=== PATIENT | male | born 1955 | race Caucasian/White ===

== ENCOUNTER 2018-03-26 19:47 | Emergency (ER) | payer MEDICAID, SELFPAY ==
[2018-03-26 19:48] VITALS: BP 173/92; PULSE 113; RESP 15; TEMP 37.9; O2SAT 96; BMI 25.9
--- NOTE | 2018-03-26 20:40 | RAD_ITS ---
STUDY: X-RAY CHEST REASON FOR EXAM: Male, 62 years old. Cough with fever. TECHNIQUE: Frontal and lateral views of the chest. COMPARISON: February 05, 2015 FINDINGS: The lungs are hyperexpanded and there is scarring at both bases. There is no demonstrated pleural abnormality. There is cardiomegaly with sternotomy wires unchanged. Normal mediastinum and sara. Normal visualized pulmonary arteries. Normal visualized aortic arch and descending thoracic aorta. Normal visualized thoracic spine. Normal visualized ribs, clavicles, and shoulders. There is no demonstrated abnormality of the visualized soft tissue structures of the upper abdomen. RAD/Chest PA and Lateral IMPRESSION: Stable cardiomegaly with hyperexpansion. No significant new or acute pathology. Electronically Signed: Viet Ricks MD at 21:06 EDT , Service support ,
[2018-03-26 20:58] VITALS: PULSE 107; RESP 23; TEMP 38.4; O2SAT 95
[2018-03-26 21:08] LABS: Absolute Lymphocyte Count 0.79 X10^3/ul (0.83-4.51); Absolute Neutrophil Count 16.1 X10^3/uL (2.0-7.7); Basophil# 0.01 X10^3/uL; Basophil% 0.1 % (0-1); Eosinophil# 0.11 X10^3/uL; Eosinophils% 0.6 % (0-5); Hematocrit 35.4 % (40-54); Hemoglobin 10.8 g/dl (13.0-16.5); Lymphocyte # 0.79 X10^3/ul (4.0); Lymphocyte % 4.4 % (19-41); Mean Corp Hgb Conc 30.5 g/gl (32-36); Mean Corpuscular Hgb 27.8 pg (27.0-32.0); Mean Corpuscular Volume 91.2 fL (80-94); Mean Platelet Vol. 8.9 fl (6.2-12.0); Monocyte# 0.91 X10^3/uL; Monocyte% 5.1 % (0-10); Neutrophil # 16.13 X10^3/uL (2.7-7.7); Neutrophil % 89.7 % (47-70); Platelet Count 298 K/mm3 (150-450); RBC Distribution Width CV 17.1 % (11.6-14.6); RBC Distribution Width SD 56.8 fl (35.1-43.9); Red Blood Count 3.88 M/mm3 (4.6-6.2)
[2018-03-26 21:09] LABS: POSITIVE COUNT NO; POSITIVE DIFFERENTIAL NO; POSITIVE MORPHOLOGY NO
[2018-03-26] MEDS: Acetaminophen 325 MG Tablet 650 MG PO (21:10)
[2018-03-26 21:19] LABS: Anion Gap 10 (5-15); BUN 20 mg/dL (7-18); BUN/Creat Ratio 23.8 RATIO (10-20); Calcium,Total 9.1 mg/dL (8.5-10.1); Chloride 106 mmol/L (98-107); Creatinine, Serum 0.84 mg/dL (0.70-1.30); EST Glomerular Filtration Rate 97 mL/min (>60); Est Glom Filt Rate - Afr Amer 118 mL/min (>60); Estimated Creatinine Clearance 91.73 ml/min; Glucose 105 mg/dL (74-106); Potassium 3.9 mmol/L (3.5-5.1); Sodium Level 138 mmol/L (136-145)
[2018-03-26 21:37] LABS: Lactic Acid 0.8 mmol/L (0.4-2.0)
[2018-03-26 22:07] VITALS: PULSE 98; RESP 26; O2SAT 94
--- NOTE | 2018-03-26 22:26 | ED.DCSUM_ITS ---
- ER Visit Summary Date of Service: 03/26/18 Chief Complaint: Fever, chills right-sided jaw pain History of Present Illness: The patient is a 62 M who presents with right-sided jaw and teeth pain for the past 2-3 days. He reports fever and chills today. He has had temperature documented to 101 degrees at home. He denies headache. He denies any visual, ocular auditory symptoms. He denies photophobia or stiffness of his neck or neck pain. He denies trouble with speech or swallowing. He has not noted change in voice. He denies any cardiac symptoms. He is status post bypass surgery January of this year and this was complicated by pericardial effusion requiring additional surgery. He does have a cough which is nonproductive. He is a former smoker. He denies nausea, vomiting or diarrhea. He denies dysuria, frequency, urgency or hematuria. He denies any skin lesions or rash over incision site. Past medical history coronary disease, hypertension, hypercholesteremia, CML and peripheral arterial disease. Most recent white count was 6.9 approximately 14 months ago. Physical Examination: Vital signs noted and blood pressure is 172/92, temperature 101.1, heart rate 107 and respiratory 27. Pulse ox 95% on room air. HEENT is remarkable poor dentition right lower molars and bicuspids. There is pain to palpation of the mandible. There are shotty submandibular nodes noted. Trachea is midline. There is no stridor with auscultation. There is no trismus. There is no evidence of Rodney's angina. Heart is rapid and regular without murmur, gallop or rub. Lungs reveal end inspiratory rales most likely secondary to COPD. Abdomen soft nontender. There is no asymmetry, swelling, discoloration, leg vein distention, palpable cords or tenderness along the distribution of the deep venous system. Neuro exam is nonfocal. Test Results: EKG reveals a sinus rhythm rate of 105 with left axis. [place] interval, QRS duration and QT interval are normal. White count is 18,000 with 89 segs no bands. Lactate is normal. Two-view chest x-ray interpreted by me as chronic changes with hyperaeration and no evidence of infiltrate, effusion or pneumothorax. Emergency Department Course and Treatment: Blood cultures were obtained and workup for sepsis was undertaken. Because he has a cough and rales were noted on auscultation chest x-ray was obtained. Treatment Plan: 900 mg of clindamycin IV piggyback and prescription for clindamycin 300 mg 4 times daily. Patient states his pharmacy does not open until Wednesday therefore a 24-hour supply of clindamycin was dispensed. Disposition: Discharge to home with outpatient dental follow-up Impression: 1. Dental pain secondary to apical abscess 2. Sepsis 3. Anemia nonspecified 4. History coronary disease 5. History of hypertension 6. History of hyperlipidemia 7. History of CML This note was generated with [employer] dictation software. It may contain incorrect words, spelling, and punctuation that were not noted in review of the chart prior to signing ED Disposition - Plan for ED Patient: Disposition: Home or Assisted Living Chief Complaint: Fever Instructions: ED Abscess Dental Prescriptions: Oxycodone HCl/Acetaminophen [Percocet 5/325] 1 tablet PO Q6H PRN PRN 3 Days #12 tablet PRN Reason: Pain Clindamycin HCl [Cleocin] 300 mg PO Q6H #28 capsule Referrals: Tripp Russell MD [Primary Care Provider] - Additional Instructions: Take medication as prescribed. Your prescriptions were electronically transmitted to [facility] located in [facility]. Return if you have facial swelling, change in voice, difficulty swallowing or any concerns. You need to follow-up with a dentist this coming week.
[2018-03-26] MEDS: oxyCODONE 5 MG Tablet PO (23:22)
[2018-03-26] MEDS: Clindamycin HCl 150 MG Capsule 1200 MG PO (23:23)
[2018-03-26 23:27] VITALS: BP 145/77; PULSE 92; RESP 19; O2SAT 95
--- NOTE | 2018-03-26 23:28 | ED.RN ---
pt given written and verbal discharge instructions and home going prescriptions. pt educated on home packs and electronic prescriptions. educated not to drive when taking oxyir. pt verbalizes understanding. iv d/c and covered with 4x4 gauze dressing and paper tape. pt dresses self and ambulates out of dept with family member.
== END 2018-03-26 23:33 | disposition home or self-care (01) ==
PROVIDERS: Emergency Provider Emergency Medicine; Family Provider Family Medicine; PCP Family Medicine
DX: A41.9 Sepsis, unspecified organism (principal); K04.7 Periapical abscess without sinus; I25.10 Atherosclerotic heart disease of native coronary artery without angina pectoris; I10 Essential (primary) hypertension; E78.00 Pure hypercholesterolemia, unspecified; D64.9 Anemia, unspecified; I73.9 Peripheral vascular disease, unspecified; Z79.82 Long term (current) use of aspirin; Z79.899 Other long term (current) drug therapy; Z85.6 Personal history of leukemia; Z95.1 Presence of aortocoronary bypass graft
CPT/HCPCS: 36415; 71046; 80048; 83605; 85025; 87040; 96365; 96366; 99285; J7040

== ENCOUNTER 2018-09-13 15:55 | Emergency (ER) | payer MEDICAID, SELFPAY ==
[2018-09-13 15:56] VITALS: BP 173/91; PULSE 87; RESP 12; TEMP 36.4; O2SAT 95; BMI 28.3
[2018-09-13 16:04] VITALS: BP 175/95; PULSE 87; RESP 15; O2SAT 98
--- NOTE | 2018-09-13 16:09 | EKG12_ITS ---
Test Reason : CP Blood Pressure : / mmHG Vent. Rate : 083 BPM Atrial Rate : 083 BPM P-R Int : 186 ms QRS Dur : 086 ms QT Int : 380 ms P-R-T Axes : 048 014 050 degrees QTc Int : 446 ms Normal sinus rhythm Normal ECG Confirmed by ADIN BARBOUR, DAVID ([id number]), publications editor JENNIFER BENJMAIN ([id number]) on 09/15/2018 1:05:09 PM Referred By: ROSEMARY Confirmed By:DAVID OAKLEY MD
--- NOTE | 2018-09-13 16:13 | RAD_ITS ---
STUDY: X-RAY CHEST REASON FOR EXAM: Male, 62 years old. Chest and left arm pain TECHNIQUE: Single AP portable view of the chest. COMPARISON: Prior study of 03/26/2018 FINDINGS: school lunch monitor leads are seen. The lungs are clear and expanded. There is no demonstrated pleural abnormality. The heart size is within normal limits. Status post sternotomy changes are present. Normal mediastinum and sara. Normal visualized pulmonary arteries. There are calcified plaques of the aortic arch. There are diffuse degenerative changes of the visualized thoracic spine. Normal visualized ribs, clavicles, and shoulders. There is no demonstrated abnormality of the visualized soft tissue structures of the upper abdomen. RAD/Chest 1 View (Portable) IMPRESSION: Status post sternotomy. Calcified plaques of the aortic arch. Degenerative changes of the thoracic spine. No acute cardiopulmonary disease process is seen. Electronically Signed: Danilo Bains MD at 17:00 EDT , Service support ,
[2018-09-13 16:16] VITALS: O2SAT 96
[2018-09-13 16:19] LABS: Absolute Lymphocyte Count 1.73 X10^3/ul (0.83-4.51); Absolute Neutrophil Count 5.7 X10^3/uL (2.0-7.7); Basophil# 0.02 X10^3/uL; Basophil% 0.2 % (0-1); Eosinophil# 0.22 X10^3/uL; Eosinophils% 2.6 % (0-5); Hematocrit 43.1 % (40-54); Hemoglobin 14.7 g/dl (13.0-16.5); Lymphocyte # 1.73 X10^3/ul (4.0); Lymphocyte % 20.5 % (19-41); Mean Corp Hgb Conc 34.1 g/gl (32-36); Mean Corpuscular Hgb 29.2 pg (27.0-32.0); Mean Corpuscular Volume 85.7 fL (80-94); Mean Platelet Vol. 9.6 fl (6.2-12.0); Monocyte# 0.73 X10^3/uL; Monocyte% 8.6 % (0-10); Neutrophil # 5.73 X10^3/uL (2.7-7.7); Neutrophil % 67.9 % (47-70); Platelet Count 217 K/mm3 (150-450); RBC Distribution Width CV 14.5 % (11.6-14.6); RBC Distribution Width SD 45.2 fl (35.1-43.9); Red Blood Count 5.03 M/mm3 (4.6-6.2); White Blood Count 8.5 K/mm3 (4.4-11.0)
[2018-09-13 16:21] LABS: POSITIVE COUNT NO; POSITIVE DIFFERENTIAL NO; POSITIVE MORPHOLOGY NO
[2018-09-13] MEDS: Aspirin 81 MG TAB.CHEW 324 MG PO (16:23)
[2018-09-13 17:15] LABS: Anion Gap 6 (5-15); BUN 14 mg/dL (7-18); BUN/Creat Ratio 12.8 RATIO (10-20); Calcium,Total 8.7 mg/dL (8.5-10.1); Chloride 105 mmol/L (98-107); Creatinine, Serum 1.09 mg/dL (0.70-1.30); EST Glomerular Filtration Rate 72 mL/min (>60); Est Glom Filt Rate - Afr Amer 87 mL/min (>60); Estimated Creatinine Clearance 70.69 ml/min; Glucose 139 mg/dL (74-106); Potassium 3.7 mmol/L (3.5-5.1); Sodium Level 135 mmol/L (136-145)
--- NOTE | 2018-09-13 17:59 | CASEMGMT ---
RN CM Assessment Introduced role of RN CM to patient.? Patient is alert, oriented and able?to participate in RN CM Assessment. ?Care providers, pharmacy, and demographics verified. Presentation: CP Re-Admit: No Barriers/Issues: None PCP: Tripp Russell Specialists: Onc- Evelyn Martin, Cardio- Dr Mckeon in [place]. States will switch to Dr Aguiar next week as insurance is changing. Preferred Pharmacy: [facility] Insurance: [employer] Benefit: Yes? ?LNOK: Girlfriend Kimberly Bribusalex LW/HPOA: Yes, HPOA- Girlfriend Kimberly [place] Living Arrangements:? Lives with girlfriend in a Home, 1 step to enter. ADL?s: Independent with ambulation and ADL's Transportation: Patient drives, drove to hospital and plans to drive on [place] DME: None HHC: None SNF: None Goal: Home DC PLAN: Home with no anticipated needs identified at this time. Solange Balderas RNCM
[2018-09-13 18:41] VITALS: BP 159/86; PULSE 77; RESP 18; O2SAT 96
[2018-09-13 19:00] VITALS: BP 150/77; PULSE 71; RESP 16; O2SAT 98
--- NOTE | 2018-09-13 19:03 | ED.VISSUMM ---
- ER Visit Summary Date of Service: 09/13/18 Chief Complaint: Chest pain History of Present Illness: The patient is a 62 M history of CAD with prior WI hypertension high cholesterol. Also intermittent A. fib. History of cardiac stents and prior quadruple bypass done at [facility] in January 2018. Patient states he gets intermittent sharp midsternal chest pain primarily with movement. Not associated with exertion nor any exertional shortness of breath. No history of DVT or PE. Today he had several episodes of sharp stabbing pain not associated with exertion and he thought he should get that evaluated. He does state that he has anxiety. He is currently on both Plavix and aspirin. He denies any nausea, diaphoresis or dyspnea associated with this sharp pain. Currently he is pain-free. Patient states he walks quite a bit and has had no recent exertional chest pain or dyspnea with walking. Physical Examination: Vital signs are stable. Blood pressure 175/95. Pulse ox 96% on room air no signs of hypoxia. HEENT exam unremarkable. Neck nontender no lymphadenopathy. Lungs clearbilaterally. Heart regular rate and rhythm no murmur. Rate about 80. Abdomen soft nontender normal bowel sounds no peritoneal signs. Chest wall nontender, no reproducible chest wall pain. No ecchymosis or bruising. Well-healed sternotomy incision. Extremities moves all 4. Calves nontender. Equal symmetrical radial pulses. 5 out of 5 music typographer strength. Dorsi plantar flexion intact. Neurologically is awake alert with no focal motor deficits. Test Results: CBC normal. Hemoglobin 14. Chemistries unremarkable. Troponin normal. EKG sinus rhythm rate of 83 with no acute signs of WI or ischemia. Portable chest x-ray shows well-healed sternotomy. Chronic changes no acute process. Emergency Department Course and Treatment: Repeat exam patient is doing well at 1902. He is symptom-free. He and I discussed all his test results. He wants to be discharged home. He will follow-up with his air traffic control manager from [place]. He knows to return if feeling worse. Treatment Plan: Continue his current medications. Follow-up with his air traffic control manager. Disposition: Discharge Impression: Chest pain uncertain etiology felt to be noncardiac History of CAD, cardiac stents and prior CABG. This note was generated with [employer] dictation software. It may contain incorrect words, spelling, and punctuation that were not noted in review of the chart prior to signing ED Disposition - Plan for ED Patient: Referrals: Tripp Russell MD [Primary Care Provider] -
--- NOTE | 2018-09-13 19:08 | ED.DCSUM_ITS ---
- ER Visit Summary Date of Service: 09/13/18 Chief Complaint: Chest pain History of Present Illness: The patient is a 62 M history of CAD with prior [place] hypertension high cholesterol. Also intermittent A. fib. History of cardiac stents and prior quadruple bypass done at [facility] in January 2018. Ruby treviño states he gets intermittent sharp midsternal chest pain primarily with movement. Not associated with exertion nor any exertional shortness of breath. No history of DVT or PE. Today he had several episodes of sharp stabbing pain not associated with exertion and he thought he should get that evaluated. He does state that he has anxiety. He is currently on both Plavix and aspirin. He denies any nausea, diaphoresis or dyspnea associated with this sharp pain. Currently he is pain-free. Patient states he walks quite a bit and has had no recent exertional chest pain or dyspnea with walking. Physical Examination: Vital signs are stable. Blood pressure 175/95. Pulse ox 96% on room air no signs of hypoxia. HEENT exam unremarkable. Neck nontender no lymphadenopathy. Lungs clearbilaterally. Heart regular rate and rhythm no murmur. Rate about 80. Abdomen soft nontender normal bowel sounds no peritoneal signs. Chest wall nontender, no reproducible chest wall pain. No ecchymosis or bruising. Well-healed sternotomy incision. Extremities moves all 4. Calves nontender. Equal symmetrical radial pulses. 5 out of 5 spa concierge strength. Dorsi plantar flexion intact. Neurologically is awake alert with no focal motor deficits. Test Results: CBC normal. Hemoglobin 14. Chemistries unremarkable. Troponin normal. EKG sinus rhythm rate of 83 with no acute signs of NH or ischemia. Portable chest x-ray shows well-healed sternotomy. Chronic changes no acute process. Emergency Department Course and Treatment: Repeat exam patient is doing well at 1902. He is symptom-free. He and I discussed all his test results. He wants to be discharged home. He will follow-up with his electric stove installer from [place]. He knows to return if feeling worse. Treatment Plan: Continue his current medications. Follow-up with his electric stove installer. Disposition: Discharge Impression: Chest pain uncertain etiology felt to be noncardiac History of CAD, cardiac stents and prior CABG. This note was generated with [employer] dictation software. It may contain incorrect words, spelling, and punctuation that were not noted in review of the chart prior to signing ED Disposition - Plan for ED Patient: Referrals: Tripp Russell MD [Primary Care Provider] -
--- NOTE | 2018-09-13 19:09 | DCINST.ED_ITS ---
ED Disposition - Plan for ED Patient: Disposition: Home or Assisted Living Instructions: ED Chest Pain Atypical Unkn Cause Additional Instructions: Continue your current medications. Call follow-up with your public aid eligibility assistant. Return if you are feeling worse such as chest heaviness or exertional chest pain or exertional shortness of breath. I do not feel that your chest pain today was cardiac in etiology.
[2018-09-13 19:16] VITALS: BP 150/77; PULSE 71; RESP 16; O2SAT 98
== END 2018-09-13 19:16 | disposition home or self-care (01) ==
PROVIDERS: Emergency Provider Emergency Medicine; Family Provider Family Medicine; PCP Family Medicine
DX: R07.9 Chest pain, unspecified (principal); I25.10 Atherosclerotic heart disease of native coronary artery without angina pectoris; I48.91 Unspecified atrial fibrillation; I10 Essential (primary) hypertension; E78.00 Pure hypercholesterolemia, unspecified; I73.9 Peripheral vascular disease, unspecified; Z79.02 Long term (current) use of antithrombotics/antiplatelets; Z79.82 Long term (current) use of aspirin; Z79.899 Other long term (current) drug therapy; I25.2 Old myocardial infarction; Z87.891 Personal history of nicotine dependence; Z95.5 Presence of coronary angioplasty implant and graft; Z95.1 Presence of aortocoronary bypass graft
CPT/HCPCS: 71045; 80048; 84484; 85025; 93005; 99284; A4216

== ENCOUNTER → 2018-10-03 07:08 | Outpatient (CLI) | payer MEDICARE, OTHER, SELFPAY ==
[2018-09-28 12:47] VITALS: BMI 28.1
[2018-10-03 07:50] LABS: Cholesterol 151 mg/dL (200); High Density Lipoprotein 30 mg/dL; Triglycerides 145 mg/dL; Very Low Density Lipoprotein 29 mg/dL (5-40)
[2018-10-04 16:07] LABS: Alkaline Phosphatase, Serum 158 IU/L (39-117); Bone Fraction 16 % (12-68); Liver Fraction 82 % (13-88)
[2018-10-05 11:48] LABS: Intestinal Fraction 2 % (0-18)
== END ==
PROVIDERS: Family Provider Family Medicine; PCP Family Medicine; Referring Provider Family Medicine; Visit Provider Family Medicine
DX: E78.00 Pure hypercholesterolemia, unspecified (principal); R89.9 Unspecified abnormal finding in specimens from other organs, systems and tissues; Z53.20 Procedure and treatment not carried out because of patient's decision for unspecified reasons
CPT/HCPCS: 36415; 80061; 84075; 84080

== ENCOUNTER → 2018-10-27 07:50 | Outpatient (CLI) | payer MEDICARE, OTHER, SELFPAY ==
[2018-09-28 12:47] VITALS: BMI 28.1
--- NOTE | 2018-10-27 07:52 | ECHOD_ITS ---
Reason For Study: S/P CABG Procedure This was a 2D Doppler, Color Flow transthoracic echocardiogram. Myocardial strain analysis was performed in this exam to aid in the assessment of cardiac function. Exam performed in department. Left Ventricle Normal LV size. Left ventricular systolic function is normal. The estimated ejection fraction is 65 %. Stage 1 diastolic dysfunction. No regional wall motion abnormalities noted. Right Ventricle Normal RV size. Normal systolic function. Atria Normal left atrium. Normal right atrium. Mitral Valve There is moderate mitral annular calcification. Mild (1+) eccentric mitral valve insufficiency. Tricuspid Valve Normal tricuspid valve. Mild tricuspid valve insufficiency. Pulmonary artery systolic pressure is 28 mmHg. Aortic Valve Trisinus/trileaflet aortic valve. Pulmonic Valve Normal pulmonic valve. Great Vessels Normal aortic root. The pulmonary artery is normal size. Normal inferior vena cava. Pericardium/Pleural No pericardial effusion. MMode/2D Measurements & Calculations LVIDd: 4.8 cm IVSd: 0.90 cm Ao root diam: 3.5 cm LVIDs: 3.3 cm LVPWd: 0.93 cm RVDd: 3.5 cm FS: 30.7 % LAV(MOD-bp): 48.4 ml LVAd ap4: 29.3 cm2 SV(MOD-sp4): 49.8 ml LAV(MOD-bp) Indexed: 23.3 ml/m2 EDV(MOD-sp4): 82.0 ml LAV(MOD-sp2): 52.2 ml EDV(sp4-el): 85.4 ml LAV(MOD-sp4): 44.6 ml LVAs ap4: 16.0 cm2 ESV(MOD-sp4): 32.2 ml ESV(sp4-el): 31.8 ml EF(MOD-sp4): 60.7 % EF(sp4-el): 62.8 % SV(sp4-el): 53.7 ml LA A4 area: 18.0 cm2 LA dimension(2D): 3.7 cm RA A4 area: 14.3 cm2 Time Measurements MV dec time: 0.25 sec Doppler Measurements & Calculations MV E max chinedu: 131.7 cm/sec Lat Peak E' Chinedu: 8.9 cm/sec Med Peak E' Chinedu: 7.7 cm/sec MV A max chinedu: 169.3 cm/sec E/E' lat: 14.7 E/E' med: 17.2 MV E/A: 0.78 MV V2 max: 184.3 cm/sec MV P1/2t max chinedu: 119.0 cm/sec Ao V2 max: 122.7 cm/sec MV max P.6 mmHg MV P1/2t: 89.4 msec Ao max P.0 mmHg MV V2 mean: 117.7 cm/sec MV mean P.1 mmHg MV dec slope: 389.7 cm/sec2 MV V2 VTI: 42.6 cm MVA(P1/2t): 2.5 cm2 LV V1 max: 99.7 cm/sec PA V2 max: 103.8 cm/sec TR max chinedu: 247.9 cm/sec LV V1 max P.0 mmHg TR max P.6 mmHg MV P1/2t-pr_phl: 88.9 msec Interpretation Summary Normal LV size. Left ventricular systolic function is normal. The estimated ejection fraction is 65 %. Stage 1 diastolic dysfunction. Mild tricuspid valve insufficiency. The global longitudinal strain is normal. The global longitudinal strain = -24.4 % (normal). Ordering Physician: David Aguiar Referring Physician: CLAUDIA BELL Performed By: Radha Barry RDCS
== END ==
PROVIDERS: Family Provider Family Medicine; PCP Family Medicine; Referring Provider Internal Medicine Cardiovascular Disease; Visit Provider Internal Medicine Cardiovascular Disease
DX: I31.4 Cardiac tamponade (principal); I31.3 Pericardial effusion (noninflammatory); Z95.1 Presence of aortocoronary bypass graft
CPT/HCPCS: 93306

== ENCOUNTER 2018-12-16 08:38 | Emergency (ER) | payer MEDICARE, OTHER, SELFPAY ==
[2018-09-28 12:47] VITALS: BMI 28.1
[2018-12-16 08:39] VITALS: BP 162/92; PULSE 77; RESP 18; TEMP 36.6; O2SAT 98; BMI 28.1
[2018-12-16 08:46] VITALS: PULSE 76; RESP 15; O2SAT 98
--- NOTE | 2018-12-16 08:47 | EKG12_ITS ---
Test Reason : DIZZINESS Blood Pressure : / mmHG Vent. Rate : 075 BPM Atrial Rate : 075 BPM P-R Int : 206 ms QRS Dur : 088 ms QT Int : 380 ms P-R-T Axes : 059 -03 022 degrees QTc Int : 424 ms Normal sinus rhythm Low voltage QRS (limb leads) Borderline ECG Confirmed by DARIAN BARBOUR, LIZ ([id number]), communications editor BOBBY BEY ([id number]) on 12/19/2018 1:43:23 PM Referred By: RANDY Confirmed By:LIZ FARMER MD
--- NOTE | 2018-12-16 08:47 | CT_ITS ---
STUDY: CT BRAIN WITHOUT CONTRAST REASON FOR EXAM: Male, 63 years old. vertigo RADIATION DOSAGE (If Supplied By Facility): CTDIvol = ( 60.81 ) mGy, DLP = ( 1089.89 ) mGycm TECHNIQUE: Transaxial CT imaging of the brain was performed without administration of intravenous contrast material. Individualized dose optimization techniques were used for this CT. COMPARISON: No relevant priors. FINDINGS: Normal soft tissue structures. Normal calvarium. Normal size ventricles and extra-axial spaces for the patient's age. Normal white matter tracts of the cerebral hemispheres. Normal basal ganglia and thalami. Normal brainstem. Normal cerebellum. There is no intracranial hemorrhage. There are no findings of an acute ischemic infarction. Normal visualized paranasal sinuses. CT/Brain/Head without Contrast IMPRESSION: Normal unenhanced CT scan of the brain. Electronically Signed: Michelle Wasserman MD at 9:58 EDT Tel , Service support ,
--- NOTE | 2018-12-16 08:51 | ED.DCSUM_ITS ---
- ER Visit Summary Date of Service: 12/16/18 Chief Complaint: Dizziness History of Present Illness: The patient is a 63 M presents to the emergency department with dizziness that he describes as a sensation of motion. He states he has been having it intermittently for the past 2 weeks. He states today was much worse. He states when he got out of bed and leaned over, he got the acute onset of spinning sensation. He states he has had some sinus problems lately. He denies any change in speech. He denies any change in vision. He denies any trouble with gait. The patient does have a history of paroxysmal atrial fibrillation. He also has a history of leukemia and prior CABG. He denies any fevers or chills. He denies any headache. He has not found anything that improve the symptoms. Physical Examination: Vital signs reviewed General: Well-nourished, well-developed Head: Normocephalic, atraumatic Eyes: Pupils equal and reactive, extraocular muscles intact Neck, supple, no lymphadenopathy Heart: Regular rate and rhythm Respiratory: No distress, clear bilaterally Abdomen: Soft, nontender, nondistended, no peritoneal signs Back: Nontender Extremities: Nontender, no edema, no cords Skin: Normal color no rash Neuro: Alert and oriented, no focal or lateralizing deficits Test Results: [] Emergency Department Course and Treatment: The patient symptoms do seem most consistent with peripheral vertigo. He has a positive rapid impulse test. He has no ataxia. He has no difficulty for abnormal filling movements. He only has a symptoms with change in position. I did obtain a head CT which was unrema rkable. Patient was given fluids and meclizine. He had improvement of his symptoms. He has a normal steady gait. At this point, I do feel it is safe for outpatient therapy. Will be prescribed a short burst of prednisone and meclizine. He was counseled on concerning symptoms and reasons to return. He will be discharged home. Treatment Plan: [] Disposition: Discharge Impression: 1. Vertigo This note was generated with [employer] software. It may contain incorrect words, spelling, and punctuation that were not noted in review of the chart prior to signing ED Disposition - Plan for ED Patient: Instructions: VERTIGO, Unspecified Prescriptions: Prednisone [Deltasone] 40 mg PO DAILY #10 tab Prescription Printed Meclizine HCl 25 mg PO TID PRN PRN #20 tab PRN Reason: Dizziness Prescription Printed Referrals: Ramon Song DO [Primary Care Provider] -
[2018-12-16] MEDS: Meclizine HCl 25 MG Tablet PO (08:53)
[2018-12-16] MEDS: 0.9% Normal Saline 1,000 ML 1000 ML IV (08:58)
[2018-12-16 09:07] LABS: Absolute Lymphocyte Count 1.12 X10^3/ul (0.83-4.51); Absolute Neutrophil Count 4.9 X10^3/uL (2.0-7.7); Basophil# 0.02 X10^3/uL; Basophil% 0.3 % (0-1); Eosinophil# 0.26 X10^3/uL; Eosinophils% 3.9 % (0-5); Hematocrit 42.6 % (40-54); Hemoglobin 14.3 g/dl (13.0-16.5); Lymphocyte # 1.12 X10^3/ul (4.0); Lymphocyte % 16.7 % (19-41); Mean Corp Hgb Conc 33.6 g/gl (32-36); Mean Corpuscular Hgb 29.1 pg (27.0-32.0); Mean Corpuscular Volume 86.8 fL (80-94); Mean Platelet Vol. 9.1 fl (6.2-12.0); Monocyte# 0.44 X10^3/uL; Monocyte% 6.6 % (0-10); Neutrophil # 4.85 X10^3/uL (2.7-7.7); Neutrophil % 72.4 % (47-70); Platelet Count 146 K/mm3 (150-450); RBC Distribution Width CV 14.3 % (11.6-14.6); RBC Distribution Width SD 44.9 fl (35.1-43.9); Red Blood Count 4.91 M/mm3 (4.6-6.2); White Blood Count 6.7 K/mm3 (4.4-11.0)
[2018-12-16 09:09] LABS: POSITIVE COUNT NO; POSITIVE DIFFERENTIAL NO; POSITIVE MORPHOLOGY NO
[2018-12-16 09:21] LABS: ALB/GLOB Ratio 1.2 RATIO (0.9-2.4); AST(SGOT) 17 U/L (15-37); Alanine Aminotransfer ALT/SGPT 21 U/L (16-61); Albumin, Serum 4.3 g/dL (3.2-5.0); Alkaline Phosphatase 187 U/L (45-117); Anion Gap 8 (5-15); BUN 17 mg/dL (7-18); BUN/Creat Ratio 15.9 RATIO (10-20); Calcium,Total 9.7 mg/dL (8.5-10.1); Chloride 104 mmol/L (98-107); Creatinine, Serum 1.07 mg/dL (0.70-1.30); EST Glomerular Filtration Rate 74 mL/min (>60); Est Glom Filt Rate - Afr Amer 89 mL/min (>60); Estimated Creatinine Clearance 71.07 ml/min; Globulin 3.6 g/dL (2.2-4.2); Glucose 112 mg/dL (74-106); Protein, Total 7.9 g/dL (6.4-8.2); Sodium Level 138 mmol/L (136-145)
[2018-12-16 10:07] VITALS: BP 143/83; PULSE 70
--- NOTE | 2018-12-16 10:09 | ED.RN ---
IV DC'ED, CATHETER INTACT, SMALL GAUZE DRESSING PLACED. DISCHARGE INSTRUCTIONS GIVEN TO AND REVIEWED WITH PATIENT, PATIENT DENIES QUESTIONS OR CONCERNS AND VOICES UNDERSTANDING OF DISCHARGE INSTRUCTIONS. PT AMBULATES OUT OF ROOM WITHOUT DIFFICULTY.
== END 2018-12-16 10:09 | disposition home or self-care (01) ==
LOC: ED 09:01
PROVIDERS: Emergency Provider Emergency Medicine; Family Provider Family Medicine; PCP Family Medicine
DX: R42 Dizziness and giddiness (principal); I10 Essential (primary) hypertension; I48.0 Paroxysmal atrial fibrillation; Z79.02 Long term (current) use of antithrombotics/antiplatelets; Z79.82 Long term (current) use of aspirin; Z79.52 Long term (current) use of systemic steroids; Z79.899 Other long term (current) drug therapy; Z85.6 Personal history of leukemia; Z87.891 Personal history of nicotine dependence; Z95.1 Presence of aortocoronary bypass graft
CPT/HCPCS: 70450; 80053; 85025; 93005; 96360; 99285; J7030; A4216

== ENCOUNTER → 2019-01-26 12:09 | Outpatient (CLI) | payer MEDICARE, OTHER, SELFPAY ==
[2019-01-05 08:35] VITALS: BMI 29.2
[2019-01-26 13:17] LABS: Anion Gap 8 (5-15); BUN 21 mg/dL (7-18); BUN/Creat Ratio 14.4 RATIO (10-20); Calcium,Total 9.5 mg/dL (8.5-10.1); Chloride 101 mmol/L (98-107); Creatinine, Serum 1.46 mg/dL (0.70-1.30); EST Glomerular Filtration Rate 51 mL/min (>60); Est Glom Filt Rate - Afr Amer 62 mL/min (>60); Glucose 145 mg/dL (74-106); Potassium 3.5 mmol/L (3.5-5.1); Sodium Level 136 mmol/L (136-145)
== END ==
PROVIDERS: Family Provider Family Medicine; PCP Family Medicine; Referring Provider Physician Assistant Medical; Visit Provider Physician Assistant Medical
DX: I10 Essential (primary) hypertension (principal)
CPT/HCPCS: 36415; 80048

== ENCOUNTER → 2019-01-31 10:56 | Outpatient (CLI) | payer MEDICARE, OTHER, SELFPAY ==
[2019-01-05 08:35] VITALS: BMI 29.2
--- NOTE | 2019-01-31 10:58 | ART_ITS ---
Reason For Study: PAOD Procedure A bilateral lower extremity continuous wave Doppler with analog waveform analysis,segmental pressures,and ankle brachial indexes with exercise. Left Segmental Pressures Left brachial= 157mmHg. Left thigh = 163mmHg. Left calf = 114mmHg. Left posterior tibial artery = 105mmHg. Left dorsalis pedis artery = 95mmHg. The left dorsalis pedis waveforms are biphasic. The left posterior tibial artery waveforms are biphasic. Right Segmental Pressures Right brachial= 157mmHg. Right thigh = 175mmHg. Right calf = 111mmHg. Right posterior tibial artery = 93mmHg. Right dorsalis pedis artery = 116mmHg. The right dorsalis pedis waveforms are monophasic. The right posterior tibial artery waveforms are monophasic. Indices The right ankle brachial index by the dorsalis pedis is 0.74. The right ankle brachial index by the posterior tibial artery is 0.59. The right post exercise ankle brachial index is 0.30. The left ankle brachial index by the dorsalis pedis is 0.61. The left ankle brachial index by the posterior tibial artery is 0.67. The left post exercise ankle brachial index is 0.26. Interpretation Summary Moderately severe arterial occlusive disease bilateral lower extremities Findings suggested to be more noted on the right than the left. Significantly abnormal exercise response bilaterally with indices that drop into the severe range bilaterally. Ordering Physician: Thomas Islas Referring Physician: Ramon Song M.D. Performed By: Destiny Quintana RVT
== END ==
PROVIDERS: Family Provider Family Medicine; PCP Family Medicine; Referring Provider Surgery; Visit Provider Surgery
DX: I73.9 Peripheral vascular disease, unspecified (principal); I77.9 Disorder of arteries and arterioles, unspecified
CPT/HCPCS: 93924

== ENCOUNTER → 2019-02-09 08:56 | Outpatient (CLI) | payer MEDICARE, OTHER, SELFPAY ==
[2019-02-02 07:57] VITALS: BMI 29.2
--- NOTE | 2019-02-09 08:58 | CDU_ITS ---
Reason For Study: carotid bruit Rt. Velocities/BP Lt. Velocities/BP Prox CCA 66.9/17.3 cm/sec. Prox CCA 91.7/21.3 cm/sec. Mid CCA 68.2/18.6 cm/sec. Mid CCA 95.6/25.2 cm/sec. Dist CCA 69.5/14.7 cm/sec. Dist CCA 89.0/23.9 cm/sec. Prox ICA 76.0/20.0 cm/sec. Prox ICA 77.3/18.6 cm/sec. Mid ICA 76.0/29.1 cm/sec. Mid ICA 65.6/19.9 cm/sec. Dist ICA 85.6/28.8 cm/sec. Dist ICA 68.2/23.9 cm/sec. Rt. ICA/CCA = 1.3. Lt. ICA/CCA = .8. Prox ECA 69.5/13.4 cm/sec. Prox ECA 86.4/10.8 cm/sec. Rt. Vert. 40.4/13.3 cm/sec. Lt. Vert. 34.3/9.5 cm/sec. Right Extracranial There is heterogeneous, smooth atherosclerotic plaque noted in the right common carotid artery. There is heterogeneous, irregular atherosclerotic plaque noted in the right internal carotid artery. There is intimal thickening but no significant atherosclerotic plaque noted in the right external carotid artery. Antegrade flow is noted in the right vertebral artery. There is heterogeneous, irregular atherosclerotic plaque noted in the right bulb. Left Extracranial There is heterogeneous, irregular atherosclerotic plaque noted in the left common carotid artery. There is heterogeneous, irregular atherosclerotic plaque noted in the left internal carotid artery. There is intimal thickening but no significant atherosclerotic plaque noted in the left external carotid artery. Antegrade flow is noted in the left vertebral artery. Procedure Carotid Duplex [id number]. The exam was diagnostic. Exam performed in department. Interpretation Summary Mild calcific plague right proximal internal carotid with <50% stenosis. <50% stenosis right external carotid Mild calcific plague at the proximal left internal carotid with <50% stenosis. <50% stenosis left external carotid Patent and antegrade vertebrals bilaterally Ordering Physician: Thomas sIlas Performed By: Isiah Sharpe RVT
--- NOTE | 2019-02-09 08:58 | US_ITS ---
STUDY: ABDOMINAL ULTRASOUND - RIGHT UPPER QUADRANT REASON FOR VISIT: Male, 63 years old. Abdominal pain TECHNIQUE: Ultrasound evaluation of the right upper quadrant was performed with real-time and static thomas-scale imaging. TECHNICAL QUALITY: Adequate. COMPARISON: None. FINDINGS: Liver: The liver measures 15.9 cm. There is normal echogenicity of the liver. The bile ducts are within normal limits. There is hepatic color flow. The direction of portal flow is hepatopetal. Echogenic focus right liver measuring 21 x 26 x 14 mm, sharply circumscribed margins, possible hemangioma, incompletely characterized on ultrasound. Gallbladder: Normal distended gallbladder. The gallbladder wall measures 3.3 mm. There is a negative sonographic Cruz's sign. There is no pericholecystic fluid. There are no gallstones. Common Bile Duct (C.B.D.): The common bile duct measures 5.3 mm. Pancreas: Obscured. Right Kidney: Normal size of the right kidney. The right kidney measures 12.2 cm. Normal renal cortex. The right cortex measures 1.7 cm. There is no demonstrated renal mass or cyst. There is no right hydronephrosis. US/Gallbladder IMPRESSION: Mild gallbladder wall thickening without any other secondary sonographic features of cholecystitis. No cholelithiasis. Nondilated biliary tree. 21 x 26 x 14 mm echogenic focus within the right liver, favoring hemangioma, incompletely characterized on ultrasound. Follow-up complete characterization with multiphase contrast-enhanced MRI or CT of the liver, hemangioma/mass protocol. Electronically Signed: Saad Bullard MD at 12:15 EDT Tel , Service support ,
== END ==
PROVIDERS: Family Provider Family Medicine; PCP Family Medicine; Referring Provider Surgery; Visit Provider Surgery
DX: I77.9 Disorder of arteries and arterioles, unspecified (principal); R09.89 Other specified symptoms and signs involving the circulatory and respiratory systems; R10.13 Epigastric pain
CPT/HCPCS: 76705; 93880

== ENCOUNTER → 2019-02-22 08:33 | Outpatient (CLI) | payer MEDICARE, OTHER, SELFPAY ==
[2019-02-02 07:57] VITALS: BMI 29.2
--- NOTE | 2019-02-22 08:36 | MRI_ITS ---
STUDY: MRI ABDOMEN WITH AND WITHOUT CONTRAST REASON FOR EXAM: Male, 63 years old. Abnormal ultrasound TECHNIQUE: Standardized fat and water weighted pulse sequences were obtained in all 3 orthogonal planes post contrast administration. 19 IV Dotarem was administered for the contrast portion of the examination. COMPARISON: Ultrasound dated February 09, 2019 FINDINGS: The visualized lung bases are unremarkable. The visualized portions of the heart are within normal limits. Liver is unremarkable. The previously noted lesion on ultrasound is not clearly identified on this study. No discrete hepatic lesion is noted. Normal gallbladder and extrahepatic biliary system. Normal spleen. Normal pancreas. Normal bilateral adrenal glands. Normal right kidney. Normal left kidney. Normal visualized stomach. Normal small intestine. Normal colon. The appendix is visualized and appears normal. There is diffuse atherosclerosis of the abdominal aorta, without a demonstrated aneurysm. Normal inferior vena cava. Normal retroperitoneum. Normal abdominal wall. There are diffuse degenerative changes of the visualized lumbar spine. MRI/MRI Abd WITH and W/O Contrast IMPRESSION: No discrete liver lesion identified; the findings on ultrasound may have been artifactual. Electronically Signed: Massiel Grossman MD at 19:48 EDT Tel , Service support ,
[2019-02-22] MEDS: 0.9% Normal Saline 1,000 ML 999 ML IV (08:54)
[2019-02-22 08:57] VITALS: BP 141/85; PULSE 65; RESP 16; O2SAT 98; BMI 29.4
== END ==
PROVIDERS: Family Provider Family Medicine; PCP Family Medicine; Referring Provider Surgery; Visit Provider Surgery
DX: R93.89 Abnormal findings on diagnostic imaging of other specified body structures (principal); R79.89 Other specified abnormal findings of blood chemistry
CPT/HCPCS: 96360; 74183; A9575; J7030; A4216

== ENCOUNTER → 2019-03-03 10:24 | Outpatient (CLI) | payer MEDICARE, OTHER, SELFPAY ==
[2019-02-22 08:57] VITALS: BMI 29.4
[2019-03-03 11:19] LABS: Anion Gap 6 (5-15); BUN 17 mg/dL (7-18); BUN/Creat Ratio 14.7 RATIO (10-20); Calcium,Total 9.5 mg/dL (8.5-10.1); Chloride 102 mmol/L (98-107); Creatinine, Serum 1.16 mg/dL (0.70-1.30); EST Glomerular Filtration Rate 67 mL/min (>60); Est Glom Filt Rate - Afr Amer 81 mL/min (>60); Glucose 103 mg/dL (74-106); Potassium 3.5 mmol/L (3.5-5.1); Sodium Level 135 mmol/L (136-145)
== END ==
PROVIDERS: Family Provider Family Medicine; PCP Family Medicine; Referring Provider Physician Assistant Medical; Visit Provider Physician Assistant Medical
DX: I10 Essential (primary) hypertension (principal)
CPT/HCPCS: 36415; 80048

== ENCOUNTER → 2019-04-13 08:01 | Outpatient (CLI) | payer MEDICARE, OTHER, SELFPAY ==
[2019-04-12 08:37] VITALS: BMI 29.4
[2019-04-13 09:57] LABS: AST(SGOT) 18 U/L (15-37); Alanine Aminotransfer ALT/SGPT 23 U/L (16-61); Albumin, Serum 4.2 g/dL (3.2-5.0); Alkaline Phosphatase 169 U/L (45-117); Bilirubin, Direct 0.16 mg/dL (0.00-0.30); Cholesterol 143 mg/dL (200); Globulin 3.4 g/dL (2.2-4.2); High Density Lipoprotein 31 mg/dL; Protein, Total 7.6 g/dL (6.4-8.2); Triglycerides 133 mg/dL; Very Low Density Lipoprotein 27 mg/dL (5-40)
== END ==
PROVIDERS: Family Provider Family Medicine; PCP Family Medicine; Referring Provider Physician Assistant Medical; Visit Provider Physician Assistant Medical
DX: E78.00 Pure hypercholesterolemia, unspecified (principal)
CPT/HCPCS: 36415; 80061; 80076

== ENCOUNTER 2019-06-02 17:14 | Emergency (ER) | payer MEDICARE, OTHER, SELFPAY ==
[2019-04-12 08:37] VITALS: BMI 29.4
[2019-06-02 17:15] VITALS: BP 167/83; PULSE 92; RESP 16; TEMP 37.1; O2SAT 97; BMI 29.2
--- NOTE | 2019-06-02 17:24 | ED.DCSUM_ITS ---
History of Present Illness Chief Complaint: Abscess Informant: Patient Onset: Days Context: Sudden Onset - Suddenly got worse after patient attempted to drain the abscess on his own Timing: Continuous Quality: Abscess left postauricular area Location: Left postauricular area Current Severity: Moderate Maximum Severity: Moderate Worsened by: Increased pain if patient lies on his left side Relieved by: Nothing Associated Symptoms: None Narrative: Patient is a 63-year-old male history of paroxysmal atrial fibrillation on Plavix not anticoagulant. He has not taken his dose of Plavix today because he is out of Plavix. He does have history hypertension. There is no history of diabetes. He denies fever, chills night sweats. He denies drainage from the ear or decreased hearing. He has no other HEENT complaints. Denies chest rheumatic fever, heart murmur or being immune suppressed. Prior similar symptoms: Yes Recent Illness/Hospitalization: No - Past Medical History (1) Claudication Status: Acute (2) Dyspnea on exertion Status: Acute (3) Atherosclerotic heart disease of [place] coronary artery without angina pectoris Status: Chronic Comment: CABG x 4 TALAVERA-LAD, SVG-D1, SVG-RPDA, SVG-RPLB 02/11/2018 (4) CML (chronic myelocytic leukemia) Status: Chronic (5) Essential (primary) hypertension Status: Chronic (6) Frequent unifocal premature ventricular contractions Status: Chronic (7) H/O coronary artery bypass surgery Status: Chronic Comment: CABG x 4 TALAVERA-LAD, SVG-D1, SVG-RPDA, SVG-RPLB 02/11/2018 (8) Hyperlipemia Status: Chronic (9) Paroxysmal atrial fibrillation Status: Chronic (10) Pericardial effusion with cardiac tamponade Status: Resolved Past Medical History - Allergies and Home Meds Allergies/Adverse Reactions: Allergies lisinopril Allergy (Severe, Verified 06/02/19 17:19) Swelling ANGIOEDEMA pseudoephedrine [From Sudafed] Allergy (Verified 06/02/19 17:19) Unknown Primary Care Physician: Ramon Song DO [Primary Care Provider] - Prior records reviewed: Yes Surgical History: appendectomy, - - Coronary stent placement ?2 Lives: Alone Smoking Status: Former smoker Alcohol: None Drugs: None - Family History Maternal Family History: Family History (Last Updated 02/02/19 @ 07:57 by Nora Vasquez) Mother Hypertension Father Hypertension Family History: Reports: Dementia Paternal Family History: Family History (Last Updated 02/02/19 @ 07:57 by Nora Vasquez) Mother Hypertension Father Hypertension Family History: Reports: Pulmonary Disease Review of Systems General: Denies: Chills, Fever, Malaise, Subjective, Sweats Eyes: Denies: Visual changes - bilaterally, Blurred Vision - bilaterally ENT: Reports: Left ear pain. Denies: Right ear pain, Rhinorrhea, Sore throat Cardiovascular: Denies: Chest pain, Palpitations Respiratory: Denies: Dyspnea, Cough, Dyspnea on exertion Gastrointestinal: Denies: Nausea, Vomiting Musculoskeletal: Denies: Neck pain Skin: Reports: Abscess. Denies: Abrasions, Wounds Hematologic: Denies: Easy bruising, Easy bleeding Allergy: Denies: Uticaria, Swelling of the mouth Physical Exam Vital Signs/Narrative: Vital Signs Temp Pulse Resp BP Pulse Ox 06/02/19 17:15 98.8 F 92 16 167/83 H 97 Inital Vital Signs reviewed: Yes General: Well nourished, Well developed, No Acute Distress Head: Normocephalic, Atraumatic Eyes: Perrl, EOMI. Negative for: Pale conjunctiva, Scleral icterus ENT: Moist mucous membranes, No rhinorrhea, TM's clear, - - There is an abscess noted posterior to the left ear. There is no cellulitis. Neck: Supple, Nontender Cardiovascular: Regular rate, Regular rhythm, No murmurs Respiratory: No distress, CTA bilaterally, Chest nontender Back: Normal Inspection Extremities: Nontender, No edema Skin: Normal color, No rash, No Trauma. Negative for: Cyanosis, Diaphoresis, Ja undice Neurological: Alert, Oriented x3, Cranial nerves II-XII grossly intact, Normal Strength, Normal Sensation Psychological: Normal affect, Normal Mood Diagnostic/Tx/Re-eval - Medical Decision Making Subcutaneous abscess versus infected sebaceous cyst. Patient was informed that he needs an incision and drainage. He was informed of risk benefits. Plan is I&D of abscess. Procedures Procedure(s): Patient was consented for incision and drainage of infected sebaceous cyst versus abscess. He was informed of risk benefits. He did sign consent. Patient was prepped draped sterile manner. The areas anesthetized by local patrician a field block. Using a 15 blade incision was made with significant bloody purulent thick drainage noted. The cavity was irrigated. There is noted to be a capsule. This would represent infectious sebaceous cyst. The capsule was removed. Since there is no evidence of cellulitis there is no indication for antibiotics. ED Disposition - Plan for ED Patient: Disposition: Home or Assisted Living Diagnosis: Infected sebaceous cyst Instructions: SEBACEOUS CYST, Infected (I and D) Referrals: Ramon Song DO [Primary Care Provider] - 3-5 Days if not improving
[2019-06-02 18:13] VITALS: RESP 18
== END 2019-06-02 18:13 | disposition home or self-care (01) ==
PROVIDERS: Emergency Provider Emergency Medicine; Family Provider Family Medicine; PCP Family Medicine
DX: L72.3 Sebaceous cyst (principal); I48.0 Paroxysmal atrial fibrillation; I25.10 Atherosclerotic heart disease of native coronary artery without angina pectoris; I10 Essential (primary) hypertension; E78.5 Hyperlipidemia, unspecified; Z95.1 Presence of aortocoronary bypass graft; Z95.5 Presence of coronary angioplasty implant and graft; Z79.02 Long term (current) use of antithrombotics/antiplatelets; Z79.82 Long term (current) use of aspirin; Z79.899 Other long term (current) drug therapy; Z87.891 Personal history of nicotine dependence
CPT/HCPCS: 69000; 99282

== ENCOUNTER → 2019-11-03 07:35 | Outpatient (CLI) | payer MEDICARE, OTHER, SELFPAY ==
[2019-10-31 15:24] VITALS: BMI 28.7
[2019-11-03 08:50] LABS: Hematocrit 42.7 % (40-54); Hemoglobin 14.4 g/dL (13.0-16.5); Mean Corp Hgb Conc 33.7 g/dL (32-36); Mean Corpuscular Hgb 28.9 pg (27.0-32.0); Mean Corpuscular Volume 85.6 fL (80-94); Mean Platelet Vol. 9.8 fl (6.2-12.0); Platelet Count 190 K/mm3 (150-450); RBC Distribution Width CV 14.2 % (11.6-14.6); RBC Distribution Width SD 43.4 fl (35.1-43.9); Red Blood Count 4.99 M/mm3 (4.6-6.2); White Blood Count 7.7 K/mm3 (4.4-11.0)
[2019-11-03 09:26] LABS: AST(SGOT) 15 U/L (15-37); Alanine Aminotransfer ALT/SGPT 12 U/L (16-61); Albumin, Serum 4.1 g/dL (3.2-5.0); Alkaline Phosphatase 163 U/L (45-117); Cholesterol 150 mg/dL (200); Globulin 3.3 g/dL (2.2-4.2); High Density Lipoprotein 37 mg/dL; Protein, Total 7.4 g/dL (6.4-8.2); Triglycerides 139 mg/dL; Very Low Density Lipoprotein 28 mg/dL (5-40)
[2019-11-03 09:39] LABS: ALB/GLOB Ratio 1.1 RATIO (0.9-2.4); AST(SGOT) 16 U/L (15-37); Alanine Aminotransfer ALT/SGPT 12 U/L (16-61); Alkaline Phosphatase 149 U/L (45-117); Anion Gap 6 (5-15); BUN 14 mg/dL (7-18); BUN/Creat Ratio 14.9 RATIO (10-20); Calcium,Total 9.5 mg/dL (8.5-10.1); Chloride 104 mmol/L (98-107); Creatinine, Serum 0.94 mg/dL (0.70-1.30); EST Glomerular Filtration Rate 85 mL/min (>60); Est Glom Filt Rate - Afr Amer 103 mL/min (>60); Globulin 3.5 g/dL (2.2-4.2); Glucose 102 mg/dL (74-106); PSA,Total - Annual Screen 0.57 ng/mL (0.00-4.00); Potassium 3.4 mmol/L (3.5-5.1); Protein, Total 7.5 g/dL (6.4-8.2); Sodium Level 137 mmol/L (136-145)
== END ==
PROVIDERS: Internal Medicine Cardiovascular Disease; PCP Student in an Organized Health Care Education/Training Program; Referring Provider Student in an Organized Health Care Education/Training Program; Visit Provider Student in an Organized Health Care Education/Training Program
DX: E78.00 Pure hypercholesterolemia, unspecified (principal); I10 Essential (primary) hypertension; N40.1 Benign prostatic hyperplasia with lower urinary tract symptoms; C92.10 Chronic myeloid leukemia, BCR/ABL-positive, not having achieved remission; I25.10 Atherosclerotic heart disease of native coronary artery without angina pectoris; I97.89 Other postprocedural complications and disorders of the circulatory system, not elsewhere classified; I48.91 Unspecified atrial fibrillation; I77.9 Disorder of arteries and arterioles, unspecified; I73.9 Peripheral vascular disease, unspecified; E78.5 Hyperlipidemia, unspecified; R06.09 Other forms of dyspnea; R42 Dizziness and giddiness; Z12.5 Encounter for screening for malignant neoplasm of prostate
CPT/HCPCS: 36415; 80053; 80061; 80076; 84153; 85027; G0103

== ENCOUNTER 2020-01-08 12:38 | Emergency (ER) | payer MEDICARE, OTHER, SELFPAY ==
[2019-11-09 06:58] VITALS: BMI 28.7
[2020-01-08 12:40] VITALS: BP 163/85; PULSE 78; RESP 18; TEMP 36.3; O2SAT 99; BMI 28.5
--- NOTE | 2020-01-08 12:51 | ED.VIS.GEN ---
History of Present Illness Chief Complaint: Lower Extremity Injury Informant: Patient Onset: Days Context: Gradual Onset Timing: Intermittent Current Severity: Moderate Maximum Severity: Moderate Narrative: The patient is a 64-year-old male with medical history significant for coronary vascular disease and peripheral vascular disease that presents to the emergency department with left lower extremity injury. The patient states about 8 to 10 days ago, he stepped on a cinder block. He states that it twisted and struck him on the anterior pineda. He did suffer an abrasion. He states from time to time, when he walks, he will get pain in the anterior pineda. He noticed that the edges were a little more red over the past 2 days. He denies any fevers or chills. He states he is otherwise been in his normal state of health. He has had revascularization of his lower extremities and currently denies any claudication symptoms. Prior similar symptoms: No Recent Illness/Hospitalization: No Past Medical History - Allergies and Home Meds Allergies/Adverse Reactions: Allergies lisinopril Allergy (Severe, Verified 01/08/20 12:42) Swelling ANGIOEDEMA pseudoephedrine [From Sudafed] Allergy (Verified 01/08/20 12:42) Unknown Primary Care Physician: Indio Kruger DO [Primary Care Provider] - Prior records reviewed: Yes Past Medical History: - - Coronary vascular disease, peripheral vascular disease, hypertension, hyperlipidemia Surgical History: appendectomy, - - Coronary stent placement ?2 Smoking Status: Former smoker - Family History Maternal Family History: Family History (Last Reviewed 11/09/19 @ 09:06 by Ewelina Ordonez) Mother Hypertension Father Hypertension Family History: Reports: Dementia Paternal Family History: Family History (Last Reviewed 11/09/19 @ 09:06 by Ewelina Ordonez) Mother Hypertension Father Hypertension Family History: Reports: Pulmonary Disease Review of Systems General: Denies: Chills, Fever, Sweats Eyes: Denies: Visual changes - bilaterally, Diplopia ENT: Denies: Rhinorrhea, Sore throat Cardiovascular: Denies: Chest pain, Palpitations Respiratory: Denies: Dyspnea, Cough, Dyspnea on exertion Gastrointestinal: Denies: Abdominal pain, Nausea, Vomiting, Diarrhea, Melena, Hematochezia Genitourinary: Denies: Dysuria, Hematuria, Frequency Musculoskeletal: Denies: Back pain, Extremity Pain Skin: Denies: Rash, Wounds Neurological: Denies: Headache, Weakness, Numbness Physical Exam Vital Signs/Narrative: Vital Signs Temp Pulse Resp BP Pulse Ox 01/08/20 12:40 97.3 F L 78 18 163/85 H 99 Inital Vital Signs reviewed: Yes General: Well nourished, Well developed, No Acute Distress Head: Normocephalic, Atraumatic Eyes: Perrl, EOMI ENT: Moist mucous membranes, No rhinorrhea Neck: Supple, Nontender Cardiovascular: Regular rate, Regular rhythm, No murmurs Respiratory: No distress, CTA bilaterally, Chest nontender Abdomen: Soft, Nontender, Nondistended, Normal bowel sounds Back: Nontender, Normal Inspection Extremities: No edema, Tenderness - Anterior abrasion of the left pineda with mild erythema of the wound edges. Normal pulses in the lower extremities. No tenderness in the calf. Skin: Normal color, No rash Neurological: Alert, Oriented x3, Cranial nerves II-XII grossly intact, Normal Strength, Normal Sensation Psychological: Normal affect, Normal Mood Diagnostic/Tx/Re-eval - Medical Decision Making Patient presents with abrasion with some mild cellulitis of the wound edge. His compartments are soft. Plain films were obtained. There is no evidence of acute fracture. With the patient's history of underlying vascular disease, I am going to cover him with antibiotics. Bacitracin dressing was applied. There is no streaking or lymphangitis. This is all localized to the wound. I do feel that he is safe for outpatient therapy. He is comfortable with this plan of care. Impression 1. Left anterior tibial abrasion with cellulitis ED Disposition - Plan for ED Patient: Instructions: ED Cellulitis Prescriptions: Cephalexin [Keflex] 500 mg PO Q6 #40 cap Prescription Printed Referrals: Indio Kruger DO [Primary Care Provider] -
--- NOTE | 2020-01-08 13:10 | RAD_ITS ---
STUDY: X-RAY - LEFT TIBIA AND FIBULA REASON FOR EXAM: Male, 64 years old. LACERATION TO ANTERIOR LEG FROM CEMENT BLOCK 10 DAY AGO, STILL HAVING PAIN TECHNIQUE: 3 view(s) of the tibia and fibula were obtained. COMPARISON: None. FINDINGS: Normal visualized tibia. Normal visualized fibula. The soft tissue structures are unremarkable. RAD/Tibia & Fibula 2 Views IMPRESSION: Normal x-ray examination of the tibia and fibula. Electronically Signed: Ld Nicholson MD at 13:47 EDT , Service support ,
== END 2020-01-08 13:40 | disposition home or self-care (01) ==
LOC: ED 13:37
PROVIDERS: Emergency Provider Emergency Medicine; PCP Student in an Organized Health Care Education/Training Program
DX: S80.812A Abrasion, left lower leg, initial encounter (principal); L03.116 Cellulitis of left lower limb; W22.09XA Striking against other stationary object, initial encounter; Y93.9 Activity, unspecified; Y92.9 Unspecified place or not applicable; I73.9 Peripheral vascular disease, unspecified; I10 Essential (primary) hypertension; E78.5 Hyperlipidemia, unspecified; Z95.5 Presence of coronary angioplasty implant and graft; Z87.891 Personal history of nicotine dependence
CPT/HCPCS: 73590; 99282

== ENCOUNTER 2020-03-25 13:51 | Emergency (ER) | payer MEDICARE, OTHER, SELFPAY ==
[2020-03-25 13:52] VITALS: BP 140/92; PULSE 85; RESP 18; TEMP 36.3; O2SAT 97; BMI 29.4
--- NOTE | 2020-03-25 14:43 | EKG12_ITS ---
Test Reason : Blood Pressure : / mmHG Vent. Rate : 076 BPM Atrial Rate : 076 BPM P-R Int : 196 ms QRS Dur : 090 ms QT Int : 428 ms P-R-T Axes : 055 003 022 degrees QTc Int : 481 ms Sinus rhythm with frequent Premature ventricular complexes Low voltage QRS Prolonged QT Abnormal ECG Confirmed by ADIN BARBOUR, DAVID ([id number]), greeting card editor JENNIFER BENJAMIN ([id number]) on 03/27/2020 9:35:45 AM Referred By: JUSTUS Confirmed By:DAVID OAKLEY MD
--- NOTE | 2020-03-25 14:43 | CT_ITS ---
STUDY: CT BRAIN WITHOUT CONTRAST REASON FOR EXAM: Male, 64 years old. DIZZINESS X 2-3 HRS, HTN, HX CLL-CHEMO RADIATION DOSAGE (If Supplied By Facility): CTDIvol = ( 60.81 ) mGy, DLP = ( 1181.11 ) mGycm TECHNIQUE: Transaxial CT imaging of the brain was performed without administration of intravenous contrast material. Individualized dose optimization techniques were used for this CT. COMPARISON: 12/16/2018 FINDINGS: Normal soft tissue structures. Normal calvarium. Normal size ventricles and extra-axial spaces for the patient''s age. Normal white matter tracts of the cerebral hemispheres. Normal basal ganglia and thalami. Normal brainstem. Normal cerebellum. There is no intracranial hemorrhage. There are no findings of an acute ischemic infarction. Normal visualized paranasal sinuses. CT/Brain/Head without Contrast IMPRESSION: Normal unenhanced CT scan of the brain. Electronically Signed: Gennaro Carranza DO at 15:30 EDT Tel [phone], Service support ,
[2020-03-25 14:55] VITALS: BP 139/76; BP 140/82; BP 150/75; PULSE 74; PULSE 83; PULSE 89
[2020-03-25 15:05] LABS: Absolute Lymphocyte Count 1.14 X10^3/uL (0.83-4.51); Absolute Neutrophil Count 5.7 X10^3/uL (2.0-7.7); Basophil# 0.03 X10^3/uL; Basophil% 0.4 % (0-1); Eosinophils% 1.3 % (0-5); Hematocrit 45.3 % (40-54); Hemoglobin 14.9 g/dL (13.0-16.5); Lymphocyte # 1.14 X10^3/ul (4.0); Lymphocyte % 15.1 % (19-41); Mean Corp Hgb Conc 32.9 g/dL (32-36); Mean Corpuscular Hgb 27.6 pg (27.0-32.0); Mean Corpuscular Volume 83.9 fL (80-94); Mean Platelet Vol. 9.5 fl (6.2-12.0); Monocyte# 0.59 X10^3/uL; Monocyte% 7.8 % (0-10); NRBC Flagged by Analyzer 0 % (0-5); Neutrophil # 5.66 X10^3/uL (2.7-7.7); Neutrophil % 74.7 % (47-70); Platelet Count 206 K/mm3 (150-450); RBC Distribution Width CV 14.3 % (11.6-14.6); RBC Distribution Width SD 43.7 fl (35.1-43.9); White Blood Count 7.6 K/mm3 (4.4-11.0)
[2020-03-25] MEDS: Meclizine HCl 25 MG Tablet PO (15:12)
[2020-03-25] MEDS: Ondansetron 4 MG/2 ML Vial IV (15:12)
[2020-03-25 15:19] LABS: ALB/GLOB Ratio 1.2 RATIO (0.9-2.4); AST(SGOT) 18 U/L (15-37); Alanine Aminotransfer ALT/SGPT 19 U/L (16-61); Albumin, Serum 4.3 g/dL (3.2-5.0); Alkaline Phosphatase 166 U/L (45-117); Anion Gap 6 (5-15); BUN 22 mg/dL (7-18); BUN/Creat Ratio 20.2 RATIO (10-20); Calcium,Total 9.4 mg/dL (8.5-10.1); Chloride 102 mmol/L (98-107); Creatinine, Serum 1.09 mg/dL (0.70-1.30); EST Glomerular Filtration Rate 72 mL/min (>60); Est Glom Filt Rate - Afr Amer 87 mL/min (>60); Estimated Creatinine Clearance 68.83 ml/min; Globulin 3.7 g/dL (2.2-4.2); Glucose 99 mg/dL (74-106); Potassium 3.3 mmol/L (3.5-5.1); Sodium Level 135 mmol/L (136-145)
--- NOTE | 2020-03-25 15:42 | ED.DCSUM_ITS ---
- ER Visit Summary Date of Service: 03/25/20 Chief Complaint: Lightheaded History of Present Illness: The patient is a [address] Martin for CML. He is concerned because he has a rash from head to toe that started 2 days ago. He talked with at his oncologist and was prescribed a Medrol Dosepak. He is concerned this will interfere with his other medications. He has not started this yet. He denies any itching. Patient reports that approximately 3 hours ago he became lightheaded. He gets worse when he stands. He is not passed out. He denies any chest pain or difficulty breathing. No fever or chills. He reports that he did have a vague sense of movement while driving on the way here. He denies any slurred speech. No change in his vision. No numbness or weakness. No ringing or roaring in his ears. No change in his hearing. No ear pain. Physical Examination: Vitals: Stable. Afebrile. General: Well-nourished and well-developed. Head: Normocephalic atraumatic. HEENT: TMs are within normal limits bilaterally. Neck: Supple, no lymphadenopathy. No JVD. Nontender. Cardiovascular: Regular rate and rhythm. No murmurs. Respiratory: No respiratory distress. Clear to auscultation bilaterally. Abdominal: Soft, nontender, nondistended, normal bowel sounds. No guarding, rebound, or peritoneal signs. Back: Nontender. Extremities: Nontender, no edema. Skin: Normal color, no rash. Neurologic: Alert and oriented ?3. Cranial nerves II through XII are intact. Normal strength and sensation. Horizontal nystagmus with gaze to the right only. Psych: Normal affect. Test Results: EKG is sinus at 76 with PVCs and a QTC of 481. This is the only change from prior. CBC shows segmented neutrophils of 75 lymphocytes 15. Chem- 7 shows a sodium 135, potassium 3.3, BUN 22, BUN/creatinine ratio of 20.2. LFTs show total bili of 1.9. This was 1.5 in October. Alk phos is 166. This is ranged from 149?169 since March 2019. Clinical Impression(s) from Imaging Studies Brain CT 03/25/20 14:43 IMPRESSION: Normal unenhanced CT scan of the brain. Electronically Signed: Gennaro Carranza DO at 15:30 EDT Tel [phone], Service support , Emergency Department Course and Treatment: Patient had negative orthostatic vital signs. He was given a dose of Zofran IV. He was given Antivert p.o. and K-Dur p.o. He is resting comfortably. Treatment Plan: Patient feels much improved following the Antivert. He will be discharged with instructions to push fluids. He will be placed on K-Dur and Antivert at home. I discussed with him that I think that there are no contraindications to the Medrol Dosepak. Follow-up with his primary care physician in 1 to 2 days if not improving. Return to the emergency department for any worsening symptoms. Disposition: To home in improved and stable condition. Impression: 1 1. Vertigo. 2. Hypokalemia on hydrochlorothiazide. 3. PVCs. 4. QTC of 481. This note was generated with [employer]ation software. It may contain incorrect words, spelling, and punctuation that were not noted in review of the chart prior to signing ED Disposition - Plan for ED Patient: Disposition: Home or Assisted Living Instructions: ED Potassium Deficiency, ED Vertigo Unspecified Prescriptions: Meclizine HCl [Antivert] 25 mg PO 4X/DAY PRN PRN #20 tab PRN Reason: Dizziness Prescription Printed Potassium Chloride [K-Dur] 40 meq PO DAILY #10 tab Prescription Printed Referrals: Indio Kruger DO [Primary Care Provider] - 1-2 Days if not improving
[2020-03-25 16:06] VITALS: BP 124/71; PULSE 67; RESP 12; O2SAT 98
== END 2020-03-25 16:15 | disposition home or self-care (01) ==
LOC: ED 15:31
PROVIDERS: Emergency Provider Emergency Medicine; PCP Student in an Organized Health Care Education/Training Program
DX: R42 Dizziness and giddiness (principal); E87.6 Hypokalemia; I49.3 Ventricular premature depolarization; Z79.82 Long term (current) use of aspirin
CPT/HCPCS: 70450; 80053; 85025; 93005; 96361; 96374; 99284; A4216; J2405

== ENCOUNTER → 2020-11-07 07:18 | Outpatient (CLI) | payer MEDICARE, OTHER, SELFPAY ==
[2020-10-31 09:21] VITALS: BMI 29.7
[2020-11-07 08:00] LABS: AST(SGOT) 21 U/L (15-37); Alanine Aminotransfer ALT/SGPT 20 U/L (16-61); Albumin, Serum 4.1 g/dL (3.2-5.0); Alkaline Phosphatase 155 U/L (45-117); Bilirubin, Direct 0.19 mg/dL (0.00-0.30); Cholesterol 149 mg/dL (200); Globulin 3.3 g/dL (2.2-4.2); High Density Lipoprotein 35 mg/dL; Protein, Total 7.4 g/dL (6.4-8.2); Triglycerides 155 mg/dL; Very Low Density Lipoprotein 31 mg/dL (5-40)
== END ==
PROVIDERS: PCP Student in an Organized Health Care Education/Training Program; Referring Provider Internal Medicine Cardiovascular Disease; Visit Provider Internal Medicine Cardiovascular Disease
DX: E78.00 Pure hypercholesterolemia, unspecified (principal)
CPT/HCPCS: 36415; 80061; 80076

== ENCOUNTER 2020-12-13 13:56 | Emergency (ER) | payer MEDICARE, OTHER, SELFPAY ==
[2020-10-31 09:21] VITALS: BMI 29.7
[2020-12-13 13:57] VITALS: BP 157/89; PULSE 72; RESP 15; TEMP 36.2; O2SAT 98; BMI 28.7
--- NOTE | 2020-12-13 14:15 | RAD_ITS ---
STUDY: X-RAY CHEST REASON FOR EXAM: Male, 65 years old. chest pain TECHNIQUE: 1 view COMPARISON: 09/13/2018 FINDINGS: The lungs are clear and expanded. There is no demonstrated pleural abnormality. Normal size heart. Normal mediastinum and sara. Normal visualized pulmonary arteries. Normal visualized aortic arch and descending thoracic aorta. Normal visualized thoracic spine. Normal visualized ribs, clavicles, and shoulders. There is no demonstrated abnormality of the visualized soft tissue structures of the upper abdomen. RAD/Chest 1 View (Portable) IMPRESSION: Normal x-ray examination of the chest unchanged since 09/13/2018. Electronically Signed: Parvez Feng, at 14:37 EDT Tel , Service support ,
--- NOTE | 2020-12-13 14:15 | EKG12_ITS ---
Test Reason : CP Blood Pressure : / mmHG Vent. Rate : 071 BPM Atrial Rate : 071 BPM P-R Int : 210 ms QRS Dur : 094 ms QT Int : 410 ms P-R-T Axes : 059 011 054 degrees QTc Int : 445 ms Sinus rhythm with 1st degree A-V block Low voltage QRS Poor R wave progression Borderline ECG Confirmed by DARIAN BARBOUR, LIZ ([id number]), school photograph editor JENNIFER BENJAMIN ([id number]) on 12/17/2020 7:01:13 AM Referred By: Confirmed By:LIZ FARMER MD
--- NOTE | 2020-12-13 14:16 | EDS_ITS ---
HPI History of Present Illness Chief Complaint: Chest Pain Detail of Chief Complaint: Patient presents with chest discomfort that started 10 AM yesterday morning Informant: patient Narrative Narrative: Patient presents with chest discomfort that started yesterday morning around 10 AM. Initially the pain was sharp and stabbing and retrosternal. Patient broke out into a cold sweat. Pain lasted about a half an hour then resolved. Has had intermittent chest tightness or discomfort since that time. Currently rates his pain a 1 or 2 out of 10. Today noticed some discomfort in his left forearm and wrist and became concerned. He does have history of [place] about 8 years ago and he had four-vessel CABG 3 years ago. Patient also has 2 cardiac stents. He denies recent travel or surgery. He denies recent illness. He has been immunized against COVID-19. Prior Similar Symptoms: No CVD Risk Factors: Positive for Hypertension and Hypercholesterolemia PE Risk Factors: Negative for Recent Travel/Surgery, Recent Immobilization, Prior DVT or PE and Cancer TAD Risk Factors: Positive for Hypertension; Negative for Marfan's Syndrome and Family History PFSH [facility] Medical History Atherosclerotic heart disease of [place] coronary artery without angina pectoris Claudication Claudication CML (chronic myelocytic leukemia) Essential (primary) hypertension Fever and chills Frequent unifocal premature ventricular contractions Hyperlipemia Nonproductive cough Pericardial effusion with cardiac tamponade (02/2018) Peripheral arterial occlusive disease Peripheral vascular occlusive disease Postoperative atrial fibrillation (01/2018) Sweating Home Medications aspirin 81 mg PO DAILY@0800 03/26/18 [History Last Taken 03/25/20] tamsulosin 0.4 mg capsule 0.4 mg PO DAILY cap 10/31/19 [History Last Taken 03/25/20] amlodipine 10 mg tablet 10 mg PO DAILY #90 tab 12/27/19 [Rx Last Taken 03/25/20] meclizine 25 mg PO 4X/DAY PRN PRN #20 tab 03/25/20 [Rx Last Taken Unknown] atorvastatin 20 mg tablet 20 mg PO QHS #90 tab 04/19/20 [Rx Last Taken Unknown] hydrochlorothiazide 25 mg tablet 25 mg PO DAILY #90 tab 10/28/20 [Rx Last Taken Unknown] finasteride 5 mg tablet 5 mg PO DAILY tab 10/31/20 [History Last Taken Unknown] carvedilol [Coreg] 25 mg PO BID 12/13/20 [History Last Taken Unknown] clopidogrel [Plavix] 75 mg PO DAILY 12/13/20 [History Last Taken Unknown] Allergy/AdvReac Type Severity Reaction Status Date / Time lisinopril Allergy Severe Swelling Verified 10/31/20 09:22 pseudoephedrine Allergy Unknown Verified 10/31/20 09:22 [From [facility]] Family History Mother Hypertension Father Hypertension Surgical History H/O coronary artery bypass surgery (02/11/18) History of angioplasty of peripheral vessel (11/30/16) History of appendectomy History of coronary artery stent placement (11/2013) Social History Smoking Status: Former smoker alcohol intake: never substance use type: does not use ROS ROS ED Review of Systems ROS Unobtainable: other Constitutional Constitutional ED: Reports lethargy; Denies chills, fever(s), sweats or weight loss Eyes Eyes: Denies blurry vision, change in vision or diplopia ENT ENT ED: Denies rhinorrhea or sore throat Cardiovascular Cardiovascular: Reports chest pain; Denies orthopnea, palpitations or racing heartbeat Respiratory/Chest Respiratory/Chest: Reports dyspnea and dyspnea on exertion; Denies cough, orthopnea or sputum Gastrointestinal Gastrointestinal: Denies abdominal pain, diarrhea, nausea or vomiting Genitourinary Genitourinary ED: Denies dysuria, hematuria or urinary frequency Musculoskeletal Musculoskeletal: Denies arthralgias, back pain, myalgias or neck pain Integumentary Denies abscess, Abrasions or rash Neurologic Neurologic: Denies headache(s) or weakness Psychiatric Psychiatric: Denies anxiety, depression or suicidal thoughts Endocrine Endocrinology: Denies polydipsia, polyphagia or polyuria Hematologic/Lymphatic Hematologic/Lymphatic: Denies easy bleeding, easy bruising or lymphadenopathy Allergic/Immunologic Allergic/Immunologic ED: Denies mouth swelling, tongue swelling or urticaria EXAM Physical Exam Const Vital Signs: 12/13/20 13:57 12/13/20 14:09 12/13/20 14:17 Temperature 97.1 F L Temperature Source Temporal Pulse Rate 72 Respiratory Rate 15 Respiratory Effort Normal Non-Labored Blood Pressure 157/89 H Blood Pressure Mean 111 Pulse Ox 98 97 Oxygen Delivery Method Room Air Room Air 12/13/20 14:57 12/13/20 15:00 Temperature Temperature Source Pulse Rate 70 Respiratory Rate 16 16 Respiratory Effort Blood Pressure 159/87 H Blood Pressure Mean 111 Pulse Ox 98 Oxygen Delivery Method Room Air Positive well nourished and well developed General Appearance ED: well developed and NAD HEENT Reports TM's clear and moist mucous membranes normocephalic and atraumatic; Negative for trauma or tenderness Tympanic Membrane ED: Yes TM's clear Eyes PERRL and EOMs intact bilaterally General Eye ED: Negative for pale conjunctiva or scleral icterus Neck no lymphadenopathy, supple and no JVD General: Negative for tenderness Chest Wall inspection of chest normal and palpation of chest normal Chest: Negative for tenderness Resp normal respiratory effort and clear to auscultation bilaterally Effort and Inspection: Negative for respiratory distress or pain with movement Auscultation: Negative for rhonchi, wheezes or diminished lung sounds Cardio regular rate, regular rhythm, S1 normal heart sound, S2 normal heart sound and no murmurs Peripheral Pulses: pulses 2+ throughout GI normal to inspection, nondistended, normoactive bowel sounds, soft to palpation, non-tender, non-distended and no masses Back/Spine no CVA tenderness and no thoracic nor lumbar tenderness Extremity normal to inspection General Extremety ED: Negative for edema General Extremity: Negative for edema Neuro oriented x3, CN's II-XII intact bilaterally, no sensory deficits noted and gait normal Sensorium / Orientation: awake, alert, oriented to person, oriented to place and oriented to time Motor Exam: strength 5/5 throughout and strength abnormal Psych mental status grossly normal Skin no rashes or lesions noted and no wounds Heart Score History: Moderately Suspicious ECG: Normal Age: >/= 65 years Risk Factors: >/= 3 Risk Factors or History of CAD Troponin: </= Normal Limit Score: 5 MDM MDM MDM Narrative Medical decision making narrative: Results discussed with patient and patient's detention deputy to Dr. David Aguiar. It was recommended that we discharge patient to home as his high-sensitivity troponin is normal. Patient also states that this pain is different than what he had when he had a heart attack. Lab Data Labs: Laboratory Results - last 24 hr 12/13/20 12/13/20 12/13/20 14:19 14:19 14:28 WBC 6.8 RBC 4.91 Hgb 14.3 Hct 43.0 MCV 87.6 MCH 29.1 MCHC 33.3 RDW Std Deviation 43.6 RDW Coeff of Fredy 13.7 Plt Count 162 MPV 9.8 Immature Gran % (Auto) 0.300 Neut % (Auto) 71.5 H Lymph % (Auto) 19.7 [place] % (Auto) 7.2 Eos % (Auto) 1.0 Baso % (Auto) 0.3 Absolute Neuts (auto) 4.9 Absolute Lymphs (auto) 1.34 Nucleated RBC % 0 D-Dimer Quant (PE/DVT) 0.42 Sodium 137 Potassium 3.6 Chloride 102 Carbon Dioxide 28.0 Anion Gap 7 BUN 21 H Creatinine 1.02 Estim Creat Clear Calc 72.56 Est GFR (MDRD) Af Amer 94 Est GFR (MDRD) Non-Af 77 BUN/Creatinine Ratio 20.6 H Glucose 124 H Calcium 9.3 Troponin I High Sens 4.1 Radiography Chest X-Ray - ED: 1 View Diagnostic Testing: Radiology Impression Chest X-Ray 12/13/20 14:15 IMPRESSION: Normal x-ray examination of the chest unchanged since 09/13/2018. Electronically Signed: Parvez Ping, at 14:37 EDT Tel , Service support , 1 view chest x-ray obtained interpreted by myself as no acute disease process. Radiology in agreement. EKG Initial EKG: Attestation: I personally reviewed and interpreted this EKG as follows: Comments: Sinus rhythm with a ventricular rate of 71 bpm with a first- degree AV block. Discharge Plan Triage Chief Complaint: Chest Pain ED Provider: Dorota Pettit Dx/Rx/DC Orders Clinical Impression: Chest pain Instructions: ED Chest Pain, Uncertain Cause Prescriptions: No Action tamsulosin 0.4 mg capsule 0.4 mg PO DAILY RF: 0 finasteride 5 mg tablet 5 mg PO DAILY RF: 0 aspirin 81 MG tablet,chewable 81 mg PO DAILY@0800 RF: 0 meclizine 25 MG tablet 25 mg PO 4X/DAY PRN PRN (Reason: Dizziness) Qty: 20 RF: 0 carvedilol [Coreg] 25 mg tablet 25 mg PO BID RF: 0 clopidogrel [Plavix] 75 mg tablet 75 mg PO DAILY RF: 0 amlodipine 10 mg tablet 10 mg PO DAILY Qty: 90 RF: 4 atorvastatin 20 mg tablet 20 mg PO QHS Qty: 90 RF: 3 hydrochlorothiazide 25 mg tablet 25 mg PO DAILY Qty: 90 RF: 3 Primary Care Provider: [place]io Kruger Referrals: David Aguiar MD [STAFF PHYSICIAN] - 3-5 Days [place] Kruger DO [Primary Care Provider] - Disposition Disposition: Home, Self Care
[2020-12-13 14:17] VITALS: O2SAT 97
[2020-12-13 14:26] LABS: Absolute Lymphocyte Count 1.34 X10^3/uL (0.83-4.51); Absolute Neutrophil Count 4.9 X10^3/uL (2.0-7.7); Basophil# 0.02 X10^3/uL; Basophil% 0.3 % (0-1); Eosinophil# 0.07 X10^3/uL; Hemoglobin 14.3 g/dL (13.0-16.5); Lymphocyte # 1.34 X10^3/ul (0.83-4.51); Lymphocyte % 19.7 % (19-41); Mean Corp Hgb Conc 33.3 g/dL (32-36); Mean Corpuscular Hgb 29.1 pg (27.0-32.0); Mean Corpuscular Volume 87.6 fL (80-94); Mean Platelet Vol. 9.8 fl (6.2-12.0); Monocyte# 0.49 X10^3/uL; Monocyte% 7.2 % (0-10); NRBC Flagged by Analyzer 0 % (0-5); Neutrophil # 4.86 X10^3/uL (2.7-7.7); Neutrophil % 71.5 % (47-70); Platelet Count 162 K/mm3 (150-450); RBC Distribution Width CV 13.7 % (11.6-14.6); RBC Distribution Width SD 43.6 fl (35.1-43.9); Red Blood Count 4.91 M/mm3 (4.6-6.2); White Blood Count 6.8 K/mm3 (4.4-11.0)
[2020-12-13] MEDS: Aspirin 81 MG TAB.CHEW 324 MG PO (14:29)
[2020-12-13] MEDS: 0.9% Normal Saline 1,000 ML 150 ML IV (14:29)
[2020-12-13 14:46] LABS: Anion Gap 7 (5-15); BUN 21 mg/dL (7-18); BUN/Creat Ratio 20.6 RATIO (10-20); Calcium,Total 9.3 mg/dL (8.5-10.1); Chloride 102 mmol/L (98-107); Creatinine, Serum 1.02 mg/dL (0.70-1.30); EST Glomerular Filtration Rate 77 mL/min (>60); Est Glom Filt Rate - Afr Amer 94 mL/min (>60); Estimated Creatinine Clearance 72.56 ml/min; Glucose 124 mg/dL (74-106); Potassium 3.6 mmol/L (3.5-5.1); Sodium Level 137 mmol/L (136-145); Troponin-I HS 4.1 pg/mL (3.0-78.5)
[2020-12-13 14:47] LABS: D-Dimer Quantitative (DVT/PE) 0.42 FEU/ug/m (0.27-0.49)
[2020-12-13 14:57] VITALS: BP 159/87; PULSE 70; RESP 16; O2SAT 98
[2020-12-13 15:00] VITALS: RESP 16
[2020-12-13 16:13] VITALS: BP 141/75; PULSE 71; RESP 16; O2SAT 98
== END 2020-12-13 16:16 | disposition home or self-care (01) ==
PROVIDERS: Emergency Provider Emergency Medicine; PCP Student in an Organized Health Care Education/Training Program
DX: R07.9 Chest pain, unspecified (principal); I25.10 Atherosclerotic heart disease of native coronary artery without angina pectoris; I25.2 Old myocardial infarction; I48.91 Unspecified atrial fibrillation; I10 Essential (primary) hypertension; E78.5 Hyperlipidemia, unspecified; E78.00 Pure hypercholesterolemia, unspecified; Z79.82 Long term (current) use of aspirin; Z79.899 Other long term (current) drug therapy; Z87.891 Personal history of nicotine dependence; Z95.1 Presence of aortocoronary bypass graft; Z95.5 Presence of coronary angioplasty implant and graft
CPT/HCPCS: 71045; 80048; 84484; 85025; 85379; 93005; 96360; 96361; 99283; J7030; A4216

== ENCOUNTER 2021-03-09 07:33 | Emergency (ER) | payer MEDICARE, OTHER, SELFPAY ==
[2021-03-09 07:33] VITALS: BP 170/84; PULSE 73; RESP 16; TEMP 36.2; BMI 28.7
--- NOTE | 2021-03-09 07:45 | ED.VIS.DENTA ---
HPI History of Present Illness Chief Complaint: Dental Informant: patient Onset/Context/Timing Onset: Days Context: Gradual Onset Current Severity: Moderate Maximum Severity: Moderate Narrative Narrative: Patient presents secondary to dental pain and swelling. Patient had a root canal performed on . He states the dentist was able to get 2 out of 3 roots from his tooth but unable to complete the procedure. The following day started developing pain and this morning woke up with some mild swelling. He taking Tylenol and ibuprofen without improvement. PFSH [facility] Medical History Atherosclerotic heart disease of [place] coronary artery without angina pectoris Claudication CML (chronic myelocytic leukemia) Essential (primary) hypertension Frequent unifocal premature ventricular contractions Hyperlipemia Pericardial effusion with cardiac tamponade (02/2018) Peripheral arterial occlusive disease Peripheral vascular occlusive disease Postoperative atrial fibrillation (01/2018) Home Medications aspirin 81 mg PO DAILY@0800 03/26/18 [History Last Taken 03/25/20] tamsulosin 0.4 mg capsule 0.4 mg PO DAILY cap 10/31/19 [History Last Taken 03/25/20] amlodipine 10 mg tablet 10 mg PO DAILY #90 tab 12/27/19 [Rx Last Taken 03/25/20] meclizine 25 mg PO 4X/DAY PRN PRN #20 tab 03/25/20 [Rx Last Taken Unknown] atorvastatin 20 mg tablet 20 mg PO QHS #90 tab 04/19/20 [Rx Last Taken Unknown] hydrochlorothiazide 25 mg tablet 25 mg PO DAILY #90 tab 10/28/20 [Rx Last Taken Unknown] finasteride 5 mg tablet 5 mg PO DAILY tab 10/31/20 [History Last Taken Unknown] carvedilol [Coreg] 25 mg PO BID 12/13/20 [History Last Taken Unknown] clopidogrel [Plavix] 75 mg PO DAILY 12/13/20 [History Last Taken Unknown] clindamycin HCl 300 mg PO 4X/DAY #80 cap 03/09/21 [Rx Last Taken Unknown] hydrocodone-acetaminophen 1 tab PO Q6H PRN 3 Days #10 tab 03/09/21 [Rx Last Taken Unknown] Allergy/AdvReac Type Severity Reaction Status Date / Time lisinopril Allergy Severe Swelling Verified 03/09/21 07:35 pseudoephedrine Allergy Unknown Verified 03/09/21 07:35 [facility] Family History Mother Hypertension Father Hypertension Surgical History H/O coronary artery bypass surgery (02/11/18) History of angioplasty of peripheral vessel (11/30/16) History of appendectomy History of coronary artery stent placement (11/2013) Social History Smoking Status: Former smoker alcohol intake: never substance use type: does not use ROS ROS ED Constitutional Constitutional ED: Denies chills or fever(s) Eyes Eyes: Denies change in vision ENT ENT ED: Reports other Details: Left lower dental pain ; Denies sore throat Cardiovascular Cardiovascular: Denies chest pain Respiratory/Chest Respiratory/Chest: Denies cough or dyspnea Gastrointestinal Gastrointestinal: Denies abdominal pain, diarrhea, nausea or vomiting Genitourinary Genitourinary ED: Denies dysuria Musculoskeletal Musculoskeletal: Denies back pain Integumentary Denies rash Neurologic Neurologic: Denies headache(s) or weakness Allergic/Immunologic Allergic/Immunologic ED: Denies urticaria EXAM Physical Exam Const Vital Signs: 03/09/21 07:33 Temperature 97.2 F L Temperature Source Temporal Pulse Rate 73 Respiratory Rate 16 Blood Pressure 170/84 H Blood Pressure Mean 112 Positive well nourished and well developed General Appearance ED: well developed HEENT Reports normocephalic and head/scalp atraumatic HEENT Narrative: Left TM clear. Intraoral examination reveals mild gum edema to the left mandibular surface. Second molar has what appears to be temporary filling in place. No evidence of Clemente's angina. Patient speaking with strong voice and tolerating secretions well. Eyes PERRL and EOMs intact bilaterally Neck supple Chest Wall inspection of chest normal and palpation of chest normal Resp normal respiratory effort and clear to auscultation bilaterally Cardio regular rate and regular rhythm GI normal to inspection, nondistended, normoactive bowel sounds Palpation: soft Extremity normal to inspection Neuro oriented x3 and no sensory deficits noted Sensorium / Orientation: alert Motor Exam: strength 5/5 throughout Psych mental status grossly normal Skin no rashes or lesions noted MDM MDM MDM Narrative Medical decision making narrative: Patient be treated with a course of clindamycin and given [place] for breakthrough pain. He is to call his dentist Wednesday morning for follow-up. Discharge Plan Triage Chief Complaint: Dental ED Provider: Maty Castillo Dx/Rx/DC Orders Clinical Impression: Odontalgia Instructions: ED Dental Pain Prescriptions: New clindamycin HCl 150 MG capsule 300 mg PO 4X/DAY Qty: 80 RF: 0 hydrocodone-acetaminophen 5-325 mg tablet 1 tab PO Q6H PRN (Reason: pain) 3 Days Qty: 10 RF: 0 No Action tamsulosin 0.4 mg capsule 0.4 mg PO DAILY RF: 0 finasteride 5 mg tablet 5 mg PO DAILY RF: 0 aspirin 81 MG tablet,chewable 81 mg PO DAILY@0800 RF: 0 meclizine 25 MG tablet 25 mg PO 4X/DAY PRN PRN (Reason: Dizziness) Qty: 20 RF: 0 carvedilol [Coreg] 25 mg tablet 25 mg PO BID RF: 0 clopidogrel [Plavix] 75 mg tablet 75 mg PO DAILY RF: 0 amlodipine 10 mg tablet 10 mg PO DAILY Qty: 90 RF: 4 atorvastatin 20 mg tablet 20 mg PO QHS Qty: 90 RF: 3 hydrochlorothiazide 25 mg tablet 25 mg PO DAILY Qty: 90 RF: 3 Primary Care Provider: [place] Kruger Referrals: [place] Kruger DO [Primary Care Provider] - Activity Restrictions/Additional Instructions: Follow-up with your dentist tomorrow as discussed. Disposition Disposition: Home, Self Care
[2021-03-09] MEDS: Clindamycin HCl 150 MG Capsule 300 MG PO (08:15)
[2021-03-09 08:17] VITALS: RESP 18
== END 2021-03-09 08:18 | disposition home or self-care (01) ==
LOC: ED 08:08
PROVIDERS: Emergency Provider Emergency Medicine; PCP Student in an Organized Health Care Education/Training Program
DX: K08.89 Other specified disorders of teeth and supporting structures (principal); I25.10 Atherosclerotic heart disease of native coronary artery without angina pectoris; I10 Essential (primary) hypertension; I48.91 Unspecified atrial fibrillation; E78.5 Hyperlipidemia, unspecified; Z79.02 Long term (current) use of antithrombotics/antiplatelets; Z79.82 Long term (current) use of aspirin; Z79.899 Other long term (current) drug therapy; Z87.891 Personal history of nicotine dependence
CPT/HCPCS: 99283

== ENCOUNTER → 2021-04-29 07:50 | Outpatient (CLI) | payer MEDICARE, OTHER, SELFPAY ==
[2021-04-29 08:23] LABS: Hematocrit 44.6 % (40-54); Hemoglobin 15.1 g/dL (13.0-16.5); Mean Corp Hgb Conc 33.9 g/dL (32-36); Mean Corpuscular Hgb 29.3 pg (27.0-32.0); Mean Corpuscular Volume 86.4 fL (80-94); Platelet Count 187 K/mm3 (150-450); RBC Distribution Width CV 13.4 % (11.6-14.6); RBC Distribution Width SD 42.5 fl (35.1-43.9); Red Blood Count 5.16 M/mm3 (4.6-6.2); White Blood Count 7.7 K/mm3 (4.4-11.0)
[2021-04-29 09:00] LABS: ALB/GLOB Ratio 1.1 RATIO (0.9-2.4); AST(SGOT) 18 U/L (15-37); Alanine Aminotransfer ALT/SGPT 22 U/L (16-61); Alkaline Phosphatase 146 U/L (45-117); Anion Gap 5 (5-15); BUN 19 mg/dL (7-18); Calcium,Total 9.3 mg/dL (8.5-10.1); Chloride 105 mmol/L (98-107); Cholesterol 163 mg/dL (200); EST Glomerular Filtration Rate 79 mL/min (>60); Est Glom Filt Rate - Afr Amer 96 mL/min (>60); Globulin 3.5 g/dL (2.2-4.2); Glucose 98 mg/dL (74-106); High Density Lipoprotein 34 mg/dL; PSA,Total - Annual Screen 0.98 ng/mL (0.00-4.00); Potassium 3.2 mmol/L (3.5-5.1); Protein, Total 7.5 g/dL (6.4-8.2); Sodium Level 138 mmol/L (136-145); Triglycerides 145 mg/dL; Very Low Density Lipoprotein 29 mg/dL (5-40)
[2021-04-29 09:31] LABS: Hepatitis C Antibody Non-Reactive (Nonreactive)
== END ==
PROVIDERS: PCP Student in an Organized Health Care Education/Training Program; Referring Provider Student in an Organized Health Care Education/Training Program; Visit Provider Student in an Organized Health Care Education/Training Program
DX: Z11.59 Encounter for screening for other viral diseases (principal); Z12.5 Encounter for screening for malignant neoplasm of prostate; I10 Essential (primary) hypertension
CPT/HCPCS: 36415; 80053; 80061; 84153; 85027; 86803; G0103

== ENCOUNTER → 2022-03-28 | Outpatient (CLI) | payer MEDICARE, OTHER, SELFPAY ==
[2022-03-28 09:38] LABS: Hematocrit 42.8 % (40-54); Hemoglobin 14.9 g/dL (13.0-16.5); Mean Corp Hgb Conc 34.8 g/dL (32-36); Mean Corpuscular Hgb 30.3 pg (27.0-32.0); Mean Corpuscular Volume 87.2 fL (80-94); Mean Platelet Vol. 9.7 fl (6.2-12.0); Platelet Count 161 K/mm3 (150-450); RBC Distribution Width CV 13.7 % (11.6-14.6); RBC Distribution Width SD 44.2 fl (35.1-43.9); Red Blood Count 4.91 M/mm3 (4.6-6.2); White Blood Count 6.1 K/mm3 (4.4-11.0)
[2022-03-28 10:08] LABS: Hemoglobin A1c 5.4 % (3.8-5.6)
[2022-03-28 10:12] LABS: ALB/GLOB Ratio 1.1 RATIO (0.9-2.4); AST(SGOT) 15 U/L (15-37); Alanine Aminotransfer ALT/SGPT 18 U/L (16-61); Albumin, Serum 3.9 g/dL (3.2-5.0); Alkaline Phosphatase 132 U/L (45-117); Anion Gap 6 (5-15); BUN 19 mg/dL (7-18); Calcium,Total 9.2 mg/dL (8.5-10.1); Chloride 106 mmol/L (98-107); Cholesterol 123 mg/dL (200); Creatinine, Serum 0.95 mg/dL (0.70-1.30); EST Glomerular Filtration Rate 84 mL/min (>60); Est Glom Filt Rate - Afr Amer 101 mL/min (>60); Globulin 3.4 g/dL (2.2-4.2); Glucose 99 mg/dL (74-106); High Density Lipoprotein 32 mg/dL; PSA,Total - Annual Screen 0.39 ng/mL (0.00-4.00); Potassium 3.4 mmol/L (3.5-5.1); Protein, Total 7.3 g/dL (6.4-8.2); Sodium Level 140 mmol/L (136-145); Triglycerides 112 mg/dL; Very Low Density Lipoprotein 22 mg/dL (5-40)
[2022-03-28 10:19] LABS: Microalbumin,Random Urine 11.9 mg/L (NO RANGE EST.)
== END | disposition home or self-care (01) ==
LOC: LAB 08:52
PROVIDERS: PCP Student in an Organized Health Care Education/Training Program; Referring Provider Student in an Organized Health Care Education/Training Program; Visit Provider Student in an Organized Health Care Education/Training Program
DX: Z12.5 Encounter for screening for malignant neoplasm of prostate (principal); I10 Essential (primary) hypertension; R73.01 Impaired fasting glucose
CPT/HCPCS: 36415; 80053; 80061; 82043; 83036; 84153; 85027; G0103

== ENCOUNTER 2022-04-06 08:46 | Emergency (ER) | payer MEDICARE, OTHER, SELFPAY ==
[2022-04-06 08:46] VITALS: BP 170/86; PULSE 66; RESP 16; TEMP 36.3; O2SAT 99; BMI 29.4
--- NOTE | 2022-04-06 08:55 | EDS_ITS ---
HPI History of Present Illness Chief Complaint: Ear Problem Informant: patient Onset/Context/Timing Onset: Today Current Severity: Mild Maximum Severity: Mild Narrative Narrative: Patient presents with clogged sensation in his right ear. He states he woke overnight with clogged right ear. He used a Dung pin this morning to try to clean out some wax. He then took a shower letting the warm water try to irrigate his ear. Use a cotton swab to clean the water out of his ear and when he did this he noted blood. He is on Plavix secondary to his heart problems. He has had some mild sinus symptoms that he states is normal for this time of year. No fever or chills. [facility] Medical History Atherosclerotic heart disease of [place] coronary artery without angina pectoris Claudication CML (chronic myelocytic leukemia) Essential (primary) hypertension Frequent unifocal premature ventricular contractions Hyperlipemia Pericardial effusion with cardiac tamponade (02/2018) Peripheral arterial occlusive disease Peripheral vascular occlusive disease Postoperative atrial fibrillation (01/2018) Home Medications aspirin 81 mg chewable tablet 81 mg PO DAILY@0800 03/26/18 [History Last Taken 03/25/20] tamsulosin 0.4 mg capsule 0.4 mg PO DAILY 10/31/19 [History Last Taken 03/25/20] meclizine 25 mg tablet 25 mg PO 4X/DAY PRN PRN Dizziness #20 tabs 03/25/20 [Rx Last Taken Unknown] atorvastatin 20 mg tablet 20 mg PO QHS #90 tabs 04/19/20 [Rx Last Taken Unknown] finasteride 5 mg tablet 5 mg PO DAILY 10/31/20 [History Last Taken Unknown] carvedilol 25 mg tablet (Coreg) 25 mg PO BID #180 tabs 07/30/21 [Rx Last Taken Unknown] clopidogrel 75 mg tablet (Plavix) 75 mg PO DAILY #90 tabs 07/30/21 [Rx Last Taken Unknown] hydrochlorothiazide 25 mg tablet 25 mg PO DAILY #90 tabs 11/03/21 [Rx Last Taken Unknown] amlodipine 10 mg tablet 10 mg PO DAILY #90 tabs 02/03/22 [Rx Last Taken Unknown] Allergy/AdvReac Type Severity Reaction Status Date / Time lisinopril Allergy Severe Swelling Verified 04/06/22 08:48 pseudoephedrine Allergy Unknown Verified 04/06/22 08:48 [From [facility]] Family History Mother Hypertension Father Hypertension Surgical History H/O coronary artery bypass surgery (02/11/18) History of angioplasty of peripheral vessel (11/30/16) History of appendectomy History of coronary artery stent placement (11/2013) Social History Smoking Status: Former smoker how long ago did patient quit smokin + years ago alcohol intake: never substance use type: does not use caffeine: Yes Type: coffee Number of servings: 1 ROS ROS ED Constitutional Constitutional ED: Denies chills or fever(s) Eyes Eyes: Denies change in vision or discharge from eye(s) ENT ENT ED: Reports other Details: Clogged sensation right ear ; Denies discharge from eye(s), rhinorrhea or sore throat Cardiovascular Cardiovascular: Denies chest pain or palpitations Respiratory/Chest Respiratory/Chest: Denies cough or dyspnea Gastrointestinal Gastrointestinal: Denies abdominal pain, nausea or vomiting Genitourinary Genitourinary ED: Denies difficulty urinating or dysuria Musculoskeletal Musculoskeletal: Denies back pain or extremity pain Integumentary Denies Abrasions or rash Neurologic Neurologic: Denies headache(s) Allergic/Immunologic Allergic/Immunologic ED: Denies lip swelling or urticaria EXAM Physical Exam Const Vital Signs: 04/06/22 08:46 Temperature 97.4 F L Temperature Source Temporal Pulse Rate 66 Respiratory Rate 16 Blood Pressure 170/86 H Blood Pressure Mean 114 Pulse Ox 99 Oxygen Delivery Method Room Air Positive well nourished and well developed General Appearance ED: well developed HEENT Reports normocephalic and head/scalp atraumatic HEENT Narrative: Dense cerumen deep in the right ear canal next to the tympanic membrane. Blood noted on the ear canal. Left TM is clear. Eyes PERRL and EOMs intact bilaterally Neck supple Chest Wall inspection of chest normal and palpation of chest normal Resp normal respiratory effort and clear to auscultation bilaterally Cardio regular rate and regular rhythm GI Palpation: soft Extremity normal to inspection Neuro oriented x3 and no sensory deficits noted Sensorium / Orientation: alert Motor Exam: strength 5/5 throughout Psych mental status grossly normal Skin no rashes or lesions noted MDM MDM MDM Narrative Medical decision making narrative: Debrox drops applied to the right ear and ear was irrigated. On repeat evaluation there is some remaining wax but it is much improved. He does have at least 2 different sites of skin injury along the ear canal. He will be sent home with Debrox drops to use before his showers. He was encouraged to use Neosporin ointment or triple antibiotic ointment on a Q-tip to line his ear canal to help prevent any infection. He is referred to ENT if not improving. Discharge Plan Triage Chief Complaint: Ear Problem ED Provider: Maty Castillo Dx/Rx/DC Orders Clinical Impression: Cerumen impaction Instructions: ED Cerumen Impaction Treated Prescriptions: No Action tamsulosin 0.4 mg capsule 0.4 mg PO DAILY finasteride 5 mg tablet 5 mg PO DAILY Label Comments: TAKE 1 TABLET BY MOUTH EVERY DAY aspirin 81 MG tablet,chewable 81 mg PO DAILY@0800 meclizine 25 MG tablet 25 mg PO 4X/DAY PRN PRN (Reason: Dizziness) Qty: 20 0RF atorvastatin 20 mg tablet 20 mg PO QHS Qty: 90 3RF clopidogrel [Plavix] 75 mg tablet 75 mg PO DAILY Qty: 90 3RF Rx Instructions: TAKE 1 TABLET BY MOUTH EVERY DAY FOR BLOOD THINNER carvedilol [Coreg] 25 mg tablet 25 mg PO BID Qty: 180 3RF Rx Instructions: TAKE 1 TABLET BY MOUTH TWICE A DAY FOR HEART hydrochlorothiazide 25 mg tablet 25 mg PO DAILY Qty: 90 3RF amlodipine 10 mg tablet 10 mg PO DAILY Qty: 90 3RF Primary Care Provider: [place] Kruger Referrals: Mane Soto MD [Med Staff - Active Staff] - As Needed [place] Kruger DO [Primary Care Provider] - Disposition Disposition: Home, Self Care
[2022-04-06] MEDS: Carbamide Peroxide 15 ML Bottle 5 DRP OTIC (09:02)
== END 2022-04-06 10:24 | disposition home or self-care (01) ==
PROVIDERS: Emergency Provider Emergency Medicine; PCP Student in an Organized Health Care Education/Training Program; Visit Provider Emergency Medicine
DX: H61.21 Impacted cerumen, right ear (principal); I25.10 Atherosclerotic heart disease of native coronary artery without angina pectoris; Z87.891 Personal history of nicotine dependence; Z95.5 Presence of coronary angioplasty implant and graft; Z95.1 Presence of aortocoronary bypass graft
CPT/HCPCS: 99283

== ENCOUNTER → 2022-04-21 | Outpatient (CLI) | payer MEDICARE, OTHER, SELFPAY ==
--- NOTE | 2022-04-21 08:00 | ART_ITS ---
Reason For Study: Claudication Procedure A bilateral lower extremity continuous wave Doppler with analog waveform analysis,segmental pressures,and ankle brachial indexes with exercise. Left Segmental Pressures Left brachial= 140mmHg. Left thigh = 140mmHg. Left calf = 114mmHg. Left posterior tibial artery = 89mmHg. Left dorsalis pedis artery = 85mmHg. Left digit = 72 mmHg. The left posterior tibial artery waveforms are monophasic. The left dorsalis pedis waveforms are monophasic. Right Segmental Pressures Right brachial= 140mmHg. Right thigh = 182mmHg. Right calf = 148mmHg. Right posterior tibial artery = 105mmHg. Right dorsalis pedis artery = 113mmHg. Right digit = 89 mmHg. The right posterior tibial artery waveforms are monophasic. The right dorsalis pedis waveforms are monophasic. Indices The right ankle brachial index by the posterior tibial artery is 0.75. The right ankle brachial index by the dorsalis pedis is 0.81. The right digital-brachial index is 0.64. The right ankle brachial index by the dorsalis pedis post exercise is 0.41. The left ankle brachial index by the posterior tibial artery is 0.64. The left ankle brachial index by the dorsalis pedis is 0.61. The left digital-brachial index is 0.51. The left posterior tibial artery index post exercise is 0.38. VL/Lower Ext Art Exam w/ Exercise Interpretation Summary Abnormal right lower extremity PT and DP ankle-brachial indices at rest at 0.75 and 0.81 respectively with monophasic Doppler waveforms. There is a drop from resting at 0.812 immediately after exercise at 0.41 with failure of Complete recovery by 9 minutes. This is consistent with clinically significant vascular occlusive disease. Suggest possible popliteal o r infrageniculate disease within the range of vascular claudication. The left lower extremity demonstrates abnormal PT and DP ankle-brachial indices at rest at 0.64 and 0.61 with monophasic Doppler waveforms.With exercise the left CARLOS goes from a r esting 0.64 to media after exercise at 0.38 and there is recovery by 7 minutes. Findings suggest cli nically significant femoral popliteal infrageniculate disease well within the range of vascular cla udication. Ordering Physician: Thomas Islas Referring Physician: FARTUN SAEZ DO Performed By: Nixon Cross RVT
== END | disposition home or self-care (01) ==
LOC: CVS 07:59
PROVIDERS: PCP Student in an Organized Health Care Education/Training Program; Visit Provider Surgery
DX: I73.9 Peripheral vascular disease, unspecified (principal)
CPT/HCPCS: 93924

== ENCOUNTER → 2022-08-31 | Outpatient (CLI) | payer MEDICARE, OTHER, SELFPAY ==
--- NOTE | 2022-08-31 06:10 | ECHOD_ITS ---
Reason For Study: ASHD Procedure This was a 2D Doppler, Color Flow transthoracic echocardiogram. Exam performed in department. Left Ventricle Normal LV size. Left ventricular systolic function is normal. The estimated ejection fraction is 55 %. Stage 1 diastolic dysfunction. No regional wall motion abnormalities noted. Right Ventricle Normal RV size. Normal systolic function. Atria The left atrium is mildly enlarged. Normal right atrium. Mitral Valve There is mild to moderate mitral annular calcification. Tricuspid Valve Normal tricuspid valve. Aortic Valve Trisinus/trileaflet aortic valve. Pulmonic Valve Normal pulmonic valve. Great Vessels Normal aortic root. The pulmonary artery is normal size. Normal inferior vena cava. Pericardium/Pleural No pericardial effusion. MMode/2D Measurements & Calculations LVIDd: 5.1 cm IVSd: 1.1 cm LAV(MOD-bp): 78.9 ml LVIDs: 3.6 cm LVPWd: 1.1 cm LAV(MOD-bp) Indexed: 37.2 ml/m2 FS: 27.9 % LAV(MOD-sp2): 80.3 ml LAV(MOD-sp4): 71.3 ml LA A4 area: 23.3 cm2 Time Measurements MV dec time: 0.22 sec Doppler Measurements & Calculations MV E max chinedu: 98.9 cm/sec Lat Peak E' Chinedu: 7.2 cm/sec Med Peak E' Chinedu: 7.4 cm/sec MV A max chinedu: 161.9 cm/sec E/E' lat: 13.7 E/E' med: 13.3 MV E/A: 0.61 Ao V2 max: 95.2 cm/sec LV V1 max: 80.8 cm/sec Ao max P.6 mmHg LV V1 max P.6 mmHg Ao V2 mean: 68.6 cm/sec LV V1 mean P.5 mmHg Ao mean P.1 mmHg LV V1 mean: 55.7 cm/sec Ao V2 VTI: 20.7 cm LV V1 VTI: 19.2 cm AV (velocity ratio): 0.93 ECHO/Echo Complete Interpretation Summary Normal LV size. Left ventricular systolic function is normal. The estimated ejection fraction is 55 %. Stage 1 diastolic dysfunction. The global longitudinal strain is normal. The global longitudinal strain = -19. 1 % (normal). Ordering Physician: David Aguiar Referring Physician: Indio Kruger Performed By: Kimberly Lester, RDCS, RVT
--- NOTE | 2022-08-31 10:17 | STRESSREP ---
Stress Test Report Exercise myocardial perfusion stress test. 66-year-old man with a history of coronary artery disease Stress protocol: Resting EKG demonstrates normal sinus rhythm with a rate of 68 bpm and frequent premature ventricular complexes, resting blood pressure is 144/78 mmHg. The patient exercised according to the regular Rustam protocol for a total duration of 4 minutes attaining a maximum heart rate of 139 bpm which was 91% of maximum predicted heart rate; the maximum workload was 7 metabolic equivalents. At rest there were no ST or T wave changes noted to suggest ischemia and at peak exercise upsloping ST changes only were noted which did not meet the criteria for ischemia. No clinical angina was noted the test was terminated due to the target heart rate being achieved/fatigue. The peak blood pressure was 172/92 mmHg. Rate-pressure product was 19,900. Myocardial perfusion protocol. 14.7 mCi of technetium 99m sestamibi was injected at rest. The patient exercised according to regular Rustam protocol for total duration of 4 minutes and at peak exercise 44.8 mCi of technetium 99m sestamibi was injected stress images were obtained stress and rest images were reconstructed in comparing the short axis vertical long and horizontal long axis. Gated images were also obtained. Perfusion SPECT analysis: Review of the stress images demonstrate normal uptake of tracer noted in all areas of the myocardium. The resting images similarly demonstrate normal uptake of tracer noted in all areas of the myocardium. No areas of reversibility are noted to suggest ischemia no previous infarct was noted. Gated SPECT analysis: The gated ejection fraction is 56%. Conclusion: Normal exercise myocardial perfusion stress test at a moderate workload Preserved ejection fraction.
== END | disposition home or self-care (01) ==
LOC: CVS 06:04
PROVIDERS: PCP Student in an Organized Health Care Education/Training Program; Referring Provider Internal Medicine Cardiovascular Disease; Visit Provider Internal Medicine Cardiovascular Disease
DX: I25.10 Atherosclerotic heart disease of native coronary artery without angina pectoris (principal); Z95.1 Presence of aortocoronary bypass graft
CPT/HCPCS: 78452; 93017; 93306; A9500; A4216

== ENCOUNTER 2022-12-09 08:51 | Day surgery (SDC) | payer MEDICARE, OTHER, SELFPAY ==
[2022-12-09] VITALS (7 sets, daily range): BP systolic 117–129; BP diastolic 62–81; PULSE 60–70; RESP 16–17; TEMP 36.2–36.6; O2SAT 95–96; BMI 28.8
[2022-12-09] MEDS: Lactated Ringers 1,000 ML 15 ML IV (09:23)
--- NOTE | 2022-12-09 10:14 | PCM.HP.STD ---
HPI - General General Date of Admission: 12/09/22 Date of Service: 12/09/22 Chief Complaint: Screening colonoscopy HPI Narrative FATUMA SIGALA, is a 67 M who presents today for screening: He. He has not had a colonoscopy in the past. He has a past medical history of CML in remission, CAD status post CABG, hypertension and hyperlipidemia. He does not have any problems with his bowels. He does not have any chest pain or shortness of breath. He is not having any weakness. Overall he feels very well. [facility] Medical History Atherosclerotic heart disease of [place] coronary artery without angina pectoris Cancer Cardiology follow-up encounter Chest pain Claudication CML (chronic myelocytic leukemia) Essential (primary) hypertension Excessive bleeding Former smoker Frequent unifocal premature ventricular contractions H/O Legionnaire's disease High cholesterol History of echocardiogram History of heart attack History of Holter monitoring History of leukemia History of stress test Hyperlipemia Pericardial effusion with cardiac tamponade (02/2018) Peripheral arterial occlusive disease Peripheral vascular occlusive disease Postoperative atrial fibrillation (01/2018) Home Medications aspirin 81 mg chewable tablet 81 mg PO DAILY@0800 03/26/18 [History Last Taken 12/05/22] meclizine 25 mg tablet 25 mg PO 4X/DAY PRN PRN Dizziness #20 tabs 03/25/20 [Rx Last Taken Unknown] atorvastatin 20 mg tablet 20 mg PO QHS #90 tabs 04/19/20 [Rx Last Taken Unknown] amlodipine 10 mg tablet 10 mg PO DAILY #90 tabs 02/03/22 [Rx Last Taken 12/09/22] carvedilol 25 mg tablet (Coreg) 25 mg PO BID #180 tabs 07/27/22 [Rx Last Taken 12/09/22] clopidogrel 75 mg tablet (Plavix) 75 mg PO DAILY #90 tabs 07/27/22 [Rx Last Taken 12/05/22] hydrochlorothiazide 25 mg tablet 25 mg PO DAILY #90 tabs 10/30/22 [Rx Last Taken Unknown] Allergy/AdvReac Type Severity Reaction Status Date / Time lisinopril Allergy Severe Swelling Verified 12/09/22 09:23 nilotinib [From [facility]] Allergy Rash Verified 12/09/22 09:23 pseudoephedrine Allergy IRREGULAR Verified 12/09/22 09:23 [From [facility]] HEARTBEAT Family History Mother Hypertension Father Hypertension Surgical History H/O coronary artery bypass surgery (02/11/18) History of angioplasty of peripheral vessel (11/30/16) History of appendectomy History of cardiac catheterization History of coronary artery stent placement (11/2013) Social History Smoking Status: Former smoker how long ago did patient quit smokin 1/2 years ago alcohol intake: never substance use type: does not use caffeine: Yes Type: coffee Number of servings: 1 ROS Review of Systems ROS Unobtainable: other Constitutional Constitutional: Denies fatigue, fever(s), poor appetite, weight gain or weight loss ENT HEENT: Denies mouth lesions Cardiovascular Cardiovascular: Denies abdominal bloating, abdominal edema or abdominal pain Respiratory/Chest Respiratory/Chest: Denies change in mental status, change in phlegm color, chest congestion or chest tightness Gastrointestinal Gastrointestinal: Denies belching, bloating, change in bowel habits, change in stool character, chewing difficulty, coffee ground emesis, constipation, cramping, diarrhea, dyspepsia, dysphagia, early satiety, excessive flatus, fecal incontinence, heartburn, hematemesis, hematochezia, hemorrhoids, loose stools, melena, nausea, odynophagia, rectal bleeding, tenesmus, vomiting or weight changes Genitourinary Genitourinary: Denies abdominal discomfort, burning urination or itching Musculoskeletal Musculoskeletal: Reports as per HPI; Denies muscle weakness or myalgias Integumentary Integumentary: Denies jaundice Neurologic Neurologic: Denies lack of coordination or weakness Psychiatric Psychiatric: Denies confusion, depression, memory loss, mood swings, paranoia or suicidal ideation Endocrine Endocrinology: Denies systems reviewed and no addt'l complaints, except as documented Hematologic/Lymphatic Hematologic/Lymphatic: Denies anemia, easy bleeding, easy bruising or lymphadenopathy Allergic/Immunologic Allergic/Immunologic: Denies systems reviewed and no addt'l complaints, except as documented Vital Signs Vital Signs Vital Signs: 12/09/22 09:24 12/09/22 09:24 Temperature 97.8 F Temperature Source Temporal Pulse Rate 66 Respiratory Rate 17 Respiratory Pattern Normal Blood Pressure 129/81 H Blood Pressure Mean 97 Blood Pressure Source Monitor Blood Pressure Position Semi-Fowlers Blood Pressure Location Right Arm Pulse Ox 96 Oxygen Delivery Method Room Air Weight Weight: 200 lb 9.93 oz Body Mass Index (BMI) 28.8 Physical Exam Const alert General Appearance: cooperative Orientation / Consciousness: oriented to person HEENT hearing grossly normal bilaterally Head and Scalp: normal to inspection Face and Sinus: face symmetric Nose: external nose normal Mouth: oral and palatal mucosa normal Eyes conjunctivae normal General Eye: normal appearance of both eyes Neck full ROM General: normal visual inspection Lymph Lymphatic: no lymphadenopathy noted Chest inspection of chest normal and palpation of chest normal Chest: symmetrical chest wall rise Resp normal respiratory effort Effort and Inspection: able to speak in complete sentences Cardio regular rate GI non-distended Percussion: normal to percussion Rectal Exam: deferred Neuro Speech: speech normal Gait (Neuro): normal gait Assessment & Plan Assessment/Plan (1) Encounter for screening for malignant neoplasm of colon: PLAN: He will undergo screening colonoscopy. He was explained alternatives, risk, benefits including not withstanding bleeding, infection, sepsis, perforation, need for emergent surgery . He will have an ASA of 3.
--- NOTE | 2022-12-09 10:47 | OP.COLON_ITS ---
Patient Name: Kevin Rae Procedure Date: 12/09/2022 10:19 AM Date of : 1955 Age: 67 Procedure: Colonoscopy Indications: Screening for colorectal malignant neoplasm Providers: Devin Gonzalez DO Medicines: Monitored Anesthesia Care Patient Profile: This is a 67 year old male. Refer to note in patient chart for documentation of history and physical. Last Colonoscopy: none. The patient's first colonoscopy is today. Complications: No immediate complications. Procedure: Pre-Anesthesia Assessment: - Prior to the procedure, a History and Physical was performed, and patient medications and allergies were reviewed. The patient is competent. The risks and benefits of the procedure and the sedation options and risks were discussed with the patient. All questions were answered and informed consent was obtained. Patient identification and proposed procedure were verified by the physician in the pre-procedure area. Mental Status Examination: alert and oriented. Prophylactic Antibiotics: The patient does not require prophylactic antibiotics. Prior Anticoagulants: The patient has taken no previous anticoagulant or antiplatelet agents. After reviewing the risks and benefits, the patient was deemed in satisfactory condition to undergo the procedure. The anesthesia plan was to use monitored anesthesia care (MAC). Immediately prior to administration of medications, the patient was re-assessed for adequacy to receive sedatives. The heart rate, respiratory rate, oxygen saturations, blood pressure, adequacy of pulmonary ventilation, and response to care were monitored throughout the procedure. The physical status of the patient was re-assessed after the procedure. After I obtained informed consent, the scope was passed under direct vision. Throughout the procedure, the patient's blood pressure, pulse, and oxygen saturations were monitored continuously. The colonoscope was introduced through the anus and advanced to the cecum, identified by appendiceal orifice and ileocecal valve. The colonoscopy was performed without difficulty. The patient tolerated the procedure well. The quality of the bowel preparation was adequate. Scope In: 10:28:47 AM Scope Withdrawal Time 0 hours 7 minutes 52 seconds Scope Out: 10:41:40 AM Total Procedure Duration Time 0 hours 12 minutes 53 seconds Findings: The perianal and digital rectal examinations were normal. A few small and large-mouthed diverticula were found in the recto-sigmoid colon, sigmoid colon and descending colon. The entire examined colon appeared normal on direct and retroflexion views. Non-bleeding internal hemorrhoids were found during retroflexion. The hemorrhoids were Grade III (internal hemorrhoids that prolapse but require manual reduction). Impression: - Diverticulosis in the recto-sigmoid colon, in the sigmoid colon and in the descending colon. - The entire examined colon is normal on direct and retroflexion views. - Non-bleeding internal hemorrhoids. - No specimens collected. Recommendation: - Repeat colonoscopy in 10 years for surveillance. - Continue present medications. Procedure Code(s): --- Professional --- G0121, Colorectal cancer screening; colonoscopy on individual not meeting criteria for high risk CPT copyright 2017 [employer]. All rights reserved. The codes documented in this report are preliminary and upon ships equipment engineer review may be revised to meet current compliance requirements. Devin Gonzalez DO 12/09/2022 10:47:30 AM This report has been signed electronically. Number of Addenda: 0 Note Initiated On: 12/09/2022 10:19 AM
--- NOTE | 2022-12-09 10:48 | OP.CCLET_ITS ---
12/09/2022 Indio Kruger Do Re : Colonoscopy procedure for Kevin Rae Dear Saskia This procedure was performed on Friday, December 09, 2022. My impressions and recommendations are as follows: Impressions : - Diverticulosis in the recto-sigmoid colon, in the sigmoid colon and in the descending colon. - The entire examined colon is normal on direct and retroflexion views. - Non-bleeding internal hemorrhoids. - No specimens collected. Recommendations : - Repeat colonoscopy in 10 years for surveillance. - Continue present medications. My findings are described in the full procedure note, which is enclosed. If I can be of further assistance, please feel free to contact me at . Sincerely, Devin Gonzalez DO 12/09/2022 10:47:30 AM This report has been signed electronically.
== END 2022-12-09 11:38 | disposition home or self-care (01) ==
LOC: EN 08:53 → AC 08:58
PROVIDERS: PCP Student in an Organized Health Care Education/Training Program; Referring Provider Student in an Organized Health Care Education/Training Program; Visit Provider Internal Medicine Gastroenterology
PROC: 0DJD8ZZ Inspection of Lower Intestinal Tract, Via Natural or Artificial Opening Endoscopic (ICD-10-PCS; CPT 45378; principal; 2022-12-09 09:55)
DX: Z12.11 Encounter for screening for malignant neoplasm of colon (principal); C92.11 Chronic myeloid leukemia, BCR/ABL-positive, in remission; K57.30 Diverticulosis of large intestine without perforation or abscess without bleeding; K64.2 Third degree hemorrhoids; E78.00 Pure hypercholesterolemia, unspecified; I25.10 Atherosclerotic heart disease of native coronary artery without angina pectoris; I10 Essential (primary) hypertension; Z95.1 Presence of aortocoronary bypass graft; Z95.5 Presence of coronary angioplasty implant and graft; Z79.02 Long term (current) use of antithrombotics/antiplatelets; Z79.82 Long term (current) use of aspirin; Z79.899 Other long term (current) drug therapy; Z87.891 Personal history of nicotine dependence; I25.2 Old myocardial infarction
CPT/HCPCS: G0121; J7120; J2405

== ENCOUNTER → 2022-12-16 | Outpatient (CLI) | payer MEDICARE, OTHER, SELFPAY ==
--- NOTE | 2022-12-16 07:37 | CT_ITS ---
STUDY: LOW DOSE CT LUNG CANCER SCREENING REASON FOR EXAM: Male, 67 years old. Personal history of nicotine dependence. Patient smoked 1 pack per day for 30 years. RADIATION DOSAGE (If Supplied By Facility): CTDIvol = ( 4.02 ) mGy, DLP = ( 132.90 ) mGycm TECHNIQUE: No contrast was administered. Low dose technique was utilized (average mAS-38 and kVp 120). 1.25 mm axial source images with a slice interval of 1.25-mm were reconstructed in lung windows. 2.5 mm axial source images with a slice interval of 2.5-mm were reconstructed in lung windows. 5.0 mm axial source images with a slice interval of 5.0-mm were reconstructed in soft tissue windows. COMPARISON: Comparison is made with prior study dated December 13, 2020. NODULES: No suspicious nodules are seen. Calcified granuloma in the right upper lobe as seen on axial image #94. Emphysema: Minimal increased markings in the anterior aspect of the lingular segment of the left upper lobe suggestive of scarring. Endobronchial lesion: Unremarkable Aorta: Atherosclerotic plaque formation CORONARY ARTERIES: Coronary artery calcification is seen. Prior CABG. Heart: Unremarkable. Pulmonary artery: Unremarkable. Mediastinal nodes: Small benign appearing mediastinal lymph nodes. Other chest and abdominal findings: CT/Low Dose CT Lung Screening IMPRESSION: Lung-RADS category 2 - Continue annual screening with LDCT in 12 months. IMPORTANT NOTES FOR USE: ACR Lung-RADS Version 1.1 Assessment Categories Release Date: 2018 Category: Coded 0-4 bases on nodule(s) with highest degree of suspicion. Negative screen is defined as categories 1 and 2; a positive screen is defined as categories 3 and 4. Category 3 and 4A nodules that are unchanged on interval CT should be coded as category 2, and individuals returned to screening in 12 months. Category 4X: Category 3 or 4 nodules with additional imaging findings that increase the suspicion of lung cancer, such as spiculation, GGN that doubles in size in 1 year, enlarged lymph notes, etc. Category Modifiers: S (significant finding unrelated to lung cancer) Electronically Signed: Leonardo Guevara MD at 11:04 EDT ,
== END | disposition home or self-care (01) ==
LOC: CT 07:36
PROVIDERS: PCP Student in an Organized Health Care Education/Training Program; Referring Provider Student in an Organized Health Care Education/Training Program; Visit Provider Student in an Organized Health Care Education/Training Program
DX: Z12.2 Encounter for screening for malignant neoplasm of respiratory organs (principal); Z87.891 Personal history of nicotine dependence
CPT/HCPCS: 71271

== ENCOUNTER → 2023-01-07 | Outpatient (CLI) | payer MEDICARE, SELFPAY ==
--- NOTE | 2023-01-07 07:52 | RAD_ITS ---
INDICATION: NECK PAIN EXAMINATION/TECHNIQUE: X-RAY - XR Spine Cervical 2 or 3 Views COMPARISON: Prior studies dated: MRI dated April 15, 2015 FINDINGS: VERTEBRAE: Preserved vertebral body height. No fracture. There is mild multilevel endplate spondylosis. There is a grade 1 anterior spondylolisthesis of C5 on C6 of 2.4 mm. Preservation of the normal cervical lordosis. No significant facet arthropathy. DISCS: There is multilevel degenerative disc disease. NECK SOFT TISSUES: No prevertebral soft tissue widening. There are vascular calcifications. LUNG APICES: There are sternotomy wires in place. RAD/Cerv Spine 2 or 3 Views IMPRESSION: Multilevel degenerative disc disease. Grade 1 anterior spondylolisthesis of C5 on C6. Atherosclerosis. Electronically Signed: Massiel Grossman MD at 8:14 EDT ,
== END | disposition home or self-care (01) ==
LOC: RAD 07:38
PROVIDERS: PCP Student in an Organized Health Care Education/Training Program; Referring Provider Student in an Organized Health Care Education/Training Program; Visit Provider Student in an Organized Health Care Education/Training Program
DX: M54.2 Cervicalgia (principal)
CPT/HCPCS: 72040

== ENCOUNTER → 2023-04-23 | Outpatient (CLI) | payer MEDICARE, SELFPAY ==
--- NOTE | 2023-04-23 07:55 | ART_ITS ---
Reason For Study: Claudication Procedure A bilateral lower extremity continuous wave Doppler with analog waveform analysis,segmental pressures,and ankle brachial indexes without exercise. Left Segmental Pressures Left brachial= 141mmHg. Left thigh = 125mmHg. Left calf = 96mmHg. Left posterior tibial artery = 86mmHg. Left dorsalis pedis artery = 75mmHg. Left digit = 60 mmHg. The left posterior tibial artery waveforms are monophasic. The left dorsalis pedis waveforms are biphasic. Right Segmental Pressures Right brachial= 138mmHg. Right thigh = 196mmHg. Right calf = 119mmHg. Right posterior tibial artery = 80mmHg. Right dorsalis pedis artery = 92mmHg. Right digit = 79 mmHg. The right posterior tibial artery waveforms are monophasic. The right dorsalis pedis waveforms are monophasic. Indices The right ankle brachial index by the posterior tibial artery is 0.57. The right ankle brachial index by the dorsalis pedis is 0.65. The right digital-brachial index is 0.56. The right post exercise ankle brachial index is 0.25. The left ankle brachial index by the posterior tibial artery is 0.61. The left ankle brachial index by the dorsalis pedis is 0.53. The left digital-brachial index is 0.43. The left post exercise ankle brachial index is 0.19. VL/Lower Ext Art Exam w/ Exercise Interpretation Summary Abnormal right lower extremity noninvasive exam with moderately severe occlusiv e disease and a resting right posterior tibialis and dorsalis pedis ankle-brachial index at 0.5 7 and 0.65 respectively. The Doppler waveforms of the posterior tibialis are monophasic co nsistent with severe disease while the dorsalis pedis is biphasic consistent with more moderate dise ase. The right digital brachial index is abnormal at 0.56 Abnormal left lower extremity posterior tibialis and dorsalis pedis ankle-brach ial indices at rest at 0.61 and 0.53 respectively consistent with moderately severe occlusive disea se. The Doppler waveforms are monophasic at both sites consistent with more severe level diseas e. The left digital brachial index is abnormal at 0.43 Bilateral exercise indices are dramatically abnormal with failure to recover by 9 minutes. Ordering Physician: Johanny Hurst Referring Physician: [place] Kruger Performed By: Nixon Cross RVT
== END | disposition home or self-care (01) ==
LOC: CVS 07:46
PROVIDERS: PCP Student in an Organized Health Care Education/Training Program; Referring Provider Physician Assistant; Visit Provider Physician Assistant
DX: I73.9 Peripheral vascular disease, unspecified (principal)
CPT/HCPCS: 93924

== ENCOUNTER → 2023-05-21 | Outpatient (CLI) | payer MEDICARE, SELFPAY ==
--- NOTE | 2023-05-21 07:41 | CDU_ITS ---
Reason For Study: Carotid Stenosis Rt. Velocities/BP Lt. Velocities/BP Prox CCA 81.7/14.6 cm/sec. Prox CCA 101.0/24.3 cm/sec. Mid CCA 82.8/16.8 cm/sec. Mid CCA 113.8/24.3 cm/sec. Dist CCA 69.6/14.6 cm/sec. Dist CCA 90.6/21.2 cm/sec. Prox ICA 74.0/19.0 cm/sec. Prox ICA 105.2/26.7 cm/sec. Mid ICA 78.4/27.8 cm/sec. Mid ICA 103.4/26.7 cm/sec. Dist ICA 62.4/22.3 cm/sec. Dist ICA 86.9/30.3 cm/sec. Rt. ICA/CCA = 1.0. Lt. ICA/CCA = 0.9. Prox ECA 79.6/12.6 cm/sec. Prox ECA 80.9/9.7 cm/sec. Rt. Vert. 31.9/8.2 cm/sec. Lt. Vert. 61.3/19.4 cm/sec. Right Extracranial There is heterogeneous, smooth atherosclerotic plaque noted in the right common carotid artery. There is heterogeneous, irregular atherosclerotic plaque noted in the right internal carotid artery. The atherosclerotic plaque causes acoustic shadowing. There is heterogeneous, irregular atherosclerotic plaque noted in the right external carotid artery. Antegrade flow is noted in the right vertebral artery. Left Extracranial There is heterogeneous, irregular atherosclerotic plaque noted in the left common carotid artery. There is heterogeneous, irregular atherosclerotic plaque noted in the left internal carotid artery. The atherosclerotic plaque causes acoustic shadowing. There is heterogeneous, irregular atherosclerotic plaque noted in the left external carotid artery. Antegrade flow is noted in the left vertebral artery. Procedure Carotid Duplex 20628. This is a Carotid Duplex examination using B-mode, color flow and specral Doppler. The exam was diagnostic. Exam performed in department. VL/Carotid Duplex Ultrasound Interpretation Summary Irregular plaque at the proximal right internal carotid artery with less than 5 0% stenosis Less than 50% stenosis right external carotid artery Irregular plaque at the proximal left internal carotid artery with less than 50 % stenosis Less than 50% stenosis left external carotid artery Patent antegrade vertebrals bilaterally No change from the previous examination of February 09, 2019 Ordering Physician: Thomas Islas Referring Physician: Indio Lino Performed By: Nixon Cross RVT
== END | disposition home or self-care (01) ==
LOC: CVS 07:41
PROVIDERS: PCP Student in an Organized Health Care Education/Training Program; Referring Provider Surgery; Visit Provider Surgery
DX: I65.23 Occlusion and stenosis of bilateral carotid arteries (principal)
CPT/HCPCS: 93880

== ENCOUNTER → 2023-08-12 | Outpatient (CLI) | payer MEDICARE, SELFPAY ==
[2023-08-12 08:48] LABS: AST(SGOT) 21 U/L (15-37); Alanine Aminotransfer ALT/SGPT 24 U/L (16-61); Albumin, Serum 4.2 g/dL (3.2-5.0); Alkaline Phosphatase 139 U/L (45-117); Cholesterol 142 mg/dL (200); Globulin 3.3 g/dL (2.2-4.2); High Density Lipoprotein 31 mg/dL; Protein, Total 7.5 g/dL (6.4-8.2); Triglycerides 124 mg/dL; Very Low Density Lipoprotein 25 mg/dL (5-40)
== END | disposition home or self-care (01) ==
LOC: LAB 07:20
PROVIDERS: PCP Student in an Organized Health Care Education/Training Program; Referring Provider Nurse Practitioner Family; Visit Provider Nurse Practitioner Family
DX: E78.00 Pure hypercholesterolemia, unspecified (principal); Z95.1 Presence of aortocoronary bypass graft
CPT/HCPCS: 36415; 80061; 80076

== ENCOUNTER → 2024-06-06 | Outpatient (CLI) | payer MEDICARE, SELFPAY ==
[2024-06-06 16:51] LABS: Absolute Lymphocyte Count 1.24 X10^3/uL (0.83-4.51); Absolute Neutrophil Count 4.8 X10^3/uL (2.0-7.7); Basophil# 0.02 X10^3/uL; Basophil% 0.3 % (0-1); Eosinophil# 0.09 X10^3/uL; Eosinophils% 1.4 % (0-5); Hematocrit 42.9 % (40-54); Hemoglobin 14.6 g/dL (13.0-16.5); Lymphocyte # 1.24 X10^3/ul (0.83-4.51); Lymphocyte % 18.8 % (19-41); Mean Corpuscular Hgb 28.7 pg (27.0-32.0); Mean Corpuscular Volume 84.3 fL (80-94); Mean Platelet Vol. 10.2 fl (6.2-12.0); Monocyte# 0.47 X10^3/uL; Monocyte% 7.1 % (0-10); NRBC Flagged by Analyzer 0 % (0-5); Neutrophil # 4.76 X10^3/uL (2.7-7.7); Neutrophil % 71.9 % (47-70); Platelet Count 173 K/mm3 (150-450); RBC Distribution Width CV 13.9 % (11.6-14.6); RBC Distribution Width SD 42.6 fl (35.1-43.9); Red Blood Count 5.09 M/mm3 (4.6-6.2); White Blood Count 6.6 K/mm3 (4.4-11.0)
[2024-06-06 17:33] LABS: ALB/GLOB Ratio 1.2 RATIO (0.9-2.4); AST(SGOT) 23 U/L (15-37); Alanine Aminotransfer ALT/SGPT 20 U/L (16-61); Alkaline Phosphatase 163 U/L (45-117); Anion Gap 5 (5-15); BUN 19 mg/dL (7-18); BUN/Creat Ratio 17.4 RATIO (10-20); Calcium,Total 9.6 mg/dL (8.5-10.1); Chloride 104 mmol/L (98-107); Creatinine, Serum 1.09 mg/dL (0.70-1.30); EST Glomerular Filtration Rate 71 mL/min (>60); Est Glom Filt Rate - Afr Amer 86 mL/min (>60); Globulin 3.4 g/dL (2.2-4.2); Glucose 96 mg/dL (74-106); PSA,Total - Annual Screen 0.53 ng/mL (0.00-4.00); Potassium 3.5 mmol/L (3.5-5.1); Protein, Total 7.4 g/dL (6.4-8.2); Sodium Level 137 mmol/L (136-145)
[2024-06-08 09:36] LABS: Hepatitis C Antibody Non-Reactive (Nonreactive)
== END | disposition home or self-care (01) ==
LOC: LAB 16:20
PROVIDERS: PCP Family Medicine Geriatric Medicine; Visit Provider Family Medicine Geriatric Medicine
DX: I10 Essential (primary) hypertension (principal); E78.5 Hyperlipidemia, unspecified; Z13.89 Encounter for screening for other disorder; Z12.5 Encounter for screening for malignant neoplasm of prostate
CPT/HCPCS: 36415; 80053; 84153; 84443; 85025; 86803; G0103

== ENCOUNTER → 2024-06-30 | Outpatient (CLI) | payer MEDICARE, SELFPAY ==
--- NOTE | 2024-06-30 06:45 | CT_ITS ---
STUDY: LOW DOSE CT LUNG CANCER SCREENING REASON FOR EXAM: Male, 68 years old. NICOTINE DEPENDENCE. quit smoking 7 years ago. smoked 1ppd x 29 years RADIATION DOSAGE (If Supplied By Facility): CTDIvol = ( 3.02 ) mGy, DLP = ( 116.26 ) mGycm TECHNIQUE: No contrast was administered. Low dose technique was utilized (average mAS-38 and kVp 120). 1.25 mm axial source images with a slice interval of 1.25-mm were reconstructed in lung windows. 2.5 mm axial source images with a slice interval of 2.5-mm were reconstructed in lung windows. 5.0 mm axial source images with a slice interval of 5.0-mm were reconstructed in soft tissue windows. COMPARISON: 12/16/2022 FINDINGS: Lung windows show the lungs to be normally expanded. No organized infiltrate effusion or suspicious noncalcified mass or nodule. Overall no interval change since the previous study. There is been a remote CABG. No suspicious adenopathy. Degenerative bony changes are noted. Peripheral calcifications noted in the thoracic aorta without aneurysm. Limited cuts of the upper abdomen do not show a suspicious abnormality. CT/Low Dose CT Lung Screening IMPRESSION: Lung-RADS category 1 - Continue annual screening with LDCT in 12 months. IMPORTANT NOTES FOR USE: ACR Lung-RADS Version 1.1 Assessment Categories Release Date: 2018 Category: Coded 0-4 bases on nodule(s) with highest degree of suspicion. Negative screen is defined as categories 1 and 2; a positive screen is defined as categories 3 and 4. Category 3 and 4A nodules that are unchanged on interval CT should be coded as category 2, and individuals returned to screening in 12 months. Category 4X: Category 3 or 4 nodules with additional imaging findings that increase the suspicion of lung cancer, such as spiculation, GGN that doubles in size in 1 year, enlarged lymph notes, etc. Category Modifiers: S (significant finding unrelated to lung cancer) Electronically Signed: Ld Nicholson MD at 14:01 EST ,
== END | disposition home or self-care (01) ==
LOC: CT 06:39
PROVIDERS: PCP Family Medicine Geriatric Medicine; Referring Provider Family Medicine Geriatric Medicine; Visit Provider Family Medicine Geriatric Medicine
DX: Z12.2 Encounter for screening for malignant neoplasm of respiratory organs (principal); Z87.891 Personal history of nicotine dependence
CPT/HCPCS: 71271

== ENCOUNTER → 2024-08-03 | Outpatient (CLI) | payer MEDICARE, SELFPAY ==
--- NOTE | 2024-08-03 09:54 | ART_ITS ---
Reason For Study Reason For Study: PVD Procedure A bilateral lower extremity continuous wave Doppler with analog waveform analysis,segmental pressures,and ankle brachial indexes with exercise. Left Segmental Pressures Left brachial= 148mmHg. Left low thigh = 170mmHg. Left calf = 74mmHg. Left posterior tibial artery = 64mmHg. Left dorsalis pedis artery = 78mmHg. Left digit = 61 mmHg. The left dorsalis pedis waveforms are monophasic. The left posterior tibial artery waveforms are monophasic. Right Segmental Pressures Right brachial= 134mmHg. Right low thigh = 194mmHg. Right calf = 141mmHg. Right posterior tibial artery = 105mmHg. Right dorsalis pedis artery = 117mmHg. Right digit = 82 mmHg. The right dorsalis pedis waveforms are monophasic. The right posterior tibial artery waveforms are biphasic. Indices The right ankle brachial index by the dorsalis pedis is 0.79. The right ankle brachial index by the posterior tibial artery is 0.71. The right ankle brachial index by the dorsalis pedis post exercise is 0.28. The right digital-brachial index is 0.55. The left ankle brachial index by the dorsalis pedis is 0.53. The left ankle brachial index by the posterior tibial artery is 0.43. The left dorsalis pedis index post exercise is 0.18. The left digital-brachial index is 0.41. VL/Lower Ext Art Exam w/ Exercise Interpretation Summary Right CARLOS 0.79, moderate arterial insufficiency. Doppler/PVR waveforms and segm ental pressures reveal distal SFA/popliteal, infrapopliteal disease. Right lower extremity with abnormal response to exercise and post exercise CARLOS in the severe category. Left CARLOS 0.53, moderate arterial insufficiency. Doppler/PVR waveforms and segme ntal pressures reveal distal SFA/popliteal disease. Left lower extremity with abnormal response to exercise and post exercise CARLOS i n the critical category. Ordering Physician: Isabell Adler Referring Physician: Venkata, Bryan Chi Performed By: Nixon Cross RVT and Student
== END | disposition home or self-care (01) ==
PROVIDERS: PCP Family Medicine Geriatric Medicine; Referring Provider Physician Assistant; Visit Provider Physician Assistant
DX: I73.9 Peripheral vascular disease, unspecified (principal)
CPT/HCPCS: 93924

== ENCOUNTER → 2024-12-06 | Outpatient (CLI) | payer MEDICARE, SELFPAY ==
[2024-12-06 10:26] LABS: Absolute Lymphocyte Count 1.37 X10^3/uL (0.83-4.51); Absolute Neutrophil Count 4.2 X10^3/uL (2.0-7.7); Basophil# 0.03 X10^3/uL; Basophil% 0.5 % (0-1); Eosinophil# 0.18 X10^3/uL; Eosinophils% 2.8 % (0-5); Hematocrit 42.4 % (40-54); Hemoglobin 14.5 g/dL (13.0-16.5); Lymphocyte # 1.37 X10^3/ul (0.83-4.51); Lymphocyte % 21.5 % (19-41); Mean Corp Hgb Conc 34.2 g/dL (32-36); Mean Corpuscular Hgb 28.8 pg (27.0-32.0); Mean Corpuscular Volume 84.1 fL (80-94); Mean Platelet Vol. 9.7 fl (6.2-12.0); Monocyte# 0.56 X10^3/uL; Monocyte% 8.8 % (0-10); NRBC Flagged by Analyzer 0 % (0-5); Neutrophil # 4.21 X10^3/uL (2.7-7.7); Neutrophil % 66.1 % (47-70); Platelet Count 169 K/mm3 (150-450); RBC Distribution Width CV 13.6 % (11.6-14.6); RBC Distribution Width SD 41.6 fl (35.1-43.9); Red Blood Count 5.04 M/mm3 (4.6-6.2); White Blood Count 6.4 K/mm3 (4.4-11.0)
[2024-12-06 11:15] LABS: ALB/GLOB Ratio 1.7 RATIO (0.9-2.4); AST(SGOT) 27 U/L (<=37); Alanine Aminotransfer ALT/SGPT 18 U/L (<=46); Albumin, Serum 4.6 g/dL (3.4-4.8); Alkaline Phosphatase 136 U/L (40-129); Anion Gap 11 (5-15); BUN 18 mg/dL (4-19); Calcium,Total 10.3 mg/dL (7.6-11.0); Carbon Dioxide 26.9 mmol/L (21.0-32.0); Chloride 100 mmol/L (98-108); Cholesterol 109 mg/dL (<=200); Creatinine, Serum 1.05 mg/dL (0.70-1.20); EST Glomerular Filtration Rate 76 (>60); Globulin 2.7 g/dL (2.2-4.2); Glucose 108 mg/dL (70-99); High Density Lipoprotein 32 mg/dL; Low Density Lipoprotein Calc. 53 mg/dL; Potassium 3.4 mmol/L (3.3-5.1); Protein, Total 7.3 g/dL (5.9-8.4); Sodium Level 138 mmol/L (133-145); Total Bilirubin 0.71 mg/dL (0.00-1.30); Triglycerides 116 mg/dL; Very Low Density Lipoprotein 23 mg/dL (5-40); Vitamin D,25 Hydroxy 20.6 ng/mL (30-100); cholesterol:hdl ratio screen 3.36
[2024-12-09 17:07] LABS: Lyme IgG P18 Ab Absent (.); Lyme IgG P23 Ab Absent (.); Lyme IgG P28 Ab Absent (.); Lyme IgG P30 Ab Absent (.); Lyme IgG P39 Ab Absent (.); Lyme IgG P41 Ab Absent (.); Lyme IgG P45 Ab Absent (.); Lyme IgG P58 Ab Absent (.); Lyme IgG P66 Ab Absent (.); Lyme IgG P93 Ab Absent (.); Lyme IgG WB Interpretation Negative (Negative); Lyme IgM P23 Ab Absent (.); Lyme IgM P39 Ab Absent (.); Lyme IgM P41 Ab Absent (.); Lyme IgM WB Interpretation Negative (Negative)
== END | disposition home or self-care (01) ==
PROVIDERS: PCP Family Medicine Geriatric Medicine; Referring Provider Family Medicine Geriatric Medicine; Visit Provider Family Medicine Geriatric Medicine
DX: I10 Essential (primary) hypertension (principal); E55.9 Vitamin D deficiency, unspecified; E78.5 Hyperlipidemia, unspecified; W57.XXXA Bitten or stung by nonvenomous insect and other nonvenomous arthropods, initial encounter
CPT/HCPCS: 36415; 80053; 80061; 82306; 84443; 85025; 86617

== ENCOUNTER 2025-03-07 13:14 | Emergency (ER) | payer MEDICARE, SELFPAY ==
[2025-03-07 13:15] VITALS: BP 170/79; PULSE 64; RESP 15; TEMP 36.5; O2SAT 98; BMI 29.2
--- NOTE | 2025-03-07 13:33 | RAD_ITS ---
PROCEDURE: CHEST 1 VIEW (PORTABLE) 03/07/2025 REASON FOR EXAM: CHEST PAIN TECHNIQUE: Frontal view of the chest. COMPARISON: Chest x-ray 12/13/2020. FINDINGS: Hardware: Sternotomy wires are present. Heart: Cardiac and mediastinal contours are stable. Lungs: Mild bilateral pulmonary vascular congestion. Bones: Degenerative changes are identified within the thoracic spine. Other: RAD/Chest 1 View (Portable) IMPRESSION: Mild bilateral pulmonary vascular congestion. No other acute cardiopulmonary a bnormality. Reading Location: [id number]
--- NOTE | 2025-03-07 13:33 | EKG12_ITS ---
Test Reason : CP Blood Pressure : */* mmHG Vent. Rate : 52 BPM Atrial Rate : 52 BPM P-R Int : 220 ms QRS Dur : 126 ms QT Int : 468 ms P-R-T Axes : 47 -23 18 degrees QTcB Int : 435 ms Sinus bradycardia with 1st degree A-V block Right bundle branch block Inferior infarct , age undetermined Abnormal ECG Confirmed by ADIN BARBOUR, DAVID ([id number]), material expeditor KENNETH MICHAELS ([id number]) on 03/09/2025 10:34:42 AM Referred By: TB Confirmed By: DAVID OAKLEY MD
[2025-03-07 13:47] LABS: Hematocrit 41.2 % (40-54); Hemoglobin 14.0 g/dL (13.0-16.5); Immature Granulocytes Count 0.010 X10^3/uL (0.0-0.0); Mean Corp Hgb Conc 34.0 g/dL (32-36); Mean Corpuscular Volume 86.0 fL (80-94); Mean Platelet Vol. 9.7 fl (6.2-12.0); NRBC Flagged by Analyzer 0 % (0-5); Platelet Count 144 K/mm3 (150-450); RBC Distribution Width CV 13.8 % (11.6-14.6); RBC Distribution Width SD 44.2 fl (35.1-43.9); Red Blood Count 4.79 M/mm3 (4.6-6.2); White Blood Count 5.5 K/mm3 (4.4-11.0)
[2025-03-07 14:29] LABS: Anion Gap 12 (5-15); BUN 16 mg/dL (4-19); BUN/Creat Ratio 17.7 RATIO (10-20); Calcium,Total 9.5 mg/dL (7.6-11.0); Carbon Dioxide 22.7 mmol/L (21.0-32.0); Chloride 106 mmol/L (98-108); Estimated Creatinine Clearance 86.05 ml/min (50-250); Glucose 103 mg/dL (70-99); Potassium 3.8 mmol/L (3.3-5.1)
--- NOTE | 2025-03-07 14:34 | EX.ED.DYSGE1 ---
HPI History of Present Illness Chief Complaint: Chest Pain Narrative Narrative: Patient is a 69-year-old male with past medical history of CAD with stents, hypertension, peripheral vascular disease, hypercholesteremia, hyperlipidemia, CML who presents to the emergency department the chief complaint of left chest pain. He states that this has been off and on for the last 3 days nothing makes this better or worse. He denies any recent travel history denies any history of blood clots. Patient states that he has coronary disease and was concerned that this could be his heart therefore he came here to be further evaluated. [facility] Medical History Cancer High cholesterol Excessive bleeding History of leukemia Former smoker H/O Legionnaire's disease History of Holter monitoring History of echocardiogram History of stress test Cardiology follow-up encounter History of heart attack Chest pain Postoperative atrial fibrillation (01/2018) Claudication Pericardial effusion with cardiac tamponade (02/2018) Peripheral vascular occlusive disease Essential (primary) hypertension Atherosclerotic heart disease of [place] coronary artery without angina pectoris Frequent unifocal premature ventricular contractions Peripheral arterial occlusive disease Hyperlipemia CML (chronic myelocytic leukemia) Home Medications ?Medication ?Instructions ?Recorded ?Last Taken ?Type aspirin 81 mg chewable tablet 81 mg PO DAILY@0800 03/26/18 12/05/22 History rosuvastatin 40 mg tablet 40 mg PO QHS 07/13/24 Unknown History carvedilol 25 mg tablet See Rx Instructions .Route 09/12/24 Unknown Rx .COMPLEX #180 tabs hydrochlorothiazide 25 mg tablet 25 mg PO DAILY #90 TABLETS 10/20/24 Unknown Rx amlodipine 10 mg tablet 10 mg PO DAILY #90 TABLETS 01/19/25 Unknown Rx lidocaine 5 % topical patch 1 patch topical DAILY #15 ea 03/07/25 Unknown Rx (DermacinRx Lidocan) Allergy/AdvReac Type Severity Reaction Status Date / Time lisinopril Allergy Severe Swelling Verified 03/07/25 13:17 nilotinib (From Tasigna) Allergy Rash Verified 03/07/25 13:17 pseudoephedrine (From Allergy IRREGULAR Verified 03/07/25 13:17 Sudafed) HEARTBEAT Family History Mother Hypertension Father Hypertension Surgical History History of cardiac catheterization History of appendectomy H/O coronary artery bypass surgery (02/11/18) History of angioplasty of peripheral vessel (11/30/16) History of coronary artery stent placement (11/2013) Social History Smoking Status: Former smoker how long ago did patient quit smokin 1/2 years ago alcohol intake: never substance use type: does not use caffeine: Yes Type: coffee Number of servings: 1 ROS ROS ED ROS Narrative Constitutional: Denies any fevers or chills Eyes: Denies double vision Cardiovascular: Complains of left-sided chest discomfort as noted above denies palpitations Respiratory: Denies coughing wheezing shortness of breath Abdomen: Denies abdominal pain nausea vomit diarrhea : Denies any urinary symptoms Neurological: Denies any numbness, weakness, tingling Musculoskeletal: Denies back pain Skin: Denies any rashes or lesions EXAM Physical Exam Narrative Exam Narrative: General: Patient was lying in bed resting comfortably did not appear to be in acute distress Head: Atraumatic, normocephalic Eyes: PERRL bilateral, EOMI bilaterally, no conjunctival injection noted Neck: Soft, supple, trachea midline Cardiovascular: Regular rate and rhythm no murmurs gallops rubs noted Respiratory: Clear to auscultation bilaterally no rales rhonchi or wheeze noted Abdomen: Soft, nondistended, no tenderness palpation Extremities: +5/5 strength noted in the bilateral lower extremities, radial pulses +2/4 in the bilateral extremities, no pedal edema on exam Neurological: Patient follow commands knew that he was at [facility] the year is 2024 Skin: Warm, dry, intact no rashes or lesions noted Const Vital Signs: 03/07/25 13:15 03/07/25 13:38 03/07/25 14:44 Temperature 97.7 F L Temperature Source Oral Pulse Rate 64 51 L Respiratory Rate 15 14 Blood Pressure 170/79 H 140/74 H Blood Pressure Mean 109 96 Pulse Ox 98 97 Oxygen Delivery Method Room Air Room Air 03/07/25 15:00 03/07/25 16:00 Temperature Temperature Source Pulse Rate 53 L 50 L Respiratory Rate 16 Blood Pressure 139/72 H 147/54 H Blood Pressure Mean 94 85 Pulse Ox 100 Oxygen Delivery Method MDM MDM MDM Narrative Medical decision making narrative: Patient is a 69-year-old male who presents to the emergency department the chief complaint of left-sided chest pain. On the differential diagnose includes but not limited to ACS, musculoskeletal strain, pneumothorax, pneumonia. Once workup is obtained reviewed he will be reevaluated. The patient did note that he has been helping his neighbor get his apartment together and states he could have strained the muscle however given his history of heart disease he wanted to be sure that this was not his heart. Aiken Score (Revised) for Pulmonary Embolism from [facility] on 03/07/2025 All calculations should be rechecked by clinician prior to use RESULT SUMMARY: 1 points Low risk group: 7-9% incidence of PE from several studies. INPUTS: Age >65 ?> 1 = Yes Previous DVT or PE ?> 0 = No Surgery (under general anesthesia) or lower limb fracture in past month ?> 0 = No Active malignant condition ?> 0 = No Unilateral lower limb pain ?> 0 = No Hemoptysis ?> 0 = No Heart rate ?> 0 = < 75 Pain on lower limb palpation and unilateral edema ?> 0 = No Patient CBC reviewed which showed no evidence leukocytosis white blood count was 5.5, he was 14, platelet count of 144. Patient sodium normal 140, potassium normal 3.8, creatinine normal at 0.90. Patient troponin normal at 9, delta troponin 9, proBNP normal at 97, EKG showed sinus bradycardia with a first-degree AV block with a rate of 52 with a MA interval at 220. Patient's previous EKG from December 13, 2020 was reviewed which also at that time showed sinus rhythm with first-degree AV block with a MA interval of 210. Patient's chest x-ray was reviewed by myself and by radiology which showed mild pulmonary vascular congestion no other acute cardiopulmonary abnormalities identified. Patient ambulated well here in the emergency department no hypoxia no tachycardia. He feels well and would like to go home at this point in time. At this point time I do have low suspicion for cardiac etiology given that his symptoms been going on for 3 days nothing makes this better or worse. Do have suspicion that he does have a musculoskeletal strain which she was thinking as well he was advised to rotate Tylenol and ibuprofen [id number] as well as Lidoderm patch as prescribed. He is encouraged to return with worsening symptoms or any concerns as well as follow-up with his doctors in the outpatient setting. All question concerns answered he is discharged home in stable condition Lab Data Labs: Laboratory Results - last 24 hr 03/07/25 03/07/25 13:36 15:30 WBC 5.5 RBC 4.79 Hgb 14.0 Hct 41.2 MCV 86.0 MCH 29.2 MCHC 34.0 RDW Std Deviation 44.2 H RDW Coeff of Fredy 13.8 Plt Count 144 L MPV 9.7 Immature Gran % (Auto) 0.200 Neut % (Auto) 66.6 Lymph % (Auto) 21.9 [place] % (Auto) 8.2 Eos % (Auto) 2.9 Baso % (Auto) 0.2 Absolute Neuts (auto) 3.6 Absolute Lymphs (auto) 1.20 Nucleated RBC % 0 Sodium 140 Potassium 3.8 Chloride 106 Carbon Dioxide 22.7 Anion Gap 12 BUN 16 Creatinine 0.90 Estim Creat Clear Calc 86.05 Est GFR (MDRD) Non-Af 91 BUN/Creatinine Ratio 17.7 Glucose 103 H Calcium 9.5 Troponin T High Sens 9 Troponin T Hi Sens 2 Hr 9 NT pro BNP II 97 Radiography Diagnostic Testing: Clinical Impression(s) from Imaging Studies Chest X-Ray 03/07/25 13:33 IMPRESSION: Mild bilateral pulmonary vascular congestion. No other acute cardiopulmonary abnormality. Reading Location: [facility] Discharge Plan Triage Chief Complaint: Chest Pain ED Provider: Saul Jaimes Dx/Rx/DC Orders Clinical Impression: Chest pain, CML (chronic myelocytic leukemia), Essential (primary) hypertension Prescriptions: New lidocaine [DermacinRx Lidocan] 5 % adhesive patch,medicated 1 patch topical DAILY Qty: 15 0RF Rx Instructions: leave on most painful area for up to 12 hrs No Action rosuvastatin 40 mg tablet 40 mg PO QHS aspirin 81 MG tablet,chewable 81 mg PO DAILY@0800 carvedilol 25 mg tablet See Rx Instructions .ROUTE .COMPLEX Qty: 180 3RF Dose Instruction: TAKE ONE TABLET BY MOUTH TWICE DAILY FOR HEART Rx Instructions: TAKE ONE TABLET BY MOUTH TWICE DAILY FOR HEART hydrochlorothiazide 25 mg tablet 25 mg PO DAILY Qty: 90 3RF amlodipine 10 mg tablet 10 mg PO DAILY Qty: 90 3RF Primary Care Provider: Bryan Hastings Chi Referrals: Bryan Hastings Chi, MD [Primary Care Provider, Geriatrics] Activity Restrictions/Additional Instructions: Follow-up with your doctor in outpatient setting. Your chest x-ray, blood work and your heart enzymes did not show any acute findings here today. Return with worsening symptoms or other concerns. Rotate Tylenol and ibuprofen [id number] when you do this you can take something every 3 hours for pain max dose of Tylenol in 24 hours 4000 mg max dose of ibuprofen in 24 hours 3200 mg. Use Lidoderm patches sent to your pharmacy as prescribed as well. Print Language: [place]ian Disposition Disposition: Home, Self Care
[2025-03-07 14:44] VITALS: BP 140/74; PULSE 51; RESP 14; O2SAT 97
[2025-03-07 14:45] LABS: Troponin T High Sensitivity 9 ng/L (<=22)
[2025-03-07 15:00] VITALS: BP 139/72; PULSE 53; RESP 16; O2SAT 100
[2025-03-07 15:07] LABS: Pro- Brain NATRIURETIC PEPTIDE 97 pg/mL (<=900)
[2025-03-07 16:00] VITALS: BP 147/54; PULSE 50
[2025-03-07 16:10] LABS: Troponin T High Sens 2 HR 9 ng/L (<=22)
[2025-03-07 16:25] VITALS: O2SAT 97
[2025-03-07 16:33] VITALS: BP 143/65; PULSE 60; RESP 14; TEMP 36.6; O2SAT 97
--- OUTSIDE RECORDS SUMMARY | 2025-03-07 21:00 | XMS RPT_ITS | CCD ---
Author Organization [facility] Care Team Providers Care Object Oriented Developer Name Role Phone Neymra Nance Unavailable Neymar Nance Unavailable Jenni Lakhani RN Unavailable Unavailable Mindy Hinton Attending Unavailable Tripp Russell Primary Care Unavailable Jeremías Black Attending Unavailable Ketty, Jaswinder Gibbons Attending Unavailable DrewTripp tapia Primary Care Unavailable KettyJaswinder royal Attending Unavailable No Family Physician given Primary Care Unavayanna Hdez, Jaswinder Gibbons Admitting Unavailable Ketty, Jaswinder Gibbons Admitting Unavailable DrewTripp tapia A Primary Care Unavailable Serge Graham Attending Unavailable Jennifer Che Attending Unavailable Micaela Jean Attending Unavailable Drew, Tripp Higgins Primary Care Unavailable Drew, Tripp A Primary Care Unavailable Ketty, Jaswinder Gibbons Admitting Unavailable Ketty, Jaswinder Gibbons Attending Unavailable KettyJaswinder royal Attending Unavailable Pipjuhi S Vance Attending Unavailable Tripp Russell Primary Care Unavailable Saskia DALE MD, Michael Primary Care Provider [phone] Saskia DALE MD, Michael Primary Care Provider [phone] Dr. Fartun Saez Primary Care Provider [phone] Dr. Aiden Islas Attending Provider Dr. Fartun Saez Primary Care Provider [phone] Dr. Fartun Saez Referring Provider [phone] Dr. David Aguiar Attending Provider [phone] Dr. David Aguiar Referring Provider [phone] Dr. David Aguiar Other Provider Marlee Holt Attending Provider Unavailable Saskia DALE DO, Michael Primary Care Provider [phone] Gloria Woodard Attending Provider Unavailable Dr. Devin Gonzalez Attending Provider [phone] Dr. Devin Gonzalez Other Provider [phone] Fartun Saez Primary Care Provider [phone] Dr. David Aguiar Attending Provider Dr. Fartun Saez Referring Provider [phone] FARTUN SAEZ DO Primary Care Physician [phone] Dr. Fartun Saez Primary Care Provider [phone] Dr. Aiden Islas Attending Provider Aris SUTTON, PABurakC Johanny Referring Provider Dr. Fartun Saez Referring Provider [phone] Saskia DALE DO, Michael A Primary Care Provider Daiana BARBOUR, Earl Unavailable Dr. Fartun Saez Primary Care Provider Dr. Fartun Saez Referring Provider [phone] Aiden Islas Referring Provider [phone] Paulette PREVOCATIONAL/REHABILITATION COUNSELOR, PREVOCATIONAL/REHABILITATION COUNSELOR-Hayes Castaneda Attending Provider [phone] Saskia DALE DO, Michael A Primary Care Provider Venkata, Bryan Chi Primary Care Provider [phone] Dr. Fartun aSez DO Referring Provider Dr. David Aguiar MD Attending Provider [phone] Bryan Hastings MD, Chi Primary Care Provider Dr. Bryan Hastings MD, Chi Attending Provider Dr. Bryan Hastings MD, Chi Referring Provider David Aguiar Attending Unavailable Fartun Saez Referring Unavailable Venkata, Bryan Chi Primary Care Unavailable Venkata, Bryan Chi Primary Care Unavailable Adler, Isabell Referring Unavailable Adrian Coleman Attending Unavailable Venkata, Bryan Chi Primary Care Unavailable AdlerJordanIsabell Attending Unavailable Venkata, Bryan Chi Referring Unavailable Venkata, Bryan Chi Primary Care Unavailable Venkata, Bryan Chi Attending Unavailable Venkata, Bryan Chi Primary Care Unavailable Adler, Isabell Attending Unavailable Adler, Isabell Referring Unavailable Venkata, Bryan Chi Attending Unavailable Venkata, Bryan Chi Referring Unavailable Venkata, Bryan Chi Primary Care Unavailable Venkata, Bryan Chi Primary Care Unavailable Venkata, Bryan Chi Attending Unavailable Venkata, Bryan Chi Referring Unavailable EARL SEPULVEDA Referring Unavailable VENKATA, BRYAN CHI Primary Care Unavailable HALKO IV, SAFIA Primary Care Unavailable HALKO IV, SAFIA Primary Care Unavailable EARL SEPULVEDA Attending Unavailable HALKO IV, SAFIA Primary Care Unavailable SELF Referring Unavailable Venkata BARBOUR, Dr. Bryan Helm Primary Care Physician Dr. Bryan Hastings MD, Chi Attending Physician Dr. Saul Jaimes DO Emergency Department Physic germán Allergies Allergy Classification Reported Allergen(s) Allergy Type Date of Onset Reaction(s) Facility (20 sources) lisinopril; Translations: [lisinopril] drug allergy 2 Swelling, Angioedema (disorder) [facility] Work Phone: Comment on above: ANGIOEDEMA (6 sources) nilotinib drug allergy 2 Severe rash [facility] Work Phone: (4 sources) pseudoephedrine; Translations: [Pseudoephedrine] drug allergy 7 unknown, Irregular heart beat [facility] Work Phone: (20 sources) Pseudoephedrine; Translations: [PSEUDOEPHEDRINE] Drug Allergy 7 Other: See Comments [facility] (7 sources) nilotinib Drug Allergy 3 Rash [facility] (1 source) nilotinib Drug Allergy 5 [facility] (1 source) Pseudoephedrine Drug Allergy 5 [facility] Medications Current Medications Medication Drug Class(es) Dates Sig (Normalized) Sig (Original) amLODIPine 10 mg oral tablet (20 sources) Dihydropyridine Calcium Channel Will Start: 09-13-2018 End: 09-28-2018 take 1 tablet by mouth once daily Amlodipine 5 MG tablet Discontinued 5 mg PO DAILY September 13, 2018 12:00am September 28, 2018 3:08pm BP Start: 01-22-2015 End: 01-19-2025 take 1 tablet by mouth once daily Start: 01-22-2015 take 1 tablet by terry th once daily AMLODIPINE BESYLATE 5 MG TABS One tablet by mouth daily AMLODIPINE BESYLATE [id number] David Aguiar MD Comment on above: Take 10 mg by mouth once daily. aspirin 81 mg delayed release oral tablet (20 sources) Nonsteroidal Anti-inflammatory Drug Start: 10-30-2019 Aspir-Low 81 mg oral delayed release tablet Dose : 81 mg = 1 tab(s), Oral, qDay, # 30 tab(s), 0 Refill(s) Start Date: 10/30/19 Status: Ordered Start: 03-26-2018 take 1 tablet by terry th once daily Start: 06-10-2012 take 1 tablet by terry th once daily ECOTRIN LOW STRENGTH 81 MG TBEC One tablet by mouth daily ASPIRIN [id number] David Aguiar MD Start: 06-10-2012 take 1 tablet by terry th once daily ASPIRIN EC 81 MG TBEC One tablet by mouth daily ASPIRIN [id number] Jenni Lakhani RN take 1 tablet by terry th once daily Aspirin 81 mg Tab Take 81 mg by mouth once daily. Active Comment on above: Take 81 mg by mouth once daily. lidocaine 0.05 mg/mg medicated patch (1 source) Antiarrhythmic, Amide Local Anesthetic Start: 5 meclizine hydrochloride 25 mg oral tablet (19 sources) Antiemetic Start: 1 take 1 tablet by mouth three times daily meclizine 25 mg oral tablet See Instructions, tab(s) mg Oral TID, 0 Refill(s) Start Date: 04/14/21 Status: Ordered Start: 03-25-2020 End: 07-13-2024 take 1 tablet by mouth four times daily as needed for dizziness Meclizine 25 MG tablet Discontinued 25 mg PO 4 TIMES DAILY NEEDED as needed for Dizziness March 25, 2020 12:00am July 13, 2024 9:33am Start: 12-16-2018 End: 04-12-2019 take 1 tablet by mouth three times daily as needed for dizziness Meclizine 25 MG tablet Discontinued 25 mg PO 3 TIMES DAILY NEEDED as needed for Dizziness 20 0 December 16, 2018 10:00am April 12, 2019 8:52am rosuvastatin calcium 40 mg oral tablet (4 sources) HMG-CoA Reductase Inhibitor Start: 06-06-2024 take 1 tablet by mouth at bedtime Completed/Discontinued Medications Medication Drug Class(es) Dates Sig (Normalized) Sig (Original) acetaminophen 500 mg oral tablet (13 sources) Start: 01-22-2015 TYLENOL EXTRA STRENGTH 500 MG TABS takes no more than 2 per day for pinched nerve in back ACETAMINOPHEN [id number] David Aguiar MD acetaminophen (T YLENOL) 500 mg tablet Take 1,000 mg by mouth as needed. Active Comment on above: Take 1,000 mg by terry th as needed. acetaminophen 325 mg / HYDROcodone bitartrate 5 mg oral tablet (9 sources) Opioid Agonist Start: 03-09-2021 End: 05-29-2021 Hydrocodone-Acetaminophe n 5-325 mg tablet Discontinued 1 {tbl} PO EVERY 6 HOURS as needed for pain 10 3 0 March 09, 2021 May 29, 2021 11:03am Toothache Other specified disorders of teeth and supporting structures Start: 03-09-2021 End: 05-29-2021 take 1 tablet by mouth every six hours Hydrocodone-Acetaminophen Discontinued 1 TABLET PO EVERY 6 HOURS 10 3 March 09, 2021 May 29, 2021 10:03am acetaminophen 325 mg / oxyCODONE hydrochloride 5 mg oral tablet (9 sources) Opioid Agonist Start: 03-26-2018 End: 03-29-2018 Oxycodone-Acetaminophen 1 TABLET tablet Discontinued 1 {tbl} PO EVERY 6 HOURS NEEDED as needed for Pain 12 3 0 March 26, 2018 12:00am March 28, 2018 12:00am March 29, 2018 12:10am Dental abscess Periapical abscess without sinus Start: 03-26-2018 End: 03-29-2018 take 1 tablet by mouth every six hours as needed Oxycodone-Acetaminophen Discontinued 1 TABLET PO EVERY 6 HOURS NEEDED 12 3 March 25, 2018 11:00pm March 28, 2018 11:10pm [id number] actuat albuterol 0.09 mg/actuat metered dose inhaler (9 sources) beta2-Adrenergic Agonist Start: 12-13-2014 End: 02-05-2015 Albuterol Sulfate (Ventolin Hfa (Sp)) 1 INHALER inhaler Discontinued 2 NMA INHALATION 4 TIMES DAILY 1 0 December 13, 2014 12:00am February 05, 2015 10:28am use for one week, then use 4 times a day if needed for shortness of breath or wheezing Start: 12-13-2014 End: 02-05-2015 Albuterol Sulfate (Ventolin Hfa (Sp)) 1 INHALER inhaler Discontinued 2 PUFF INHALATION 4 TIMES DAILY 1 December 12, 2014 11:00pm February 05, 2015 9:28am use for one week, then use 4 times a day if needed for shortness of breath or wheezing atorvastatin 20 mg oral tablet (20 sources) HMG-CoA Reductase Inhibitor Start: 09-27-2017 End: 07-13-2024 take 1 tablet by mouth at bedtime Atorvastatin 20 mg tablet Discontinued 20 mg PO AT BEDTIME 90 3 March 15, 2024 8:04am July 13, 2024 9:33am Start: 08-04-2012 take 1 tablet by terry th once daily LIPITOR 10 MG TABS One tablet by mouth daily ATORVASTATIN CALCIUM [id number] David Aguiar MD Comment on above: Take 20 mg by mouth once daily. carvedilol 25 mg oral tablet (20 sources) alpha-Adrenergic Will, beta-Adrenergic Will Start: 05-28-20 End: 09-13-19 take 1 tablet by mouth twice daily Carvedilol 25 mg tablet Discontinued 0 .ROUTE .COMPLEX 180 3 August 02, 2023 9:10am September 12, 2024 3:25pm TAKE ONE TABLET BY MOUTH TWICE DAILY FOR HEART Comment on above: Take 25 mg by mouth twice daily. cilostazol 100 mg oral tablet (8 sources) Phosphodiesterase 3 Inhibitor Start: 08-26-19 take 1 tablet by mouth every twenty-four hours PLETAL 100 MG TABS One tablet by mouth daily CILOSTAZOL Staci Orr PA-C Start: 08-25-2016 End: 02-25-2017 take 1 tablet by mouth twice daily CILOSTAZOL 100 MG TABS One tablet by mouth twice daily CILOSTAZOL [id number] Jenni Lakhani RN clindamycin 150 mg oral capsule (9 sources) Lincosamide Antibacterial Start: 03-09-2021 End: 05-29-2021 take 2 capsules by mouth four times daily Clindamycin Hcl 150 MG capsule Discontinued 300 mg PO 4 TIMES DAILY 80 0 March 09, 2021 12:00am May 29, 2021 11:03am Start: 03-09-2021 End: 05-29-2021 take 300 mg by mouth four times daily Clindamycin Hcl Discontinued 300 MG PO 4 TIMES DAILY 80 March 08, 2021 11:00pm May 29, 2021 10:03am clopidogrel 75 mg oral tablet (20 sources) [id number] Platelet Inhibitor Start: 07-04-2012 End: 07-13-2024 take 1 tablet by mouth once daily Clopidogrel (Plavix) 75 mg tablet Discontinued 75 mg PO DAILY 90 3 August 02, 2023 9:36am July 13, 2024 9:33am TAKE 1 TABLET BY MOUTH EVERY DAY FOR BLOOD THINNER Comment on above: Take 1 tablet by terry th once daily. finasteride 5 mg oral tablet (9 sources) 5-alpha Reductase Inhibitor Start: 10-31-2020 End: 08-11-2022 take 1 tablet by mouth once daily Finasteride 5 mg tablet Discontinued 5 mg PO DAILY October 31, 2020 12:00am August 11, 2022 11:06am hydroCHLOROthiazide 25 mg oral tablet (20 sources) Thiazide Diuretic Start: 01-10-2019 End: 10-20-2024 take 1 tablet by mouth once daily Hydrochlorothiazide 25 mg tablet Discontinued 25 mg PO DAILY 90 3 October 28, 2023 7:56am October 20, 2024 7:55am Start: 05-26-2016 take 1 tablet by terry th once daily HYDROCHLOROTHIAZIDE 25 MG TABS One tablet by mouth daily HYDROCHLOROTHIAZIDE [id number] David Aguiar MD Comment on above: Take 25 mg by mouth once daily. isosorbide (6 sources) Start: 06-10-2012 take 1 tablet by mouth once daily IMDUR 30 MG [id number] One tablet by mouth daily ISOSORBIDE MONONITRATE [id number] David Aguiar MD Start: 06-10-2012 End: 08-04-2012 take 1 tablet by mouth once daily IMDUR 30 MG [id number] One tablet by mouth daily ISOSORBIDE MONONITRATE [id number] Doc Barajas MD nebivolol 20 mg oral tablet (3 sources) Start: 06-03-2012 take 1 tablet by mouth once daily BYSTOLIC 20 MG TABS One tablet by mouth daily NEBIVOLOL HCL [id number] Jenni Lakhani RN NICOTINE (6 sources) Cholinergic Nicotinic Agonist Start: 01-21-2015 End: 07-26-2015 NICODERM CQ 21 MG/24HR PT24 Apply once a day for a week NICOTINE [id number] Staci Orr PA-C Start: 01-21-2015 NICODERM CQ 21 MG/24HR PT24 Apply once a day for a week NICOTINE [id number] Marcelina Hi RN nilotinib 200 mg oral capsule (6 sources) Kinase Inhibitor Start: 06-07-2012 TASIGNA 200 M G CAPS 1 and 1/2 tablets by mouth twice daily NILOTINIB [id number] Ruthie Cat RN Start: 06-07-2012 take 2 tablets by mo [facility] twice daily TASIGNA 150 MG CAPS Two tablets by mouth twice daily for CML NILOTINIB HCL [id number] David Aguiar MD microencapsulated potassium chloride 20 meq extended release oral tablet (9 sources) Start: 03-25-2020 End: 10-31-2020 take 2 tablets by mouth once daily Potassium Chloride 20 MEQ tablet Discontinued 40 meq PO DAILY March 25, 2020 12:00am October 31, 2020 2:57pm Start: 03-25-2020 End: 10-31-2020 take 40 mEq by mouth once daily Potassium Chloride Discontinued 40 MEQ PO DAILY March 24, 2020 11:00pm October 31, 2020 1:57pm predniSONE 20 mg oral tablet (20 sources) Start: 12-16-2018 End: 01-10-2019 take 2 tablets by mouth once daily at mealtime Prednisone 20 MG tablet Discontinued 40 mg PO DAILY December 16, 2018 12:00am January 10, 2019 11:15am With food Start: 12-16-2018 End: 01-10-2019 take 40 mg by mouth once daily at mealtime Prednisone Discontinued 40 MG PO DAILY December 15, 2018 11:00pm January 10, 2019 10:15am With food Start: 12-11-2014 End: 12-13-2014 take 2 tablets by mouth once daily Prednisone 10 MG tablet Discontinued 20 mg PO DAILY December 11, 2014 6:56pm December 13, 2014 8:52am Start: 12-11-2014 End: 12-13-2014 take 20 mg by mouth once daily Prednisone Discontinued 20 MG PO DAILY December 11, 2014 5:56pm December 13, 2014 7:52am Start: 11-01-2014 End: 12-11-2014 take 6 tablets by mouth once daily, then take 4 tablets by mouth once daily, then take 2 tablets by mouth once daily, then take 1 tablet by mouth once daily Prednisone 10 MG tablet Discontinued 10 mg PO DAILY 48 0 November 01, 2014 12:00am December 11, 2014 6:56pm 6 po qd x 3 days, 4 po qd x 3 days, 2 po qd x 3 days, 1 po qd x 3 days simvastatin 40 mg oral tablet (6 sources) HMG-CoA Reductase Inhibitor Start: 08-04-2012 ZOCOR 40 MG TABS one tablet by mouth at bed time SIMVASTATIN [id number] Doc Barajas MD Start: 08-04-2012 take 1 tablet by terry th once daily ZOCOR 20 MG TABS One tablet by mouth daily SIMVASTATIN [id number] Doc Barajas MD tamsulosin hydrochloride 0.4 mg oral capsule (11 sources) alpha-Adrenergic Will Start: 10-30-2019 End: 08-11-2022 take 1 capsule by mouth once daily Tamsulosin 0.4 mg capsule Discontinued 0.4 mg PO DAILY October 31, 2019 12:00am August 11, 2022 11:06am Comment on above: Take 0.4 mg by mouth once daily. TRIAMCINOLONE ACETONIDE (3 sources) Corticosteroid Start: 08-27-2016 NASACORT ALLERGY 24HR 55 MCG/ACT AERO as directed TRIAMCINOLONE ACETONIDE [id number] Marcelina Hi RN Problems Active Problems Problem Classification Problem Date Documented Date Episodic/Chronic Abdominal pain (9 sources) Epigastric pain; Translations: [Epigastric pain] 10-30-2019 Episodic Cardiac dysrhythmias (13 sources) Ventricular premature beats; Translations: [Unifocal PVCs] Onset: 03-18-2016 03-18-2016 Chronic Comment on above: no recurrence, negat tony 30 day monitor Conditions associated with dizziness or vertigo (9 sources) Dizziness; Translations: [Dizziness and giddiness] 10-18-2020 Episodic Congestive heart failure; nonhypertensive (1 source) Diastolic heart failure 12-02-2022 Chronic Coronary atherosclerosis and other heart disease (16 sources) Coronary arteriosclerosis; Translations: [Atherosclerotic heart disease of [place] coronary artery without angina pectoris] Onset: 08-04-2012 08-04-2012 Chronic Diabetes mellitus without complication (1 source) Hyperglycemia 11-04-2019 Episodic Disorders of lipid metabolism (17 sources) Hyperlipidemia; Translations: [Hyperlipidemia, unspecified] Onset: 01-17-2015 01-17-2015 Chronic Disorders of teeth and jaw (9 sources) Toothache; Translations: [Other specified disorders of teeth and supporting structures] 03-17-2021 Episodic Essential hypertension (17 sources) Hypertensive disorder; Translations: [Essential hypertension] Onset: 06-07-2012 06-07-2012 Chronic Fever of unknown origin (9 sources) Fever with chills; Translations: [Fever, unspecified] 03-09-2021 Episodic Hyperplasia of prostate (1 source) Benign prostatic hypertrophy with outflow obstruction 10-30-2019 Chronic Hypertension with complications and secondary hypertension (1 source) Hypertensive heart disease with congestive heart failure 12-02-2022 Chronic Leukemias (20 sources) Chronic myeloid leukemia; Translations: [Chronic myeloid leukemia, BCR/ABL-positive, not having achieved remission] Onset: 09-14-2011 06-03-2012 Chronic Leukemias (1 source) History of myeloid leukemia 12-02-2022 Episodic Nonspecific chest pain (13 sources) Chest discomfort; Translations: [Chest pain] Onset: 06-10-2012 06-10-2012 Episodic Occlusion or stenosis of precerebral arteries (7 sources) Carotid artery stenosis; Translations: [Occlusion and stenosis of unspecified carotid artery] 10-30-2019 Chronic Other aftercare (1 source) Surgical follow-up 07-08-2020 Episodic Other and ill-defined heart disease (1 source) Left atrial enlargement 12-02-2022 Chronic Other and unspecified benign neoplasm (1 source) Lipoma (clinical) 06-03-2020 Episodic Other bone disease and musculoskeletal deformities (1 source) Cervical somatic dysfunction 02-18-2022 Episodic Other circulatory disease (2 sources) Disorder of arteries and arterioles, unspecified; Translations: [Arterial embolism and thrombosis of lower extremity] 05-17-2023 Chronic Other ear and sense organ disorders (9 sources) Impacted cerumen; Translations: [Impacted cerumen, unspecified ear] 04-14-2022 Episodic Other liver diseases (1 source) Alkaline phosphatase raised 11-04-2019 Episodic Other lower respiratory disease (9 sources) Dyspnea on exertion; Translations: [Other forms of dyspnea] 10-18-2020 Episodic Other lower respiratory disease (9 sources) Dry cough; Translations: [Non-productive cough] 03-09-2021 Episodic Other nervous system disorders (1 source) Paresthesia of upper limb 06-03-2020 Episodic Other non-traumatic joint disorders (2 sources) Knee pain; Translations: [Pain of knee region] 07-01-2020 Episodic Other nutritional; endocrine; and metabolic disorders (1 source) Overweight 12-02-2022 Episodic Other nutritional; endocrine; and metabolic disorders (1 source) Overweight in adulthood with body mass index of 25 or more but less than 30 12-02-2022 Episodic Other screening for suspected conditions (not mental disorders or infectious disease) (14 sources) Patient encounter status; Translations: [Encounter for screening for malignant neoplasm of colon] Onset: 10-01-2011 Resolved: 09-04-2013 09-28-2022 Episodic Other skin disorders (9 sources) Hyperhidrosis; Translations: [Generalized hyperhidrosis] 03-09-2021 Episodic Other skin disorders (9 sources) Infection of sebaceous cyst; Translations: [Sebaceous cyst] 06-03-2019 Episodic Other skin disorders (1 source) Epidermoid cyst of skin of face 06-03-2020 Episodic Peripheral and visceral atherosclerosis (20 sources) Peripheral arterial occlusive disease; Translations: [Intermittent claudication] Onset: 02-20-2017 02-20-2017 Chronic Comment on above: s/p bilateral poplit eal angioplasty and R profundofemoral angioplasty 2016 Poisoning by nonmedicinal substances (1 source) Tick bite 06-03-2020 Episodic Residual codes; unclassified (1 source) Immunization due 12-02-2022 Episodic Residual codes; unclassified (1 source) Screening due 12-02-2022 Episodic Screening and history of mental health and substance abuse codes (1 source) Ex-smoker 12-02-2022 Episodic Comment on above: 1 ppd for 30 years, quit 2017 Spondylosis; intervertebral disc disorders; other back problems (1 source) Degeneration of cervical intervertebral disc 01-07-2023 Chronic Spondylosis; intervertebral disc disorders; other back problems (2 sources) Neck pain; Translations: [Cervicalgia] Episodic Unclassified (3 sources) Placement of stent in coronary artery ; Translations: [Presence of coronary angioplasty implant and graft] Onset: 08-04-2012 02-27-2016 Unclassified (2 sources) CAD Onset: 12-30-2017 Unclassified (6 sources) Patient encounter status 06-03-2020 Past or Other Problems Problem Classification Problem Date Documented Da te Episodic/Chronic Cardiac dysrhythmias (3 sources) Palpitations; Translations: [Palpitations] Onset: 03-18-2016 03-18-2016 Episodic Complications of surgical procedures or medical care (9 sources) Atrial fibrillation; Translations: [Other postprocedural complications and disorders of the circulatory system, not elsewhere classified] Onset: 01-19-2018 10-18-2020 Episodic Coronary atherosclerosis and other heart disease (7 sources) Coronary angioplasty status; Translations: [Presence of aortocoronary bypass graft] Onset: 08-04-2012 08-04-2012 Episodic Other aftercare (3 sources) Other [facility] (current) drug therapy; Translations: [Other [employer] (current) drug therapy] Onset: 01-17-2015 01-17-2015 Episodic Other nervous system disorders (3 sources) Disturbance of skin sensation; Translations: [Disturbance of skin sensation] Onset: 06-03-2012 06-03-2012 Episodic Other nutritional; endocrine; and metabolic disorders (6 sources) Body mass index (BMI) 27.0-27.9, adult; Translations: [Body mass index (BMI) 27.0-27.9, adult] Onset: 07-26-2015 07-26-2015 Episodic Other skin disorders (4 sources) Acneiform eruption; Translations: [Other acne] Onset: 01-25-2012 Resolved: 10-03-2012 10-03-2012 Episodic Syncope (3 sources) Syncope and collapse; Translations: [Syncope and collapse] Onset: 06-07-2012 06-07-2012 Episodic Results Test Name Value Interpretation Reference Range Facility Absolute lymphocyte countOrd ered By: ED PROVIDER on 03-07-2025 Lymphocytes Auto (Unsp spec) [#/Vol] 1.20 10*3/uL 0.83-4.51 [facility] Absolute neutrophil countOrd ered By: ED PROVIDER on 03-07-2025 Neutrophils (Bld) [#/Vol] 3.6 10*3/uL 2.0-7.7 [facility] Anion gap in Serum or Plasma Ordered By: Saul Jaimes on 03-07-2025 Anion gap [Moles/Vol] 12 mmol/L 5-15 [facility] Automated lymphocyte count a s percentage of total leukocytesOrdered By: ED PROVIDER on 03-07-2025 Lymphocytes/100 WBC Auto (Unsp spec) 21.9 % 19-41 [facility] BUN/creatinine ratioOrdered By: Saul Jaimes on 03-07-2025 Urea nitrogen/Creatinine [Mass ratio] 17.7 mg/mg 10-20 [facility] Basophil percentageOrdered B y: ED PROVIDER on 03-07-2025 Basophils/100 WBC (Bld) 0.2 % 0-1 [facility] Carbon dioxide, total [Moles /volume] in Central venous bloodOrdered By: Saul Jaimes on 03-07-2025 CO2 [Moles/Vol] 22.7 mmol/L 21.0-32.0 [facility] Chloride assayOrdered By: Tuan Jaimes on 03-07-2025 Chloride [Moles/Vol] 106 mmol/L 98-108 [facility] Eosinophil percentageOrdered By: ED PROVIDER on 03-07-2025 Eosinophils/100 WBC (Bld) 2.9 % 0-5 [facility] Erythrocyte distribution wid th ratioOrdered By: ED PROVIDER on 03-07-2025 Erythrocyte distribution width (RBC) [Ratio] 13.8 % 11.6-14.6 [facility] Erythrocyte distribution wid th standard deviationOrdered By: ED PROVIDER on 03-07-2025 Erythrocyte distribution width (RBC) [Ratio] 44.2 fl High 35.1-43.9 [facility] Glomerular filtration rate ( GFR) estimation/1.73 sq m using serum, plasma, or whole bOrdered By: Saul Jaimes on 03-07-2025 GFR/1.73 sq M.predicted among non-blacks MDRD (S/P/Bld) [Vol rate/Area] 91 mL/min/{1.73_m2} >60 [facility] Comment on above: mL/min/1.73m2 CKD-EP I Creatinine Equation (2020) Hematocrit Auto (Bld) [Volum e fraction]Ordered By: ED PROVIDER on 03-07-2025 Hematocrit (Bld) [Volume fraction] 41.2 % 40-54 [facility] Hemoglobin measurementOrdere d By: ED PROVIDER on 03-07-2025 Hemoglobin (Bld) [Mass/Vol] 14.0 g/dL 13.0-16.5 [facility] Immature granulocytes/100 WB C Auto (Bld)Ordered By: ED PROVIDER on 03-07-2025 Immature granulocytes/100 WBC (Bld) 0.200 % 0.0-0.9 [facility] Comment on above: IG% - Immature Granu locytes (promyelocytes, myelocytes and metamyelocytes) > 1% indicates that a LEFT SHIFT is Present. MCV (mean corpuscular volume ) determinationOrdered By: ED PROVIDER on 03-07-2025 MCV (RBC) [Entitic vol] 86.0 fL 80-94 [facility] Mean corpuscular hemoglobin (MCH) determinationOrdered By: ED PROVIDER on 03-07-2025 MCH (RBC) [Entitic mass] 29.2 pg 27.0-32.0 [facility] Mean corpuscular hemoglobin concentration (MCHC) determinationOrdered By: ED PROVIDER on 03-07-2025 MCHC (RBC) [Mass/Vol] 34.0 g/dL 32-36 [facility] Mean platelet volume determi nationOrdered By: ED PROVIDER on 03-07-2025 Platelet mean volume (Bld) [Entitic vol] 9.7 fL 6.2-12.0 [facility] Monocyte percentageOrdered B y: ED PROVIDER on 03-07-2025 Monocytes/100 WBC (Bld) 8.2 % 0-10 [facility] Natriuretic peptide.B prohor clark N-Terminal [Mass/volume] in Serum or PlasmaOrdered By: Saul Jaimes on 03-07-2025 Natriuretic peptide.B prohormone N-Terminal [Mass/Vol] 97 pg/mL <900 [facility] Comment on above: Heart Failure Unlike ly: < 300 pg/mLHeart Failure Likely< 50 Years: > 450 pg/mL50-75 Years: > 900 pg/mL>75 Years: > 1800 pg/mL Neutrophil percentageOrdered By: ED PROVIDER on 03-07-2025 Neutrophils/100 WBC (Bld) 66.6 % 47-70 [facility] Nucleated red blood cell per centageOrdered By: ED PROVIDER on 03-07-2025 Nucleated RBC/100 WBC (Bld) [Ratio] 0 % 0-5 [facility] Platelet countOrdered By: ED PROVIDER on 03-07-2025 Platelets (Bld) [#/Vol] 144 10*3/uL Low 150-450 [facility] Potassium measurement (mass/ volume)Ordered By: Saul Jaimes on 03-07-2025 Potassium (Unsp spec) [Mass/Vol] 3.8 mmol/L 3.3-5.1 [facility] RBC Auto (Bld) [#/Vol]Ordere d By: ED PROVIDER on 03-07-2025 RBC (Bld) [#/Vol] 4.79 10*6/uL 4.6-6.2 [facility] Serum creatinine measurement (mass/volume)Ordered By: Saul Jaimes on 03-07-2025 Creatinine [Mass/Vol] 0.90 mg/dL 0.70-1.20 [facility] Serum glucose measurement (m ass/volume)Ordered By: Saul Jaimes on 03-07-2025 Glucose [Mass/Vol] 103 mg/dL High 70-99 [facility] Serum or plasma calcium june urement (mass/volume)Ordered By: Saul Jaimes on 03-07-2025 Calcium [Mass/Vol] 9.5 mg/dL 7.6-11.0 [facility] Serum or plasma urea nitroge n measurement (mass/volume)Ordered By: Saul Jaimes on 03-07-2025 Urea nitrogen [Mass/Vol] 16 mg/dL 4-19 [facility] Sodium levelOrdered By: Tammie Jaimes on 03-07-2025 Sodium [Moles/Vol] 140 mmol/L 133-145 [facility] Troponin T.cardiac [Mass/vol ume] in Serum or Plasma by High sensitivity methodOrdered By: Saul Jaimes on 03-07-2025 Troponin T.cardiac High sensitivity method [Mass/Vol] 9 ng/L <22 [facility] Troponin T.cardiac High sensitivity method [Mass/Vol] 9 ng/L <22 [facility] White blood cell (WBC) count Ordered By: ED PROVIDER on 03-07-2025 WBC (Bld) [#/Vol] 5.5 10*3/uL 4.4-11.0 [facility] CNPNon 12-27-2024 CNPN Telephone (JACK) -- OVER,FATUMA Churchill ([id number]) 1955 M Date Time Provider Department 12/27/24 EARL SEPULVEDA During your visit today, we recorded the following information about you: Earl Sepulveda MD 12/27/2024 10:43 AM Signed Please call patient, let him know CML labs are good, he remains in molecular remission, plan recheck in 6 months. Earl Sepulveda MD December 27, 2024 Apryl Curry LPN 12/27/2024 10:51 AM Signed Patient is aware of lab results. PSS- please schedule patient for a lab appointment on 06/22/2025 @ 8:00 for a CBC/BCR ABL1 P210. Patient is aware of appointment date and time. Please cancel today's phone visit. KELLEN Frederick Brandy 12/27/2024 11:12 AM Signed Patient has been scheduled as requested below. Lizzette Gunderson Pss Allergies As of Date: 12/27/2024 Noted Allergy Reaction LISINOPRIL 07/11/2012 7 - Swelling SUDAFED (PSEUDOEPHEDRINE) 07/22/2016 14 - Other: See Comments Comments: Irregular heartbeat Date Reviewed: 06/22/2024 Reviewed by: Kristi Frazier MA - Fully Assessed Reason for Visit: Results [95] Prescriptions as of 12/27/2024 - rosuvastatin (CRESTOR) 40 mg tablet Take 40 mg by mouth once daily. - hydroCHLOROthiazide (HYDRODIURIL, ESIDRIX) 25 mg tablet Take 25 mg by mouth once daily. - amLODIPine (NORVASC) 10 mg tablet Take 10 mg by mouth once daily. - atorvastatin (LIPITOR) 20 mg tablet Take 20 mg by mouth once daily. - acetaminophen (TYLENOL) 500 mg tablet Take 1,000 mg by mouth as needed. - CARVEDILOL 25 mg tablet Take 25 mg by mouth twice daily. - Aspirin 81 mg Tab Take 81 mg by mouth once daily. - clopidogrel (PLAVIX) 75 mg tablet Take 1 tablet by mouth once daily. 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] 09/14/2011 Encounter for long-term (current) use of other *10/01/2011 09/04/2013 Acneiform rash [L70.8] 01/25/2012 10/03/2012 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) [C92.11] 01/20/2016 Encounter Status:Closed by LIZZETTE ROY on 12/27/24 Normal [facility] BCR/ABL1 P210 %IS PANELon BCR/ABL1 P210 %IS Less than 0.002 Normal [facility] Comment on above: Order Comment: Speci men Type: BLOOD SPECIMEN Ordering Facility: [facility] Address: [address] [place] [address] Performed By: #### 2 10ISBP #### [facility] CLIA [id number] [address] [place], [place] [address] [place] [address] [place] #### P210P #### [facility] CLIA [id number] [place] [facility] BCR/ABL1 P210 MR Greater than 4.7 Normal [facility] Comment on above: Order Comment: Speci men Type: BLOOD SPECIMEN Ordering Facility: [facility] Address: [address] [place] [address] Performed By: #### 2 10ISBP #### [facility] CLIA [id number] [address] [place] [address] [place] #### P210P #### [facility] CLIA [id number] [address] [place] [address] [place] BCR/ABL1 P210 QUANTITATIVE P CR BLOODon 12-20-2024 BCR/ABL1 P210 INTERPRETATION Normal [facility] Comment on above: Order Comment: Kaleighi sarah Type: BLOOD SPECIMEN Ordering Facility: [facility] Address: [address] [place] [address] Result Comment: BCR/ ABL1 p210 Quantitative PCR Laboratory Accession Number: [id number] Result: DETECTED MR: Greater than 4.7 %IS: Less than 0.002 Interpretation: p210 BCR/ABL1 transcripts were detected below the limits of quantification of this assay. Quantitative results are expressed on the International Scale (IS) and a log molecular response (MR) is calculated. On this scale, a value of less than or equal to 0.1% corresponds to a major molecular response (MMR or MR3.0). Methodology: The [employer] QuantideX BCR/ABL IS assay is an FDA-cleared in vitro diagnostic test for the quantitation of BCR/ABL1 and ABL1 transcripts in total RNA from whole blood of diagnosed t(9;22) positive chronic myeloid leukemia patients expressing e13a2 and/or e14a2 fusion transcripts. This test does not detect p190 (e1a2) or other rare BCR/ABL1 transcripts. This assay has a limit of quantification and limit of detection of 0.002% IS or MR4.7. References: 1) Brittany et al, Blood 2006;108:28-37; Kiel et al, Leukemia 2015;29:999-1003 Interpretation performed at remote location ([facility]) by Conchita Lamb MD, PhD Performed By: #### 2 10ISBP #### [facility] CLIA [id number] [address] [place], [place] [address] [place] [address] [place] #### P210P #### [facility] CLIA [id number] [address] [place] [address] [place] CBC W Auto Differential pane l (Bld)on 12-20-2024 Basophils (Bld) [#/Vol] 0.04 10*3/uL Normal <0.11 [facility] Comment on above: Order Comment: Speci men Type: BLOOD SPECIMEN Ordering Facility: [facility] Address: [address] [place] [address] Performed By: #### 5 7021-8 #### [facility] [id number] [address] [place] [address] [place] Basophils/100 WBC (Bld) 0.5 % Normal [facility] Comment on above: Order Comment: Speci men Type: BLOOD SPECIMEN Ordering Facility: [facility] Address: [address] [place] [address] Performed By: #### 5 7021-8 #### [facility] [id number] [address] [place] [address] [place] Differential cell count method Nom (Bld) Auto Normal [facility] Comment on above: Order Comment: Speci men Type: BLOOD SPECIMEN Ordering Facility: [facility] Address: [address] [place] [address] Performed By: #### 5 7021-8 #### [facility] [id number] [address] [place] [address] [place] Eosinophils (Bld) [#/Vol] 0.16 10*3/uL Normal <0.46 [facility] Comment on above: Order Comment: Speci men Type: BLOOD SPECIMEN Ordering Facility: [facility] Address: [address] [place] [address] Performed By: #### 5 7021-8 #### [facility] CLIA [id number] [address] [place] [address] [place] Eosinophils/100 WBC (Bld) 2.1 % Normal [facility] Comment on above: Order Comment: Speci men Type: BLOOD SPECIMEN Ordering Facility: [facility] Address: [address] [place] [address] Performed By: #### 5 7021-8 #### [facility] CLIA [id number] [address] [place] [address] [place] Erythrocyte distribution width (RBC) [Ratio] 13.6 % Normal 11.5-15.0 [facility] Comment on above: Order Comment: Speci men Type: BLOOD SPECIMEN Ordering Facility: [facility] Address: [address] [place] [address] Performed By: #### 5 7021-8 #### [facility] CLIA [id number] [address] [place] [address] [place] Hematocrit (Bld) [Volume fraction] 41.0 % Normal 39.0-51.0 [facility] Comment on above: Order Comment: Speci men Type: BLOOD SPECIMEN Ordering Facility: [facility] Address: [address] [place] [address] Performed By: #### 5 7021-8 #### [facility] CLIA [id number] [address] [place] [address] [place] Hemoglobin (Bld) [Mass/Vol] 14.1 g/dL Normal 13.0-17.0 [facility] Comment on above: Order Comment: Speci men Type: BLOOD SPECIMEN Ordering Facility: [facility] Address: [address] [place] [address] Performed By: #### 5 7021-8 #### [facility] CLIA [id number] [address] [place] [address] [place] Immature granulocytes (Bld) [#/Vol] 10*3/uL Normal <0.10 [facility] Comment on above: Order Comment: Speci men Type: BLOOD SPECIMEN Ordering Facility: [facility] Address: [address] [place] [address] Performed By: #### 5 7021-8 #### [facility] CLIA [id number] [address] [place] [address] [place] Immature granulocytes/100 WBC (Bld) 0.3 % Normal [facility] Comment on above: Order Comment: Speci men Type: BLOOD SPECIMEN Ordering Facility: [facility] Address: [address] [place] [address] Performed By: #### 5 7021-8 #### [facility] CLIA [id number] [address] [place] [address] [place] Lymphocytes (Bld) [#/Vol] 1.59 10*3/uL Normal 1.00-4.00 [facility] Comment on above: Order Comment: Speci men Type: BLOOD SPECIMEN Ordering Facility: [facility] Address: [address] [place] [address] Performed By: #### 5 7021-8 #### [facility] CLIA [id number] [address] [place] [address] [place] Lymphocytes/100 WBC (Bld) 20.4 % Normal [facility] Comment on above: Order Comment: Speci men Type: BLOOD SPECIMEN Ordering Facility: [facility] Address: [address] [place] [address] Performed By: #### 5 7021-8 #### [facility] CLIA [id number] [address] [place] [address] [place] MCH (RBC) [Entitic mass] 29.0 pg Normal 26.0-34.0 [facility] Comment on above: Order Comment: Speci men Type: BLOOD SPECIMEN Ordering Facility: [facility] Address: [address] [place] [address] Performed By: #### 5 7021-8 #### [facility] CLIA [id number] [address] [place] [address] [place] MCHC (RBC) [Mass/Vol] 34.4 g/dL Normal 30.5-36.0 [facility] Comment on above: Order Comment: Speci men Type: BLOOD SPECIMEN Ordering Facility: [facility] Address: [address] [place] [address] Performed By: #### 5 7021-8 #### [facility] CLIA [id number] [address] [place] [address] [place] MCV (RBC) [Entitic vol] 84.4 fL Normal 80.0-100.0 [facility] Comment on above: Order Comment: Speci men Type: BLOOD SPECIMEN Ordering Facility: [facility] Address: [address] [place] [address] Performed By: #### 5 7021-8 #### [facility] CLIA [id number] [address] [place] [address] [place] Monocytes (Bld) [#/Vol] 0.56 10*3/uL Normal <0.87 [facility] Comment on above: Order Comment: Speci men Type: BLOOD SPECIMEN Ordering Facility: [facility] Address: [address] [place] [address] Performed By: #### 5 7021-8 #### [facility] CLIA [id number] [address] [place] [address] [place] Monocytes/100 WBC (Bld) 7.2 % Normal [facility] Comment on above: Order Comment: Speci men Type: BLOOD SPECIMEN Ordering Facility: [facility] Address: [address] [place], [place] [address] Performed By: #### 5 7021-8 #### [facility] CLIA [id number] [address] [place] [address] [place] Neutrophils (Bld) [#/Vol] 5.41 10*3/uL Normal 1.45-7.50 [facility] Comment on above: Order Comment: Speci men Type: BLOOD SPECIMEN Ordering Facility: [facility] Address: [address] [place] [address] Performed By: #### 5 7021-8 #### [facility] CLIA [id number] [address] [place] [address] [place] Neutrophils/100 WBC (Bld) 69.5 % Normal [facility] Comment on above: Order Comment: Speci men Type: BLOOD SPECIMEN Ordering Facility: [facility] Address: [address] [place] [address] Performed By: #### 5 7021-8 #### [facility] CLIA [id number] [address] [place] [address] [place] Nucleated RBC (Bld) [#/Vol] 10*3/uL Normal <0.01 [facility] Comment on above: Order Comment: Speci men Type: BLOOD SPECIMEN Ordering Facility: [facility] Address: [address] [place] [address] Performed By: #### 5 7021-8 #### [facility] CLIA [id number] [address] [place] [address] [place] Nucleated RBC/100 WBC (Bld) [Ratio] 0.0 /100 WBC Normal [facility] Comment on above: Order Comment: Speci men Type: BLOOD SPECIMEN Ordering Facility: [facility] Address: [address] [place] [address] Performed By: #### 5 7021-8 #### [facility] CLIA [id number] [address] [place] [address] [place] Platelet mean volume (Bld) [Entitic vol] 9.9 fL Normal 9.0-12.7 [facility] Comment on above: Order Comment: Speci men Type: BLOOD SPECIMEN Ordering Facility: [facility] Address: [address] [place] [address] Performed By: #### 5 7021-8 #### [facility] CLIA [id number] [address] [place] [address] [place] Platelets (Bld) [#/Vol] 166 10*3/uL Normal 150-400 [facility] Comment on above: Order Comment: Speci men Type: BLOOD SPECIMEN Ordering Facility: [facility] Address: [address] [place] [address] Performed By: #### 5 7021-8 #### [facility] CLIA [id number] [address] [place] [address] [place] RBC (Bld) [#/Vol] 4.86 10*6/uL Normal 4.20-6.00 [facility] Comment on above: Order Comment: Speci men Type: BLOOD SPECIMEN Ordering Facility: [facility] Address: [address] [place] [address] Performed By: #### 5 7021-8 #### [facility] CLIA [id number] [address] [place] [address] [place] WBC (Bld) [#/Vol] 7.78 10*3/uL Normal 3.70-11.00 [facility] Comment on above: Order Comment: Speci men Type: BLOOD SPECIMEN Ordering Facility: [facility] Address: [address] [place] [address] Performed By: #### 5 7021-8 #### [facility] CLIA [id number] [address] [place] [address] [place] Lyme Antibodies,W Bloton Lyme Additional Comment Normal . [facility] Comment on above: Result Comment: Per CDC criteria, the Lyme IgG Immunoblot is interpreted as positive if IgG-class antibodies are detected to 5 or more B. burgdorferi proteins, and the Lyme IgM Immunoblot is interpreted as positive if IgM-class antibodies are detected to 2 or more B. burgdorferi proteins. Immunoblot patterns not meeting these criteria should not be interpreted as positive. Epitopes from certain B. burgdorferi proteins (e.g., p41) are conserved across other bacteria, which may lead to the detection of IgM-and/or IgG class antibodies on the Lyme disease immunoblots in patients without Lyme disease. Immunoblot should only be ordered on specimens that are positive or equivocal by an FDA-licensed Lyme disease antibody screening test (e.g., EIA). Results of the Lyme IgM immunoblot should not be considered in patients with 30 or more days of symptoms. Performed at: [address] [id number] Needle Grinder: Marcelo Azevedo MD, Phone: [phone] Performed By: #### L 7000.5800, L506.1001, L501.9520, L500.4050, L100.0100, L500.4100 #### [facility] [address] [place], [address] LYME IgG INTERP Negative Normal Negative [facility] Comment on above: Performed By: #### L 7000.5800, L506.1001, L501.9520, L500.4050, L100.0100, L500.4100 #### [facility] [address] [place], [place], [address] LYME IgM INTERP Negative Normal Negative [facility] Comment on above: Result Comment: Plea se Note: Lyme immunoblot alone is not recommended for the diagnosis of Lyme disease. Current guidelines recommend the use of a two-tiered approach to Lyme serology testing to improve the sensitivity and specificity of testing. [facility] offers test code 742096 Lyme Disease Serology with Reflex to aid in the diagnosis of Lyme Disease. Performed By: #### L 7000.5800, L506.1001, L501.9520, L500.4050, L100.0100, L500.4100 #### [facility] [address] [place], [place], [id number] P18 Ab Absent Normal . [facility] Comment on above: Performed By: #### L 7000.5800, L506.1001, L501.9520, L500.4050, L100.0100, L500.4100 #### [facility] [address] [place], [address] P23 Ab Absent Normal . [facility] Comment on above: Performed By: #### L 7000.5800, L506.1001, L501.9520, L500.4050, L100.0100, L500.4100 #### [facility] [address] [place], [address] P28 Ab Absent Normal . [facility] Comment on above: Performed By: #### L 7000.5800, L506.1001, L501.9520, L500.4050, L100.0100, L500.4100 #### [facility] [address] [place], [address] P30 Ab Absent Normal . [facility] Comment on above: Performed By: #### L 7000.5800, L506.1001, L501.9520, L500.4050, L100.0100, L500.4100 #### [facility] [address] [place], [address] P39 Ab Absent Normal . [facility] Comment on above: Performed By: #### L 7000.5800, L506.1001, L501.9520, L500.4050, L100.0100, L500.4100 #### [facility] [address] [place], [address] P41 Ab Absent Normal . [facility] Comment on above: Performed By: #### L 7000.5800, L506.1001, L501.9520, L500.4050, L100.0100, L500.4100 #### [facility] [address] [place], [address] P45 Ab Absent Normal . [facility] Comment on above: Performed By: #### L 7000.5800, L506.1001, L501.9520, L500.4050, L100.0100, L500.4100 #### [facility] [address] [place], [address] P58 Ab Absent Normal . [facility] Comment on above: Performed By: #### L 7000.5800, L506.1001, L501.9520, L500.4050, L100.0100, L500.4100 #### [facility] [address] [place], [address] P66 Ab Absent Normal . [facility] Comment on above: Performed By: #### L 7000.5800, L506.1001, L501.9520, L500.4050, L100.0100, L500.4100 #### [facility] [address] [place], [address] P93 Ab Absent Normal . [facility] Comment on above: Performed By: #### L 7000.5800, L506.1001, L501.9520, L500.4050, L100.0100, L500.4100 #### [facility] [address] [place], [address] Absolute lymphocyte countOrd ered By: Bryan Hastings on 12-06-2024 Lymphocytes Auto (Unsp spec) [#/Vol] 1.37 10*3/uL 0.83-4.51 [facility] Absolute neutrophil countOrd ered By: Bryan Hastings on 12-06-2024 Neutrophils (Bld) [#/Vol] 4.2 10*3/uL 2.0-7.7 [facility] Anion gap in Serum or Plasma Ordered By: Bryan Hastings on 12-06-2024 Anion gap [Moles/Vol] 11 mmol/L 5-15 [facility] [facility] Automated lymphocyte count a s percentage of total leukocytesOrdered By: Bryan Hastings on 12-06-2024 Lymphocytes/100 WBC Auto (Unsp spec) 21.5 % - [facility] BUN/creatinine ratioOrdered By: Bryan Hastings on 12-06-2024 Urea nitrogen/Creatinine [Mass ratio] 17.0 mg/mg 10-20 [facility] Basophil percentageOrdered B y: Bryan Hastings on 12-06-2024 Basophils/100 WBC (Bld) 0.5 % 0-1 [facility] Bilirubin, totalOrdered By: Bryan Hastings on 12-06-2024 Bilirubin [Mass/Vol] 0.71 mg/dL 0.00-1.30 [facility] CBC W/Diff, Automatedon 11-19 Absolute Lymph 1.37 X10 3/uL Normal 0.83-4.51 [facility] Comment on above: Performed By: #### L 7000.5800, L506.1001, L501.9520, L500.4050, L100.0100, L500.4100 #### [facility] [address] [place], [address] Absolute Neut 4.2 X10 3/uL Normal 2.0-7.7 [facility] Comment on above: Performed By: #### L 7000.5800, L506.1001, L501.9520, L500.4050, L100.0100, L500.4100 #### [facility] [address] [place], [address] Basophils/100 WBC (Bld) 0.5 % Normal 0-1 [facility] Comment on above: Performed By: #### L 7000.5800, L506.1001, L501.9520, L500.4050, L100.0100, L500.4100 #### [facility] [address] [place], [address] Eosinophils/100 WBC (Bld) 2.8 % Normal 0-5 [facility] Comment on above: Performed By: #### L 7000.5800, L506.1001, L501.9520, L500.4050, L100.0100, L500.4100 #### [facility] [address] [place], [address] Erythrocyte distribution width (RBC) [Ratio] 13.6 % Normal 11.6-14.6 [facility] Comment on above: Performed By: #### L 7000.5800, L506.1001, L501.9520, L500.4050, L100.0100, L500.4100 #### [facility] [address] [place], [address] Hematocrit (Bld) [Volume fraction] 42.4 % Normal 40-54 [facility] Comment on above: Performed By: #### L 7000.5800, L506.1001, L501.9520, L500.4050, L100.0100, L500.4100 #### [facility] [address] [place], [address] Hemoglobin (Bld) [Mass/Vol] 14.5 g/dL Normal 13.0-16.5 [facility] Comment on above: Performed By: #### L 7000.5800, L506.1001, L501.9520, L500.4050, L100.0100, L500.4100 #### [facility] [address] [place], [address] IG% 0.300 Normal 0.0-0.9 [facility] Comment on above: Result Comment: IG% - Immature Granulocytes (promyelocytes, myelocytes and metamyelocytes) > 1% indicates that a LEFT SHIFT is Present. Performed By: #### L 7000.5800, L506.1001, L501.9520, L500.4050, L100.0100, L500.4100 #### [facility] [address] [place], [address] Lymphocytes/100 WBC (Bld) 21.5 % Normal 19-41 [facility] Comment on above: Performed By: #### L 7000.5800, L506.1001, L501.9520, L500.4050, L100.0100, L500.4100 #### [facility] [address] [place], [address] MCH (RBC) [Entitic mass] 28.8 pg Normal 27.0-32.0 [facility] Comment on above: Performed By: #### L 7000.5800, L506.1001, L501.9520, L500.4050, L100.0100, L500.4100 #### [facility] [address] [place], [address] MCHC (RBC) [Mass/Vol] 34.2 g/dL Normal 32-36 [facility] Comment on above: Performed By: #### L 7000.5800, L506.1001, L501.9520, L500.4050, L100.0100, L500.4100 #### [facility] [address] [place], [address] MCV (RBC) [Entitic vol] 84.1 fL Normal 80-94 [facility] Comment on above: Performed By: #### L 7000.5800, L506.1001, L501.9520, L500.4050, L100.0100, L500.4100 #### [facility] [address] [place], [address] Monocytes/100 WBC (Bld) 8.8 % Normal 0-10 [facility] Comment on above: Performed By: #### L 7000.5800, L506.1001, L501.9520, L500.4050, L100.0100, L500.4100 #### [facility] [address] [place], [address] Neutrophils/100 WBC (Bld) 66.1 % Normal 47-70 [facility] Comment on above: Performed By: #### L 7000.5800, L506.1001, L501.9520, L500.4050, L100.0100, L500.4100 #### [facility] [address] [place], [address] Nucleated RBC (Bld) [#/Vol] 0 10*3/uL Normal 0-5 [facility] Comment on above: Performed By: #### L 7000.5800, L506.1001, L501.9520, L500.4050, L100.0100, L500.4100 #### [facility] [address] [place], [address] Platelet mean volume (Bld) [Entitic vol] 9.7 fL Normal 6.2-12.0 [facility] Comment on above: Performed By: #### L 7000.5800, L506.1001, L501.9520, L500.4050, L100.0100, L500.4100 #### [facility] [address] [place], [address] Platelets (Bld) [#/Vol] 169 10*3/uL Normal 150-450 [facility] Comment on above: Performed By: #### L 7000.5800, L506.1001, L501.9520, L500.4050, L100.0100, L500.4100 #### [facility] [address] [place], [address] RBC (Bld) [#/Vol] 5.04 10*6/uL Normal 4.6-6.2 [facility] Comment on above: Performed By: #### L 7000.5800, L506.1001, L501.9520, L500.4050, L100.0100, L500.4100 #### [facility] [address] [place], [address] RDW SD 41.6 fl Normal 35.1-43.9 [facility] Comment on above: Performed By: #### L 7000.5800, L506.1001, L501.9520, L500.4050, L100.0100, L500.4100 #### [facility] [address] [place], [address] WBC (Bld) [#/Vol] 6.4 10*3/uL Normal 4.4-11.0 [facility] Comment on above: Performed By: #### L 7000.5800, L506.1001, L501.9520, L500.4050, L100.0100, L500.4100 #### [facility] [address] [place], [place], [address] Calculated very low density lipoprotein (VLDL) cholesterol measurementOrdered By: Bryan Hastings on 12-06-2024 Calculated very low density lipoprotein (VLDL) cholesterol measurement 23 mg/dL 5-40 [facility] Carbon dioxide, total [Moles /volume] in Central venous bloodOrdered By: Bryan Hastings on 12-06-2024 CO2 [Moles/Vol] 26.9 mmol/L 21.0-32.0 [facility] Chloride assayOrdered By: Clovis Hastings on 12-06-2024 Chloride [Moles/Vol] 100 mmol/L 98-108 [facility] Comprehensive Metabolic Prof ilon 12-06-2024 Albumin [Mass/Vol] 4.6 g/dL Normal 3.4-4.8 [facility] Comment on above: Performed By: #### L 7000.5800, L506.1001, L501.9520, L500.4050, L100.0100, L500.4100 #### [facility] [address] [place], [address] Albumin/Globulin [Mass ratio] 1.7 {ratio} Normal 0.9-2.4 [facility] Comment on above: Performed By: #### L 7000.5800, L506.1001, L501.9520, L500.4050, L100.0100, L500.4100 #### [facility] [address] [place], [address] ALK PHOS 136 U/L High 40-129 [facility] Comment on above: Performed By: #### L 7000.5800, L506.1001, L501.9520, L500.4050, L100.0100, L500.4100 #### [facility] [address] [place], [address] ALT [Catalytic activity/Vol] 18 U/L Normal <=46 [facility] Comment on above: Performed By: #### L 7000.5800, L506.1001, L501.9520, L500.4050, L100.0100, L500.4100 #### [facility] [address] [place], [address] AST [Catalytic activity/Vol] 27 U/L Normal <=37 [facility] Comment on above: Performed By: #### L 7000.5800, L506.1001, L501.9520, L500.4050, L100.0100, L500.4100 #### [facility] [address] [place], [address] Bilirubin [Mass/Vol] 0.71 mg/dL Normal 0.00-1.30 [facility] Comment on above: Performed By: #### L 7000.5800, L506.1001, L501.9520, L500.4050, L100.0100, L500.4100 #### [facility] [address] [place], [address] BUN/CRE 17.0 RATIO Normal 10-20 [facility] Comment on above: Performed By: #### L 7000.5800, L506.1001, L501.9520, L500.4050, L100.0100, L500.4100 #### [facility] [address] [place], [address] Calcium [Mass/Vol] 10.3 mg/dL Normal 7.6-11.0 [facility] Comment on above: Performed By: #### L 7000.5800, L506.1001, L501.9520, L500.4050, L100.0100, L500.4100 #### [facility] [address] [place], [address] Chloride [Moles/Vol] 100 mmol/L Normal 98-108 [facility] Comment on above: Performed By: #### L 7000.5800, L506.1001, L501.9520, L500.4050, L100.0100, L500.4100 #### [facility] [address] [place], [address] CO2 [Moles/Vol] 26.9 mmol/L Normal 21.0-32.0 [facility] Comment on above: Performed By: #### L 7000.5800, L506.1001, L501.9520, L500.4050, L100.0100, L500.4100 #### [facility] [address] [place], [address] Creatinine [Mass/Vol] 1.05 mg/dL Normal 0.70-1.20 [facility] Comment on above: Performed By: #### L 7000.5800, L506.1001, L501.9520, L500.4050, L100.0100, L500.4100 #### [facility] [address] [place], [address] GAP 11 Normal 5-15 [facility] Comment on above: Performed By: #### L 7000.5800, L506.1001, L501.9520, L500.4050, L100.0100, L500.4100 #### [facility] [address] [place], [address] GFR/1.73 sq M.predicted among non-blacks MDRD (S/P/Bld) [Vol rate/Area] 76 mL/min/{1.73_m2} Normal >60 [facility] Comment on above: Result Comment: mL/m in/1.73m2 CKD-EPI Creatinine Equation (2020) Performed By: #### L 7000.5800, L506.1001, L501.9520, L500.4050, L100.0100, L500.4100 #### [facility] [address] [place], [address] Globulin (S) [Mass/Vol] 2.7 g/dL Normal 2.2-4.2 [facility] Comment on above: Performed By: #### L 7000.5800, L506.1001, L501.9520, L500.4050, L100.0100, L500.4100 #### [facility] [address] [place], [address] Glucose [Mass/Vol] 108 mg/dL High 70-99 [facility] Comment on above: Performed By: #### L 7000.5800, L506.1001, L501.9520, L500.4050, L100.0100, L500.4100 #### [facility] [address] [place], [address] Potassium [Moles/Vol] 3.4 mmol/L Normal 3.3-5.1 [facility] Comment on above: Performed By: #### L 7000.5800, L506.1001, L501.9520, L500.4050, L100.0100, L500.4100 #### [facility] [address] [place], [address] Sodium [Moles/Vol] 138 mmol/L Normal 133-145 [facility] Comment on above: Performed By: #### L 7000.5800, L506.1001, L501.9520, L500.4050, L100.0100, L500.4100 #### [facility] [address] [place], [place], [id number] T PROT 7.3 g/dL Normal 5.9-8.4 [facility] Comment on above: Performed By: #### L 7000.5800, L506.1001, L501.9520, L500.4050, L100.0100, L500.4100 #### [facility] [address] [place], [place], [address] Urea nitrogen [Mass/Vol] 18 mg/dL Normal 4-19 [facility] Comment on above: Performed By: #### L 7000.5800, L506.1001, L501.9520, L500.4050, L100.0100, L500.4100 #### [facility] [address] [place], [place], [address] Eosinophil percentageOrdered By: Bryan Hastings on 12-06-2024 Eosinophils/100 WBC (Bld) 2.8 % 0-5 [facility] Erythrocyte distribution wid th ratioOrdered By: Bryan Hastings on 12-06-2024 Erythrocyte distribution width (RBC) [Ratio] 13.6 % 11.6-14.6 [facility] Erythrocyte distribution wid th standard deviationOrdered By: Bryan Hastings on 12-06-2024 Erythrocyte distribution width (RBC) [Ratio] 41.6 fl 35.1-43.9 [facility] Glomerular filtration rate ( GFR) estimation/1.73 sq m using serum, plasma, or whole bOrdered By: Bryan Hastings on 12-06-2024 GFR/1.73 sq M.predicted among non-blacks MDRD (S/P/Bld) [Vol rate/Area] 76 mL/min/{1.73_m2} >60 [facility] Comment on above: mL/min/1.73m2 CKD-EP I Creatinine Equation (2020) Hematocrit Auto (Bld) [Volum e fraction]Ordered By: Bryan Hastings on 12-06-2024 Hematocrit (Bld) [Volume fraction] 42.4 % 40-54 [facility] Hemoglobin measurementOrdere d By: Bryan Hastings on 12-06-2024 Hemoglobin (Bld) [Mass/Vol] 14.5 g/dL 13.0-16.5 [facility] Immature granulocytes/100 WB C Auto (Bld)Ordered By: Bryan Hastings on 12-06-2024 Immature granulocytes/100 WBC (Bld) 0.300 % 0.0-0.9 [facility] Comment on above: IG% - Immature Granu locytes (promyelocytes, myelocytes and metamyelocytes) > 1% indicates that a LEFT SHIFT is Present. LDL calc ser/plasOrdered By: Bryan Hastings on 12-06-2024 Cholesterol in LDL [Mass/Vol] 53 mg/dL [facility] Comment on above: Eevkuiplff=052-148 m g/dL & Higher Ckbz=176 mg/dL or greater Laboratory - Chemistry and C hemistry - challengeOrdered By: Bryan Hastings on 12-06-2024 AST [Catalytic activity/Vol] 27 U/L <38 [facility] Lipid Profileon 12-06-2024 CHOL:HDL 3.36 Normal [facility] Comment on above: Performed By: #### L 7000.5800, L506.1001, L501.9520, L500.4050, L100.0100, L500.4100 #### [facility] [address] [place], [place], [id number] Cholesterol [Mass/Vol] 109 mg/dL Normal <=200 [facility] Comment on above: Result Comment: Chol esterol level, Desirable <200 mg/dL Borderline high cholesterol 200-239 mg/dL High cholesterol >=240 mg/dL Recommendations of the NCEP Adult Treatment Panel for the following risk-cutoff thresholds for the [place] population. Performed By: #### L 7000.5800, L506.1001, L501.9520, L500.4050, L100.0100, L500.4100 #### [facility] [address] [place], [address] Cholesterol in HDL [Mass/Vol] 32 mg/dL Low [facility] Comment on above: Result Comment: Leslie onal Cholesterol Education Program (NCEP) guidelines: <40 mg/dL: Low HDL-cholesterol (major risk factor for CHD) >= 60 mg/dL: High HDL-cholesterol (negative risk factor for CHD) HDL-cholesterol is affected by a number of factors, e.g. smoking, exercise, hormones, sex and age. Performed By: #### L 7000.5800, L506.1001, L501.9520, L500.4050, L100.0100, L500.4100 #### [facility] [address] [place], [address] Cholesterol in LDL [Mass/Vol] 53 mg/dL Normal [facility] Comment on above: Result Comment: Bord ddslvh=538-527 mg/dL Higher Dzmj=996 mg/dL or greater Performed By: #### L 7000.5800, L506.1001, L501.9520, L500.4050, L100.0100, L500.4100 #### [facility] [address] [place], [address] Cholesterol in VLDL [Mass/Vol] 23 mg/dL Normal 5-40 [facility] Comment on above: Performed By: #### L 7000.5800, L506.1001, L501.9520, L500.4050, L100.0100, L500.4100 #### [facility] [address] [place], [address] Triglyceride [Mass/Vol] 116 mg/dL Normal [facility] Comment on above: Result Comment: The drugs N-Acetylcysteine and Metamizole may falsely depress this assay. Normal range: <150 mg/dL Borderline High: 150-199 mg/dL High: 200-499 mg/dL Very High: >500 mg/dL Performed By: #### L 7000.5800, L506.1001, L501.9520, L500.4050, L100.0100, L500.4100 #### [facility] [place], [address] MCV (mean corpuscular volume ) determinationOrdered By: [employer] [facility] [employer] on 12-06-2024 MCV (RBC) [Entitic vol] 84.1 fL 80-94 [facility] Mean corpuscular hemoglobin (MCH) determinationOrdered By: [employer] on 12-06-2024 MCH (RBC) [Entitic mass] 28.8 pg 27.0-32.0 [facility] Mean corpuscular hemoglobin concentration (MCHC) determinationOrdered By: [employer] on 12-06-2024 MCHC (RBC) [Mass/Vol] 34.2 g/dL 32-36 [facility] Mean platelet volume determi nationOrdered By: [employer] on 12-06-2024 Platelet mean volume (Bld) [Entitic vol] 9.7 fL 6.2-12.0 [facility] Monocyte percentageOrdered B y: [employer] on 12-06-2024 Monocytes/100 WBC (Bld) 8.8 % 0-10 [facility] Neutrophil percentageOrdered By: [employer] on 12-06-2024 Neutrophils/100 WBC (Bld) 66.1 % 47-70 [facility] No Panel InformationOrdered By: [employer] on 12-06-2024 Lyme Disease IgG Ab 30 kDa Band Absent . [facility] Lyme Disease IgG Ab 93 kDa Band Absent . [facility] Lyme Disease IgG [place]ot Interp Negative Negative [facility] Lyme Disease IgM Ab (Western Blot) Negative Negative [facility] Comment on above: Please Note: Lyme im munoblot alone is not recommended forthe diagnosis of Lyme disease. Current guidelines recommendthe use of a two-tiered approach to Lyme serology testingto improve the sensitivity and specificity of testing.[employer] offers test code 404995 Lyme Disease Serology withReflex to aid in the diagnosis of Lyme Disease. Lyme Disease Western Blot Comments Comment . [facility] Comment on above: Per CDC criteria, th e Lyme IgG Immunoblot is interpreted aspositive if IgG-class antibodies are detected to 5 or moreB. burgdorferi proteins, and the Lyme IgM Immunoblot isinterpreted as positive if IgM-class antibodies aredetected to 2 or more B. burgdorferi proteins. Immunoblotpatterns not meeting these criteria should not beinterpreted as positive. Epitopes from certain B.burgdorferi proteins (e.g., p41) are conserved across otherbacteria, which may lead to the detection of IgM-and/or IgGclass antibodies on the Lyme disease immunoblots inpatients without Lyme disease. Immunoblot should only beordered on specimens that are positive or equivocal by anA-licensed Lyme disease antibody screening test (e.g.,EIA). Results of the Lyme IgM immunoblot should not beconsidered in patients with 30 or more days of symptoms.Performed at: [employer] [id number] Director: Marcelo Azevedo MD, Phone: [phone] Nucleated red blood cell per centageOrdered By: Bryan Hastings on 12-06-2024 Nucleated RBC/100 WBC (Bld) [Ratio] 0 % 0-5 [facility] Platelet countOrdered By: Clovis Hastings on 12-06-2024 Platelets (Bld) [#/Vol] 169 10*3/uL 150-450 [facility] Potassium measurement (mass/ volume)Ordered By: Bryan Hastings on 12-06-2024 Potassium (Unsp spec) [Mass/Vol] 3.4 mmol/L 3.3-5.1 [facility] RBC Auto (Bld) [#/Vol]Ordere d By: Bryan Hastings on 12-06-2024 RBC (Bld) [#/Vol] 5.04 10*6/uL 4.6-6.2 [facility] Screening total cholesterol/ high density lipoprotein (HDL) cholesterol ratioOrdered By: Bryan Hastings on 12-06-2024 Cholesterol.total/Cho lesterol in HDL [Mass ratio] 3.36 {ratio} [facility] Serum creatinine measurement (mass/volume)Ordered By: Bryan Hastings on 12-06-2024 Creatinine [Mass/Vol] 1.05 mg/dL 0.70-1.20 [facility] Serum globulin measurementOr dered By: Bryan Hastings 12-06-2024 Globulin (S) [Mass/Vol] 2.7 g/dL 2.2-4.2 [facility] Serum glucose measurement (m ass/volume)Ordered By: Bryan Hastings 12-06-2024 Glucose [Mass/Vol] 108 mg/dL High 70-99 [facility] Serum or plasma alanine early otransferase (ALT) measurementOrdered By: Bryan Hastings 12-06-2024 ALT [Catalytic activity/Vol] 18 U/L <47 [facility] Serum or plasma albumin june urement (mass/volume)Ordered By: Bryan Hastings 12-06-2024 Albumin [Mass/Vol] 4.6 g/dL 3.4-4.8 [facility] Serum or plasma albumin/glob ulin mass ratioOrdered By: Bryan Hastings 12-06-2024 Albumin/Globulin [Mass ratio] 1.7 {ratio} 0.9-2.4 [facility] Serum or plasma alkaline jarett sphatase measurementOrdered By: Bryan Hastings 12-06-2024 ALP [Catalytic activity/Vol] 136 U/L High 40-129 [facility] Serum or plasma calcium june urement (mass/volume)Ordered By: Bryan Hastings 12-06-2024 Calcium [Mass/Vol] 10.3 mg/dL 7.6-11.0 [facility] Serum or plasma cholesterol in HDL measurement (mass/volume)Ordered By: Bryan Hastings 12-06-2024 Cholesterol in HDL [Mass/Vol] 32 mg/dL Low >40 [facility] Comment on above: National Cholesterol Education Program (NCEP) guidelines:<40 mg/dL: Low HDL-cholesterol (major risk factor for CHD)>= 60 mg/dL: High HDL-cholesterol (negative risk factor for CHD)HDL-cholesterol is affected by a number of factors, e.g. smoking, exercise, hormones, sex and age. Serum or plasma cholesterol measurement (mass/volume)Ordered By: Bryan Hastings on 12-06-2024 Cholesterol [Mass/Vol] 109 mg/dL <201 [facility] Comment on above: Cholesterol level, D esirable <200 mg/dLBorderline high cholesterol 200-239 mg/dLHigh cholesterol >=240 mg/dLRecommendations of the NCEP Adult Treatment Panel for the following risk-cutoff thresholds for the [place] population. Serum or plasma urea nitroge n measurement (mass/volume)Ordered By: Bryan Hastings on 12-06-2024 Urea nitrogen [Mass/Vol] 18 mg/dL 4-19 [facility] Sodium levelOrdered By: Bryan Hastings on 12-06-2024 Sodium [Moles/Vol] 138 mmol/L 133-145 [facility] TSH DL <= 0.005 mIU/L QnOrde red By: Bryan Hastings on 12-06-2024 TSH Qn 1.490 uIU/mL 0.300-4.200 [facility] Thyroid Stim Hormone (TSH)on 12-06-2024 TSH 1.490 uIU/mL Normal 0.300-4.200 [facility] Comment on above: Performed By: #### L 7000.5800, L506.1001, L501.9520, L500.4050, L100.0100, L500.4100 #### [facility] [address] [place], [address] Total proteinOrdered By: Bryan Hastings on 12-06-2024 Protein [Mass/Vol] 7.3 g/dL 5.9-8.4 [facility] Triglycerides measurementOrd ered By: Bryan Hastings on 12-06-2024 Triglyceride [Mass/Vol] 116 mg/dL <199 [facility] Comment on above: The drugs N-Acetylcy steine and Metamizole may falsely depress this assay. Normal range: <150 mg/dLBorderline High: 150-199 mg/dLHigh: 200-499 mg/dLVery High: >500 mg/dL Vitamin D,25 Hydroxyon 12-06 Vitamin D 25-OH 20.6 ng/mL Low 30-100 [facility] Comment on above: Result Comment: Jennifer min D Status Deficiency: <20 ng/mL (50nmol/L) Insufficiency: 20-30 ng/mL (50-75 nmol/L) Sufficiency: 30-100 ng/mL (75-250 nmol/L) Toxicity: >100 ng/mL (>250 nmol/L) Performed By: #### L 7000.5800, L506.1001, L501.9520, L500.4050, L100.0100, L500.4100 #### [facility] [address] [place], [address] White blood cell (WBC) count Ordered By: Bryan Hastings on 12-06-2024 WBC (Bld) [#/Vol] 6.4 10*3/uL 4.4-11.0 [facility] Cardiology Visit Reporton Cardiology Visit Report [facility] [address] [place], [place] [address] OFFICE VISIT Date of Service: 09/28/24 MR#: [id number] Acct: [id number] Name: FATUMA SIGALA Rep #: [id number] : 1955 Provider: Dr. David Aguiar MD Age/Sex: 69/M Location: [facility] Status: Signed HPI HPI History of Present Illness Details: 69-year-old gentleman with a history of known coronary artery disease status post angioplasty and stenting of his left anterior descending artery as well as his right coronary artery in 2013.??? He also had peripheral vascular disease and was noted to have severe stenosis of his right SFA and right profunda.??? He had been following up in [place] since February 2017.??? He apparently had undergone a stress test which had led to a cardiac catheterization and in turn led to four-vessel coronary artery bypass surgery. He underwent a TALAVERA to the LAD saphenous vein graft to the first diagonal saphenous vein graft to posterior descending artery and saphenous vein graft to the posterolateral branch.??? He was also noted to have postoperative atrial fibrillation.??? He did develop a pericardial effusion for which he needed drainage of the above.??? He also has a history of chronic myeloid leukemia being followed up with the [facility].??? He tells me that he has not needed any more chemotherapy. He did have an echocardiogram in August 2022 demonstrating an ejection fraction of 55% with a global longitudinal strain of -19.1. He denies chest, arm, jaw, or neck discomfort. He denies symptoms of shortness of breath with exertion, shortness of breath at rest, orthopnea, PND, sudden weight gain, or bilateral lower extremity edema. He denies chronic cough. He denies palpitations, lightheadedness, dizziness, near syncope, or syncopal episodes. He denies claudication issues. He denies fever or chills. He denies blood in urine, blood in stool, or epistaxis. He denies myalgia. He denies unexplainable fatigue. His exercise tolerance is stable walking daily. 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 Accompanied by: Self Is patient in pain?: No Allergies lisinopril Allergy (Severe, Verified 09/28/24 09:22) Swelling nilotinib (From Tasigna) Allergy (Verified 09/28/24 09:22) Rash pseudoephedrine (From Sudafed) Allergy (Verified 09/28/24 09:22) IRREGULAR HEARTBEAT Medications ???Medication ???Instructions ???Recorded ???Confirmed ???Type aspirin 81 mg chewable tablet 81 mg PO DAILY@0800 03/26/1809/28 History hydrochlorothiazide 25 mg tablet 25 mg PO DAILY #90 tabs 10/28/23 0 09/28/24 Rx amlodipine 10 mg tablet 10 mg PO DAILY #90 TABLETS 4 09/28/24 Rx rosuvastatin 40 mg tablet 40 mg PO QHS 07/13/24 09/28/24 His tory carvedilol 25 mg tablet See Rx Instructions .Route 5 09/28/24 Rx .COMPLEX #180 tabs Have you fallen in the past year?: No PFSH Medical History Cancer High cholesterol Excessive bleeding History of leukemia Former smoker H/O Legionnaire's disease History of Holter monitoring History of echocardiogram History of stress test Cardiology follow-up encounter History of heart attack Chest pain Postoperative atrial fibrillation (01/2018) Claudication Pericardial effusion with cardiac tamponade (02/2018) Peripheral vascular occlusive disease Essential (primary) hypertension Atherosclerotic heart disease of [place] coronary artery without angina pectoris Frequent unifocal premature ventricular contractions Peripheral arterial occlusive disease Hyperlipemia CML (chronic myelocytic leukemia) Surgical History History of cardiac catheterization History of appendectomy H/O coronary artery bypass surgery (02/11/18) History of angioplasty of peripheral vessel (11/30/16) History of coronary artery stent placement (11/2013) Family History Mother Hypertension Father Hypertension Social History Smoking Status: Former smoker how long ago did patient quit smokin 1/2 years ago alcohol intake: never substance use type: does not use caffeine: Yes Type: coffee Number of servings: 1 ROS Const Const: Negative for fatigue, weakness, headache(s), daytime sleepiness or difficulty sleeping ENT ENT: Negative for headache(s), dizziness or Nosebleed/epistaxis Cardio Chest Pain: No Palpitations: No Edema: None Resp (more content not included)... Normal [facility] Lower Ext Art Exam w/ Exerci rachel 08-03-2024 Lower Ext Art Exam w/ Exercise [facility] [address] [place] [address] Lower Ext Art Exam w/ Exercise 08/03/24 0957 MR#: [id number] Acct: [id number] Name: FATUMA SIGALA Rep #: [id number] : 1955 68 From: Adrian Coleman MD Attending Dr: HERMAN Steele Status: REG CLI Ordering Dr: Isabell Adler Date: 08/03/24 Location: [facility] Sex: M C Admitted: Reason For Study Reason For Study: PVD Procedure A bilateral lower extremity continuous wave Doppler with analog waveform analysis,segmental pressures,and ankle brachial indexes with exercise. Left Segmental Pressures Left brachial= 148mmHg. Left low thigh = 170mmHg. Left calf = 74mmHg. Left posterior tibial artery = 64mmHg. Left dorsalis pedis artery = 78mmHg. Left digit = 61 mmHg. The left dorsalis pedis waveforms are monophasic. The left posterior tibial artery waveforms are monophasic. Right Segmental Pressures Right brachial= 134mmHg. Right low thigh = 194mmHg. Right calf = 141mmHg. Right posterior tibial artery = 105mmHg. Right dorsalis pedis artery = 117mmHg. Right digit = 82 mmHg. The right dorsalis pedis waveforms are monophasic. The right posterior tibial artery waveforms are biphasic. Indices The right ankle brachial index by the dorsalis pedis is 0.79. The right ankle brachial index by the posterior tibial artery is 0.71. The right ankle brachial index by the dorsalis pedis post exercise is 0.28. The right digital-brachial index is 0.55. The left ankle brachial index by the dorsalis pedis is 0.53. The left ankle brachial index by the posterior tibial artery is 0.43. The left dorsalis pedis index post exercise is 0.18. The left digital-brachial index is 0.41. VL/Lower Ext Art Exam w/ Exercise Interpretation Summary Right CARLOS 0.79, moderate arterial insufficiency. Doppler/PVR waveforms and segmental pressures reveal distal SFA/popliteal, infrapopliteal disease. Right lower extremity with abnormal response to exercise and post exercise CARLOS in the severe category. Left CARLOS 0.53, moderate arterial insufficiency. Doppler/PVR waveforms and segmental pressures reveal distal SFA/popliteal disease. Left lower extremity with abnormal response to exercise and post exercise CARLOS in the critical category. Ordering Physician: Isabell Adler Referring Physician: Bryan Hastings Chi Performed By: Nixon Cross RVT and Student 08/03/24 1505 Date Adrian Coleman MD CC: HERMAN Steele; Dr. Bryan Hastings MD Date Dictated: 08/03/24 0957 Date Transcribed: 08/03/24 1505 Ticket Scheduler: Signed Normal [facility] MR/BMS.Afshin 07-13-2024 MR/BMS.BVS [facility] Surgery [address] [place] [address] OFFICE VISIT Date of Service: 07/13/24 MR#: [id number] Acct: [id number] Name: FATUMA SIGALA Rep #: [id number] : 1955 Provider: HERMAN Steele Age/Sex: 68/M Location: [facility] Status: Signed Intake Vital Signs 08/10/23 08:52 07/13/24 08:43 Height 5 ft 10 in Weight: 202 lb BP 131/78 H Blood Pressure Location Lt radial Position Sitting Respiration 16 Pulse 66 Pulse Source Monitor Temp 97.7 F L Temp Source Temporal Pulse Oximetry (%) 96 Oxygen Delivery Method room air Intake Visit Reasons: PAOD Chief Complaint: establish care Is patient in pain?: No Allergies lisinopril Allergy (Severe, Verified 07/13/24 08:45) Swelling nilotinib (From Tasigna) Allergy (Verified 07/13/24 08:45) Rash pseudoephedrine (From Sudafed) Allergy (Verified 07/13/24 08:45) IRREGULAR HEARTBEAT Medications ???Medication ???Instructions ???Recorded ???Confirmed ???Type aspirin 81 mg chewable tablet 81 mg PO DAILY@0800 03/26/18 07/13/24 History carvedilol 25 mg tablet See Rx Instructions .Route 08/02/23 07/13/24 Rx .COMPLEX #180 tabs hydrochlorothiazide 25 mg tablet 25 mg PO DAILY #90 tabs 10/28/23 07/13/24 Rx amlodipine 10 mg tablet 10 mg PO DAILY #90 TABLETS 02/04/24 07/13/24 Rx rosuvastatin 40 mg tablet 40 mg PO QHS 07/13/24 07/13/24 History Have you fallen in the past year?: No [facility] Medical History Cancer High cholesterol Excessive bleeding History of leukemia Former smoker H/O Legionnaire's disease History of Holter monitoring History of echocardiogram History of stress test Cardiology follow-up encounter History of heart attack Chest pain Postoperative atrial fibrillation (01/2018) Claudication Pericardial effusion with cardiac tamponade (02/2018) Peripheral vascular occlusive disease Essential (primary) hypertension Atherosclerotic heart disease of [place] coronary artery without angina pectoris Frequent unifocal premature ventricular contractions Peripheral arterial occlusive disease Hyperlipemia CML (chronic myelocytic leukemia) Surgical History History of cardiac catheterization History of appendectomy H/O coronary artery bypass surgery (02/11/18) History of angioplasty of peripheral vessel (11/30/16) History of coronary artery stent placement (11/2013) Family History Mother Hypertension Father Hypertension Social History Smoking Status: Former smoker how long ago did patient quit smokin 1/2 years ago alcohol intake: never substance use type: does not use caffeine: Yes Type: coffee Number of servings: 1 HPI HPI HPI: FATUMA SIGALA, is a 68 M who presents to the office today to establish care for PAD and carotid artery disease. He has most recently been followed by Dr. Islas for this. He had prior R popliteal, R profundofemoral, and left popliteal balloon angioplasty by Dr. Hill in 2017. His most recent arterial study was 04/23/23 and showed R CARLOS 0.65 with monophasic PT and biphasic DP, L CARLOS 0.61 with monophasic waveforms and he had significant decrease with exercise bilaterally. At his last OV with Dr. Islas in 04/2023. Dr. Islas felt that patient likely had popliteal occlusions bilaterally and felt that bypass would likely be the only interventional option so recommended for ongoing conservative therapy. He reports that overall his claudication symptoms have been stable. He gets calf cramping and has to rest after about 1000 feet of walking; after resting a couple minutes he is able to get back to walking. He takes long walks most days and just rests as needed. His daily activities are not otherwise limited by his calf cramping. He does not have any rest/nocturnal pain or wounds. Something that is newer is some hip pain with activity. This is not occurring every time he walks or even daily and is not necessarily occurring at a predictable distance. He was recently switched from atorvastatin to rosuvastatin and feels that his claudication symptoms are a bit better since this change. He has a history of mild carotid disease identified after carotid bruit noted on exam. Last carotid ultrasound was 05/21/23 and showed <50% stenosis bilateral ICAs. No history of CVA/TIA. He denies any episodes of neurologic symptoms such as unilateral weakness or sensory deficits, monocular vision loss, facial drooping, or dysarthria. His history is otherwise significant for CAD s/p PCI and CABG (2018), CML (currently in remission, not on any active therapy), HTN. ROS General General: No weight change (more content not included)... Normal [facility] Low Dose CT Lung Screeningon 06-30-[address] Lung Screening [facility] Imaging Services [address] [place] [id number] Lung Screening MR#: [id number] Acct: [id number] Name: FATUMA SIGALA Rep #: [id number] : 1955 M 68 From: Sim Nicholson MD PCP: Dr. Bryan Hastings MD Status: [facility] Study: Low Dose CT Lung Screening Date of Exam: 06/30 Exam# [id number] Ordering Dr: Bryan Hastings MD [id number] STUDY: LOW DOSE CT LUNG CANCER SCREENING REASON FOR EXAM: Male, 68 years old. NICOTINE DEPENDENCE. quit smoking 7 years ago. smoked 1ppd x 29 years RADIATION DOSAGE (If Supplied By Facility): CTDIvol = ( 3.02 ) mGy, DLP = ( 116.26 ) mGycm TECHNIQUE: No contrast was administered. Low dose technique was utilized (average mAS-38 and kVp 120). 1.25 mm axial source images with a slice interval of 1.25-mm were reconstructed in lung windows. 2.5 mm axial source images with a slice interval of 2.5-mm were reconstructed in lung windows. 5.0 mm axial source images with a slice interval of 5.0-mm were reconstructed in soft tissue windows. COMPARISON: 12/16/2022 FINDINGS: Lung windows show the lungs to be normally expanded. No organized infiltrate effusion or suspicious noncalcified mass or nodule. Overall no interval change since the previous study. There is been a remote CABG. No suspicious adenopathy. Degenerative bony changes are noted. Peripheral calcifications noted in the thoracic aorta without aneurysm. Limited cuts of the upper abdomen do not show a suspicious abnormality. CT/Low Dose CT Lung Screening IMPRESSION: Lung-RADS category 1 - Continue annual screening with LDCT in 12 months. IMPORTANT NOTES FOR USE: ACR Lung-RADS Version 1.1 Assessment Categories Release Date: 2018 Category: Coded 0-4 bases on nodule(s) with highest degree of suspicion. Negative screen is defined as categories 1 and 2; a positive screen is defined as categories 3 and 4. Category 3 and 4A nodules that are unchanged on interval CT should be coded as category 2, and individuals returned to screening in 12 months. Category 4X: Category 3 or 4 nodules with additional imaging findings that increase the suspicion of lung cancer, such as spiculation, GGN that doubles in size in 1 year, enlarged lymph notes, etc. Category Modifiers: S (significant finding unrelated to lung cancer) Electronically Signed: Ld Nicholson MD at 14:01 EST , CC: Dr. Bryan Hastings MD Ticket Scheduler: Signed [facility] CNOVSPon 06-22-2024 CNOVSP Visit (SP) Office (H EMAWS) -- OVER,FATUMA Churchill ([id number]) 1955 M Date Time Provider Department 06/22/24 2:40 PM EARL SEPULVEDA During your visit today, we recorded the following information about you: Temperature Pulse Blood pressure Weight 97.1 degrees 62/minute 162/76 93.4 kg Earl Sepulveda MD 06/22/2024 3:58 PM Signed (Elements copied from my note dated December 09, 2023, have been reviewed and updated where appropriate, and all reflect current assessment and medical decision making from today's encounter, June 22, 2024) HISTORY OF PRESENT ILLNESS: Fatuma Sigala is a 68 year old male with a history of CML diagnosed in 2011. He started Tasigna and achieved a MMR within [address] Martin's note that he stopped Tasigna for 6 months in 2018, and the BCR/ABL1 transcrip increased. He resumed Tasigna 300 mg BID in March 2019. Again he achieved MMR. In March 2020, he had developed rash on his extremities, and vertigo. The Tasigna was stopped, and never resumed due to undetected BCR/ABL1 transcript. Clinically has been doing well without any new complaints. CLINICAL IMPRESSION: CML in molecular remission RECOMMENDATION/PLAN: 1. Recheck 6 months CBC and BCR Written and verbal health teaching given to patient, patient verbalizes understanding and agrees with treatment plan. PAST MEDICAL HISTORY Diagnosis Date Acute myocardial infarction of other specified sites, episode of care unspecified 11/2013 Myocardial Infarction with stent placement Fracture left clavecal Hypertension PAST SURGICAL HISTORY Procedure Laterality Date APPENDECTOMY HX in mid STENT PLACEMENT 06/29/2012 Heart Stent @ [facility] FAMILY HISTORY Problem Relation Age of Onset Alzheimer's Disease Mother other (chirossis [Other]) Father Social History Tobacco Use Smoking status: Former Current packs/day: 0.00 Average packs/day: 1.5 packs/day for 28.0 years (42.0 ttl pk-yrs) Types: Cigars, Cigarettes Start date: 02/15/1990 Quit date: 02/15/2018 Years since quittin.3 Smokeless tobacco: Never Vaping Use Vaping status: Never Used Substance Use Topics Alcohol use: Not Currently Alcohol/week: 16.0 standard drinks of alcohol Types: 16 Cans of beer per week Comment: no alcohol in 3 years Drug use: No ALLERGIES: ALLERGIES Allergen Reactions Lisinopril Swelling Sudafed [Pseudoephe* Other: See Comments Irregular heartbeat CURRENT OUTPATIENT MEDICATIONS: rosuvastatin (CRESTOR) 40 mg tablet Take 40 mg by mouth once daily. hydroCHLOROthiazide (HYDRODIURIL, ESIDRIX) 25 mg tablet Take 25 mg by mouth once daily. amLODIPine (NORVASC) 10 mg tablet Take 10 mg by mouth once daily. acetaminophen (TYLENOL) 500 mg tablet Take 1,000 mg by mouth as needed. CARVEDILOL 25 mg tablet Take 25 mg by mouth twice daily. Aspirin 81 mg Tab Take 81 mg by mouth once daily. atorvastatin (LIPITOR) 20 mg tablet Take 20 mg by mouth once daily. (Patient not taking: Reported on 06/22/2024) clopidogrel (PLAVIX) 75 mg tablet Take 1 tablet by mouth once daily. REVIEW OF SYSTEMS: GENERAL: No fever, night sweats, weight loss or malaise. All other reviewed and negative other than HPI. PHYSICAL EXAMINATION: VITAL SIGNS: BP 162/76 Pulse 62 Temp 97.1 Wt 206 lb (93.4kg) SpO2 97% GENERAL APPEARANCE: Well appearing, in no acute distress, alert and oriented x3, well-hydrated, well nourished. No splenomegaly I spent a total of 20 minutes on the date of the service which included preparing to see the patient, [id number] patient care, completing clinical documentation, obtaining and/or reviewing separately obtained history, performing a medically appropriate examination, counseling and educating the patient/family/caregiver, ordering medications, tests, or procedures, independently interpreting results (not separately reported), and communicating results to the patient/family/caregiver. Electronically Signed: Earl Sepulveda MD June 22, 2024 Referring Provider: SELF [200] Allergies As of Date: 06/22/2024 Noted Allergy Reaction LISINOPRIL 07/11/2012 7 - Swelling SUDAFED (PSEUDOEPHEDRINE) 07/22/2016 14 - Other: See Comments Comments: Irregular heartbeat Date Reviewed: 06/22/2024 Reviewed by: Kristi Frazier MA - Fully Assessed Reason for Visit: Established Patient [175] Primary Visit Diagnosis: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) [C92.11] Order(s):BCR/ABL1 P210 QUANTITATIVE PCR BLOOD [SWV299TM] Order #: [id number] STANDING Follow-up and Disposition History for Encounter Date Provider Department Center 06/22/2024 [id number] SEPULVEDA [facility] Prescriptions as of 06/22/2024 - rosuvastatin (CRESTOR) 40 mg tablet Take 40 mg by mouth once daily. - hydroCHLOROthiazide (HYDRODIURIL, ESIDRIX) 25 mg tablet Take 25 mg by mouth once daily. - amLODIPine (NORVASC) 10 mg tablet (more content not included)... Normal [facility] BCR/ABL1 P210 %IS PANELon BCR/ABL1 P210 %IS N/A Normal [facility] Comment on above: Order Comment: Speci men Type: BLOOD SPECIMEN Ordering Facility: [facility] Address: [address] [place] [address] Performed By: #### P 210P #### [facility] CLIA [id number] [address] [place] [address] [place] #### [id number] #### [facility] CLIA [id number] [address] [place] [address] [place] BCR/ABL1 P210 MR N/A Normal [facility] Comment on above: Order Comment: Speci men Type: BLOOD SPECIMEN Ordering Facility: [facility] Address: [address] [place] [address] Performed By: #### P 210P #### [facility] CLIA [id number] [address] [place] [address] [place] #### [id number] #### [facility] CLIA [id number] [address] [place] [address] [place] BCR/ABL1 P210 QUANTITATIVE P CR BLOODon 06-08-2024 BCR/ABL1 P210 INTERPRETATION Normal [facility] Comment on above: Order Comment: Speci men Type: BLOOD SPECIMEN Ordering Facility: [facility] Address: [address], [place] [address] Result Comment: BCR/ ABL1 p210 Quantitative PCR Laboratory Accession Number: [id number] Result: UNDETECTED MR: N/A %IS: N/A Interpretation: p210 BCR/ABL1 transcripts were not detected. This result does not exclude the possibility of very low level transcripts below the level of detection of this assay (>MR4.7), and a result of not detected does not exclude the possibility of other BCR/ABL1 transcripts not targeted by this assay. Methodology: The [employer] QuantideX BCR/ABL IS assay is an FDA-cleared in vitro diagnostic test for the quantitation of BCR/ABL1 and ABL1 transcripts in total RNA from whole blood of diagnosed t(9;22) positive chronic myeloid leukemia patients expressing e13a2 and/or e14a2 fusion transcripts. This test does not detect p190 (e1a2) or other rare BCR/ABL1 transcripts. This assay has a limit of quantification and limit of detection of 0.002% IS or MR4.7. References: 1) Soto et al, Blood 2006;108:28-37; Kiel et al, Leukemia 2015;29:999-1003 As reviewed by Mimi Epps, PhD, [facility] Performed By: #### P 210P #### [facility] CLIA [id number] [address] [place] [address] [place] #### [id number] #### [facility] CLIA [id number] [address] [place] [address] [place] Hepatitis C Antibodyon 06-08 Hepatitis C AB Non-Reactive Normal Nonreactive [facility] Comment on above: Result Comment: Non Reactive: < 0.8 Equivocal: >/= 0.8 to < 1.0 Reactive: >/= 1.0 The CDC requires that a reactive/equivocal HCV antibody result be sent out for confirmation. HCV Quant by PCR testing. Performed By: #### L 501.9910, L500.4050, L100.0100, L3890.6300, L501.9520 ####[facility] [id number] [place], [place], [id number] [facility] OVER,FATUMA Churchill ([id number]) 1955 M Date Time Provider Department 06/07/24 EARL SEPULVEDA During your visit today, we recorded the following information about you: Nataliya Lang LPN 06/07/2024 4:31 PM Addendum Earl Sepulveda MD Higgins, Kara, LPN Can we call pt, his BCR needs redrawn, was CTSpaceNS Left message for pt asking if he would be willing to come have this lab redrawn. Pended order. Please sign. If pt calls back please schedule a lab apt. KELLEN Werner Kara, LPN 06/07/2024 4:32 PM Signed Pt returns call, pt will be in tomorrow morning to get redrawn. Please make lab apt at 8:45 am. KELLEN Werner Stephanie 06/08/2024 7:36 AM Signed Scheduled as directed. Addie Real Allergies As of Date: 06/07/2024 Noted Allergy Reaction LISINOPRIL 07/11/2012 7 - Swelling SUDAFED (PSEUDOEPHEDRINE) 07/22/2016 14 - Other: See Comments Comments: Irregular heartbeat Date Reviewed: 12/09/2023 Reviewed by: Rahul Rosa MA - Fully Assessed Primary Visit Diagnosis: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) [C92.11] Order(s):BCR/ABL1 P210 QUANTITATIVE PCR BLOOD [[id number]] Order #: [id number] FUTURE Prescriptions as of 06/09/2024 - hydroCHLOROthiazide (HYDRODIURIL, ESIDRIX) 25 mg tablet Take 25 mg by mouth once daily. - amLODIPine (NORVASC) 10 mg tablet Take 10 mg by mouth once daily. - atorvastatin (LIPITOR) 20 mg tablet Take 20 mg by mouth once daily. - acetaminophen (TYLENOL) 500 mg tablet Take 1,000 mg by mouth as needed. - CARVEDILOL 25 mg tablet Take 25 mg by mouth twice daily. - Aspirin 81 mg Tab Take 81 mg by mouth once daily. - clopidogrel (PLAVIX) 75 mg tablet Take 1 tablet by mouth once daily. Meds Comments as of 08/24/2018: Cameron must be sent to [facility] Problem List As Of Date 06/07/2024 Noted Resolved CML (chronic myelocytic leukemia) [C92.10] 09/14/2011 Encounter for long-term (current) use of other *10/01/2011 09/04/2013 Acneiform rash [L70.8] 01/25/2012 10/03/2012 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) [C92.11] 01/20/2016 Encounter Status:Closed by DIANNA DINH on 06/09/24 Normal [facility] CBC W/Diff, Automatedon 12- Absolute Lymph 1.24 X10 3/uL Normal 0.83-4.51 [facility] Comment on above: Performed By: #### L 501.9910, L500.4050, L100.0100, L3890.6300, L501.9520 ####[facility] [address] [place], [address] Absolute Neut 4.8 X10 3/uL Normal 2.0-7.7 [facility] Comment on above: Performed By: #### L 501.9910, L500.4050, L100.0100, L3890.6300, L501.9520 ####[facility] [address] [place], [address] Basophils/100 WBC (Bld) 0.3 % Normal 0-1 [facility] Comment on above: Performed By: #### L 501.9910, L500.4050, L100.0100, L3890.6300, L501.9520 ####[facility] [address] [place], [address] Eosinophils/100 WBC (Bld) 1.4 % Normal 0-5 [facility] Comment on above: Performed By: #### L 501.9910, L500.4050, L100.0100, L3890.6300, L501.9520 ####[facility] [address] [place], [address] Erythrocyte distribution width (RBC) [Ratio] 13.9 % Normal 11.6-14.6 [facility] Comment on above: Performed By: #### L 501.9910, L500.4050, L100.0100, L3890.6300, L501.9520 ####[facility] [address] [place], [address] Hematocrit (Bld) [Volume fraction] 42.9 % Normal 40-54 [facility] Comment on above: Performed By: #### L 501.9910, L500.4050, L100.0100, L3890.6300, L501.9520 ####[facility] [address] [place], [address] Hemoglobin (Bld) [Mass/Vol] 14.6 g/dL Normal 13.0-16.5 [facility] Comment on above: Performed By: #### L 501.9910, L500.4050, L100.0100, L3890.6300, L501.9520 ####[facility] [address] [place], [address] IG% 0.500 Normal 0.0-0.9 [facility] Comment on above: Result Comment: IG% - Immature Granulocytes (promyelocytes, myelocytes and metamyelocytes) > 1% indicates that a LEFT SHIFT is Present. Performed By: #### L 501.9910, L500.4050, L100.0100, L3890.6300, L501.9520 ####[facility] [address] [place], [address] Lymphocytes/100 WBC (Bld) 18.8 % Low 19-41 [facility] Comment on above: Performed By: #### L 501.9910, L500.4050, L100.0100, L3890.6300, L501.9520 ####[facility] [address] [place], [address] MCH (RBC) [Entitic mass] 28.7 pg Normal 27.0-32.0 [facility] Comment on above: Performed By: #### L 501.9910, L500.4050, L100.0100, L3890.6300, L501.9520 ####[facility] [address] [place], [address] MCHC (RBC) [Mass/Vol] 34.0 g/dL Normal 32-36 [facility] Comment on above: Performed By: #### L 501.9910, L500.4050, L100.0100, L3890.6300, L501.9520 ####[facility] [address] [place], [address] MCV (RBC) [Entitic vol] 84.3 fL Normal 80-94 [facility] Comment on above: Performed By: #### L 501.9910, L500.4050, L100.0100, L3890.6300, L501.9520 ####[facility] [address] [place], [address] Monocytes/100 WBC (Bld) 7.1 % Normal 0-10 [facility] Comment on above: Performed By: #### L 501.9910, L500.4050, L100.0100, L3890.6300, L501.9520 ####[facility] [address] [place], [address] Neutrophils/100 WBC (Bld) 71.9 % High 47-70 [facility] Comment on above: Performed By: #### L 501.9910, L500.4050, L100.0100, L3890.6300, L501.9520 ####[facility] [address] [place], [address] Nucleated RBC (Bld) [#/Vol] 0 10*3/uL Normal 0-5 [facility] Comment on above: Performed By: #### L 501.9910, L500.4050, L100.0100, L3890.6300, L501.9520 ####[facility] [address] [place], [address] Platelet mean volume (Bld) [Entitic vol] 10.2 fL Normal 6.2-12.0 [facility] Comment on above: Performed By: #### L 501.9910, L500.4050, L100.0100, L3890.6300, L501.9520 ####[facility] [address] [place], [address] Platelets (Bld) [#/Vol] 173 10*3/uL Normal 150-450 [facility] Comment on above: Performed By: #### L 501.9910, L500.4050, L100.0100, L3890.6300, L501.9520 ####[facility] [address] [place], [address] RBC (Bld) [#/Vol] 5.09 10*6/uL Normal 4.6-6.2 [facility] Comment on above: Performed By: #### L 501.9910, L500.4050, L100.0100, L3890.6300, L501.9520 ####[facility] [address] [place], [address] RDW SD 42.6 fl Normal 35.1-43.9 [facility] Comment on above: Performed By: #### L 501.9910, L500.4050, L100.0100, L3890.6300, L501.9520 ####[facility] [address] [place], [address] WBC (Bld) [#/Vol] 6.6 10*3/uL Normal 4.4-11.0 [facility] Comment on above: Performed By: #### L 501.9910, L500.4050, L100.0100, L3890.6300, L501.9520 ####[facility] [address] [place], [address] Comprehensive Metabolic Prof ilon 06-06-2024 Albumin [Mass/Vol] 4.0 g/dL Normal 3.2-5.0 [facility] Comment on above: Performed By: #### L 501.9910, L500.4050, L100.0100, L3890.6300, L501.9520 ####[facility] [address] [place], [address] Albumin/Globulin [Mass ratio] 1.2 {ratio} Normal 0.9-2.4 [facility] Comment on above: Performed By: #### L 501.9910, L500.4050, L100.0100, L3890.6300, L501.9520 ####[facility] [address] [place], [address] ALK P 163 U/L High 45-117 [facility] Comment on above: Performed By: #### L 501.9910, L500.4050, L100.0100, L3890.6300, L501.9520 ####[facility] [address] [place], [address] ALT [Catalytic activity/Vol] 20 U/L Normal 16-61 [facility] Comment on above: Performed By: #### L 501.9910, L500.4050, L100.0100, L3890.6300, L501.9520 ####[facility] [address] [place], [address] AST [Catalytic activity/Vol] 23 U/L Normal 15-37 [facility] Comment on above: Performed By: #### L 501.9910, L500.4050, L100.0100, L3890.6300, L501.9520 ####[facility] [address] [place], [address] Bilirubin [Mass/Vol] 1.00 mg/dL Normal 0.20-1.00 [facility] Comment on above: Result Comment: For patients on eltrombopag therapy, use of Dimension [place] TBIL is not recommended. Performed By: #### L 501.9910, L500.4050, L100.0100, L3890.6300, L501.9520 ####[facility] [address] [place], [address] BUN/CRE 17.4 RATIO Normal 10-20 [facility] Comment on above: Performed By: #### L 501.9910, L500.4050, L100.0100, L3890.6300, L501.9520 ####[facility] [address] [place], [address] CA,Total 9.6 mg/dL Normal 8.5-10.1 [facility] Comment on above: Performed By: #### L 501.9910, L500.4050, L100.0100, L3890.6300, L501.9520 ####[facility] [address] [place], [address] Chloride [Moles/Vol] 104 mmol/L Normal 98-107 [facility] Comment on above: Performed By: #### L 501.9910, L500.4050, L100.0100, L3890.6300, L501.9520 ####[facility] [address] [place], [address] CO2 [Moles/Vol] 28.0 mmol/L Normal 21.0-32.0 [facility] Comment on above: Performed By: #### L 501.9910, L500.4050, L100.0100, L3890.6300, L501.9520 ####[facility] [address] [place], [address] Creatinine [Mass/Vol] 1.09 mg/dL Normal 0.70-1.30 [facility] Comment on above: Result Comment: The validity of the calculated GFR GFRAA in patients over 70 years has not been determined. Clinical correlation is essential. Performed By: #### L 501.9910, L500.4050, L100.0100, L3890.6300, L501.9520 ####[facility] [address] [place], [address] EST GFR - AA 86 mL/min Normal >60 [facility] Comment on above: Result Comment: Afri can Tanzanian GFR Calc Performed By: #### L 501.9910, L500.4050, L100.0100, L3890.6300, L501.9520 ####[facility] [address] [place], [address] GAP 5 Normal 5-15 [facility] Comment on above: Performed By: #### L 501.9910, L500.4050, L100.0100, L3890.6300, L501.9520 ####[facility] [address] [place], [address] GFR/1.73 sq M.predicted among non-blacks MDRD (S/P/Bld) [Vol rate/Area] 71 mL/min/{1.73_m2} Normal >60 [facility] Comment on above: Result Comment: Non- GFR Calc Performed By: #### L 501.9910, L500.4050, L100.0100, L3890.6300, L501.9520 ####[facility] [address] [place], [address] Globulin (S) [Mass/Vol] 3.4 g/dL Normal 2.2-4.2 [facility] Comment on above: Performed By: #### L 501.9910, L500.4050, L100.0100, L3890.6300, L501.9520 ####[facility] [address] [place], [address] Glucose [Mass/Vol] 96 mg/dL Normal 74-106 [facility] Comment on above: Performed By: #### L 501.9910, L500.4050, L100.0100, L3890.6300, L501.9520 ####[facility] [address] [place], [address] Potassium [Moles/Vol] 3.5 mmol/L Normal 3.5-5.1 [facility] Comment on above: Performed By: #### L 501.9910, L500.4050, L100.0100, L3890.6300, L501.9520 ####[facility] [address] [place], [address] Sodium [Moles/Vol] 137 mmol/L Normal 136-145 [facility] Comment on above: Performed By: #### L 501.9910, L500.4050, L100.0100, L3890.6300, L501.9520 ####[facility] [address] [place], [address] T PROT 7.4 g/dL Normal 6.4-8.2 [facility] Comment on above: Performed By: #### L 501.9910, L500.4050, L100.0100, L3890.6300, L501.9520 ####[facility] [address] [place], [address] Urea nitrogen [Mass/Vol] 19 mg/dL High 7-18 [facility] Comment on above: Performed By: #### L 501.9910, L500.4050, L100.0100, L3890.6300, L501.9520 ####[facility] [address] [place], [address] PSA,Total - Annual Screenon 06-06-2024 PSA,TOT SCREEN 0.53 ng/mL Normal 0.00-4.00 [facility] Comment on above: Result Comment: This test was performed using the TPSA assay method for the Hair Scynce chemistry system. Values obtained with different assay methods cannot be used interchangably. When changing PSA assays in the course of monitoring a patient, additional sequential testing should be carried out to confirm baseline values. Performed By: #### L 501.9910, L500.4050, L100.0100, L3890.6300, L501.9520 ####[facility] [address] [facility] [place], [address] Thyroid Stim Hormone (TSH)on 06-06-2024 TSH 1.500 uIU/mL Normal 0.358-3.740 [facility] Comment on above: Performed By: #### L 501.9910, L500.4050, L100.0100, L3890.6300, L501.9520 ####[facility] [address] [facility] [place], [address] BCR/ABL1 P210 QUANTITATIVE P CR BLOODon 06-02-2024 BCR/ABL1 P210 INTERPRETATION Unable to assay. Quantity not sufficient. Normal [facility] Comment on above: Order Comment: Speci men Type: BLOOD SPECIMEN Ordering Facility: [facility] Address: [address] [place] [address] Performed By: #### P 210P #### [facility] CLIA [id number] [address] [place] [address] [id number] [place] [address] [place] CBC W Auto Differential pane l (Bld)on 06-02-2024 Basophils (Bld) [#/Vol] 0.03 10*3/uL Normal <0.11 [facility] Comment on above: Order Comment: Speci men Type: BLOOD SPECIMEN Ordering Facility: [facility] Address: [address] [place] [address] Performed By: #### 5 7021-8 #### [facility] CLIA [id number] [address] [place] [address] [place] Basophils/100 WBC (Bld) 0.4 % Normal [facility] Comment on above: Order Comment: Speci men Type: BLOOD SPECIMEN Ordering Facility: [facility] Address: [address] [place] [address] Performed By: #### 5 7021-8 #### [facility] CLIA [id number] [address] [place] [address] [place] Differential cell count method Nom (Bld) Auto Normal [facility] Comment on above: Order Comment: Speci men Type: BLOOD SPECIMEN Ordering Facility: [facility] Address: [address] [place] [address] Performed By: #### 5 7021-8 #### [facility] CLIA [id number] [address] [place] [address] [place] Eosinophils (Bld) [#/Vol] 0.13 10*3/uL Normal <0.46 [facility] Comment on above: Order Comment: Speci men Type: BLOOD SPECIMEN Ordering Facility: [facility] Address: [address] [place] [address] Performed By: #### 5 7021-8 #### [facility] CLIA [id number] [address] [place] [address] [place] Eosinophils/100 WBC (Bld) 1.8 % Normal [facility] Comment on above: Order Comment: Speci men Type: BLOOD SPECIMEN Ordering Facility: [facility] Address: [address] [place] [address] [place] [address] Performed By: #### 5 7021-8 #### [facility] CLIA [id number] [address] [place] [address] [place] Erythrocyte distribution width (RBC) [Ratio] 13.9 % Normal 11.5-15.0 [facility] Comment on above: Order Comment: Speci men Type: BLOOD SPECIMEN Ordering Facility: [facility] Address: [address] [place], [place] [address] Performed By: #### 5 7021-8 #### [facility] CLIA [id number] [address] [place] [address] [place] Hematocrit (Bld) [Volume fraction] 45.1 % Normal 39.0-51.0 [facility] Comment on above: Order Comment: Speci men Type: BLOOD SPECIMEN Ordering Facility: [facility] Address: [address] [place] [address] Performed By: #### 5 7021-8 #### [facility] CLIA [id number] [address] [place] [address] [place] Hemoglobin (Bld) [Mass/Vol] 15.4 g/dL Normal 13.0-17.0 [facility] Comment on above: Order Comment: Speci men Type: BLOOD SPECIMEN Ordering Facility: [facility] Address: [address] [place] [address] Performed By: #### 5 7021-8 #### [facility] CLIA [id number] [address] [place] [address] [place] Immature granulocytes (Bld) [#/Vol] 10*3/uL Normal <0.10 [facility] Comment on above: Order Comment: Speci men Type: BLOOD SPECIMEN Ordering Facility: [facility] Address: [address] [place], [place] [address] Performed By: #### 5 7021-8 #### [facility] CLIA [id number] [address] [place] [address] [place] Immature granulocytes/100 WBC (Bld) 0.3 % Normal [facility] Comment on above: Order Comment: Speci men Type: BLOOD SPECIMEN Ordering Facility: [facility] Address: [address] [place] [address] Performed By: #### 5 7021-8 #### [facility] CLIA [id number] [address] [place] [address] [place] Lymphocytes (Bld) [#/Vol] 1.43 10*3/uL Normal 1.00-4.00 [facility] Comment on above: Order Comment: Speci men Type: BLOOD SPECIMEN Ordering Facility: [facility] Address: [address] [place] [address] Performed By: #### 5 7021-8 #### [facility] CLIA [id number] [address] [place] [address] [place] Lymphocytes/100 WBC (Bld) 20.0 % Normal [facility] Comment on above: Order Comment: Speci men Type: BLOOD SPECIMEN Ordering Facility: [facility] Address: [address] [place] [address] Performed By: #### 5 7021-8 #### [facility] CLIA [id number] [address] [place] [address] [place] MCH (RBC) [Entitic mass] 28.5 pg Normal 26.0-34.0 [facility] Comment on above: Order Comment: Speci men Type: BLOOD SPECIMEN Ordering Facility: [facility] Address: [address] [place] [address] Performed By: #### 5 7021-8 #### [facility] CLIA [id number] [address] [place] [address] [place] MCHC (RBC) [Mass/Vol] 34.1 g/dL Normal 30.5-36.0 [facility] Comment on above: Order Comment: Speci men Type: BLOOD SPECIMEN Ordering Facility: [facility] Address: [address] [place] [address] Performed By: #### 5 7021-8 #### [facility] CLIA [id number] [address] [place] [address] [place] MCV (RBC) [Entitic vol] 83.5 fL Normal 80.0-100.0 [facility] Comment on above: Order Comment: Speci men Type: BLOOD SPECIMEN Ordering Facility: [facility] Address: [address] [place] [address] Performed By: #### 5 7021-8 #### [facility] CLIA [id number] [address] [place] [address] [place] Monocytes (Bld) [#/Vol] 0.60 10*3/uL Normal <0.87 [facility] Comment on above: Order Comment: Speci men Type: BLOOD SPECIMEN Ordering Facility: [facility] Address: [address] [place] [address] Performed By: #### 5 7021-8 #### [facility] CLIA [id number] [address] [place] [address] [place] Monocytes/100 WBC (Bld) 8.4 % Normal [facility] Comment on above: Order Comment: Speci men Type: BLOOD SPECIMEN Ordering Facility: [facility] Address: [address] [place] [address] Performed By: #### 5 7021-8 #### [facility] CLIA [id number] [address] [place] [address] [place] Neutrophils (Bld) [#/Vol] 4.93 10*3/uL Normal 1.45-7.50 [facility] Comment on above: Order Comment: Speci men Type: BLOOD SPECIMEN Ordering Facility: [facility] Address: [address] [place] [address] Performed By: #### 5 7021-8 #### [facility] CLIA [id number] [address] [place] [address] [place] Neutrophils/100 WBC (Bld) 69.1 % Normal [facility] Comment on above: Order Comment: Speci men Type: BLOOD SPECIMEN Ordering Facility: [facility] Address: [address] [place] [address] Performed By: #### 5 7021-8 #### [facility] CLIA [id number] [address] [place] [address] [place] Nucleated RBC (Bld) [#/Vol] 10*3/uL Normal <0.01 [facility] Comment on above: Order Comment: Speci men Type: BLOOD SPECIMEN Ordering Facility: [facility] Address: [address] [place] [address] Performed By: #### 5 7021-8 #### [facility] CLIA [id number] [address] [place] [address] [place] Nucleated RBC/100 WBC (Bld) [Ratio] 0.0 /100 WBC Normal [facility] Comment on above: Order Comment: Speci men Type: BLOOD SPECIMEN Ordering Facility: [facility] Address: [address] [place] [address] Performed By: #### 5 7021-8 #### [facility] CLIA [id number] [address] [place] [address] [place] Platelet mean volume (Bld) [Entitic vol] 9.9 fL Normal 9.0-12.7 [facility] Comment on above: Order Comment: Speci men Type: BLOOD SPECIMEN Ordering Facility: [facility] Address: [address] [place] [address] Performed By: #### 5 7021-8 #### [facility] CLIA [id number] [address] [place] [address] [place] Platelets (Bld) [#/Vol] 162 10*3/uL Normal 150-400 [facility] Comment on above: Order Comment: Speci men Type: BLOOD SPECIMEN Ordering Facility: [facility] Address: [address] [place] [address] Performed By: #### 5 7021-8 #### [facility] CLIA [id number] [address] [place] [address] [place] RBC (Bld) [#/Vol] 5.40 10*6/uL Normal 4.20-6.00 [facility] Comment on above: Order Comment: Speci men Type: BLOOD SPECIMEN Ordering Facility: [facility] Address: [address] [place] [address] Performed By: #### 5 7021-8 #### [facility] CLIA [id number] [address] [place] [address] [place] WBC (Bld) [#/Vol] 7.14 10*3/uL Normal 3.70-11.00 [facility] Comment on above: Order Comment: Speci men Type: BLOOD SPECIMEN Ordering Facility: [facility] Address: [address] [place] [address] Performed By: #### 5 7021-8 #### [facility] CLIA [id number] [address] [place] [address] [place] Basophil percentageOrdered B y: Fatuma Caldwell on 08-12-2023 Bilirubin [Mass/Vol] 0.80 mg/dL 0.20-1.00 [facility] Comment on above: For patients on eltr ombopag therapy, use of Dimension [place] TBIL is not recommended. Cholesterol [Mass/Vol] 142 mg/dL <200 [facility] Comment on above: <200 mg/dL Desirable 200-240 mg/dL Borderline >240 mg/dL High Risk Protein [Mass/Vol] 7.5 g/dL 6.4-8.2 [facility] Triglyceride [Mass/Vol] 124 mg/dL <199 [facility] Comment on above: The drugs N-Acetylcy steine and Metamizole may falsely depress this assay.Serum Triglycerides Reference Interval Normal <150 mg/dL Borderline high 150 - 199 mg/dL High 200 - 499 mg/dL Very High > or = 500 mg/dL Direct bilirubinOrdered By: Fatuma Caldwell on 08-12-2023 Bilirubin.direct [Mass/Vol] 0.20 mg/dL 0.00-0.30 [facility] Laboratory - Chemistry and C hemistry - challengeOrdered By: Fatuma Caldwell on 08-12-2023 ALP [Catalytic activity/Vol] 139 U/L 45-117 [facility] ALT [Catalytic activity/Vol] 24 U/L 16-61 [facility] Cholesterol in HDL [Mass/Vol] 31 mg/dL >40 [facility] Comment on above: The drugs N-Acetylcy steine and Metamizole may falsely depress this assay. Reference Range HDL <40 mg/dL Low HDL Cholesterol HDL >or= 60 mg/dL High HDL Cholesterol Cholesterol in LDL [Mass/Vol] 86 mg/dL 0-130 [facility] Globulin (S) [Mass/Vol] 3.3 g/dL 2.2-4.2 [facility] No Panel InformationOrdered By: Fatuma Caldwell on 08-12-2023 VLDL Cholesterol 25 mg/dL 5-40 [facility] [facility] Thin prep Papanicolaou smear with manual screeningOrdered By: Fatuma Caldwell on 08-12-2023 Thin prep Papanicolaou smear with manual screening 4.2 g/dL 3.2-5.0 [facility] Thin prep Papanicolaou smear with manual screening 21 U/L 15-37 [facility] CBC W Auto Differential pane l (Bld)on 11-24-2022 Basophils (Bld) [#/Vol] <0.11 k/uL [facility] Basophils/100 WBC (Bld) 0.3 % [facility] Differential cell count method Nom (Bld) Auto [facility] Eosinophils (Bld) [#/Vol] 0.21 10*3/uL <0.46 k/uL [facility] Eosinophils/100 WBC (Bld) 3.1 % [facility] Erythrocyte distribution width (RBC) [Ratio] 13.6 % 11.5 - 15.0 % [facility] Hematocrit (Bld) [Volume fraction] 42.6 % 39.0 - 51.0 % [facility] Hemoglobin (Bld) [Mass/Vol] 14.7 g/dL 13.0 - 17.0 g/dL [facility] Immature granulocytes (Bld) [#/Vol] <0.10 k/uL [facility] Immature granulocytes/100 WBC (Bld) 0.1 % [facility] Lymphocytes (Bld) [#/Vol] 1.56 10*3/uL 1.00 - 4.00 k/uL [facility] Lymphocytes/100 WBC (Bld) 22.8 % [facility] MCH (RBC) [Entitic mass] 29.2 pg 26.0 - 34.0 pg [facility] MCHC (RBC) [Mass/Vol] 34.5 g/dL 30.5 - 36.0 g/dL [facility] MCV (RBC) [Entitic vol] 84.5 fL 80.0 - 100.0 fL [facility] Monocytes (Bld) [#/Vol] 0.62 10*3/uL <0.87 k/uL [facility] Monocytes/100 WBC (Bld) 9.1 % [facility] Neutrophils (Bld) [#/Vol] 4.42 10*3/uL 1.45 - 7.50 k/uL [facility] Neutrophils/100 WBC (Bld) 64.6 % [facility] Nucleated RBC (Bld) [#/Vol] <0.01 k/uL [facility] Nucleated RBC/100 WBC (Bld) [Ratio] 0.0 /100 WBC [facility] Platelet mean volume (Bld) [Entitic vol] 10.0 fL 9.0 - 12.7 fL [facility] Platelets (Bld) [#/Vol] 152 10*3/uL 150 - 400 k/uL [facility] RBC (Bld) [#/Vol] 5.04 10*6/uL 4.20 - 6.0 0 m/uL [facility] WBC (Bld) [#/Vol] 6.84 10*3/uL 3.70 - 11. 00 k/uL [facility] Comprehensive metabolic 2000 panelon 11-24-2022 Albumin [Mass/Vol] 4.7 g/dL 3.9 - 4.9 g/dL [facility] ALP [Catalytic activity/Vol] 139 U/L High 38 - 113 U/L [facility] ALT [Catalytic activity/Vol] 9 U/L Low 10 - 54 U/L [facility] Anion gap [Moles/Vol] 10 mmol/L 9 - 18 mmol/L [facility] AST [Catalytic activity/Vol] 14 U/L 14 - 40 U/L [facility] Bilirubin [Mass/Vol] 0.8 mg/dL 0.2 - 1 .3 mg/dL [facility] Calcium [Mass/Vol] 10.1 mg/dL 8.5 - 10. 2 mg/dL [facility] Chloride [Moles/Vol] 100 mmol/L 97 - 10 5 mmol/L [facility] CO2 [Moles/Vol] 26 mmol/L 22 - 30 mmol/L [facility] Creatinine [Mass/Vol] 1.02 mg/dL 0.73 - 1.22 mg/dL [facility] Estimated Glomerular Filtration Rate 80 mL/min/1.73m >=60 mL/min/1.73m [facility] Glucose [Mass/Vol] 107 mg/dL High 74 - 99 mg/dL [facility] Potassium [Moles/Vol] 3.4 mmol/L Low 3.7 - 5.1 mmol/L [facility] Protein [Mass/Vol] 7.0 g/dL 6.3 - 8.0 g/dL [facility] Sodium [Moles/Vol] 136 mmol/L 136 - 144 mmol/L [facility] Urea nitrogen [Mass/Vol] 21 mg/dL 9 - 24 mg/dL [facility] LD LACTATE DEHYDROon 023 LDH [Catalytic activity/Vol] 135 U/L 135 - 225 U/L [facility] Basophil percentageon 2021 Bilirubin [Mass/Vol] 0.80 mg/dL 0.20-1.00 [facility] Work Phone: Comment on above: For patients on eltr ombopag therapy, use of Dimension [place] TBIL is not recommended. Chloride [Moles/Vol] 106 mmol/L 98-107 [facility] Work Phone: Cholesterol [Mass/Vol] 123 mg/dL <200 [facility] Work Phone: Comment on above: <200 mg/dL Desirable 200-240 mg/dL Borderline >240 mg/dL High Risk Glucose [Mass/Vol] 99 mg/dL 74-106 [facility] Work Phone: Potassium [Moles/Vol] 3.4 mmol/L 3.5-5.1 [facility] Work Phone: Protein [Mass/Vol] 7.3 g/dL 6.4-8.2 [facility] Work Phone: Sodium [Moles/Vol] 140 mmol/L 136-145 [facility] Work Phone: Triglyceride [Mass/Vol] 112 mg/dL <199 [facility] Work Phone: Comment on above: The drugs N-Acetylcy steine and Metamizole may falsely depress this assay.Serum Triglycerides Reference Interval Normal <150 mg/dL Borderline high 150 - 199 mg/dL High 200 - 499 mg/dL Very High > or = 500 mg/dL WBC (Bld) [#/Vol] 6.1 10*3/uL 4.4-11.0 [facility] Work Phone: Blood erythrocytes count (nu mber/volume)on 03-28-2022 RBC (Bld) [#/Vol] 4.91 10*6/uL 4.6-6.2 [facility] Work Phone: Blood hemoglobin measurement (mass/volume)on 03-28-2022 Hemoglobin (Bld) [Mass/Vol] 14.9 g/dL 13.0-16.5 [facility] Work Phone: Blood platelet mean volumeon 03-28-2022 Platelet mean volume (Bld) [Entitic vol] 9.7 fL 6.2-12.0 [facility] Work Phone: Determination of erythrocyte mean corpuscular volume (MCV)on 03-28-2022 MCV (RBC) [Entitic vol] 87.2 fL 80-94 [facility] Work Phone: Hematocrit Auto (Bld) [Volum e fraction]on 03-28-2022 Hematocrit (Bld) [Volume fraction] 42.8 % 40-54 [facility] Work Phone: Laboratory - Chemistry and C hemistry - challengeon 03-28-2022 ALP [Catalytic activity/Vol] 132 U/L 45-117 [facility] Work Phone: ALT [Catalytic activity/Vol] 18 U/L 16-61 [facility] Work Phone: CO2 [Moles/Vol] 28.0 mmol/L 21.0-32.0 [facility] Work Phone: Globulin (S) [Mass/Vol] 3.4 g/dL 2.2-4.2 [facility] Work Phone: Urea nitrogen/Creatinine [Mass ratio] 20.0 mg/mg 10-20 [facility] Work Phone: Laboratory - Hematology and Cell countson 03-28-2022 Erythrocyte distribution width (RBC) [Entitic vol] 44.2 fL 35.1-43.9 [facility] Work Phone: Erythrocyte distribution width (RBC) [Ratio] 13.7 % 11.6-14.6 [facility] Work Phone: MCH (RBC) [Entitic mass] 30.3 pg 27.0-32.0 [facility] Work Phone: MCHC Auto (RBC) [Mass/Vol]on 03-28-2022 MCHC (RBC) [Mass/Vol] 34.8 g/dL 32-36 [facility] Work Phone: No Panel Informationon 03-28 Estimated GFR (MDRD) Amer 101 mL/min >60 [facility] Work Phone: Comment on above: GFR Calc Estimated GFR (MDRD) Non-Af Amer 84 mL/min >60 [facility] Work Phone: Comment on above: Non- GFR Calc Prostate Specific Antigen Screen 0.39 ng/mL 0.00-4.00 [facility] Work Phone: Comment on above: This test was perfor med using the TPSA assay method for theDimension chemistry system. Values obtained with differentassay methods cannot be used interchangably.When changing PSA assays in the course of monitoring apatient, additional sequential testing should be carriedout to confirm baseline values. Platelets bldon 03-28-2022 Platelets (Bld) [#/Vol] 161 10*3/uL 150-450 [facility] Work Phone: Serum or plasma albumin june urement (mass/volume)on 03-28-2022 Albumin [Mass/Vol] 3.9 g/dL 3.2-5.0 [facility] Work Phone: Serum or plasma albumin/glob ulin mass ratioon 03-28-2022 Albumin/Globulin [Mass ratio] 1.1 {ratio} 0.9-2.4 [facility] Work Phone: Serum or plasma calcium june urement (mass/volume)on 03-28-2022 Calcium [Mass/Vol] 9.2 mg/dL 8.5-10.1 [facility] Work Phone: Serum or plasma cholesterol in HDL measurement (mass/volume)on 03-28-2022 Cholesterol in HDL [Mass/Vol] 32 mg/dL >40 [facility] Work Phone: Comment on above: The drugs N-Acetylcy steine and Metamizole may falsely depress this assay. Reference Range HDL <40 mg/dL Low HDL Cholesterol HDL >or= 60 mg/dL High HDL Cholesterol Serum or plasma cholesterol in VLDL measurement (mass/volume)on 03-28-2022 Cholesterol in VLDL [Mass/Vol] 22 mg/dL 5-40 [facility] Work Phone: Serum or plasma creatinine m easurement (mass/volume)on 03-28-2022 Creatinine [Mass/Vol] 0.95 mg/dL 0.70-1.30 [facility] Work Phone: Comment on above: The validity of the calculated GFR & GFRAA in patients over 70 years has not been determined. Clinical correlation is essential. Serum or plasma low density lipoprotein (LDL) cholesterol measurement (mass/volume)on 03-28-2022 Cholesterol in LDL [Mass/Vol] 69 mg/dL 0-130 [facility] Work Phone: Serum or plasma urea nitroge n measurement (mass/volume)on 03-28-2022 Urea nitrogen [Mass/Vol] 19 mg/dL 7-18 [facility] Work Phone: Thin prep Papanicolaou smear with manual screeningon 03-28-2022 Thin prep Papanicolaou smear with manual screening 15 U/L 15-37 [facility] Work Phone: Thin prep Papanicolaou smear with manual screening 6 5-15 [facility] Work Phone: Thin prep Papanicolaou smear with manual screening 11.9 mg/L NO RANGE EST. [facility] Work Phone: Whole blood hemoglobin A1c/t otal hemoglobin ratio (mass fraction)on 03-28-2022 HbA1c (Bld) [Mass fraction] 5.4 % 3.8-5.6 [facility] Work Phone: Comment on above: Normal < 5.7 % Predi abetic 5.7 - 6.4 % Diabetic >or= 6.5 % Please note range changes. Final Surgical Pathology Rep [facility] 07-03-2020 Final Surgical Pathology Report . Pathology Reports Accession: Collected Date/Time: Received Date/Time: Pathologist: [id number] 07/01/2020 12:14 EST 07/02/2020 08:48 EST MD TEJAL JORGE Final Surgical Pathology Report DIAGNOSIS: SOFT TISSUE, LEFT CHEEK, EXCISION: EPIDERMAL CYST. COMMENT: [facility] [id number] CLINICAL INFORMATION: cyst left cheek Procedure: excision Preoperative diagnosis: epidermal cyst Postoperative diagnosis: epidermal cyst SPECIMEN: A LEFT CHEEK CYST GROSS DESCRIPTION: A. Received in formalin, labeled with the patients name, Case #[id number], and left cheek cyst is a previously collapsed ross-yellow to white cyst cavity measuring 1.2 x 1 x 0.4 cm. No grossly identified skin. Tissue is bisected. TS -1. Dictated by AIDEN LARSEN MICROSCOPIC DESCRIPTION: Slides reviewed. Electronically Signed by Pathology Report verified by [facility] Electronically signed by TEJAL JORGE MD Sign out Date: 07/03/2020 14:45 Performing Lab: [facility], [address] [place] [id number] [place] [address] (MD) Comment on above: Performed By: #### S PFR #### [facility] [address] [place] [address] CHEST PA/AP AND LATERALon CHEST PA/AP AND LATERAL CHEST PA/AP & LATERAL Ordering Physician: Jaswinder Hdez MD 03/28/2018 1:40 PM CHEST Clinical Statement: Pericardial effusion FINDINGS: PA and lateral chest images were obtained and compared to a portable study dated 03/12/2018. The heart is normal in size. The patient is post open heart surgery. The aorta is tortuous. There is scarring at the left base. No acute infiltrates or congestion is seen. There is a remote fracture at the posterior aspect of the right ninth rib. IMPRESSION: Mild scarring at the left base. The heart appears normal in size. ---- Electronic Signature on File ---- Signed By: Vance Cruz MD FACR [email or web address] Dictated: 03/28/2018 1:51 PM Signed: 03/28/2018 1:52 PM Reported By: VANCE CRUZ M.D. Signed By: VANCE CRUZ M.D. [facility] ANAER CULTUREon 03-17-2018 ANAER CULTURE NO GROWTH OF ANAEROB ES AFTER 5 DAYS [facility] Comment on above: Order Comment: Gloria s: M: PERICARDIAL FLUID-ANAEROBIC Performed By: #### M 100.93033 ####[facility] [id number] [place], [place] [address]Gz# [phone] BODY FLDon 03-17-2018 BODY FLD GRAM STAIN NO WBC'S SEEN NO ORGANISMS SEEN NO GROWTH AFTER 5 DAYS [facility] Comment on above: Order Comment: Gloria s: M: PERICARDIAL FLUID-AEROBIC Performed By: #### M 100.76332 ####[facility] [id number] [place], [place] [address]Be# [phone] CBCon 03-14-2018 Erythrocyte distribution width Ratio (RBC) 17.2 % High 11-14.5 [facility] Comment on above: Order Comment: Campu s: M Performed By: #### L 200.04558 ####[facility] [id number] [place], [place] [address]Lt# [phone] Hematocrit Volume Fraction (Bld) 24.3 % Low 41.0-53.0 [facility] Comment on above: Order Comment: Campu s: M Performed By: #### L 200.59440 ####[facility] [id number] [place] [address]Ne# [phone] Hemoglobin mass conc (Bld) 7.7 g/dL Low 13.5-17.5 [facility] Comment on above: Order Comment: Campu s: M Performed By: #### L 200.85845 ####[address] [address]Or# [phone] MCHC mass conc (RBC) 31.7 g/dL Low 32.0-36.0 [facility] Comment on above: Order Comment: Campu s: M Performed By: #### L 200.99228 ####[facility] [id number] [place] [address]Jc# [phone] MCV Entitic volume (RBC) 91.4 fL Normal 80.0-99.0 [facility] Comment on above: Order Comment: Campu s: M Performed By: #### L 200.97693 ####[facility] [id number] [place] [address]Xw# [phone] Nucleated RBC/100 WBC Ratio (Bld) 0.0 % Normal Less than 1 [facility] Comment on above: Order Comment: Campu s: M Performed By: #### L 200.76252 ####[facility] [id number] [place] [address]Lg# [phone] Platelet mean volume Entitic volume (Bld) 9.9 fL Normal 9.4-12.4 [facility] Comment on above: Order Comment: Campu s: M Performed By: #### L 200.60687 ####[facility] IMYSPNLVCW9544 [place], [place] [address]Mc# [phone] Platelets #/vol (Bld) 258 K/CU MM Normal 150-450 Me [facility]ader Comment on above: Order Comment: Campu s: M Performed By: #### L 200.89947 ####[address] [address]Zx# [phone] RBC #/vol (Bld) 2.66 M/CU MM Low 4.50-6.00 [facility] Comment [facility]: Order Comment: Campu s: M Performed By: #### L 200.30465 ####[address] [address]Bd# [phone] WBC #/vol (Bld) 8.8 K/CU MM Normal 4.5-11.0 [facility] Comment on above: Order Comment: Campu s: M Performed By: #### L 200.48268 ####[address] [address]Ej# [phone] CMPon 03-14-2018 Albumin mass conc 2.8 g/dL Low 3.2-5.0 [facility] Comment on above: Order Comment: Campu s: M Performed By: #### L 500.80746, L500.65116 ####[address] [address]Lu# [phone] Albumin/Globulin mass ratio 1.1 {ratio} Normal 0.8-2.0 [facility] Comment on above: Order Comment: Campu s: M Performed By: #### L 500.33319, L500.27883 ####[facility] [id number] [place] [address]Be# [phone] ALK PHOS 102 U/L Normal 45-117 [facility] Comment on above: Order Comment: Campu s: M Performed By: #### L 500.50228, L500.35473 ####[facility] [id number] [place], [place] [address]Wt# [phone] ALT enzyme act/vol 29 U/L Normal 13-61 [facility] Comment on above: Order Comment: Campu s: M Result Comment: RESU LTS MAY BE FALSELY DEPRESSED AFTER THE ADMINISTRATION OF SULFASALAZINE AND/OR SULFAPYRIDINE. Performed By: #### L 500.00688, L500.51604 ####[facility] [id number] [place] [address]Ph# [phone] Anion gap molar conc 8 mmol/L Normal 5-16 [facility]ader Comment on above: Order Comment: Campu s: M Performed By: #### L 500.87992, L500.04960 ####[facility] [id number] [place], [place] [address]Ho# [phone] BILI TOTAL 0.5 MG/DL Normal 0.2-1.0 [facility] Comment on above: Order Comment: Campu s: M Performed By: #### L 500.55336, L500.19666 ####[facility] NXGILGJRHH6974 [place], [place] [address]Bq# [phone] Calcium mass conc 8.0 mg/dL Low 8.5-10.1 [facility] Comment on above: Order Comment: Campu s: M Performed By: #### L 500.89415, L500.81658 ####[facility] [id number] [place], [place] [address]Fd# [phone] Chloride molar conc 101 mmol/L Normal 98-107 [facility] Comment on above: Order Comment: Campu s: M Performed By: #### L 500.30644, L500.04192 ####[facility] UZWBQSNOSX1517 [place], [place] [address]Ks# [phone] CO2 molar conc 27 mmol/L Normal 21-32 [facility] Comment on above: Order Comment: Campu s: M Performed By: #### L 500.42153, L500.35924 ####[facility] [id number] [place], [place] [address]Ay# [phone] Creatinine mass conc 0.982 mg/dL Normal 0.670-1.170 [facility] Comment on above: Order Comment: Campu s: M Result Comment: Cynthia ents receiving either N-Acetylcysteine (NAC) or Metamizole prior to venipuncture, may have falsely depressed results. Performed By: #### L 500.23196, L5.00252 ####[facility] OTETONVSTP6186 [place], [place] [address]Ks# [phone] Globulin mass conc (S) 2.6 g/dL Normal 2.2-4.2 [facility] Comment on above: Order Comment: Campu s: M Performed By: #### L 500.07855, L5.75216 ####[facility] [id number] [place], [place] [address]Ut# [phone] Glucose mass conc 84 mg/dL Normal 70-100 [facility] Comment on above: Order Comment: Campu s: M Result Comment: 70-1 00- Normal Fasting; 100-125 Impaired Fasting; greater than 126 on more than one result- Diabetes. ADA guidelines. Results may be falsely elevated after the administration of Sulfapyridine. Results may be falsely depressed after the administration of Sulfasalazine. Performed By: #### L 500.22490, L5.74633 ####[facility] [id number] [place], [place] [address]Ug# [phone] Potassium molar conc 4.1 mmol/L Normal 3.5-5.1 [facility] Comment on above: Order Comment: Campu s: M Performed By: #### L 500.15910, L5.45850 ####[facility] KIXXEUXEUD6813 [place], [place] [address]Uo# [phone] Protein mass conc 5.4 g/dL Low 6.0-8.5 [facility] Comment on above: Order Comment: Campu s: M Performed By: #### L 500.81262, L5.02819 ####[facility] VDOMFRDQMD1474 [place], [place] [address]Fp# [phone] SGOT (AST) 18 U/L Normal 8-34 [facility] Comment on above: Order Comment: Campu s: M Result Comment: RESU LTS MAY BE FALSELY DEPRESSED AFTER THE ADMINISTRATION OF SULFASALAZINE AND/OR SULFAPYRIDINE. Performed By: #### L 500.78709, L500.75333 ####[facility] RELODGKACI[address] [place], [place] [address]Fq# [phone] Sodium molar conc 136 mmol/L Normal 136-145 [facility] Comment on above: Order Comment: Campu s: M Performed By: #### L 500.03495, L500.58265 ####[facility] OOKMOBJNOM7053 [place], [place] [address]Do# [phone] Urea nitrogen mass conc 19 mg/dL Normal 7-26 [facility] Comment on above: Order Comment: Campu s: M Performed By: #### L 500.23528, L500.95849 ####[facility] ATRZWOCSGF1576 [place], [place] [address]Sj# [phone] Urea nitrogen/Creatinine mass ratio 19 mg/mg Normal 15-24 [facility] Comment on above: Order Comment: Campu s: M Performed By: #### L 500.95542, L500.30411 ####[facility] YYEQSUOJZH1353 [place], [place] [address]Mp# [phone] GFR ESTon 03-14-2018 IF AMER Greater than 60 Normal [facility] Comment on above: Order Comment: Campu s: M Performed By: #### L 500.88769, L500.20386 ####[facility] CODCASXRSX7160 [place], [place] [address]Bh# [phone] IF non-AFR AMER Greater than 60 Normal [facility] Comment on above: Order Comment: Campu s: M Performed By: #### L 500.13918, L500.10506 ####[facility] [id number] [place], [place] [address]Iv# [phone] GLUCOSE METERon 03-14-2018 Glucose mass conc 179 mg/dL High 85-125 [facility] PROG.CTSon 03-14-2018 Protein mass conc Normal [facility] Protein mass conc [facility] Patient Name: FATUMA SIGALA [address] [facility] Date of : [address] [place], [place] [address] Unit Number: [id number] Progress Note-CTS Patient Status: DIS IN Attending Doctor: Jaswinder Hdez MD Service Date: 03/14/18 1203 Subjective S: (2 ROS minimum) SOB/EDEMA MUCH BETTER Objective (ROS) Nursing Vitals Vital Signs (Last) Result Date Time Pulse Ox 98 03/14 0730 B/P 133/63 03/14 0711 Temp 98.8 03/14 0711 Pulse 72 03/14 0711 Resp 16 03/14 0711 O2 Delivery ROOM AIR 03/13 2244 O2 Flow Rate 2 03/13 0828 B/P Mean 92 03/12 1100 Vital Signs (24hr) Date Temp Pulse Resp B/P B/P Mean Pulse Ox FiO2 03/13-03/14 97.5-98.8 63-72 16-20 118-148/61-77 95-98 General Appearance SITTING IN CHAIR-NAD Physical Exam Neurological / Psychiatric Alert, Orientation X3 Respiratory Clear Lungs Cardiovascular Heart RRR Gastrointestinal Normal Bowel Sounds Musculoskeletal MILD TRACE EDEMA BLE Skin Midsternal incision DDI Telemetry: SINUS 60-70S Current Inpatient Medications: Medications Current Sig/Sophie Start time Last Medication Dose Route Stop Time Status Admin Amiodarone HCl 200 MG BID 03/12 0900 AC 03/14 (CORDARONE TAB) PO 0950 Ascorbic Acid 500 MG QDAY 03/12 0900 AC 03/14 (VITAMIN C TAB) PO 0949 Aspirin 81 MG QDAYWM 03/12 0800 AC 03/14 (ECOTRIN TAB.EC) PO 0949 Atorvastatin Calcium 20 MG QHS 03/12 2200 AC 03/13 (LIPITOR TAB) PO 2027 Folic Acid 1 MG QDAY 03/12 0900 AC 03/14 (FOLVITE TAB) PO 0949 Ketorolac 15 MG Q6HPRN PRN 03/12 1000 AC 03/13 Tromethamine IV 03/17 0959 1703 (TORADOL SYR) Ondansetron HCl 4 MG Q4HPRN PRN 03/12 0200 AC 03/12 (ZOFRAN VIAL) IV 0636 Oxycodone HCl 5 MG Q4HPRN PRN 03/12 0930 AC 03/13 (OXYIR TAB) PO 0421 Pantoprazole Sodium 40 MG QDAYAC 03/12 0700 AC 03/14 (PROTONIX TAB) PO 0516 Diagnostic Data: Laboratory Tests 03/14 0628 Chemistry Whole Bld Glucose (85 - 125 MG/DL) 179 H Assessment and Plan Conclusion 1. Pericardial effusion, acute 62-year-old man who underwent CABG surgery on February 11, 2018, and came back with atrial fibrillation and placed on Eliquis. He was evaluated 03/11 once again in the ED and had a CT of the chest that showed a large pericardial effusion mostly posteriorly on the left side, with compression of the ventricle. This required surgical management via pericardial window. s/p pericardial window via left anterior thoracotomy. DATE OF SERVICE: 03/12/2018 PREOPERATIVE DIAGNOSIS: Pericardial effusion. POSTOPERATIVE DIAGNOSIS: Pericardial effusion. OPERATION: Left anterior thoracotomy, drainage of pericardial effusion. SURGEON: Jaswinder Hdez MD COMPOSITION INSTRUCTOR: Reynold Mishra SA ANESTHESIA: General endotracheal. FINDINGS: There was 100+ mL of old blood which may have been related to anticoagulation recently for atrial fibrillation. There was inflammatory tissue around the surface of the heart which could be visualized, but no clots could be seen. Pericardial drain was discontinued 03/13. Patient is having significant bloody drainage at site-suture placed by Dr Hdez. Possible DC later today. Collaborating Physician Jaswinder Hdez MD Disclaimer This dictation was created using voice recognition software. Phonetic and/or minor grammatical errors may exist. eSign Date and Time Micaela Jean J[employer] SETTER Verified/Reviewed by 03/16/18 1450 Normal [facility] CBCon 03-12-2018 Erythrocyte distribution width Ratio (RBC) 17.2 % High 11-14.5 [facility] Comment on above: Order Comment: Gloria s: M Performed By: #### L [id number] ####[facility] [id number] [place], [place] [address]Eu# [phone] Hematocrit Volume Fraction (Bld) 25.6 % Low 41.0-53.0 [facility] Comment on above: Order Comment: Campu s: M Performed By: #### L 200.62053 ####[facility] [id number] [place], [place] [address]Qj# [phone] Hemoglobin mass conc (Bld) 8.0 g/dL Low 13.5-17.5 [facility] Comment on above: Order Comment: Campu s: M Performed By: #### L 200.24318 ####[facility] [id number] [place] [address]Ip# [phone] MCHC mass conc (RBC) 31.3 g/dL Low 32.0-36.0 [facility] Comment on above: Order Comment: Campu s: M Performed By: #### L 200.41845 ####[facility] [id number] [place], [place] [id number]# [phone] MCV Entitic volume (RBC) 91.8 fL Normal 80.0-99.0 [facility] Comment on above: Order Comment: Campu s: M Performed By: #### L 200.74304 ####[facility] [id number] [place], [place] [address]Cm# [phone] Nucleated RBC/100 WBC Ratio (Bld) 0.0 % Normal Less than 1 [facility] Comment on above: Order Comment: Campu s: M Performed By: #### L 200.62300 ####[facility] [id number] [place] [address]Ow# [phone] Platelet mean volume Entitic volume (Bld) 10.3 fL Normal 9.4-12.4 [facility] Comment on above: Order Comment: Campu s: M Performed By: #### L 200.74926 ####[facility] [id number] [place], [place] [address]Ul# [phone] Platelets #/vol (Bld) 260 K/CU MM Normal 150-450 [facility] Comment on above: Order Comment: Campu s: M Performed By: #### L 200.85932 ####[facility] [id number] [place], [place] [address]Xb# [phone] RBC #/vol (Bld) 2.79 M/CU MM Low 4.50-6.00 [facility] Comment on above: Order Comment: Campu s: M Performed By: #### L 200.06512 ####[facility] [id number] [place], [place] [address]Et# [phone] WBC #/vol (Bld) 10.2 K/CU MM Normal 4.5-11.0 [facility] Comment on above: Order Comment: Campu s: M Performed By: #### L 200.17924 ####[facility] [id number] [place], [place] [address]As# [phone] ED DOCon 03-12-2018 ED DOC PHYSICIAN ASSESSMENT RECORDS : FlexChartData Event Time: 03/11/2018 21:40 Status: Signed [facility] Fatuma Sigala [[id number]] Attending Physician 62 / M / 1955 Chart (V2b) Chart created at 03/11/2018 21:00 by To Almaraz Chart closed at 03/11/2018 21:08 Entry in Emergency Department at 03/11/2018 15:46 Patient Name: Fatuma Sigala Record Number: [id number] Date: 03/11/2018 21:00 Entered Department at: 03/11/2018 15:46 Patient Seen at: 03/11/2018 16:17 Decision to Admit at: 03/11/2018 21:09 Historian: Family and Patient Chief Complaint:sob, recent open heart, jaundice Triage Note reviewed and Initial Vital Signs reviewed. Temperature: 97.4 F (36.3 C). Pulse: 47. Respiratory Rate: 20. Blood-pressure: 107/76. Oxygen Saturation: 98%. History of Present Illness: Patient comes in with worsening shortness of breath. This gentleman had a four-vessel bypass on February 15 of this year. He had atrial fibrillation was placed on blood thinners but he said that she has gained several pounds over this last week. He said he is up about 10 pounds. He has shortness of breath and difficulty laying flat. He is coughing but bringing up primarily white phlegm. No fevers. He is taking medications as prescribed. He was uncertain of his [facility] PATIENT NAME: FATUMA SIGALA [facility] [address] Oh MEDICAL REC #: [id number] [place] [address] EMERGENCY DEPARTMENT CHART EMERGENCY DEPARTMENT PHYSICIAN medications but did not think they changed significantly from his most recent hospitalization. I did review that he was on Plavix and a looks like he ended up having the addition of additional blood thinner including carvedilol amiodarone and a looks like Eliquis also he thinks. No falls or trauma. No diarrhea. Family thought he looked jaundiced though I do not see that here. He has had decreased ability to perform exertional activities HPI Elements: Onset: Days ago; Timing: Gradual; Severity: maximum Moderate, now Moderate; Context: Exertion; Exacerbated by: Exertion (Laying flat and exertion) Relieved by:(Sitting up helps) Review of Systems. Constitutional: negative for Chills or Fever Cardio-Vascular: positive for Chest Pain, negative for Palpitations, Ongoing Respiratory: positive for Cough and Dyspnea, negative for Hemoptysis Neurological: negative for Confusion or Headache All other systems reviewed and negative.. Past History, Medications, Allergies, Social History and Family History reviewed in nurses note. Medications: Reviewed RN Note. Unable to Obtain Information Allergies: Reviewed RN Note lisinopril(Anaphylactic Reaction), sudafed(disrythmia) Social History: Reviewed RN Note. Family History: Reviewed RN Note Physical Examination: General: Alert; Weak appearing 62-year-old at bedside HEENT: Normal ENT inspection. Eyes: Lids Normal; . Oropharynx / Throat: Normal Pharynx. Pharynx looks clear. No sinus pressure. Neck: No Lymphadenopathy, No Meningismus and Supple; Supple. No meningismus Respiratory: Some respiratory distress with bilateral crackles regional scattered wheeze bilaterally. Most of the crackles do clear to deep [facility] PATIENT NAME: FATUMA SIGALA [facility] MEDICAL REC #: [id number] [place] [address] EMERGENCY DEPARTMENT CHART EMERGENCY DEPARTMENT PHYSICIAN inspiration Cardio-Vascular: No murmur, No rub and RRR; Regular rate and rhythm. Clinically he appears to be in sinus rhythm currently. No gallops. He has good symmetrical pulses in the upper extremities Abdomen: Non-tender and Soft; Abdomen seems benign without rebound or peritoneal findings. No significant fluid wave Back: No CVA tenderness, No Midline Tenderness and Non-tender; No midline pain Extremity: No Calf Tenderness; No calf pain. Only trace edema noted Neurological: Alert, Oriented X3; Diffusely weak but no focal weakness Skin: No rash, No Petechiae, Warm and Dry Psychological: Mood/Affect Normal and Normal Memory/Judgment [facility], information as of 03/11/2018, 4:28 pm 132* --------+--------+-------- andlt; 118* Anion Gap = 12 5.0 BUN/CREA: 24; CALCIUM TOTAL: 9.2 Mg/Dl CBC W/DIFF, information as of 03/11/2018, 4:28 pm 91.9 / 9.2* / 10.9 andgt;------andlt; 301 / 29.4* / N:76.0* BASO ABS: 0.00 K/Cu Mm; BASOPHIL %: 0.3 %; EOS ABS: 0.00 K/Cu Mm; EOSINOPHIL %: 0.3 %; IMMATR GRAN ABS: 0.10 K/Cu Mm; IMMATURE GRAN %: 0.6 %; LYMPH %: 13.3 %; LYMPH ABS: 1.50 K/Cu Mm; MCHC: 31.3 Gm/Dl; MONO ABS: 1.00 K/Cu Mm; MONOCYTE %: 9.5 %; MPV: 10.5; NEUTROPHIL ABS: 8.30 K/Cu Mm; NRBC: 0.0 %; RBC: 3.20 M/Cu Mm; RDW: 17.1 UA COMPLETE, information as of 03/11/2018, 8:27 pm + +---------+---- -----+---------+---------+ -------- + + +---------+---- -----+---------+---------+ -------- + [facility] PATIENT NAME: FATUMA SIGALA [facility] MEDICAL REC #: [id number] [place] [address] EMERGENCY DEPARTMENT CHART EMERGENCY DEPARTMENT PHYSICIAN + +---------+---- -----+---------+---------+ -------- + + +---------+---- -----+---------+---------+ -------- + + +---------+---- -----+---------+---------+ -------- + PBNP TEST, information as of 03/11/2018, 4:28 pm PBNP TEST: 2221 Pg/Ml TROPONIN I POC, information as of 03/11/2018, 4:46 pm POC Trop-I: 0.00 Cardiogram: Interpreted by me. Rate NormalRhythm Sinus RhythmAxis NormalIntervals NormalQRS NormalST/T Non-Specific ST Changes Interpretation: Low voltage Comparison: Unchanged from February 16, 2018. Low voltage noted on previous EKG also Monitor / Rhythm Strip: NSR Imaging Study Obtained: CHEST (PORTABLE) Imaging Study Obtained: CT ANGIO (THORAX) FOR PE Imaging Study Obtained: PORTABLE CHEST, Status:Signed Report Available PORTABLE CHEST Ordering Physician: To Almaraz MD 03/11/2018 4:31 PM CHEST Clinical Statement: Shortness of breath FINDINGS: A portable chest image was obtained and compared to a [facility] PATIENT NAME: FATUMA SIGALA [facility] MEDICAL REC #: [id number] [place] [address] EMERGENCY DEPARTMENT CHART EMERGENCY DEPARTMENT PHYSICIAN previous study dated 03/08/2018. The patient is post open heart surgery. The heart is at the upper limits of normal in size. The aorta is tortuous. There are mild atelectatic changes at the left base. IMPRESSION: Mild atelectatic changes at the left base. ---- Electronic Signature on File ---- Signed By: Vance Cruz MD FACR [email or web address] Dictated: 03/11/2018 4:46 PM Signed: 03/11/2018 4:47 PM Reported By: VANCE CRUZ M.D. Imaging Study Obtained: CT ANG THOR W/POST PROC, Status:Signed Report Available CT ANG THOR W/POST PROC Ordering Physician: To Almaraz MD 03/11/2018 6:[address] ANGIOGRAPHY OF THE THORAX WITH INTRAVENOUS CONTRAST Clinical Statement: Shortness of breath, chest pain Comparison: Chest radiograph same day TECHNIQUE: Following the uneventful administration of 85 cc of Isovue [facility] PATIENT NAME: FATUMA SIGALA [facility] MEDICAL REC #: [id number] [place] [address] EMERGENCY DEPARTMENT CHART EMERGENCY DEPARTMENT PHYSICIAN 370 intravenous contrast, contiguous transaxial 1.25 mm slices were obtained through the thorax. Coronal reconstruction images were obtained. FINDINGS: No pulmonary embolus is identified. There is calcified plaque within the coronary arteries and great vessels which are patent. No thoracic aorta aneurysm or dissection is identified. Multiple areas of noncalcified plaque is seen in the descending thoracic aorta. There is a large left-sided pericardial effusion with mass effect on the left ventricle measuring 6 cm in thickness x 17 cm in length on image 1 of 125 and 171 of 263. Multiple subcentimeter short axis nodes are scattered throughout the mediastinum. There is a small left pleural effusion. Dependent atelectasis is noted in the lung bases. No pneumothorax. Mild degenerative changes are seen in the thoracic spine. Small amount of ascites seen in the bilateral upper quadrants. IMPRESSION: 1. No pulmonary embolus or thoracic aortic aneurysm or [facility] PAT[facility] MEDICAL REC #: [id number] [place] [address] EMERGENCY DEPARTMENT CHART EMERGENCY DEPARTMENT PHYSICIAN dissection. 2. Large pericardial effusion measuring at least 5 x 17 cm causing cardiac tamponade and mass effect on the left ventricle. The fluid measures around blood density inferiorly. 3. Small left pleural effusion with bilateral lower lobe atelectasis. 4. Small amount of ascites. A report was sent to the Emergency Department at the time of dictation. ---- Electronic Signature on File ---- Signed By: Teresa Florian MD [email or web address] Dictated: 03/11/2018 8:08 PM Signed: 03/11/2018 8:18 PM Reported By: TERESA FLORIAN M.D. Radiology: Image Reviewed and Interpreted by Radiologist. See above. Medical Decision Making Patient here has some shortness of breath and does have some lung findings. I did order electrolytes blood counts chest x-ray as well as BNP T and further evaluation here. I reviewed available studies and recent hospitalization notes and operative note. EKG here shows normal sinus rhythm. No significant changes [facility] PATIENT NAME: FATUMA SIGALA Dr. Oh MEDICAL REC #: [id number] [place] [address] EMERGENCY DEPARTMENT CHART EMERGENCY DEPARTMENT PHYSICIAN compared to prior EKG. Chest x-ray interpreted by radiology showed some mild atelectatic changes in the left base but no other acute process. No evidence of any significant CHF.Urinalysis here looks okay. No ketones. Troponin is normal. BUN and creatinine are mildly elevated compared to previous at 28 and 1.18. Potassium is normal but a little higher than it was before. White count and platelets are okay. Hemoglobin is 9.2. BNP T is 2221 but I did not see any recent numbers to compare that to. I did assess and reassess him and he still has some shortness of breath out of proportion I would expect with him lying flat. I did order a CT scan of the chest to make sure there is no evidence of any pericardial effusion or pulmonary embolus or other acute process. CAT scan did return it does show evidence of a significant pericardial effusion. There is no pulmonary embolus but the effusion is 5 cm x 17 cm causing some mass-effect on the left ventricle and they felt some cardiac tamponade. Patients vital signs here look reasonable. Please see above. I did speak with his cardiothoracic surgeon . I discussed the CT findings of the size and the specific reading on that. I did review the subsequent vital signs of what we have here. Plan jalloh he would like to have the patient admitted to special care of possible. Cc was a backup but otherwise he stated he would arrange for definitive treatment for this pericardial effusion. I suspect that may be a pericardial window. I did update family. Patient is doing better. Vital signs look reasonable. He felt a little more short of breath after CAT scan. I assessed him immediately afterwards and there is no rash or hives. I suspect it was because he was laid flat as he did feel better sitting up. Patient will need to go to special care under the cardiothoracic service. Total critical care time this patient is 45 minutes. Patient is admitted to special care Additional Information: Old records reviewed (Recent hospitalizations and operative notes and most recent discharge summary). Additional History from Family. Discussed Results, Diagnosis and Follow-Up with Patient. [facility] PATIENT NAME: FATUMA SIGALA [facility] MEDICAL REC #: [id number] [place] [address] EMERGENCY DEPARTMENT CHART EMERGENCY DEPARTMENT PHYSICIAN Clinical Impression: 1. Acute large pericardial effusion with mass-effect on left ventricle 2. Recent four-vessel CABG and patient currently on Eliquis for recent atrial fibrillation Critical Care Time: 45 minutes, excluding billable procedures. The high probability of sudden, clinically significant, or life-threatening deterioration required my full and direct attention, intervention and personal management while the patient was critical. I provided critical care services including: Interpreting diagnostic studies; Medication orders and management; Vital sign assessment monitoring and review; Re-evaluation; Obtaining additional history from family / physician / EMS; Documentation time; Old chart review; Chart data review. The aggregate critical time was 45 minutes in direct care for this patient either at the bedside or elsewhere in the Emergency Department. This time is in addition to time spent performing other reported procedures. Disposition: Admitted Special care. Condition: Serious MSE completed. I was the primary ED attending.. ===DISCHARGE REPORT=== : FlexChartData Event Time: 03/11/2018 21:40 DEMOGRAPHICS [employer] Patient: FATUMA SIGALA Sex: M : 1955 Age: 62 yr Account No: [id number] Registration Date: 15:46 03/11/2018 Address: [address] [place] [address] Address: [place] [id number] [facility] PATIENT NAME: FATUMA SIGALA [facility] MEDICAL REC #: [id number] [place] [address] EMERGENCY DEPARTMENT CHART EMERGENCY DEPARTMENT PHYSICIAN REGISTRATION ED Number: [id number] Marital Status: S Financial Class: [facility] TRIAGE Priority: 2 - Emergent Complaint: Shortness of Breath Complaint: Jaundice Stated Complaint: sob, recent open heart, jaundice Arrival Date: 03/11/2018 15:46 Triage Date: 03/11/2018 15:53 Mode of Arrival: *Privately Owned Vehicle WC: N Language: Citizen Of [place] Transport: Wheelchair BED A02 In: 03/11/2018 16:11:18 03/11/2018 16:11:18 MARIA E A02 (Removed From) Out: 03/11/2018 23:17:44 03/11/2018 23:17:44 MAFA PROVIDERS MD To Almaraz Provider Contact: 03/11/2018 16:16:59 MR End: ISMAEL DIMAS Provider Contact: 03/11/2018 17:32:41 CMME End: [facility] PATIENT [facility]: [facility] MED[facility] REC #: [id number] [place] [address] EMERGENCY DEPARTMENT CHART EMERGENCY DEPARTMENT PHYSICIAN TRIAGE HISTORY ALLERGIES Allergic To: lisinopril - Anaphylactic Reaction 03/11/2018 15:58 MJHA Allergic To: sudafed - disrythmia 03/11/2018 15:58 MJCESAR CURRENT MEDS Name: eliquis 5mg twice daily 03/11/2018 22:32 VDPA Name: amiodarone 200mg twice daily 03/11/2018 22:32 VDPA Name: nilotinib hcl 300mg twice daily 03/11/2018 22:32 VDPA Name: atorvastatin 20mg daily 03/11/2018 22:32 VDPA Name: aspirin 81mg daily 03/11/2018 22:32 VDPA Name: ferrous sulfate 325mg daily 03/11/2018 22:32 VDPA Name: pantoprazole 40mg daily 03/11/2018 22:32 VDPA Name: asorbic acid 500mg daily 03/11/2018 22:32 VDPA Name: folic acid daily 03/11/2018 22:32 VDPA CANCELLED MEDICATIONS Name: Unable to Obtain Information 03/11/2018 15:58 MJHA Delete Time: 03/11/2018 22:32 VDPA Delete Notes: updating PAST SURGERY HIST Surgery: Cardiac Bypass 02/15/18 03/11/2018 15:58 MJCESAR NURSING ASSESSMENT ASSESSMENT NOTES [facility] PATIENT NAME: FATUMA SIGALA [facility] REC #: [id number] [place] [address] EMERGENCY DEPARTMENT CHART EMERGENCY DEPARTMENT PHYSICIAN 03/11/2018 17:26 c/o SOB. pt states hes had SOB since he had open heart surgery a few weeks ago. pt is alert and oriented x3. respirations are even and unlabored. skin is warm, dry, and pale. pt has a healing surgical wound down mid chest no redness, edema, or drainage from site. abdomen is round and firm. bowel sounds heard in all quadrants. +2 edema noted on bilateral lower extremities. call light within reach. family at bedside. safety measures maintained. 03/11/2018 17:29 CMME 03/11/2018 19:32 pt at testing. 03/11/2018 19:32 CMME 03/11/2018 19:[address] scan. 03/11/2018 20:17 CMME 03/11/2018 19:55 pts family came out of room and stated pt couldnt breath. pt was put on monitor and vital signs taken. pt placed on 2l o2 NC. Dr. Fisher notified and at bedside. 03/11/2018 20:02 CMME 03/11/2018 20:24 pt states he is feeling better, not feeling as SOB. 03/11/2018 20:24 CMME 03/11/2018 23:03 Report called to ELROY [facility] 03/11/2018 23:03 CMME TREATMENT 03/11/2018 16:47 Patient Interaction - Allergy Band on Pt. 03/11/2018 16:48 CMME 03/11/2018 16:47 Patient Interaction - Call light placed within reach. 03/11/2018 16:48 CMME 03/11/2018 16:47 Patient Interaction - Introduce self to Patient. 03/11/2018 16:48 CMME 03/11/2018 16:47 Patient Interaction - Name Band on Pt 03/11/2018 16:48 CMME 03/11/2018 16:47 Hourly Rounding - Rounding 03/11/2018 16:48 CMME Elimination/Toileting N Position Comfortable Y [facility] PATIENT NAME: [facility] MEDICAL REC #: [id number] [place] [address] EMERGENCY DEPARTMENT CHART EMERGENCY DEPARTMENT PHYSICIAN Safe Environment Y Fall Risk Change N 03/11/2018 17:03 POC testing results and critical values - POC Troponin .00 on ED instrument 03/11/2018 17:03 TMBC 03/11/2018 17:30 Hourly Rounding - Rounding 03/11/2018 19:36 CMME Elimination/Toileting N Position Comfortable Y Safe Environment Y Fall Risk Change N 03/11/2018 18:30 Hourly Rounding - Rounding 03/11/2018 19:36 CMME Elimination/Toileting N Position Comfortable Y Safe Environment Y Fall Risk Change N 03/11/2018 19:33 Primary DOC Guide - A. 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 Fall Risk Assessment (Age andlt;65) 03/11/2018 19:35 CMME History of Falling in last 3 months? No (0) Confusion or Disorientation? No (0) Intoxicated or Sedated? No (0) Impaired Gait? No (0) Mobility Assist Device Used? No (0) Altered Elimination? No (0) Fall Risk Score 1-2 Points = Low Risk. 3-4 Points = Moderate Risk. 5 or more points = High Risk. 0 Fall Score Greater andgt;= 3? No [facility] PATIENT NAME: FATUMA SIGALA [facility] MEDICAL REC #: [id number] [place] [address] EMERGENCY DEPARTMENT CHART EMERGENCY DEPARTMENT PHYSICIAN 03/11/2018 19:34 Primary DOC Guide - D. Psychosocial Assessment 03/11/2018 19:35 CMME Over the Last 2 weeks, how often have you had little interest or pleasure in doing things (0) Not at All Is Psychosocial Assessment Score 3 or more? If score is 3 or more please consult ED Navigator! No Total Psychosocial Assessment Score 0 Over the last 2 weeks, how often have you been feeling down, depressed or hopeless (0) Not at All 03/11/2018 19:34 Primary DOC Guide - E. Family Violence Assessment 03/11/2018 19:35 CMME Within the past year, has anyone ever pushed, shoved, slapped, choked, hit, punched or kicked you: No Within the past year, has anyone ever pressured or forced you to have sexual activities when you did not want to: No Do you feel safe and well cared for: Yes Is there a partner from a previous or current relationship that is making you feel unsafe now: No 03/11/2018 19:36 Hourly Rounding - Rounding 03/11/2018 19:36 CMME Elimination/Toileting N Position Comfortable Y Safe Environment Y Fall Risk Change N 03/11/2018 20:24 Physician Call - Paged Dr. Hdez at 202303/11/2018 20:26 AMCB 03/11/2018 20:26 Physician Call - Dr. Hdez answered at 202503/11/2018 20:26 AMCB 03/11/2018 20:30 Hourly Rounding - Rounding 03/11/2018 21:56 CMME Elimination/Toileting N Position Comfortable Y Safe Environment Y Fall Risk Change N 03/11/2018 21:30 Hourly Rounding - Rounding 03/11/2018 21:56 CMME Elimination/Toileting N Position Comfortable Y [facility] PATIENT NAME: FATUMA SIGALA [facility] MEDICAL REC #: [id number] [place] [address] EMERGENCY DEPARTMENT CHART EMERGENCY DEPARTMENT PHYSICIAN Safe Environment Y Fall Risk Change N MEDICATIONS IV IV Fluid: B 03/11/2018 16:35 03/11/2018 16:37 KPW Line #: 1 Fluid: Saline Lock Rate: ml/hr Location: antecubital fossa right Ndl Gauge: 20 # Attempts: 2 Notes: [place] able to obtaine lab draw from first attempt, but was unable to advance IV catheter any further, attempt discontinued. Second attempt flushed easily with 10cc of normal saline, no signs of infiltration. I AND O VITALS VS-ROUTINE Time: 03/11/2018 15:53 B/P: 107/76 - Right Upper Arm - Sitting - Machine Pulse: 47 - Monitor Resp: 20 Sa02: 98 Room Air Temp: 97.40 F - Oral 03/11/2018 15:58 MJHA VS-Pain Time: 03/11/2018 15:53 Pain Level: 5 03/11/2018 15:58 MJHA VS-GCS Time: 03/11/2018 15:53 03/11/2018 15:58 MJHA VS-HT/WT Time: 03/11/2018 15:53 Ht: 70 in. Weight: 198 lbs 03/11/2018 15:58 MJHA VS-Visual Time: 03/11/2018 15:53 03/11/2018 15:58 MJHA VS-FHT Time: 03/11/2018 15:53 03/11/2018 15:58 MJHA VS-Notes Time: 03/11/2018 15:53 map 87 03/11/2018 15:58 MJHA VS-ROUTINE Time: 03/11/2018 16:35 B/P: 120/82 - Left Upper Arm - Sitting - Machine Pulse: 80 - Monitor Resp: 18 Sa02: 97 Room Air 03/11/2018 16:53 CMME [facility] PATIENT NAME: FATUMA SIGALA [facility] MEDICAL REC #: [id number] [place] [address] EMERGENCY DEPARTMENT CHART EMERGENCY DEPARTMENT PHYSICIAN VS-Pain Time: 03/11/2018 16:35 03/11/2018 16:53 CMME VS-GCS Time: 03/11/2018 16:35 Visual: 4 Verbal: 5 Motor: 6 GCS Total: 15 03/11/2018 16:53 CMME VS-HT/WT Time: 03/11/2018 16:35 03/11/2018 16:53 CMME VS-Visual Time: 03/11/2018 16:35 03/11/2018 16:53 CMME VS-FHT Time: 03/11/2018 16:35 03/11/2018 16:53 CMME VS-Notes Time: 03/11/2018 16:35 map-96 03/11/2018 16:53 CMME VS-ROUTINE Time: 03/11/2018 16:52 B/P: 120/82 - Left Upper Arm - Sitting - Machine Pulse: 88 - Monitor Resp: 16 Sa02: 100 Room Air 03/11/2018 16:52 VDPA VS-Pain Time: 03/11/2018 16:52 Pain Level: 3 03/11/2018 16:52 VDPA VS-GCS Time: 03/11/2018 16:52 Visual: 4 Verbal: 5 Motor: 6 GCS Total: 15 03/11/2018 16:52 VDPA VS-HT/WT Time: 03/11/2018 16:52 03/11/2018 16:52 VDPA VS-Visual Time: 03/11/2018 16:52 03/11/2018 16:52 VDPA VS-FHT Time: 03/11/2018 16:52 03/11/2018 16:52 VDPA VS-Notes Time: 03/11/2018 16:52 map 96 03/11/2018 16:52 VDPA VS-ROUTINE Time: 03/11/2018 18:51 B/P: 131/68 - Left Upper Arm - Sitting - Machine Pulse: 99 - Monitor Resp: 16 Sa02: 98 Room Air 03/11/2018 19:33 CMME VS-Pain Time: 03/11/2018 18:51 03/11/2018 19:33 CMME VS-GCS Time: 03/11/2018 18:51 Visual: 4 Verbal: 5 Motor: 6 GCS Total: 15 03/11/2018 19:33 CMME VS-HT/WT Time: 03/11/2018 18:51 03/11/2018 19:33 CMME VS-Visual Time: 03/11/2018 18:51 03/11/2018 19:33 CMME VS-FHT Time: 03/11/2018 18:51 03/11/2018 19:33 CMME VS-Notes Time: 03/11/2018 18:51 map-94 03/11/2018 19:33 CMME VS-ROUTINE Time: 03/11/2018 19:55 B/P: 100/64 - Left Upper Arm - Sitting - Machine Pulse: 98 - Monitor Resp: 20 Sa02: 100 *O2 2 lpm per nasal canula 03/11/2018 20:03 CMME [facility] PATIENT NAME: FATUMA SIGALA [facility] Dr. Oh MEDICAL REC #: [id number] [place] [address] EMERGENCY DEPARTMENT CHART EMERGENCY DEPARTMENT PHYSICIAN VS-Pain Time: 03/11/2018 19:55 03/11/2018 20:03 CMME VS-GCS Time: 03/11/2018 19:55 Visual: 4 Verbal: 5 Motor: 6 GCS Total: 15 03/11/2018 20:03 CMME VS-HT/WT Time: 03/11/2018 19:55 03/11/2018 20:03 CMME VS-Visual Time: 03/11/2018 19:55 03/11/2018 20:03 CMME VS-FHT Time: 03/11/2018 19:55 03/11/2018 20:03 CMME VS-Notes Time: 03/11/2018 19:55 map-75 03/11/2018 20:03 CMME VS-ROUTINE Time: 03/11/2018 21:48 B/P: 108/69 - Left Upper Arm - Sitting - Pulse: 82 - Monitor Resp: 18 Sa02: 98 *O2 2 lpm per nasal canula 03/11/2018 21:51 CMME VS-Pain Time: 03/11/2018 21:48 03/11/2018 21:51 CMME VS-GCS Time: 03/11/2018 21:48 Visual: 4 Verbal: 5 Motor: 6 GCS Total: 15 03/11/2018 21:51 CMME VS-HT/WT Time: 03/11/2018 21:48 03/11/2018 21:51 CMME VS-Visual Time: 03/11/2018 21:48 03/11/2018 21:51 CMME VS-FHT Time: 03/11/2018 21:48 03/11/2018 21:51 CMME VS-Notes Time: 03/11/2018 21:48 03/11/2018 21:51 CMME VS-ROUTINE Time: 03/11/2018 22:48 B/P: 119/79 - Left Upper Arm - Sitting - Machine Pulse: 85 - Monitor Resp: 20 Sa02: 99 *O2 2 lpm per nasal canula 03/11/2018 22:49 CMME VS-Pain Time: 03/11/2018 22:48 Pain Level: 0 03/11/2018 22:49 CMME VS-GCS Time: 03/11/2018 22:48 Visual: 4 Verbal: 5 Motor: 6 GCS Total: 15 03/11/2018 22:49 CMME VS-HT/WT Time: 03/11/2018 22:48 03/11/2018 22:49 CMME VS-Visual Time: 03/11/2018 22:48 03/11/2018 22:49 CMME VS-FHT Time: 03/11/2018 22:48 03/11/2018 22:49 CMME VS-Notes Time: 03/11/2018 22:48 map-96 03/11/2018 22:49 CMME ORDERS *Status: Inpatient 03/11/2018 21:11 [facility] PATIENT NAME: FATUMA SIGALA [facility] Dr. Oh MEDICAL REC #: [id number] [place] [address] EMERGENCY DEPARTMENT CHART EMERGENCY DEPARTMENT PHYSICIAN N/A Ordered: 03/11/2018 21:09 By . Other Reviewed: 03/11/2018 21:11 By . Other *Other Nurse: NPO 03/11/2018 21:00 N/A Ordered: 03/11/2018 20:59 By To Almaraz Noted Time: 03/11/2018 21:00 CMME Zofran (IV)*(2mg/ml) DOSE: 4 mg IV 03/11/2018 20:04 N/A Ordered: 03/11/2018 19:57 By To Almaraz Completed Time: 03/11/2018 20:04 By To Almaraz IV NS bolus 250 cc over 31 min 03/11/2018 20:01 N/A Ordered: 03/11/2018 19:57 By To Almaraz Completed Time: 03/11/2018 20:01 By To Almaraz IV NS bolus 250 cc over 31 min 03/11/2018 19:02 N/A Ordered: 03/11/2018 18:33 By To Almaraz Completed Time: 03/11/2018 19:02 By To Almaraz IV NS drip 100cc/hr 03/11/2018 19:02 N/A Ordered: 03/11/2018 18:33 By To Almaraz Completed Time: 03/11/2018 19:[address] chest with con for PE 03/11/2018 20:17 N/A Ordered: 03/11/2018 18:33 By To Almaraz Completed Time: 03/11/2018 20:17 By To Almaraz Indication: Shortness of Breath;CP Noted Time: 03/11/2018 19:48 Question: Patient has history of true RCM allergy? Answer: NO CORPORATE TRAINING MANAGER ORDER: GFRP 03/11/2018 17:17 None Ordered: 03/11/2018 17:17 Completed Time: 03/11/2018 17:17 Results Time: 03/11/2018 17:17 CORPORATE TRAINING MANAGER ORDER: PBNPT 03/11/2018 17:17 [facility] PATIENT NAME: FATUMA SIGALA [facility] Dr. Oh MEDICAL REC #: [id number] [place] [address] EMERGENCY DEPARTMENT CHART EMERGENCY DEPARTMENT PHYSICIAN None Ordered: 03/11/2018 17:17 Completed Time: 03/11/2018 17:17 Results Time: 03/11/2018 17:17 CORPORATE TRAINING MANAGER ORDER: POCTROP 03/11/2018 17:01 None Ordered: 03/11/2018 17:01 Completed Time: 03/11/2018 17:01 Results Time: 03/11/2018 17:01 Lab: Add On Test (excluding POC tests) 03/11/2018 17:22 N/A Ordered: 03/11/2018 16:31 By To Almaraz Noted Time: 03/11/2018 17:21 CMME Question: Test to be added: Answer: serum BNPT UA ccms (cath if unable to void in 30 mins) 03/11/2018 20:38 N/A Ordered: 03/11/2018 16:31 By To Almaraz Completed Time: 03/11/2018 20:38 By To Almaraz Noted Time: 03/11/2018 20:30 CMME Question: Lab Urine Specimen Type Answer: Clean Catch Question: Also Culture, if indicated by UA results (Y or N) Answer: NO Results Time: 03/11/2018 20:38 IV hep lock 03/11/2018 16:35 N/A Ordered: 03/11/2018 16:31 By To Almaraz Completed Time: 03/11/2018 16:35 By To Almaraz Noted Time: 03/11/2018 16:35 KPW CXR portable 03/11/2018 16:56 N/A Ordered: 03/11/2018 16:31 By To Almaraz Completed Time: 03/11/2018 16:56 By To Almaraz Indication: Shortness of Breath Noted Time: 03/11/2018 16:43 O2 to keep SAT andgt;= 93% 03/11/2018 17:22 N/A Ordered: 03/11/2018 16:31 By To Almaraz Completed Time: 03/11/2018 17:21 By To Almaraz [facility] PATIENT NAME: FATUMA SIGALA [facility] Dr[facility] Oh MEDICAL REC #: [id number] [place] [address] EMERGENCY DEPARTMENT CHART EMERGENCY DEPARTMENT PHYSICIAN gambling monitor 03/11/2018 16:35 N/A Ordered: 03/11/2018 16:31 By To Almaraz Completed Time: 03/11/2018 16:[address] [facility] 03/11/2018 17:17 N/A Ordered: 03/11/2018 15:59 By Protocol Completed Time: 03/11/2018 17:17 By Protocol Noted Time: 03/11/2018 16:35 KPW Results Time: 03/11/2018 17:17 gambling monitor 03/11/2018 16:35 N/A Ordered: 03/11/2018 15:59 By Protocol Completed Time: 03/11/2018 16:35 By Protocol CBC with diff 03/11/2018 16:54 N/A Ordered: 03/11/2018 15:59 By Protocol Completed Time: 03/11/2018 16:54 By Protocol Noted Time: 03/11/2018 16:35 KPW Results Time: 03/11/2018 16:53 EKG and most recent EKG 03/11/2018 16:17 N/A Ordered: 03/11/2018 15:59 By Protocol Completed Time: 03/11/2018 16:14 By Protocol Noted Time: 03/11/2018 16:09 KPW IV hep lock 03/11/2018 16:35 N/A Ordered: 03/11/2018 15:59 By Protocol Completed Time: 03/11/2018 16:35 By Protocol POC troponin 03/11/2018 17:03 N/A Ordered: 03/11/2018 15:59 By Protocol Completed Time: 03/11/2018 17:00 By Protocol Noted Time: 03/11/2018 16:34 KPW DISCHARGE Diagnosis: Acute large pericardial effusion with [facility] PATIENT NAME: FATUMA SIGALA Dr. Oh MEDICAL REC #: [id number] [place] [address] EMERGENCY DEPARTMENT CHART EMERGENCY DEPARTMENT PHYSICIAN mass-effect on left ventricle, Recent four-vessel CABG and patient currently on Eliquis for recent atrial fibrillation 03/11/2018 21:09 Disposition: Time: 03/11/2018 21:09 Discharge Time: 03/11/2018 23:17 Type: *Admission to Floor Condition: *Critical/guarded/unstable Category: *NOT APPLICABLE Referral: 03/11/2018 21:09 Admit To: *Bed Type - SCU Admit Physician: Jaswinder Hdez PRESCRIPTIONS CHARGES SIGNATURE To CISSE RNCCU [facility] DORIAN [facility] PAT[facility] MEDICAL REC #: [id number] [place] [address] EMERGENCY DEPARTMENT CHART EMERGENCY DEPARTMENT PHYSICIAN Normal [facility] ED Documentation This is a preliminar y report only, as the practitioner review and authentication has not occurred. [facility]2018 Anion gap molar conc 12 mmol/L Normal 5-16 [facility] Comment on above: Order Comment: Campu s: M Performed By: #### L 500.76305, L500.05956, L500.52710 ####[facility] [id number] [place], [place] [address]Kc# [phone] Calcium mass conc 9.2 mg/dL Normal 8.5-10.1 [facility] Comment on above: Order Comment: Campu s: M Performed By: #### L 500.62038, L500.21398, L500.34235 ####[facility] [id number] [place], [place] [address]Wp# [phone] Chloride molar conc 97 mmol/L Low 98-107 [facility] Comment on above: Order Comment: Campu s: M Performed By: #### L 500.85158, L500.95154, L500.81801 ####[facility] [id number] [place], [place] [address]Sn# [phone] CO2 molar conc 23 mmol/L Normal 21-32 [facility] Comment on above: Order Comment: Campu s: M Performed By: #### L 500.50024, L500.98700, L500.80865 ####[facility] [id number] [place], [place] [address]Eb# [phone] Creatinine mass conc 1.180 mg/dL High 0.670-1.170 [facility] Comment on above: Order Comment: Campu s: M Result Comment: Cynthia ents receiving either N-Acetylcysteine (NAC) or Metamizole prior to venipuncture, may have falsely depressed results. Performed By: #### L 500.67253, L500.24150, L500.19156 ####[facility] [id number] [place], [place] [address]Kn# [phone] Glucose mass conc 118 mg/dL High 70-100 [facility] Comment on above: Order Comment: Campu s: M Result Comment: 70-1 00- Normal Fasting; 100-125 Impaired Fasting; greater than 126 on more than one result- Diabetes. ADA guidelines. Results may be falsely elevated after the administration of Sulfapyridine. Results may be falsely depressed after the administration of Sulfasalazine. Performed By: #### L 500.89825, L500.24423, L500.53080 ####[facility] [id number] [place], [place] [address]Ae# [phone] Potassium molar conc 5.0 mmol/L Normal 3.5-5.1 [facility] Comment on above: Order Comment: Campu s: M Result Comment: Slig ht Hemolysis, Result may be falsely increased. Performed By: #### L 500.45772, L500.05103, L500.62649 ####[facility] [id number] [place], [place] [address]Wu# [phone] Sodium molar conc 132 mmol/L Low 136-145 [facility] Comment on above: Order Comment: Campu s: M Performed By: #### L 500.72687, L500.67662, L500.69162 ####[facility] [id number] [place], [place] [address]Yi# [phone] Urea nitrogen mass conc 28 mg/dL High 7-26 [facility] Comment on above: Order Comment: Campu s: M Performed By: #### L 500.43713, L500.92673, L500.68903 ####[facility] [id number] [place], [place] [address]Bb# [phone] Urea nitrogen/Creatinine mass ratio 24 mg/mg Normal 15-24 [facility] Comment on above: Order Comment: Campu s: M Performed By: #### L 500.18533, L500.55585, L500.21401 ####[facility] [id number] [place], [place] [address]Mn# [phone] CBC W/DIFFon 03-11-2018 BASO ABS 0.00 K/CU MM Normal 0-0.2 [facility] Vader Comment on above: Order Comment: Campu s: M Performed By: #### L 200.70333 ####[facility] [id number] [place] [address]Rn# [phone] Basophils/100 WBC (Bld) 0.3 % Normal 0-2 [facility]ader Comment on above: Order Comment: Campu s: M Performed By: #### L 200.99686 ####[facility] [id number] [place] [address]Ec# [phone] EOS ABS 0.00 K/CU MM Normal 0-0.5 [facility]ader Comment on above: Order Comment: Campu s: M Performed By: #### L 200.20850 ####[address] [address]Ys# [phone] Eosinophils/100 WBC (Bld) 0.3 % Normal 0-5 [facility]ader Comment on above: Order Comment: Campu s: M Performed By: #### L 200.73575 ####[address] [address]Hr# [phone] Erythrocyte distribution width Ratio (RBC) 17.1 % High 11-14.5 [facility] Comment on above: Order Comment: Campu s: M Performed By: #### L 200.48189 ####[facility] [id number] [place] [address]Dy# [phone] Hematocrit Volume Fraction (Bld) 29.4 % Low 41.0-53.0 [facility] Comment on above: Order Comment: Campu s: M Performed By: #### L 200.06784 ####[address] [address]Zk# [phone] Hemoglobin mass conc (Bld) 9.2 g/dL Low 13.5-17.5 [facility] Comment on above: Order Comment: Campu s: M Performed By: #### L 200.82849 ####[facility] [id number] [place] [address]Ph# [phone] IMMATR GRAN ABS 0.10 K/CU MM Normal Less than 2 [facility]ader Comment on above: Order Comment: Campu s: M Performed By: #### L 200.71675 ####[facility] [id number] [place], [place] [address]Ph# [phone] IMMATURE GRAN % 0.6 % Normal Less than 2 [facility]ader Comment on above: Order Comment: Campu s: M Performed By: #### L 200.76551 ####[facility] [id number] [place], [place] [address]Ph# [phone] Lymphocytes #/vol (Bld) 1.50 K/CU MM Normal 0.9-4.4 [facility]ader Comment on above: Order Comment: Campu s: M Performed By: #### L 200.70038 ####[place] [address]Ph# [phone] Lymphocytes/100 WBC (Bld) 13.3 % Low 20-40 [facility] Vader Comment on above: Order Comment: Campu s: M Performed By: #### L 200.82689 ####[facility] [id number] [place], [place] [address]Ph# [phone] MCHC mass conc (RBC) 31.3 g/dL Low 32.0-36.0 [facility] Comment on above: Order Comment: Campu s: M Performed By: #### L 200.46838 ####[facility] [id number] [place], [place] [address]Ph# [phone] MCV Entitic volume (RBC) 91.9 fL Normal 80.0-99.0 [facility] Vader Comment on above: Order Comment: Campu s: M Performed By: #### L 200.13293 ####[facility] [id number] [place], [place] [address]Ph# [phone] MONO ABS 1.00 K/CU MM Normal 0.1-1.1 [facility] Comment on above: Order Comment: Campu s: M Performed By: #### L 200.44433 ####[facility] [id number] [place], [place] [address]Kj# [phone] Monocytes/100 WBC (Bld) 9.5 % Normal 2-10 [facility] Comment on above: Order Comment: Campu s: M Performed By: #### L 200.29237 ####[facility] [id number] [place] [address]Be# [phone] NEUTROPHIL ABS 8.30 K/CU MM Normal 2.0-8.3 [facility] Comment on above: Order Comment: Campu s: M Performed By: #### L 200.40414 ####[facility] [id number] [place], [place] [address]Jv# [phone] Neutrophils/100 WBC (Bld) 76.0 % High 45-75 [facility] Comment on above: Order Comment: Campu s: M Performed By: #### L 200.78444 ####[facility] VKUOYEPHST2590 [place], [place] [address]If# [phone] Nucleated RBC/100 WBC Ratio (Bld) 0.0 % Normal Less than 1 [facility] Comment on above: Order Comment: Campu s: M Performed By: #### L 200.76319 ####[facility] [id number] [place], [place] [address]Cr# [phone] Platelet mean volume Entitic volume (Bld) 10.5 fL Normal 9.4-12.4 [facility] Comment on above: Order Comment: Campu s: M Performed By: #### L 200.22190 ####[facility] OLGNMUAYLZ4284 [place], [place] [address]Um# [phone] Platelets #/vol (Bld) 301 K/CU MM Normal 150-[address] [facility] Comment on above: Order Comment: Campu s: M Performed By: #### L 200.12020 ####[facility] APWLVKOORQ1376 [place], [place] [address]Nj# [phone] RBC #/vol (Bld) 3.20 M/CU MM Low 4.50-6.00 [facility] Comment on above: Order Comment: Campu s: M Performed By: #### L 200.83151 ####[facility] [id number] [place], [place] [address]Ck# [phone] WBC #/vol (Bld) 10.9 K/CU MM Normal 4.5-11.0 [facility] Comment on above: Order Comment: Campu s: M Performed By: #### L 200.49012 ####[facility] [id number] [place], [place] [address]Wx# [phone] CT ANG THOR W/POST PROCon CT ANG THOR W/POST PROC CT ANG THOR W/POST PROC Ordering Physician: To Almaraz MD 03/11/2018 6:[address] ANGIOGRAPHY OF THE THORAX WITH INTRAVENOUS CONTRAST Clinical Statement: Shortness of breath, chest pain Comparison: Chest radiograph same day TECHNIQUE: Following the uneventful administration of 85 cc of Isovue 370 intravenous contrast, contiguous transaxial 1.25 mm slices were obtained through the thorax. Coronal reconstruction images were obtained. FINDINGS: No pulmonary embolus is identified. There is calcified plaque within the coronary arteries and great vessels which are patent. No thoracic aorta aneurysm or dissection is identified. Multiple areas of noncalcified plaque is seen in the descending thoracic aorta. There is a large left-sided pericardial effusion with mass effect on the left ventricle measuring 6 cm in thickness x 17 cm in length on image 1 of 125 and 171 of 263. Multiple subcentimeter short axis nodes are scattered throughout the mediastinum. There is a small left pleural effusion. Dependent atelectasis is noted in the lung bases. No pneumothorax. Mild degenerative changes are seen in the thoracic spine. Small amount of ascites seen in the bilateral upper quadrants. IMPRESSION: 1. No pulmonary embolus or thoracic aortic aneurysm or dissection. 2. Large pericardial effusion measuring at least 5 x 17 cm causing cardiac tamponade and mass effect on the left ventricle. The fluid measures around blood density inferiorly. 3. Small left pleural effusion with bilateral lower lobe atelectasis. 4. Small amount of ascites. A report was sent to the Emergency Department at the time of dictation. ---- Electronic Signature on File ---- Signed By: Teresa Florian MD [email or web address] Dictated: 03/11/2018 8:08 PM Signed: 03/11/2018 8:18 PM Reported By: TERESA FLORIAN M.D. Signed By: TERESA FLORIAN M.D. Normal [facility] G[facility] ESTon 03-11-2018 IF AMER Greater than 60 [facility] Comment on above: Order Comment: Stephenu s: M Performed By: #### L 500.98662, L500.61939, L500.94047 ####[facility] [id number] [place], [place] [address]Gb# [phone] IF non-AFR AMER Greater than 60 [facility] Comment on above: Order Comment: Stephenu s: M Performed By: #### L 500.79765, L500.10741, L500.90925 ####[facility] [id number] [place], [place] [address]Wd# [phone] on 03-11-2018 HP Mr. Sigala is a 62-yea r-old man who underwent bypass surgery on February 11, 2018, and came back with atrial fibrillation. At this point he was placed on Eliquis. He was evaluated yesterday once again in the emergency room and had a CT of the chest that showed a large pericardial effusion mostly posteriorly on the left side and with compression of the ventricle. He was therefore advised to have that decompressed and be admitted immediately. At the time of his admission his blood pressure was about 110 to 140. He was in normal sinus rhythm, although he did have periods of atrial fibrillation with very short bursts. His respiratory condition was stable and remained on room air, but oxygen was added later for comfort. He is therefore now being evaluated for drainage of pericardial fluid. On admission his blood pressure is 115 systolic, and this morning it was 140. Also, there was suspicion of pulsus paradoxus in his case. He was on IV fluids at 50 mL an hour. His lungs were clear bilaterally and chest x-ray showed clear lungs with the heart being slightly larger than normal. The rest of the examination was essentially unremarkable. IMPRESSION: Pericardial effusion. PLAN: Urgent left anterior thoracotomy and drainage of pericardial fluid. Jaswinder Hdez MD [id number] [facility] File#: [id number] Verified/Reviewed by 03/13/18 0751 HERMELINDO * [facility] PATIENT NAME: FATUMA SIGALA [facility] Dr. Oh MEDICAL REC #: [id number] [place] [address] ADMIT DATE: 03/11/18 DISCHARGE DATE: HISTORY and PHYSICAL ATTENDING PHY: Jaswinder Hdez MD [facility] Ze 03-11-2018 OPERATIVE REPORT [facility] OR DATE OF SERVICE: 03/12/2018 PREOPERATIVE DIAGNOSIS: Pericardial effusion. POSTOPERATIVE DIAGNOSIS: Pericardial effusion. OPERATION: Left anterior thoracotomy, drainage of pericardial effusion. SURGEON: Jaswinder Hdez MD COMPOSITION INSTRUCTOR: Reynold Mishra SA ANESTHESIA: General endotracheal. FINDINGS: There was 100+ mL of old blood which may have been related to anticoagulation recently for atrial fibrillation. There was inflammatory tissue around the surface of the heart which could be visualized, but no clots could be seen. DESCRIPTION OF OPERATION: With the patient induced very gently, the chest was prepped and draped in the usual fashion for left anterior thoracotomy. A small incision was made below the inframammary area and the fourth interspace was entered. There was no significant pleural effusion and the pericardium was opened and immediately about 100 mL of old blood came out with immediate improvement in the blood pressure. The patient did have also a bout of atrial fibrillation at the beginning of the case, but improved fairly quickly following that. The adhesions around the heart were significant except for posteriorly, and that is where a 24 Baldemar tube was placed to drain any further fluid. It was fixed with 0 Ethibond sutures. No fluid could be drained from the left pleural space, and the GAYLE that was done in this case did show that the effusion had been drained. At that point a single no. 2 pericostal suture was placed and tied. The rest of the incision was closed using layers of Vicryl and Monocryl. The patients respiratory variations seen on arterial line was not present at the end and the vital signs remained stable following that. All needle, instrument, lap pad counts were correct. Jaswinder Hdez MD [id number] [facility] File#: [id number] Verified/Reviewed by [facility] PATIENT NAME: FATUMA SIGALA Delma Oh MEDICAL REC #: [id number] [place] [address] ADMIT DATE: 03/11/18 DISCHARGE DATE: OPERATIVE REPORT ATTENDING PHY: Jaswinder Hdez MD 03/13/18 0751 TAWMA [facility] PATIENT NAME: FATUMA SIGALA Delma Kim N.W. MEDICAL REC #: [id number] [place] [address] ADMIT DATE: 03/11/18 DISCHARGE DATE: OPERATIVE REPORT ATTENDING PHY: Jaswinder Hdez MD [facility] PBNP TESTon 03-11-2018 Natriuretic peptide B mass conc (Bld) 2221 pg/mL High 0-900 [facility] Comment on above: Order Comment: Gloria s: M Result Comment: NT-p roBNP results of less than 300 pg/ml effectively rules out acute congestive heart failure with 99% negative predictive value. Performed By: #### L 500.99527, L500.04314, L500.88732 ####[facility] [id number] [place], [place] [address]Hd# [phone] PORTABLE CHESTon 03-11-2018 PORTABLE CHEST PORTABLE CHEST Ordering Physician: Jaswinder Hedz MD 03/12/2018 8:59 AM CHEST Clinical Statement: Shortness of breath FINDINGS: A portable chest image was obtained and compared to a previous study dated 03/11/2018. The cardiac silhouette is at the upper limits of normal in size. There is a catheter overlying the left heart border. The aorta is tortuous. The lungs are clear. The patient is post open heart surgery. No pneumothorax is seen. IMPRESSION: No acute abnormalities. ---- Electronic Signature on File ---- Signed By: Vance Cruz MD FACR [email or web address] Dictated: 03/12/2018 9:26 AM Signed: 03/12/2018 9:29 AM Reported By: VANCE CRUZ M.D. Signed By: VANCE CRUZ M.D. [facility] PORTABLE CHEST PORTABLE CHEST Ordering Physician: To Almaraz MD 03/11/2018 4:31 PM CHEST Clinical Statement: Shortness of breath FINDINGS: A portable chest image was obtained and compared to a previous study dated 03/08/2018. The patient is post open heart surgery. The heart is at the upper limits of normal in size. The aorta is tortuous. There are mild atelectatic changes at the left base. IMPRESSION: Mild atelectatic changes at the left base. ---- Electronic Signature on File ---- Signed By: Vance Cruz MD FACR [email or web address] Dictated: 03/11/2018 4:46 PM Signed: 03/11/2018 4:47 PM Reported By: VANCE CRUZ M.D. Signed By: VANCE CRUZ M.D. Normal [facility] TROPONIN I POCon 03-11-2018 Troponin I.cardiac mass conc 0.00 ng/mL Normal 0.0-0.06 [facility] Comment on above: Result Comment: 0.0 - 0.06 NG/ML - NON-DIAGNOSTIC (REFERENCE RANGE) 0.07 - 0.59 NG/ML - INDETERMINATE Greater than or equal to 0.6 NG/ML - INDICATIVE OF MYOCARDIAL DAMAGE UA COMPLETEon 03-11-2018 Color Nom (U) Yellow Normal [facility] Comment on above: Order Comment: Campu s: M Performed By: #### L 600.72631 ####[facility] QGVVQDHASR2168 [place], [place] [address]Ho# [phone] Glucose mass conc (U) Negative Normal [facility] Comment on above: Order Comment: Campu s: M Performed By: #### L 600.34492 ####[facility] HQHYNEUWIA2586 [place], [place] [address]Zu# [phone] UA APPEARANCE Hazy Normal CLEAR [facility] Comment on above: Order Comment: Campu s: M Performed By: #### L 600.45459 ####[facility] BGEXJENWUP4409 [place], [place] [address]Qm# [phone] UA BILIRUBIN Negative Normal [facility] Comment on above: Order Comment: Campu s: M Performed By: #### L 600.43214 ####[facility] FAAMFSAGGR2305 [place], [place] [address]Dx# [phone] UA BLOOD Negative Normal NEGATIVE [facility] Comment on above: Order Comment: Campu s: M Performed By: #### L 600.38120 ####[facility] YRKHNRZKBV6983 [place], [place] [address]Fd# [phone] UA KETONE Negative Normal [facility] Comment on above: Order Comment: Campu s: M Performed By: #### L 600.86755 ####[facility] TAAZTFIYMI8019 [place], [place] [address]Ot# [phone] UA LK ESTERASE Negative Normal NEGATIVE [facility] Comment on above: Order Comment: Campu s: M Performed By: #### L 600.61927 ####[facility] LUZSXXSGVP[address] [place] [address]Cw# [phone] UA NITRITE Negative Normal NEGATIVE [facility] Comment on above: Order Comment: Campu s: M Performed By: #### L 600.31196 ####[facility] LUOIMRUBIG[address] [place] [address]Yz# [phone] UA PH 5.0 Normal [facility] Comment on above: Order Comment: Campu s: M Performed By: #### L 600.25712 ####[facility] FVDJLWBOTD[address] [place] [address]Jn# [phone] UA PROTEIN Negative Normal NEGATIVE [facility] Comment on above: Order Comment: Campu s: M Performed By: #### L 600.65630 ####[facility] NWHKEPLGID[address] [place] [address]Dq# [phone] UA SPEC GRAV 1.045 Normal 1.005-1.030 [facility] Comment on above: Order Comment: Campu s: M Performed By: #### L 600.92446 ####[facility] NYDCFMBXKZ[address] [place] [address]Ob# [phone] UA UROBILINOGEN 2.0 Normal [facility] Comment on above: Order Comment: Campu s: M Performed By: #### L 600.50734 ####[facility] WPMTAWVMBP[address] [place] [address]Jf# [phone] BMPon 03-10-2018 Anion gap molar conc 11 mmol/L Normal 5-16 [facility] Comment on above: Performed By: #### L 500.69675, L500.30681 ####[facility] ONMJPZEARZ7575 [place], [place] [address]Py# [phone] Calcium mass conc 8.7 mg/dL Normal 8.5-10.1 [facility] Comment on above: Performed By: #### L 500.99606, L500.35078 ####[facility] ZGHLCLUSQQ4996 [place], [place] [address]Wv# [phone] Chloride molar conc 98 mmol/L Normal 98-107 [facility] Comment on above: Performed By: #### L 500.35021, L500.29255 ####[facility] HHHIBLTYAZ6798 [place], [place] [address]Jx# [phone] CO2 molar conc 24 mmol/L Normal 21-32 [facility] Comment on above: Performed By: #### L 500.58153, L500.67537 ####[facility] SSYSXYYAEY0045 [place], [place] [address]Qm# [phone] Creatinine mass conc 1.110 mg/dL Normal 0.670-1.170 [facility] Comment on above: Result Comment: Cynthia ents receiving either N-Acetylcysteine (NAC) or Metamizole prior to venipuncture, may have falsely depressed results. Performed By: #### L 500.27322, L500.76980 ####[facility] CUPVPISWDL3752 [place], [place] [address]Th# [phone] Glucose mass conc 123 mg/dL High 70-100 [facility] Comment on above: Result Comment: 70-1 00- Normal Fasting; 100-125 Impaired Fasting; greater than 126 on more than one result- Diabetes. ADA guidelines. Results may be falsely elevated after the administration of Sulfapyridine. Results may be falsely depressed after the administration of Sulfasalazine. Performed By: #### L 500.50297, L500.12091 ####[facility] GMPWNBZXRK0989 [place], [place] [address]Rt# [phone] Potassium molar conc 4.2 mmol/L Normal 3.5-5.1 [facility]ader Comment on above: Performed By: #### L 500.93992, L500.38964 ####[facility] UVVOVNJZVN4214 [place], [place] [address]Ff# [phone] Sodium molar conc 134 mmol/L Low 136-145 [facility] Comment on above: Performed By: #### L 500.96842, L500.90755 ####[facility] MEWYDYBZHX6611 [place], [place] [address]Ne# [phone] Urea nitrogen mass conc 21 mg/dL Normal 7-26 [facility] Comment on above: Performed By: #### L 500.41519, L500.65671 ####[facility] QAYKDFOGDM2282 [place], [place] [address]Eu# [phone] Urea nitrogen/Creatinine mass ratio 19 mg/mg Normal 15-24 [facility] Comment on above: Performed By: #### L 500.55427, L500.09915 ####[facility] QXXFRGBGXD2341 [place], [place] [address]Ky# [phone] GFR ESTon 03-10-2018 IF AMER Greater than 60 Normal [facility]ader Comment on above: Performed By: #### L 500.96866, L500.23967 ####[facility] VSQCGJSSLM0702 [place], [place] [address]Fv# [phone] IF non-AFR AMER Greater than 60 Normal [facility]ader Comment on above: Performed By: #### L 500.59754, L500.77686 ####[facility] GODYOFKWRR[address] [place] [address]Ts# [phone] US BLADDER/URINARYon 018 US BLADDER/URINARY US BLADDER/URINARY Ordering Physician: Micaela Jean 03/10/2018 5:17 PM History: Urinary retention EXAM: Bladder ultrasound COMPARISON: None available FINDINGS: The prevoid bladder volume is 87 cc. There is no significant post void residual. Bilateral ureteral jets are seen. There is some possible bladder wall thickening posteriorly while the bladder is distended prevoid. This appears to be near where the prostate contacts the bladder causing mass effect. Small amount of ascites is incidentally noted in all four quadrants, greatest in the pelvis. Impression: No significant post void residual. Questionable posterior bladder wall thickening. This could be further evaluated with CT urogram if indicated. Small amount of ascites, greatest in the pelvis. A stat report was faxed to the referring unit at the time of the study. ---- Electronic Signature on File ---- Signed By: Teresa Florian MD [email or web address] Dictated: 03/10/2018 6:50 PM Signed: 03/10/2018 6:53 PM Reported By: TERESA FLORIAN M.D. Signed By: TERESA FLORIAN M.D. Normal [facility] CBCon 03-08-2018 Erythrocyte distribution width Ratio (RBC) 17.3 % High 11-14.5 [facility] Comment on above: Performed By: #### L 200.89787 ####[facility] GERGIOETXT5900 [place], [place] [address]Gq# [phone] Hematocrit Volume Fraction (Bld) 29.6 % Low 41.0-53.0 [facility] Comment on above: Performed By: #### L 200.87676 ####[facility] TKIQBAXZBC9297 [place], [place] [address]Tl# [phone] Hemoglobin mass conc (Bld) 9.0 g/dL Low 13.5-17.5 [facility] Comment on above: Performed By: #### L 200.92399 ####[facility] UINTXWRLHY8151 [place], [place] [address]Wx# [phone] MCHC mass conc (RBC) 30.4 g/dL Low 32.0-36.0 [facility] Comment on above: Performed By: #### L 200.25937 ####[facility] UPQSUWCHJO5429 [place], [place] [address]Wx# [phone] MCV Entitic volume (RBC) 95.8 fL Normal 80.0-99.0 [facility] Comment on above: Performed By: #### L 200.39511 ####[facility] YHQYRIHJVA0801 [place], [place] [address]Ew# [phone] Nucleated RBC/100 WBC Ratio (Bld) 0.0 % Normal Less than 1 [facility] Comment on above: Performed By: #### L 200.37246 ####[facility] WXNGKVZYGH0450 [place], [place] [address]Nj# [phone] Platelet mean volume Entitic volume (Bld) 10.1 fL Normal 9.4-12.4 [facility] Comment on above: Performed By: #### L 200.33179 ####[facility] CWMIYLEANO[address] [place] [address]Xx# [phone] Platelets #/vol (Bld) 326 K/CU MM Normal 150-450 [facility] Comment on above: Performed By: #### L 200.12909 ####[facility] [address]BNJZVBSXO[address] [place] [address]Nj# [phone] RBC #/vol (Bld) 3.09 M/CU MM Low 4.50-6.00 [facility] Comment on above: Performed By: #### L 200.41611 ####[facility] PARBEULZHV7[address] [place] [address]Hc# [phone] WBC #/vol (Bld) 8.0 K/CU MM Normal 4.5-11.0 [facility] Comment on above: Performed By: #### L 200.27988 ####[facility] WRABBDMCJL[address] [place] [address]Kg# [phone] CHEST PA/AP AND LATERALon CHEST PA/AP AND LATERAL CHEST PA/AP & LATERAL Ordering Physician: Jennifer Che 03/08/2018 2:59 PM CHEST Clinical Statement: Atherosclerotic heart disease, shortness of breath and cough FINDINGS: PA and lateral chest images were obtained and compared to a portable study dated 02/19/2018. The patient is post open heart surgery. The heart is normal in size. The aorta is tortuous. No acute infiltrates or congestion is seen. There are minimal effusions. IMPRESSION: Minimal effusions. The lungs are clear. ---- Electronic Signature on File ---- Signed By: Vance Cruz MD FACR [email or web address] Dictated: 03/08/2018 3:19 PM Signed: 03/08/2018 3:21 PM Reported By: VANCE CRUZ M.D. Signed By: VANCE CRUZ M.D. [facility] Albumin mass conc 3.4 g/dL Normal 3.2-5.0 [facility] Comment on above: Performed By: #### L 500.71841, L500.49358 ####[facility] QMOGZFLYFX1330 [place], [place] [address]Tx# [phone] Albumin/Globulin mass ratio 1.1 {ratio} Normal 0.8-2.0 [facility] Comment on above: Performed By: #### L 500.15095, L500.93117 ####[facility] ZIQAOFRUDB1781 [place], [place] [address]Sc# [phone] ALK PHOS 109 U/L Normal 45-117 [facility] Comment on above: Performed By: #### L 500.25275, L500.95174 ####[facility] SLVEVNCEDI7229 [place], [place] [address]Vz# [phone] ALT enzyme act/vol 16 U/L Normal 13-61 [facility] Comment on above: Result Comment: RESU LTS MAY BE FALSELY DEPRESSED AFTER THE ADMINISTRATION OF SULFASALAZINE AND/OR SULFAPYRIDINE. Performed By: #### L 500.30438, L500.57871 ####[facility] TZXLKKDTCR5036 [place], [place] [address]Dc# [phone] Anion gap molar conc 9 mmol/L Normal 5-16 [facility] Comment on above: Performed By: #### L 500.25243, L500.24264 ####[facility] XOFOVMFTAH2567 [place], [place] [address]Fz# [phone] BILI TOTAL 1.0 MG/DL Normal 0.2-1.0 [facility] Comment on above: Performed By: #### L 500.06386, L500.28493 ####[facility] PUWRFFROSA[address] [place], [place] [address]Ph# [phone] Calcium mass conc 8.8 mg/dL Normal 8.5-10.1 [facility] Comment on above: Performed By: #### L 500.98377, L500.11873 ####[facility] XBBFXGAFYO[address] [place] [address]Kl# [phone] Chloride molar conc 102 mmol/L Normal 98-107 [facility] Comment on above: Performed By: #### L 500.36665, L500.04823 ####[facility] JOTBCOENXP[address] [place], [place] [address]Ph# [phone] CO2 molar conc 26 mmol/L Normal 21-32 [facility] Comment on above: Performed By: #### L 500.76328, L500.33806 ####[facility] MCKWHGQEWA6551 [place], [place] [address]In# [phone] Creatinine mass conc 0.929 mg/dL Normal 0.670-1.170 [facility] Comment on above: Result Comment: Cynthia ents receiving either N-Acetylcysteine (NAC) or Metamizole prior to venipuncture, may have falsely depressed results. Performed By: #### L 500.48333, L500.89802 ####[facility] BUHYJMMQZO[address] [place] [address]Cg# [phone] Globulin mass conc (S) 3.1 g/dL Normal 2.2-4.2 [facility] Comment on above: Performed By: #### L 500.11119, L500.66061 ####[facility] ZBOPAIYHWE0002 [place], [place] [address]Fk# [phone] Glucose mass conc 109 mg/dL High 70-100 [facility] Comment on above: Result Comment: 70-1 00- Normal Fasting; 100-125 Impaired Fasting; greater than 126 on more than one result- Diabetes. ADA guidelines. Results may be falsely elevated after the administration of Sulfapyridine. Results may be falsely depressed after the administration of Sulfasalazine. Performed By: #### L 500.11823, L500.14782 ####[facility] AURARCQUJJ8962 [place], [place] [address]Jy# [phone] Potassium molar conc 3.9 mmol/L Normal 3.5-5.1 [facility] Comment on above: Performed By: #### L 500.31431, L500.96317 ####[facility] YOECZIWENP8441 [place], [place] [address]Ti# [phone] Protein mass conc 6.5 g/dL Normal 6.0-8.5 [facility] Comment on above: Performed By: #### L 500.45719, L500.63119 ####[facility] CDYHOMDKWC4131 [place], [place] [address]Je# [phone] SGOT (AST) 11 U/L Normal 8-34 [facility] Comment on above: Result Comment: RESU LTS MAY BE FALSELY DEPRESSED AFTER THE ADMINISTRATION OF SULFASALAZINE AND/OR SULFAPYRIDINE. Performed By: #### L 500.16083, L500.37057 ####[facility] AEHQCZOPQU1744 [place], [place] [address]Sa# [phone] Sodium molar conc 137 mmol/L Normal 136-145 [facility] Comment on above: Performed By: #### L 500.45414, L500.63915 ####[facility] SDCDIKGREK7655 [place], [place] [address]Jr# [phone] Urea nitrogen mass conc 18 mg/dL Normal 7-26 [facility] Comment on above: Performed By: #### L 500.14915, L500.17442 ####[facility] ARDVSJMXQN6156 [place], [place] [address]Tn# [phone] Urea nitrogen/Creatinine mass ratio 19 mg/mg Normal 15-24 [facility] Comment on above: Performed By: #### L 500.01068, L500.35055 ####[facility] RUURPWTLIB2655 [place], [place] [address]Tw# [phone] GFR ESTon 03-08-2018 IF AMER Greater than 60 Normal [facility] Comment on above: Performed By: #### L 500.79635, L500.75532 ####[facility] XEDFWTISPI1775 [place], [place] [address]Wh# [phone] IF non-AFR AMER Greater than 60 Normal [facility] Comment on above: Performed By: #### L 500.46658, L500.53991 ####[facility] RXNGYBCZSX5827 [place], [place] [address]Xf# [phone] CBCon 03-03-2018 Erythrocyte distribution width Ratio (RBC) 17.1 % High 11-14.5 [facility] Comment on above: Order Comment: Campu s: MMinimal Draw: Y Performed By: #### L 200.96706 ####[facility] IOQHPGFJPP0707 [place], [place] [address]Cv# [phone] Hematocrit Volume Fraction (Bld) 27.6 % Low 41.0-53.0 [facility] Comment on above: Order Comment: Campu s: MMinimal Draw: Y Performed By: #### L 200.48822 ####[facility] LAGJSDJSQE7279 [place], [place] [address]Bb# [phone] Hemoglobin mass conc (Bld) 8.4 g/dL Low 13.5-17.5 [facility] Comment on above: Order Comment: Campu s: MMinimal Draw: Y Performed By: #### L 200.82831 ####[facility] RVDLYIBFDV6239 [place], [place] [address]Qx# [phone] MCHC mass conc (RBC) 30.4 g/dL Low 32.0-36.0 [facility] Comment on above: Order Comment: Campu s: MMinimal Draw: Y Performed By: #### L 200.30137 ####[facility] INEYPGPDSS7316 [place], [place] [address]Gg# [phone] MCV Entitic volume (RBC) 93.9 fL Normal 80.0-99.0 [facility] Comment on above: Order Comment: Campu s: MMinimal Draw: Y Performed By: #### L 200.84705 ####[facility] RBRFEMSNUN[address] [place] [address]Uu# [phone] Nucleated RBC/100 WBC Ratio (Bld) 0.0 % Normal Less than 1 [facility] Comment on above: Order Comment: Campu s: MMinimal Draw: Y Performed By: #### L 200.00888 ####[facility] GOIYRQVDDA[address] [place] [address]Dz# [phone] Platelet mean volume Entitic volume (Bld) 9.4 fL Normal 9.4-12.4 [facility] Comment on above: Order Comment: Campu s: MMinimal Draw: Y Performed By: #### L 200.90030 ####[facility] CUDPOHAGKQ[address] [place] [address]Gq# [phone] Platelets #/vol (Bld) 335 K/CU MM Normal 150-450 [facility] Comment on above: Order Comment: Campu s: MMinimal Draw: Y Performed By: #### L 200.69557 ####[facility] YACMQHPUZG[address] [place] [address]Yj# [phone] RBC #/vol (Bld) 2.94 M/CU MM Low 4.50-6.00 [facility] Comment on above: Order Comment: Campu s: MMinimal Draw: Y Performed By: #### L 200.39654 ####[facility] VSDGBHKGZQ09[address] [place] [address]Lt# [phone] WBC #/vol (Bld) 6.8 K/CU MM Normal 4.5-11.0 [facility] Comment on above: Order Comment: Gloria pizano: OPALinimal Draw: Y Performed By: #### L 200.31154 ####[facility] NYJDHIJDQL4210 [place], [place] [address]Ra# [phone] PTTon 03-03-2018 aPTT Coag time (Bld) 32.8 s High 22.0-31.5 [facility] Comment on above: Order Comment: Gloria pizano: M Result Comment: Ther apeutic Heparin Reference Range: High Dose: 46-75 seconds (DVT/PE) Low Dose: 39-60 seconds (Acute Coronary Syndrome) For low molecular weight heparin or danaparoid, monitoring is often NOT necessary, but the heparin assay, Xa inhibition assay (send-out) may be used in certain circumstances, as the PTT is generally insensitive to the effect of these agents. Direct thrombin inhibitors are becoming more widely utilized and these drugs are often monitored using the PTT. Performed By: #### L 300.57112 ####[facility] YDYWDUVJMQ2801 [place], [place] [address]Im# [phone] aPTT Coag time (Bld) 29.9 s Normal 22.0-31.5 [facility] Comment [facility] above: Order Comment: Gloria pizano: Roxanne Result Comment: Ther apeutic Heparin Reference Range: High Dose: 46-75 seconds (DVT/PE) Low Dose: 39-60 seconds (Acute Coronary Syndrome) For low molecular weight heparin or danaparoid, monitoring is often NOT necessary, but the heparin assay, Xa inhibition assay (send-out) may be used in certain circumstances, as the PTT is generally insensitive to the effect of these agents. Direct thrombin inhibitors are becoming more widely utilized and these drugs are often monitored using the PTT. Performed By: #### L 300.55687 ####[facility] UJDIWTQCQN0959 [place], [place] [address]Vm# [phone] BMPon 03-02-2018 Anion gap molar conc 7 mmol/L Normal 5-16 [facility] Comment on above: Order Comment: Campu s: M Performed By: #### L 500.12029, L500.45440, L500.27885, L500.90019, L500.08692 ####[facility] BYZGZCHLWJ8042 [place], [place] [address]If# [phone] Calcium mass conc 8.5 mg/dL Normal 8.5-10.1 [facility] Comment on above: Order Comment: Campu s: M Performed By: #### L 500.63582, L500.51379, L500.42494, L500.70688, L500.15091 ####[facility] HSTKCHVYQX0213 [place], [place] [address]Zv# [phone] Chloride molar conc 105 mmol/L Normal 98-107 [facility] Comment on above: Order Comment: Campu s: M Performed By: #### L 500.34849, L500.85330, L500.17301, L500.95359, L500.06297 ####[facility] BJZIIHIJSI0139 [place], [place] [address]Gw# [phone] CO2 molar conc 25 mmol/L Normal 21-32 [facility] Comment on above: Order Comment: Campu s: M Performed By: #### L 500.37937, L500.17151, L500.43375, L500.10241, L500.65386 ####[facility] HZYRAWCLTC9429 [place], [place] [address]Wq# [phone] Creatinine mass conc 0.804 mg/dL Normal 0.670-1.170 [facility] Comment on above: Order Comment: Campu s: M Result Comment: Cynthia ents receiving either N-Acetylcysteine (NAC) or Metamizole prior to venipuncture, may have falsely depressed results. Performed By: #### L 500.29418, L500.04553, L500.69057, L500.99796, L500.83527 ####[facility] GQRRHUFACX1103 [place], [place] [address]Yz# [phone] Glucose mass conc 100 mg/dL Normal 70-100 [facility] Comment on above: Order Comment: Campu s: M Result Comment: 70-1 00- Normal Fasting; 100-125 Impaired Fasting; greater than 126 on more than one result- Diabetes. ADA guidelines. Results may be falsely elevated after the administration of Sulfapyridine. Results may be falsely depressed after the administration of Sulfasalazine. Performed By: #### L 500.10219, L500.54125, L500.77353, L500.05603, L500.14179 ####[facility] KSQGACEKHC7915 [place], [place] [address]Wi# [phone] Potassium molar conc 4.0 mmol/L Normal 3.5-5.1 [facility] Comment on above: Order Comment: Campu s: M Performed By: #### L 500.90089, L500.62564, L500.17883, L500.84075, L500.67578 ####[facility] BNUUEMQOAN[address] [place] [address]Zh# [phone] Sodium molar conc 137 mmol/L Normal 136-145 [facility] Comment on above: Order Comment: Campu s: M Performed By: #### L 500.23755, L500.88633, L500.96777, L500.58678, L500.34137 ####[facility] HAILIPDFPT4062 [place], [place] [address]Ud# [phone] Urea nitrogen mass conc 12 mg/dL Normal 7-26 [facility] Comment on above: Order Comment: Campu s: M Performed By: #### L 500.17388, L500.69635, L500.45576, L500.25624, L500.20618 ####[facility] MVPSTZMJBG[address] [place] [address]Tn# [phone] Urea nitrogen/Creatinine mass ratio 15 mg/mg Normal 15-24 [facility] Comment on above: Order Comment: Campu s: M Performed By: #### L 500.90168, L500.05742, L500.52466, L500.53733, L500.65022 ####[facility] XNYMJBYWMI7253 [place], [place] [address]Wt# [phone] CBCon 03-02-2018 Erythrocyte distribution width Ratio (RBC) 17.2 % High 11-14.5 [facility] Comment on above: Order Comment: Campu s: MMinimal Draw: Y Performed By: #### L 200.18935 ####[facility] [id number] [place] [address]Mi# [phone] Hematocrit Volume Fraction (Bld) 28.5 % Low 41.0-53.0 [facility] Comment on above: Order Comment: Campu s: MMinimal Draw: Y Performed By: #### L 200.27571 ####[address] [address]Rx# [phone] Hemoglobin mass conc (Bld) 8.7 g/dL Low 13.5-17.5 [facility] Comment on above: Order Comment: Campu s: MMinimal Draw: Y Performed By: #### L 200.23645 ####[facility] [id number] [place] [address] 229[address]Gf# [phone] MCHC mass conc (RBC) 30.5 g/dL Low 32.0-36.0 [facility] Comment on above: Order Comment: Campu s: MMinimal Draw: Y Performed By: #### L 200.99965 ####[facility] [id number] [place] [address] 35498Uu# [phone] MCV Entitic volume (RBC) 94.4 fL Normal 80.0-99.0 [facility] Comment on above: Order Comment: Campu s: MMinimal Draw: Y Performed By: #### L 200.88204 ####[facility] [id number] [place] [address] 38716Bo# [phone] Nucleated RBC/100 WBC Ratio (Bld) 0.0 % Normal Less than 1 [facility] Comment on above: Order Comment: Campu s: MMinimal Draw: Y Performed By: #### L 200.51134 ####[facility] [id number] [place], [place] [address]Si# [phone] Platelet mean volume Entitic volume (Bld) 9.4 fL Normal 9.4-12.4 [facility] Comment on above: Order Comment: Campu s: MMinimal Draw: Y Performed By: #### L 200.64798 ####[place] [id number]# [phone] Platelets #/vol (Bld) 345 K/CU MM Normal 150-450 Me [facility] Vader Comment on above: Order Comment: Campu s: MMinimal Draw: Y Performed By: #### L 200.36707 ####[address] [address]Mx# [phone] RBC #/vol (Bld) 3.02 M/CU MM Low 4.50-6.00 [facility] Comment on above: Order Comment: Campu s: MMinimal Draw: Y Performed By: #### L 200.30313 ####[address] [address]Tn# [phone] WBC #/vol (Bld) 8.2 K/CU MM Normal 4.5-11.0 [facility] Comment on above: Order Comment: Campu s: MMinimal Draw: Y Performed By: #### L 200.88225 ####[facility] [id number] [place], [place] [address]Ph# [phone] CBC W/DIFFon 03-02-2018 BASO ABS 0.00 K/CU MM Normal 0-0.2 [facility] Comment on above: Order Comment: Campu s: M Performed By: #### L 200.53534 ####[address] [address]Ub# [phone] Basophils/100 WBC (Bld) 0.4 % Normal 0-2 [facility] Comment on above: Order Comment: Campu s: M Performed By: #### L 200.44460 ####[facility] [id number] [place], [place] [address]Fi# [phone] EOS ABS 0.10 K/CU MM Normal 0-0.5 [facility]ader Comment on above: Order Comment: Campu s: M Performed By: #### L 200.19156 ####[facility] [id number] [place] [address]He# [phone] Eosinophils/100 WBC (Bld) 1.1 % Normal 0-5 [facility] Comment on above: Order Comment: Campu s: M Performed By: #### L 200.56387 ####[place] [id number]# [phone] Erythrocyte distribution width Ratio (RBC) 17.1 % High 11-14.5 [facility] Comment on above: Order Comment: Campu s: M Performed By: #### L 200.79322 ####[facility] HBTYUJWEKA[address] [place], [place] [address]Ph# [phone] Hematocrit Volume Fraction (Bld) 28.1 % Low 41.0-53.0 [facility] Comment on above: Order Comment: Campu s: M Performed By: #### L 200.21759 ####[facility] [id number] [place] [address] 16[address]Xo# [phone] Hemoglobin mass conc (Bld) 8.8 g/dL Low 13.5-17.5 [facility] Comment on above: Order Comment: Campu s: M Performed By: #### L 200.31554 ####[facility] [id number] [place] [address] 519[address]Bm# [phone] IMMATR GRAN ABS 0.00 K/CU MM Normal Less than 2 [facility] Comment on above: Order Comment: Campu s: M Performed By: #### L 200.15828 ####[facility] [id number] [place], [place] [address]Ph# [phone] IMMATURE GRAN % 0.5 % Normal Less than 2 [facility] Comment on above: Order Comment: Campu s: M Performed By: #### L 200.48878 ####[facility] LJPZSQUWTL[address] [place], [place] [address]Ph# [phone] Lymphocytes #/vol (Bld) 1.00 K/CU MM Normal 0.9-4.4 [facility] Comment on above: Order Comment: Campu s: M Performed By: #### L 200.72666 ####[facility] [id number] [place], [place] [address]Ph# [phone] Lymphocytes/100 WBC (Bld) 13.8 % Low 20-40 [facility] Comment on above: Order Comment: Campu s: M Performed By: #### L 200.47400 ####[place] [address]Ph# [phone] MCHC mass conc (RBC) 31.3 g/dL Low 32.0-36.0 [facility]ader Comment on above: Order Comment: Campu s: M Performed By: #### L 200.71271 ####[facility] [id number] [place], [place] [address]Ph# [phone] MCV Entitic volume (RBC) 94.3 fL Normal 80.0-99.0 [facility] Comment on above: Order Comment: Campu s: M Performed By: #### L 200.95411 ####[facility] ANELTBWMYT[address] [place], [place] [address]Ph# [phone] MONO ABS 0.60 K/CU MM Normal 0.1-1.1 [facility] Comment on above: Order Comment: Campu s: M Performed By: #### L 200.83536 ####[facility] [id number] [place], [place] [address]Ph# [phone] Monocytes/100 WBC (Bld) 7.6 % Normal 2-10 [facility] Comment on above: Order Comment: Campu s: M Performed By: #### L 200.31704 ####[facility] CULKAATYAM1188 [place], [place] [address]Tz# [phone] NEUTROPHIL ABS 5.70 K/CU MM Normal 2.0-8.3 [facility] Comment on above: Order Comment: Campu s: M Performed By: #### L 200.09901 ####[facility] [id number] [place] [address] 334[address]Vx# [phone] Neutrophils/100 WBC (Bld) 76.6 % High 45-75 [facility] Comment on above: Order Comment: Campu s: M Performed By: #### L 200.65155 ####[place] [address]Ph# [phone] Nucleated RBC/100 WBC Ratio (Bld) 0.0 % Normal Less than 1 [facility] Comment on above: Order Comment: Campu s: M Performed By: #### L 200.44942 ####[place] [address]Ph# [phone] Platelet mean volume Entitic volume (Bld) 9.3 fL Low 9.4-12.4 [facility] Comment on above: Order Comment: Campu s: M Performed By: #### L 200.29037 ####[address] [address]Vv# [phone] Platelets #/vol (Bld) 340 K/CU MM Normal 150-450 [facility] Comment on above: Order Comment: Campu s: M Performed By: #### L 200.43604 ####[facility] [id number] [place] [address]Ss# [phone] RBC #/vol (Bld) 2.98 M/CU MM Low 4.50-6.00 [facility] Comment on above: Order Comment: Campu s: M Performed By: #### L 200.25797 ####[facility] [id number] [place], [place] [address]Ph# [phone] WBC #/vol (Bld) 7.4 K/CU MM Normal 4.5-11.0 [facility] Comment on above: Order Comment: Gloria pizano: Roxanne Performed By: #### L 200.64216 ####[facility] GDUXYPLRHE2075 [place], [place] [address]Rk# [phone] CRon 03-02-2018 CONSULTATION REPORT Normal [facility] CR DATE OF CONSULTATION : 03/02/2018 Mr. Sigala is a pleasant 62-year-old who I first met in the office. In brief, he basically presented with chest pain, an abnormal stress test, a heart catheterization and ultimately, a TALAVERA to LAD graft and saphenous vein graft to a diagonal, PDA and distal RCA bypass procedure. He was discharged just about a week ago. He apparently saw Dr. Hdez today as an outpatient and because he was in rapid atrial fibrillation, although the patient was asymptomatic, was admitted to [facility], placed on IV heparin, and now started on IV amiodarone. Of note, the patients home Coreg dose as 50 mg b.i.d. He only was discharged on 06/28 of that. His other home medications routinely include Lipitor, amlodipine, aspirin and Plavix. Presently, the patient remains asymptomatic on the above-mentioned drugs. This consult was done as a courtesy, and I did speak to the nurse practitioner, Isiah. The patient himself otherwise is doing fairly well. He apparently did not have atrial fibrillation during his hospital stay. PHYSICAL EXAMINATION: Vital Signs: At present, the blood pressure here was 147/77 with rates presently in the 107 range in atrial fibrillation by mechanism. Heart: The peripheral pulses are intact. His rhythms are irregularly irregular. He had no edema of pertinence in the lower extremities. His rhythm was obviously irregularly irregular to auscultation. I could not hear pathologic murmur or gallop. The chest itself was clear. Pertinent information on the chart includes an EKG verifying atrial fibrillation with a heart rate of 107 and nonspecific T-wave changes. His rhythm strips verify intermittent sinus and intermittent atrial fibrillation. His white count was 8000 with a hemoglobin of 8.7, hematocrit of 28.5, platelet count was normal. INR was 1.0. Electrolytes and creatinine were normal. Magnesium was 2.1. ASSESSMENT: 1. Coronary disease status post coronary artery bypass grafting. 2. Postoperative atrial fibrillation. RECOMMENDATIONS: 1. Certainly, you can approach this any way you wish to, but I personally would have bumped his Coreg back to his home dose of 50 mg b.i.d. and given this man Eliquis 5 mg b.i.d. I would have started him on amiodarone 200 mg b.i.d. for 2 weeks and, since he is asymptomatic, basically ignored the underlying arrhythmia. Atrial fibrillation in the short term at 120 beats per minute, assuming he is staying atrial fibrillation which is unlikely, is not going to hurt anybody. I think the man can be discharged. [facility] PATIENT NAME: FATUMA SIGALA [facility] Dr. [place] MEDICAL REC #: [id number] [place] [address] ADMIT DATE: 03/02/18 DISCHARGE DATE: 03/03/18 CONSULTATION REPORT ATTENDING PHY: Serge Graham MD 2. I did speak with Isiah the nurse practitioner and expressed my feeling. Certainly, you are happy to do as you wish. 3. Will sign off. The patient is already scheduled to see me in 4-6 weeks. S MD SATYA Rodgers/[id number] SSI File#: [id number] Verified/Reviewed by 03/19/18 Aiden AGUILAR [facility] PAT[facility] MEDICAL REC #: [id number] [place] [address] ADMIT DATE: 03/02/18 DISCHARGE DATE: 03/03/18 CONSULTATION REPORT ATTENDING PHY: Serge Graham MD [facility] GFR ESTon 03-02-2018 IF AMER Greater than 60 [facility] Comment on above: Order Comment: Campu s: M Performed By: #### L 500.99718, L500.74937, L500.16694, L500.35120, L500.66660 ####[facility] K[address]RE[address] [place] [address]Vv# [phone] IF non-AFR AMER Greater than [address] [facility] Comment on above: Order Comment: Campu s: M Performed By: #### L 500.07945, L500.06660, L500.22560, L500.53389, L500.66386 ####[facility] [id number] [place] [address]Ai# [phone] HP.[facility].ADM 03-02-2018 Admission-H&P [facility] HP.IMS.[facility] Patient Name: FATUMA SIGALA [facility] Date of : [address] [address] Unit Number: [id number] Admission-HandP Patient Status: DIS IN Attending Doctor: Jaswinder Hdez MD Service Date: 03/02/18 1209 History of Present Illness Source of Information Patient, Medical Chart Chief Complaint/Present Illness: A-fib Living Situation Home - Independent History of Present Illness Mr. Sigala is a pleasant 62-year-old male has a history of CAD, status post CABG 4 on 02/15/2018, hypertension, hyperlipidemia, and chronic PAD who presents for surgical follow-up this morning and Dr. Hdez's office. Patient complains of some anxiety attacks, and monitors his vital signs at home, and has noticed his heart rate to be intermittently high in the 130s to 140s. Patient denies any chest pain, palpitations, or increased shortness of breath, but does endorse some fatigue. EKG done Dr. Hdez's office shows atrial fibrillation with PVCs in a rate of 91, and no signs of acute ischemia. Of note prior to heart surgery patient had a 14 day CardioNet event monitor which revealed sinus rhythm, with some PVCs, but no other arrhythmias noted. Patient denies any history of atrial fibrillation. Patient is admitted for new onset atrial fibrillation, and cardiology has been consulted. Past Medical/Surgical Hx Past Medical History CAD - with FER to the LAD (2012), and RCA (2013) PAD - follows with Dr. Hill Hypertension next on hyperlipidemia Past Surgical History CABG 4-02/15/2018 Stent to Family/Social History Family History MOTHER, , Age 60+. FH: Alzheimers disease, Onset: Unknown. Social Hx Chronic tobacco us - approximately 1 pack a day Denies EtOH or illicit drug use Advance Directives Advance Directives Full Code Allergies/Home Medications Allergies Coded Allergies: LISINOPRIL (SWELLING 02/09/18) PSEUDOEPHEDRINE (From SUDAFED) (HEART IRREG 02/09/18) Home Medications Ascorbic Acid (Ascorbic Acid 500MG Tablet) 500 MG UDTAB 500 MG PO QDAY #60 UDTAB, Ref 2 Prescribed by JASWINDER HDEZ on 02/20/18 Last Action: Continued on 03/02/18 1108 by JENNIFER CHE Aspirin* (Aspir 81 MG Tab*) 81 MG TABLET. 81 MG PO QDAYWM, Ref 0 (Reported) INSTRUCTED TO DISCUSS WITH DR. HDEZ AND DR. HINTON IF NEEDS TO STOP Entered as Reported by LUCIAN DURÁN on 01/11/18 112 Last Action: Continued on 03/02/18 1107 by JENNIFER CHE Atorvastatin Calcium* (Lipitor 20MG Tab*) 20 MG TABLET 20 MG PO QHS, Ref 0 (Reported) Entered as Reported by LUCIAN DURÁN on 01/11/18 1126 Last Action: Continued on 03/02/18 110 by JENNIFER CHE Carvedilol (Coreg 3.125 MG Tablet) 3.125 MG TABLET 3.125 MG PO BIDWM #90 TAB, Ref 3 Prescribed by JASWINDER HDEZ on 02/20/18 Last Action: Held on 03/02/18 1107 by JENNIFER CHE Clopidogrel Bisulfate* (Plavix 75MG Tab*) 75 MG TABLET 75 MG PO QDAY, Ref 0 (Reported) Entered as Reported by LUCIAN DURÁN on 01/11/18 1126 Last Action: Continued on 03/02/18 1106 by JENNIFER CHE Ferrous Sulfate (Ferrous Sulf 325MG Tab EC Feosol) 325 MG TAB 325 MG PO QDAYAC #90 TAB, Ref 0 Prescribed by JASWINDER HDEZ on 02/20/18 Last Action: Continued on 03/02/18 1106 by JENNIFER CHE Folic Acid* (Folvite 1MG Tab*) 1 MG TABLET 1 MG PO QDAY #30 TAB, Ref 0 Prescribed by JASWINDER HDEZ on 02/20/18 Last Action: Continued on 03/02/18 1108 by JENNIFER CHE Nilotinib HCl (Tasigna) 150 MG CAPSULE 300 MG PO BID, Ref 0 (Reported) Entered as Reported by LUCIAN DURÁN on 01/11/18 1125 Last Action: Reviewed on 03/02/18 110 by JENNIFER CHE Pantoprazole Sodium (Protonix) 40 MG TABLET.DR 40 MG PO QDAYAC #30 TAB.SA, Ref 0 Prescribed by JASWINDER HDEZ on 02/20/18 Last Action: Continued on 03/02/18 1107 by JENNIFER CHE Inpatient Medications Medications Current Sig/Sophie Start time Last Medication Dose Route Stop Time Status Admin Amiodarone HCl 450 MG CONT 03/02 1130 AC (CORDARONE VIAL) IV Sodium Chloride 250 ML (Sodium Chloride 0.9%) Amiodarone HCl 300 MG ONCE ONE 03/02 1130 AC (CORDARONE VIAL) IV 03/02 1429 Sodium Chloride 50 ML (Sodium Chloride 0.9%) Ascorbic Acid 500 MG QDAY 03/02 1107 AC (VITAMIN C TAB) PO Aspirin 81 MG QDAYWM 03/02 1107 AC (ECOTRIN TAB.EC) PO Atorvastatin Calcium 20 MG QHS 03/02 2200 AC (LIPITOR TAB) PO Clopidogrel Bisulfate 75 MG QDAY 03/02 1106 AC (PLAVIX TAB) PO Ferrous Sulfate 325 MG QDAYAC 03/02 1106 AC (FEOSOL TAB.EC) PO Folic Acid 1 MG QDAY 03/02 1108 AC (FOLVITE TAB) PO Pantoprazole Sodium 40 MG QDAYAC 03/02 1107 AC (PROTONIX TAB) PO Review of Systems ROS: Other 10 systems reviewed and found to be negative except that the history of present illness Physical Exam Vital Signs Vital Signs (Last) Result Date Time Pulse Ox 98 03/02 919 B/P 142/87 03/02 919 O2 Delivery ROOM AIR 03/02 919 Temp 97.8 03/02 919 Pulse 142 03/02 919 Resp 17 03/02 919 Physical Exam Summary General: Alert and oriented, NAD Head: NC/AT Eyes: PERRL, sclera white, conjunctiva pink, Anicteric ENT: MMM, No sinus drainage noted Neck: Trach mid-line, no JVD, No thyromegaly or lymphadenopathy Skin: Warm, Dry. No suspicious rashes or lesions, appear slightly sallow Pulmonary: Respirations regular, even chest rise and fall , Lung sounds clear and diminished bilaterally, no accessory muscle use, on room air Cardiovascular: HR irregularly irregular, S1-S2 auscultated, no S3-S4, no Murmurs/Rubs/ Gallops, no edema noted, CR < 3 sec Abdomen: Large, soft, nontender, BS present Musculoskeletal /Extremities: No cyanosis or clubbing Psychological: Patient able to answer all questions appropriately, no attention deficits Neurological: CN II-XII grossly intact, no focal deficits Additional DATE OF SERVICE: 02/15/2018 OPERATION: 1. Coronary artery bypass graft x4 with: 2. Ilbk-mdfgivfz-pkeivjx-iris ry to the gays-vdwokrqc-nxudhpeouc. 3. Vein to the high diagonal. 4. Vein to the posterior descending. 5. Vein to posterolateral. 6. Endoscopic harvest of the thighs on both sides. 7. Transesophageal echocardiography. SURGEON: Jaswinder Hdez MD Conclusion / Plan Conclusion 1. New onset a-fib Admitted to hospital Continue DAPT - would like to avoid full anticoagulation and recent postoperative state [id number] - 2 Check potassium and magnesium, TSH Treat with amiodarone drip, and amiodarone boluses Continue beta will, increase to 25 by mouth twice a day Cardiology consultation 2. Acute blood loss anemia Improving IV Ferrlecit, and Epoetin 3. CAD (coronary artery disease) Status post CABG-02/15/2018 Continue aspirin, Plavix, beta will, statin Midsternal incision CDI, no signs of infection 4. HTN (hypertension) BP at goal Continue BB 5. Dyslipidemia Statin Send copy of the report to CC: Mindy Hinton Disclaimer This dictation was created using voice recognition software. Phonetic and/or minor grammatical errors may exist. eSign Date and Time Jennifer Che CNP, Mark T MD Verified/Reviewed by 03/07/18 1247 Normal [facility] LIVERon 03-02-2018 Albumin mass conc 3.3 g/dL Normal 3.2-5.0 [facility] Comment on above: Order Comment: Campu s: M Performed By: #### L 500.78231, L500.47615, L500.11392, L500.61876, L500.45950 ####[facility] [id number] [place], [place] [address]Lt# [phone] Albumin/Globulin mass ratio 1.1 {ratio} Normal 0.8-2.0 [facility] Comment on above: Order Comment: Campu s: M Performed By: #### L 500.51503, L500.09893, L500.99569, L500.98621, L500.22159 ####[facility] EZAWZBEBXT16[address] [place], [place] [address]Cm# [phone] ALK PHOS 96 U/L Normal 45-117 [facility] Comment on above: Order Comment: Campu s: M Performed By: #### L 500.43745, L500.07673, L500.42312, L500.79765, L500.48649 ####[facility] [id number] [place], [place] [address]Ez# [phone] ALT enzyme act/vol 18 U/L Normal 13-61 [facility] Comment on above: Order Comment: Campu s: M Result Comment: RESU LTS MAY BE FALSELY DEPRESSED AFTER THE ADMINISTRATION OF SULFASALAZINE AND/OR SULFAPYRIDINE. Performed By: #### L 500.58976, L500.97320, L500.90502, L500.28485, L500.24934 ####[facility] XLQLRNDKTK6571 [place], [place] [address]Ep# [phone] BILI DIRECT 0.29 MG/DL High 0.00-0.20 [facility] Comment on above: Order Comment: Campu s: M Performed By: #### L 500.18414, L500.36730, L500.36229, L500.16501, L500.58035 ####[facility] LNTSYXDQGV2086 [place], [place] [address]Nv# [phone] BILI TOTAL 1.2 MG/DL High 0.2-1.0 [facility] Comment on above: Order Comment: Campu s: M Performed By: #### L 500.95151, L500.20229, L500.51085, L500.62281, L500.87044 ####[facility] TQKRHGWOGV7898 [place], [place] [address]Js# [phone] Globulin mass conc (S) 3.0 g/dL Normal 2.2-4.2 [facility] Comment on above: Order Comment: Campu s: M Performed By: #### L 500.71110, L500.89746, L500.63239, L500.20662, L500.85795 ####[facility] [id number] [place] [address]Uf# [phone] Protein mass conc 6.3 g/dL Normal 6.0-8.5 [facility] Comment on above: Order Comment: Campu s: M Performed By: #### L 500.45305, L500.63867, L500.11479, L500.41921, L500.69745 ####[facility] [id number] [place], [place] [address]Zn# [phone] SGOT (AST) 9 U/L Normal 8-34 [facility] Comment on above: Order Comment: Stephenu s: M Result Comment: RESU LTS MAY BE FALSELY DEPRESSED AFTER THE ADMINISTRATION OF SULFASALAZINE AND/OR SULFAPYRIDINE. Performed By: #### L 500.47861, L500.45625, L500.37828, L500.07314, L500.07741 ####[facility] MOGBDBVNCD3501 [place], [place] [address]Nd# [phone] MAGNESIUMon 03-02-2018 Magnesium mass conc 2.1 mg/dL Normal 1.6-2.6 [facility] Comment on above: Order Comment: Stephenu s: M Performed By: #### L 500.73154, L500.25271, L500.66743, L500.59763, L500.49381 ####[facility] QFNRQXVSAR4331 [place], [place] [address]Rh# [phone] PTon 03-02-2018 INR Coag RelTime (PPP) 1.07 {INR} Normal 0.9-1.1 [facility] Comment on above: Order Comment: Stephenu s: MMinimal Draw: Y Result Comment: Sony mmended PT INR therapeutic range for local company intermodal truck driver and prophylactic therapy is 2.0 - 3.0. For heart valve and shunt patients the range is 2.5 - 3.5. Performed By: #### L 300.28763, L300.19534 ####[facility] UDZTHGQEWW3543 [place], [place] [address]Pv# [phone] Prothrombin time (PT) Coag time (PPP) 11.4 s Normal 9.5-12.0 [facility] Comment on above: Order Comment: Stephenu s: MMinimal Draw: Y Performed By: #### L 300.50312, L300.66557 ####[facility] [id number] [place], [place] [address]Ns# [phone] PTTon 03-02-2018 aPTT Coag time (Bld) 23.4 s Normal 22.0-31.5 [facility] Comment on above: Order Comment: Stephenu s: MMinimal Draw: Y Result Comment: Ther apeutic Heparin Reference Range: High Dose: 46-75 seconds (DVT/PE) Low Dose: 39-60 seconds (Acute Coronary Syndrome) For low molecular weight heparin or danaparoid, monitoring is often NOT necessary, but the heparin assay, Xa inhibition assay (send-out) may be used in certain circumstances, as the PTT is generally insensitive to the effect of these agents. Direct thrombin inhibitors are becoming more widely utilized and these drugs are often monitored using the PTT. Performed By: #### L 300.74816, L300.82340 ####[facility] [id number] [place], [place] [address]Ca# [phone] THY FUNC TESTSon 03-02-2018 T3 UP 35.0 % Normal 33.0-40.0 [facility] Comment on above: Order Comment: Gloria s: M Performed By: #### L 500.98818, L500.14377, L500.80791, L500.11391, L500.76437 ####[facility] [id number] [place], [place] [address]As# [phone] T4 12.1 UG/DL Normal 4.5-12.1 [facility] Comment on above: Order Comment: Gloria s: M Result Comment: RESU LTS MAY BE FALSELY ELEVATED AFTER THE ADMINISTRATION OF SULFASALAZINE. Performed By: #### L 500.51527, L500.88974, L500.79699, L500.46038, L500.67017 ####[facility] MGUMIPNRQN5078 [place], [place] [address]Zr# [phone] BMPon 02-20-2018 Anion gap molar conc 10 mmol/L Normal 5-16 [facility] Comment [facility] above: Order Comment: Gloria s: M: LAB DRAW Performed By: #### L 500.80090, L500.83574 ####[facility] [id number] [place], [place] [address]Hi# [phone] Calcium mass conc 8.6 mg/dL Normal 8.5-10.1 [facility] Comment on above: Order Comment: Gloria pizano: M: LAB DRAW Performed By: #### L 500.95996, L500.42630 ####[facility] FXFYWUWMDC0145 [place], [place] [address]Ah# [phone] Chloride molar conc 101 mmol/L Normal 98-107 [facility] Comment on above: Order Comment: Gloria s: M: LAB DRAW Performed By: #### L 500.03700, L500.94035 ####[facility] NVFVYGQJXK6726 [place], [place] [address]Vm# [phone] CO2 molar conc 24 mmol/L Normal 21-32 [facility] Comment [facility]: Order Comment: Gloria s: M: LAB DRAW Performed By: #### L 500.39609, L5.43123 ####[facility] [id number] [place], [place] [address]Zu# [phone] Creatinine mass conc 0.911 mg/dL Normal 0.670-1.170 [facility] Vader Comment on above: Order Comment: Gloria s: M: LAB DRAW Result Comment: Cynthia ents receiving either N-Acetylcysteine (NAC) or Metamizole prior to venipuncture, may have falsely depressed results. Performed By: #### L 500.26775, L5.11239 ####[facility] CBKRSICHLR5520 [place], [place] [address]Qj# [phone] Glucose mass conc 99 mg/dL Normal 70-100 [facility] Comment on above: Order Comment: Gloria s: M: LAB DRAW Result Comment: 70-1 00- Normal Fasting; 100-125 Impaired Fasting; greater than 126 on more than one result- Diabetes. ADA guidelines. Results may be falsely elevated after the administration of Sulfapyridine. Results may be falsely depressed after the administration of Sulfasalazine. Performed By: #### L 500.48054, L500.70558 ####[facility] PXNTEBXPWE8987 [place], [place] [address]Su# [phone] Potassium molar conc 4.1 mmol/L Normal 3.5-5.1 [facility] Vader Comment on above: Order Comment: Gloria s: M: LAB DRAW Performed By: #### L 500.54132, L500.41551 ####[facility] ENZWPDPXOY2652 [place], [place] [address]So# [phone] Sodium molar conc 135 mmol/L Low 136-145 [facility] Comment on above: Order Comment: Gloria s: M: LAB DRAW Performed By: #### L 500.67840, L500.17975 ####[facility] QEORIKCGQX9322 [place], [place] [address]Jc# [phone] Urea nitrogen mass conc 15 mg/dL Normal 7-26 [facility] Vader Comment on above: Order Comment: Gloria s: M: LAB DRAW Performed By: #### L 500.96547, L500.70822 ####[facility] EGAEDUAEUB0304 [place], [place] [address]Rw# [phone] Urea nitrogen/Creatinine mass ratio 16 mg/mg Normal 15-24 [facility] Comment on above: Order Comment: Gloria s: M: LAB DRAW Performed By: #### L 500.72599, L500.08894 ####[facility] BMEJASPHIK[address] [place] [address]Pm# [phone] CBCon 02-20-2018 Erythrocyte distribution width Ratio (RBC) 14.5 % Normal 11-14.5 [facility] Comment on above: Order Comment: Gloria s: M Performed By: #### L 200.56629 ####[facility] [id number] [place] [address]Zd# [phone] Hematocrit Volume Fraction (Bld) 20.7 % Low 41.0-53.0 [facility] Comment on above: Order Comment: Gloria s: M Performed By: #### L 200.56574 ####[facility] KBZKSHEPEF209[address] [place] [address]Nb# [phone] Hemoglobin mass conc (Bld) 7.0 g/dL Low 13.5-17.5 [facility] Comment on above: Order Comment: Stephenu s: M Result Comment: Repe ated and verified. Performed By: #### L 200.38448 ####[facility] GINMEHMAMS5849 [place], [place] [address]Sk# [phone] MCHC mass conc (RBC) 33.8 g/dL Normal 32.0-36.0 [facility] Comment on above: Order Comment: Campu s: M Performed By: #### L 200.82228 ####[facility] EFGZIVAKLH7611[address] [place] [address]Zc# [phone] MCV Entitic volume (RBC) 87.7 fL Normal 80.0-99.0 [facility] Comment on above: Order Comment: Campu s: M Performed By: #### L 200.31705 ####[address] [address]Am# [phone] Nucleated RBC/100 WBC Ratio (Bld) 0.0 % Normal Less than 1 [facility] Comment on above: Order Comment: Campu s: M Performed By: #### L 200.95024 ####[facility] BRHPUJJBKR5307[address] [place] [address]Wh# [phone] Platelet mean volume Entitic volume (Bld) 10.2 fL Normal 9.4-12.4 [facility] Comment on above: Order Comment: Campu s: M Performed By: #### L 200.56691 ####[facility] OBULSLBSMF[address] [place] [address]Bx# [phone] Platelets #/vol (Bld) 125 K/CU MM Low 150-450 [facility] Comment on above: Order Comment: Campu s: M Performed By: #### L 200.73003 ####[facility] HEUCEESREY[address] [place] [address]Wv# [phone] RBC #/vol (Bld) 2.36 M/CU MM Low 4.50-6.00 [facility] Comment on above: Order Comment: Campu s: M Performed By: #### L 200.45029 ####[facility] RYEGPMYUVV[address] [place] [address]Ge# [phone] WBC #/vol (Bld) 6.2 K/CU MM Normal 4.5-11.0 [facility] Comment on above: Order Comment: Gloria james M Performed By: #### L 200.10364 ####[facility] ZERCLEVCHH7378 [place], [place] [address]Ko# [phone] Erythrocyte distribution width Ratio (RBC) 14.6 % High 11-14.5 [facility] Comment on above: Order Comment: Gloria pizano: M: LAB DRAW Performed By: #### L 200.74648 ####[facility] JSUOPUEVEH[address] [place] [address]Lj# [phone] Hematocrit Volume Fraction (Bld) 20.3 % Low 41.0-53.0 [facility] Comment on above: Order Comment: Gloria pizano: M: LAB DRAW Performed By: #### L 200.40901 ####[facility] LHIFYBQSKR0339[address] [place] [address]Xj# [phone] Hemoglobin mass conc (Bld) 6.6 g/dL Critically low 13.5-17.5 [facility] Comment on above: Order Comment: Gloria Oliveira: LAB DRAW Result Comment: Repe ated and verified.. Critical result verified and has been called to KIERA LU RN by Nevaeh Chandler on 02/20/18 at 04:57, and has been read back. Performed By: #### L 200.72186 ####[facility] HLJQJQHMLE[address] [place] [address]Wn# [phone] MCHC mass conc (RBC) 32.5 g/dL Normal 32.0-36.0 [facility] Comment on above: Order Comment: Gloria james M: LAB DRAW Performed By: #### L 200.25070 ####[facility] RQXVRYAGPH1476 [place], [place] [address]Ue# [phone] MCV Entitic volume (RBC) 89.0 fL Normal 80.0-99.0 [facility] Comment on above: Order Comment: Campu s: M: LAB DRAW Performed By: #### L 200.31410 ####[facility] LICVBZRWFO9297 [place], [place] [address]Kd# [phone] Nucleated RBC/100 WBC Ratio (Bld) 0.0 % Normal Less than 1 [facility] Comment on above: Order Comment: Gloria s: M: LAB DRAW Performed By: #### L 200.02847 ####[facility] CNVFTCCVDX4429 [place], [place] [address]Ph# [phone] Platelet mean volume Entitic volume (Bld) 10.5 fL Normal 9.4-12.4 [facility] Comment on above: Order Comment: Gloria s: M: LAB DRAW Performed By: #### L 200.11060 ####[facility] BXSAHQZXDQ2779 [place], [place] [address]Et# [phone] Platelets #/vol (Bld) 111 K/CU MM Low 150-450 [facility] Vader Comment on above: Order Comment: Gloria s: M: LAB DRAW Performed By: #### L 200.48487 ####[facility] NWEKHABCHP[address] [place] [address]Xy# [phone] RBC #/vol (Bld) 2.28 M/CU MM Low 4.50-6.00 [facility] Comment on above: Order Comment: Gloria s: M: LAB DRAW Performed By: #### L 200.00375 ####[facility] FQDVDDFIWB3407[address] [place] [address]Qh# [phone] WBC #/vol (Bld) 5.8 K/CU MM Normal 4.5-11.0 [facility] Comment on above: Order Comment: Gloria s: M: LAB DRAW Performed By: #### L 200.77267 ####[facility] XOUAXFAJHN6309[address] [place] [address]Xe# [phone] GFR ESTon 02-20-2018 IF AMER Greater than 60 Normal [facility] Comment on above: Order Comment: Gloria s: M: LAB DRAW Performed By: #### L 500.42460, L500.55169 ####[facility] SJSZENQGEM0093 [place], [place] [address]Lg# [phone] IF non-AFR AMER Greater than 60 Normal [facility] Comment on above: Order Comment: Gloria s: M: LAB DRAW Performed By: #### L 500.39968, L500.88467 ####[facility] BYJWENNMDQ[address]16[address] [place] [address]Am# [phone] CBCon 02-19-2018 Erythrocyte distribution width Ratio (RBC) 14.5 % Normal 11-14.5 [facility] Comment on above: Order Comment: Gloria pizano: M: NEEDS PERIPHERAL STICK FOR RECHECK Performed By: #### L 200.99229 ####[facility] NZEPHWZJWL1728 [place], [place] [address]Ap# [phone] Hematocrit Volume Fraction (Bld) 21.5 % Low 41.0-53.0 [facility] Comment on above: Order Comment: Gloria pizano: M: NEEDS PERIPHERAL STICK FOR RECHECK Performed By: #### L 200.14721 ####[facility] HNTOJUJNVN375[address] [place] [address]Cw# [phone] Hemoglobin mass conc (Bld) 7.4 g/dL Low 13.5-17.5 [facility] Comment on above: Order Comment: Gloria pizano: M: NEEDS PERIPHERAL STICK FOR RECHECK Performed By: #### L 200.10347 ####[facility] AUUMFIFESD4003 [place], [place] [address]Dp# [phone] MCHC mass conc (RBC) 34.4 g/dL Normal 32.0-36.0 [facility] Comment on above: Order Comment: Gloria pizano: M: NEEDS PERIPHERAL STICK FOR RECHECK Performed By: #### L 200.10301 ####[facility] ZXHOONXRBD9564 [place], [place] [address]Ey# [phone] MCV Entitic volume (RBC) 87.4 fL Normal 80.0-99.0 [facility] Vader Comment on above: Order Comment: Gloria s: M: NEEDS PERIPHERAL STICK FOR RECHECK Performed By: #### L 200.87533 ####[facility] MJQIMSXDEC8815 [place], [place] [address]Zq# [phone] Nucleated RBC/100 WBC Ratio (Bld) 0.0 % Normal Less than 1 [facility] Comment on above: Order Comment: Gloria s: M: NEEDS PERIPHERAL STICK FOR RECHECK Performed By: #### L 200.98491 ####[facility] MHHUFJFPBD[address] [place] [address]Cw# [phone] Platelet mean volume Entitic volume (Bld) 10.5 fL Normal 9.4-12.4 [facility] Comment on above: Order Comment: Gloria s: M: NEEDS PERIPHERAL STICK FOR RECHECK Performed By: #### L 200.08275 ####[address] [address]Pm# [phone] Platelets #/vol (Bld) 96 K/CU MM Low 150-450 [facility] Vader Comment on above: Order Comment: Gloria s: M: NEEDS PERIPHERAL STICK FOR RECHECK Result Comment: Conf irmed by slide estimate. Performed By: #### L 200.99457 ####[facility] LGHHDXTJCN[address] [place] [address]Jw# [phone] RBC #/vol (Bld) 2.46 M/CU MM Low 4.50-6.00 [facility] Comment on above: Order Comment: Gloria s: M: NEEDS PERIPHERAL STICK FOR RECHECK Performed By: #### L 200.52956 ####[facility] BKVSNHRYQF[address] [place] [address]Su# [phone] WBC #/vol (Bld) 7.5 K/CU MM Normal 4.5-11.0 [facility] Comment on above: Order Comment: Gloria s: M: NEEDS PERIPHERAL STICK FOR RECHECK Performed By: #### L 200.09734 ####[facility] BMJBUEBDTH[address] [place] [address] 94[address]Cx# [phone] CBC W/DIFFon 09-01-2018 BASO ABS 0.00 K/CU MM Normal 0-0.2 [facility]ader Comment on above: Order Comment: Campu s: M Performed By: #### L 200.88834 ####[facility] RIUISRJIPA4482 [place], [place] [address]Bh# [phone] Basophils/100 WBC (Bld) 0.2 % Normal 0-2 [facility]ader Comment on above: Order Comment: Campu s: M Performed By: #### L 200.69118 ####[facility] KPESYHHZFH[address] [place] [address]Ir# [phone] EOS ABS 0.00 K/CU MM Normal 0-0.5 [facility]ader Comment on above: Order Comment: Campu s: M Performed By: #### L 200.05242 ####[address] [address]Vu# [phone] Eosinophils/100 WBC (Bld) 0.3 % Normal 0-5 [facility] Comment on above: Order Comment: Campu s: M Performed By: #### L 200.30000 ####[facility] BMEWHFFNLB[address] [place] [address]Su# [phone] Erythrocyte distribution width Ratio (RBC) 14.6 % High 11-14.5 [facility] Comment on above: Order Comment: Campu s: M Performed By: #### L 200.99953 ####[facility] IIVYPGQYEC[address] [place] [address]Zi# [phone] Hematocrit Volume Fraction (Bld) 18.8 % Critically low 41.0-53.0 [facility] Comment on above: Order Comment: Campu s: M Result Comment: Repe ated and verified.. Critical result verified and has been called to Eren CONWAY RN by Carli Duval on 02/19/18 at 07:11, and has been read back. Performed By: #### L 200.14145 ####[facility] BNNJYUIXLJ19[address] [place] [address]Fg# [phone] Hemoglobin mass conc (Bld) 6.2 g/dL Critically low 13.5-17.5 [facility] Comment on above: Order Comment: Campu s: M Result Comment: Repe ated and verified.. Critical result verified and has been called to Eren CONWAY RN by Carli Duval on 02/19/18 at 07:11, and has been read back. Performed By: #### L 200.96896 ####[place] [address]Ph# [phone] IMMATR GRAN ABS 0.10 K/CU MM Normal Less than 2 [facility] Vader Comment on above: Order Comment: Campu s: M Performed By: #### L 200.01914 ####[place] [address]Ph# [phone] IMMATURE GRAN % 1.1 % Normal Less than 2 [facility]ader Comment on above: Order Comment: Campu s: M Performed By: #### L 200.44284 ####[place] [address]Ph# [phone] Lymphocytes #/vol (Bld) 1.00 K/CU MM Normal 0.9-4.4 [facility] Comment on above: Order Comment: Campu s: M Performed By: #### L 200.07854 ####[place] [address]Ph# [phone] Lymphocytes/100 WBC (Bld) 14.5 % Low 20-40 [facility] Comment on above: Order Comment: Campu s: M Performed By: #### L 200.33855 ####[place] [address]Ph# [phone] MCHC mass conc (RBC) 33.0 g/dL Normal 32.0-36.0 [facility] Comment on above: Order Comment: Campu s: M Performed By: #### L 200.56219 ####[facility] JCPSXXEZSY[address] [place], [place] [address]Ph# [phone] MCV Entitic volume (RBC) 88.7 fL Normal 80.0-99.0 [facility] Comment on above: Order Comment: Campu s: M Performed By: #### L 200.50455 ####[facility] MYUYEYDEOQ[address] [place] [address]Ld# [phone] MONO ABS 0.50 K/CU MM Normal 0.1-1.1 [facility] Comment on above: Order Comment: Campu s: M Performed By: #### L 200.92601 ####[place] [address]Ph# [phone] Monocytes/100 WBC (Bld) 7.1 % Normal 2-10 [facility] Comment on above: Order Comment: Campu s: M Performed By: #### L 200.28803 ####[place] [address]Ph# [phone] NEUTROPHIL ABS 5.10 K/CU MM Normal 2.0-8.3 [facility] Comment on above: Order Comment: Campu s: M Performed By: #### L 200.35255 ####[facility] JRIGYJETYA6[address] [place], [place] [address]Ph# [phone] Neutrophils/100 WBC (Bld) 76.8 % High 45-75 [facility] Comment on above: Order Comment: Campu s: M Performed By: #### L 200.33130 ####[facility] HIBCQEBKNL[address] [place], [place] [address]Ph# [phone] Nucleated RBC/100 WBC Ratio (Bld) 0.3 % Normal Less than 1 [facility] Comment on above: Order Comment: Campu s: M Performed By: #### L 200.15580 ####[facility] ORNIQXQTEF5208[address] [place], [place] [address]Ph# [phone] Platelet mean volume Entitic volume (Bld) 10.9 fL Normal 9.4-12.4 [facility] Comment on above: Order Comment: Campu s: M Performed By: #### L 200.01420 ####[facility] FLIWXKXXEM8173 [place], [place] [address]Mw# [phone] Platelets #/vol (Bld) 76 K/CU MM Low 150-450 [facility] Vader Comment on above: Order Comment: Campu s: M Result Comment: Conf irmed by slide estimate. Performed By: #### L 200.05214 ####[facility] FRTDYFTLUY7753 [place], [place] [address]Mh# [phone] Platelets #/vol (Bld) MOD DECREASED Normal [facility] Comment on above: Order Comment: Campu s: M Performed By: #### L 200.05831 ####[facility] JHPCJPMNVX[address] [place] [address] 160[address]Qy# [phone] POIK 1+ Normal [facility] Comment on above: Order Comment: Campu s: M Performed By: #### L 200.42933 ####[facility] GBPMSNDUGF[address] [place] [address]Sz# [phone] RBC #/vol (Bld) 2.12 M/CU MM Low 4.50-6.00 [facility] Comment on above: Order Comment: Campu s: M Performed By: #### L 200.40221 ####[facility] DKDYIYRUPW[address] [place] [address]Im# [phone] WBC #/vol (Bld) 6.6 K/CU MM Normal 4.5-11.0 [facility] Comment on above: Order Comment: Campu s: M Performed By: #### L 200.69910 ####[facility] RSSNQECUXO[address] [place] [address]My# [phone] CMPon 02-19-2018 Albumin mass conc 2.5 g/dL Low 3.2-5.0 [facility] Comment on above: Order Comment: Campu s: M Performed By: #### L 500.93520, L500.17702 ####[facility] OGBKYEHKPB8991 [place], [place] [address]Jc# [phone] Albumin/Globulin mass ratio 1.3 {ratio} Normal 0.8-2.0 [facility] Comment on above: Order Comment: Campu s: M Performed By: #### L 500.56658, L500.76485 ####[facility] WLLTRJUZJN1057 [place], [place] [address]Fv# [phone] ALK PHOS 53 U/L Normal 45-117 [facility] Comment on above: Order Comment: Campu s: M Performed By: #### L 500.49399, L500.35506 ####[facility] TCJLNENZEG1569 [place], [place] [address]Ha# [phone] ALT enzyme act/vol 12 U/L Low 13-61 [facility] Comment on above: Order Comment: Campu s: M Result Comment: RESU LTS MAY BE FALSELY DEPRESSED AFTER THE ADMINISTRATION OF SULFASALAZINE AND/OR SULFAPYRIDINE. Performed By: #### L 500.63878, L500.53170 ####[facility] ZKJNXVJMJY6239 [place], [place] [address]Kp# [phone] Anion gap molar conc 9 mmol/L Normal 5-16 [facility] Comment on above: Order Comment: Campu s: M Performed By: #### L 500.77742, L500.10724 ####[facility] FTSOGUJDIO7136 [place], [place] [address]Gp# [phone] BILI TOTAL 0.7 MG/DL Normal 0.2-1.0 [facility] Comment on above: Order Comment: Campu s: M Performed By: #### L 500.63709, L500.28022 ####[facility] SXMJUYZQVE0375 [place], [place] [address]Jd# [phone] Calcium mass conc 7.2 mg/dL Low 8.5-10.1 [facility] Comment on above: Order Comment: Campu s: M Performed By: #### L 500.04680, L500.30686 ####[facility] VTFBJKYFFU1896 [place], [place] [address]Am# [phone] Chloride molar conc 108 mmol/L High 98-107 [facility] Comment on above: Order Comment: Campu s: M Performed By: #### L 500.35700, L500.63293 ####[facility] HLJKTPHLVI6037 [place], [place] [address]Au# [phone] CO2 molar conc 21 mmol/L Normal 21-32 [facility] Comment on above: Order Comment: Campu s: M Performed By: #### L 500.28969, L500.88764 ####[facility] FYLUKUBBEN0852 [place], [place] [address]Yc# [phone] Creatinine mass conc 0.663 mg/dL Low 0.670-1.170 [facility] Comment on above: Order Comment: Campu s: M Result Comment: Cynthia ents receiving either N-Acetylcysteine (NAC) or Metamizole prior to venipuncture, may have falsely depressed results. Performed By: #### L 500.94149, L500.79426 ####[facility] OEOKHNAPAJ[address] [place] [address]Rg# [phone] Globulin mass conc (S) 1.9 g/dL Low 2.2-4.2 [facility] Comment on above: Order Comment: Campu s: M Performed By: #### L 500.86513, L500.84185 ####[facility] UOHKINASUN5430 [place], [place] [address]Aq# [phone] Glucose mass conc 83 mg/dL Normal 70-100 [facility] Comment on above: Order Comment: Campu s: M Result Comment: 70-1 00- Normal Fasting; 100-125 Impaired Fasting; greater than 126 on more than one result- Diabetes. ADA guidelines. Results may be falsely elevated after the administration of Sulfapyridine. Results may be falsely depressed after the administration of Sulfasalazine. Performed By: #### L 500.37357, L500.40010 ####[facility] MXOLCTGWUL5067 [place], [place] [address]Cr# [phone] Potassium molar conc 3.4 mmol/L Low 3.5-5.1 [facility]ader Comment on above: Order Comment: Campu s: M Performed By: #### L 500.48413, L500.58046 ####[facility] QJOYCPNWGE6242 [place], [place] [address]Xo# [phone] Protein mass conc 4.4 g/dL Low 6.0-8.5 [facility] Comment on above: Order Comment: Campu s: M Performed By: #### L 500.64538, L500.27555 ####[facility] HKWGHEVTPQ1963 [place], [place] [address]Rg# [phone] SGOT (AST) 13 U/L Normal 8-34 [facility] Comment on above: Order Comment: Campu s: M Result Comment: RESU LTS MAY BE FALSELY DEPRESSED AFTER THE ADMINISTRATION OF SULFASALAZINE AND/OR SULFAPYRIDINE. Performed By: #### L 500.31431, L500.78908 ####[facility] LXRIZVUCHC1314 [place], [place] [address]Ct# [phone] Sodium molar conc 139 mmol/L Normal 136-145 [facility] Comment on above: Order Comment: Campu s: M Performed By: #### L 500.77694, L500.39469 ####[facility] VTXDYEDUNC9171 [place], [place] [address]Db# [phone] Urea nitrogen mass conc 13 mg/dL Normal 7-26 [facility] Comment on above: Order Comment: Campu s: M Performed By: #### L 500.31348, L500.40265 ####[facility] FNNQYFBDWU9687 [place], [place] [address]Bc# [phone] Urea nitrogen/Creatinine mass ratio 20 mg/mg Normal 15-24 [facility] Comment on above: Order Comment: Campu s: M Performed By: #### L 500.73254, L500.00362 ####[facility] JOUIZPMVLK5853 [place], [place] [address]Bv# [phone] GFR ESTon 02-19-2018 IF AMER Greater than 60 Normal [facility]ader Comment on above: Order Comment: Campu s: M Performed By: #### L 500.17408, L500.26516 ####[facility] CKMWLGNLBQ0591 [place], [place] [address]Re# [phone] IF non-AFR AMER Greater than 60 Normal [facility] Comment on above: Order Comment: Campu s: M Performed By: #### L 500.19016, L500.32191 ####[facility] NKNVVVCDRQ7924 [place], [place] [address]Pr# [phone] Aj 02-19-2018 Potassium molar conc 4.2 mmol/L Normal 3.5-5.1 [facility] Comment on above: Order Comment: Campu s: M: LAB DRAW Performed By: #### L 500.06054 ####[facility] EYUNMGJSCX0707 [place], [place] [address]Ko# [phone] CBCon 02-18-2018 Erythrocyte distribution width Ratio (RBC) 14.6 % High 11-14.5 [facility] Comment on above: Order Comment: Campu s: M Performed By: #### L 500.44086, L500.05364 #### [facility] [address] [place] [address] Hematocrit Volume Fraction (Bld) 24.1 % Low 41.0-53.0 [facility] Comment on above: Order Comment: Campu s: M Performed By: #### L 500.73916, L500.79326 #### [facility] [address] [place] [address] Hemoglobin mass conc (Bld) 8.0 g/dL Low 13.5-17.5 [facility] Comment on above: Order Comment: Campu s: M Performed By: #### L 500.12487, L500.79686 #### [facility] [address] [place] [address] MCHC mass conc (RBC) 33.2 g/dL Normal 32.0-36.0 [facility] Comment on above: Order Comment: Campu s: M Performed By: #### L 500.67908, [id number] #### [facility] [address] [place] [address] MCV Entitic volume (RBC) 87.0 fL Normal 80.0-99.0 [facility] Comment on above: Order Comment: Campu s: M Performed By: #### L 500.34998, [id number] #### [facility] [address] [place] [address] Nucleated RBC/100 WBC Ratio (Bld) 0.0 % Normal Less than 1 [facility] Comment on above: Order Comment: Campu s: M Performed By: #### L 500.60509, L500.81471 #### [facility] [address] [place] [address] Platelet mean volume Entitic volume (Bld) 10.4 fL Normal 9.4-12.4 [facility] Comment on above: Order Comment: Campu s: M Performed By: #### L 500.18359, L500.48777 #### [facility] [address] [place] [address] Platelets #/vol (Bld) 84 K/CU MM Low 150-450 [facility] Comment on above: Order Comment: Campu s: M Result Comment: Conf irmed by slide estimate. Performed By: #### L 500.68157, L500.66975 #### [facility] [address] [place] [address] RBC #/vol (Bld) 2.77 M/CU MM Low 4.50-6.00 [facility] Comment on above: Order Comment: Campu s: M Performed By: #### L 500.68311, L500.18955 #### [facility] [place] [id number] WBC #/vol (Bld) 10.5 K/CU MM Normal 4.5-11.0 [facility] Comment on above: Order Comment: Campu s: M Performed By: #### L 500.54789, L500.36667 #### [facility] [address] [place] [address] CMPon 02-18-2018 Albumin mass conc 3.1 g/dL Low 3.2-5.0 [facility] Comment on above: Order Comment: Campu s: M Performed By: #### L 500.68862, L500.14852 #### [facility] [address] [place] [address] Albumin/Globulin mass ratio 1.4 {ratio} Normal 0.8-2.0 [facility] Comment on above: Order Comment: Campu s: M Performed By: #### L 500.30368, L500.80707 #### [facility] [address] [place] [address] ALK PHOS 66 U/L Normal 45-117 [facility] Comment on above: Order Comment: Campu s: M Performed By: #### L 500.75636, L500.97242 #### [facility] [address] [place], [place] [id number] ALT enzyme act/vol 12 U/L Low 13-61 [facility] Comment on above: Order Comment: Campu s: M Result Comment: RESU LTS MAY BE FALSELY DEPRESSED AFTER THE ADMINISTRATION OF SULFASALAZINE AND/OR SULFAPYRIDINE. Performed By: #### L 500.59771, L500.23829 #### [facility] [address] [place], [place] [id number] Anion gap molar conc 9 mmol/L Normal 5-16 [facility] Comment on above: Order Comment: Campu s: M Performed By: #### L 500.67503, L500.71758 #### [facility] [address] [place] [address] BILI TOTAL 0.9 MG/DL Normal 0.2-1.0 [facility] Comment on above: Order Comment: Campu s: M Performed By: #### L 500.97754, L500.72619 #### [facility] [address] [place] [address] Calcium mass conc 8.3 mg/dL Low 8.5-10.1 [facility] Comment on above: Order Comment: Campu s: M Performed By: #### L 500.72564, L500.78841 #### [facility] [address] [place] [address] Chloride molar conc 102 mmol/L Normal 98-107 [facility] Comment on above: Order Comment: Campu s: M Performed By: #### L 500.21776, L500.52054 #### [facility] [address] [place] [address] CO2 molar conc 24 mmol/L Normal 21-32 [facility] Comment on above: Order Comment: Campu s: M Performed By: #### L 500.29139, L500.64053 #### [facility] [address] [place] [address] Creatinine mass conc 0.781 mg/dL Normal 0.670-1.170 [facility] Comment on above: Order Comment: Campu s: M Result Comment: Cynthia ents receiving either N-Acetylcysteine (NAC) or Metamizole prior to venipuncture, may have falsely depressed results. Performed By: #### L 500.06448, L500.98470 #### [facility] [address] [place] [address] Globulin mass conc (S) 2.1 g/dL Low 2.2-4.2 [facility] Comment on above: Order Comment: Campu s: M Performed By: #### L 500.63446, L500.66965 #### [facility] [address] [place], [place] [id number] Glucose mass conc 107 mg/dL High 70-100 [facility] Comment on above: Order Comment: Campu s: M Result Comment: 70-1 00- Normal Fasting; 100-125 Impaired Fasting; greater than 126 on more than one result- Diabetes. ADA guidelines. Results may be falsely elevated after the administration of Sulfapyridine. Results may be falsely depressed after the administration of Sulfasalazine. Performed By: #### L 500.57409, L500.61504 #### [facility] [address] [place] [address] Potassium molar conc 4.1 mmol/L Normal 3.5-5.1 [facility] Comment on above: Order Comment: Campu s: M Performed By: #### L 500.54154, L500.40660 #### [facility] [address] [place] [address] Protein mass conc 5.2 g/dL Low 6.0-8.5 [facility] Comment on above: Order Comment: Campu s: M Performed By: #### L 500.98480, L500.20568 #### [facility] [address] [place], [place] [id number] SGOT (AST) 15 U/L Normal 8-34 [facility] Comment on above: Order Comment: Campu s: M Result Comment: RESU LTS MAY BE FALSELY DEPRESSED AFTER THE ADMINISTRATION OF SULFASALAZINE AND/OR SULFAPYRIDINE. Performed By: #### L 500.85181, L500.46704 #### [facility] [address] [place] [address] Sodium molar conc 135 mmol/L Low 136-145 [facility] Comment on above: Order Comment: Campu s: M Performed By: #### L 500.54814, L500.25254 #### [facility] [address] [place] [address] Urea nitrogen mass conc 15 mg/dL Normal 7-26 [facility] Comment on above: Order Comment: Campu s: M Performed By: #### L 500.08540, L500.97681 #### [facility] [address] [place] [address] Urea nitrogen/Creatinine mass ratio 19 mg/mg Normal 15-24 [facility] Comment on above: Order Comment: Campu s: M Performed By: #### L 500.31690, L500.91923 #### [facility] [address] [place] [address] GFR ESTon 02-18-2018 IF AMER Greater than 60 Normal [facility] Comment on above: Order Comment: Campu s: M Performed By: #### L 500.10439, L500.40356 #### [facility] [address] [place] [address] IF non-AFR AMER Greater than 60 Normal [facility] Comment on above: Order Comment: Campu s: M Performed By: #### L 500.43022, L500.81686 #### [facility] [address] [place] [address] OTPNon 02-18-2018 OTPN Occupational Therapy Inpatient Treatment Note Medical Diagnosis: CAD s/p CABGx3 02/15 OCCUPATIONAL PROFILE AND HISTORY Demographics: Age: 62Y Gender: Male Primary Language: Citizen Of [place] Preferred Language: Citizen Of [place] Referring Service/Team: Cardiology Rehabilitation Precautions/Restrictions: Cardiac, Sternal, fall risk, Patient Report: IM GOING HOME, MY SIGNIFICANT OTHER WILL HELP ME Patient/Caregiver Goals: Get home Pain: Patient currently without complaints of pain. OBJECTIVE / OCCUPATIONAL PERFORMANCE General Observation: SEEN THIS DATE, PATIENT UP IN CHAIR, PLEASANT AND COOPERATIVE AND WILING TO WORK Activities of Daily Living: Current Status Previous Status ADLs Feeding - Independent Grooming - Supervision Bathing-UE - Minimal assistance Bathing-LE - Minimal assistance Dressing-UE - Minimal assistance Dressing-LE Supervision Minimal assistance Toileting - Minimal assistance AM-[facility] Daily Activities: Putting On/Taking Off Lower Body Clothing: A little help needed Bathing:: A little help needed Toileting: A little help needed Putting On/Taking Off Upper Body Clothing: A little help needed Grooming: A little help needed Eating a Meal: No help needed Raw Score = 19 , AM-PAC t-Scale Score = 40.22 and G-Code Modifier = CK Functional Mobility: Bed Mobility: Not assessed. Transfers: Patient transferred bed to/from chair requiring supervision. Patient used the following equipment: Rolling walker. [facility] NAME: FATUMA SIGALA [facility] Dr. Oh MEDICAL REC #: [id number] [place] [address] ADMIT DATE: 02/15/18 SERVICE DATE: 02/18/18 Occupational Therapy Progress Note ATTENDING PHY: Jaswinder Hdez MD Patient transferred sit to/from stand requiring supervision. Patient used the following equipment: Arms of chair. Locomotion/Gait/Ambulation : Not assessed/applicable Interventions: Self Care/Home Management: LE DRESSING, TRANSFERS, STANDING BALANCE, WW SAFETY, SELF PACING Therapeutic Exercise: CARDIAC EXS SITTING IN CHAIR X 10 REPS W/ REST BREAKS Pain Reassessment: No significant change in pain during session. Education: Education Provided: Precautions. Plan of care. Safety issues and interventions. Fall protocol. Supervision requirements. Use of adaptive devices. Activities of daily living. Functional transfers. Home exercise/activity plan. Audience: Patient. Mode: Explanation. Demonstration. Response: Needs practice. Needs reinforcement. ASSESSMENT Response to Visit: GOOD PARTICIPATION, FEEL HE WILL CONT TO PROGRESS FOR HOMEGOING W/ FAMILY AND 24 HOUR CARE Activity/Participation Problem List and Goals: No updates at this time. Progress Toward Goals: TREATMENT GOAL REVIEW: 1. Pt. will demo MOD I for all self care tasks while using energy conservation techs - Not Met: ONGOING 2. Pt. will MOD I for all functional transfers and I for bed mobility while maintaining his sternal/cardiac precautions - Not Met ONGOING 3. Pt. will demo MOD I for min challenge standing tasks and household distance amblation as precursor to IADLs - Not Met ONGOING 4. Pt. will be instructed in cardiac HEP and will demo I w/follow through of same while maintaining his vitals WNL to increase safety for homegoing tasks - Not Met ONGOING Time frame to achieve treatment goal(s): 1-2 wks PLAN Treatment Frequency, Duration and Interventions: Occupational Therapy is recommended for 5x/wk until discharged Occupational Therapy treatment is to include: Graded ADLs and IADLs, graded balance and endurance tasks, transfer training, discharge planning, pt/family instruct, energy conservation tech training. Cardiac HEP, walker safety training Recommended Occupational Therapy Follow Up: Upon acute care discharge, the following is currently recommended: Home exercise program. [facility] PATIENT NAME: FATUMA SIGALA [facility] Dr. Oh MEDICAL REC #: [id number] [place] [address] ADMIT DATE: 02/15/18 SERVICE DATE: 02/18/18 Occupational Therapy Progress Note ATTENDING PHY: Jaswinder Hdez MD Equipment Recommended: TBD Possibly a wheeled walker Recommended Consults: None currently. Development of Plan of Care: Patient participated in plan of care development today. If there are any questions regarding this service, please contact the Acute Therapy Department at extension [phone] Communication to Nursing: No updates at this time. Location of Patient at End of Therapy Session: In chair, call light within reach Services: Total Billed: 38 minutes (Timed: 38, Untimed: 0) 15.00 Timed: [41259] ADL-HOME MANAGEMENT EA 15 MIN 23.00 Timed: [32503] THERAPEUTIC EXERCISE EA 15 MIN 0.00 Untimed: [] OT Treatment General ORDER Signed by: CHRISTELLE JAVIER/Melly 02/18/2018 11:47:29 - CoSigned By: NEYMAR MURPHY OTR/Melly 02/18/2018 11:55:44 AM [facility] PATIENT NAME: FATUMA SIGALA Dr. Oh MEDICAL REC #: [id number] [place] [address] ADMIT DATE: 02/15/18 SERVICE DATE: 02/18/18 Occupational Therapy Progress Note ATTENDING PHY: Jaswinder Hdez MD [facility] Protein mass [facility] PROG.CTSon 02-18-2018 Protein mass [facility] Patient Name: FATUMA SIGALA [address] Date of : [address] [place], [place] [address] Unit Number: [id number] Progress Note-CTS Patient Status: DIS IN Attending Doctor: Jaswinder Hdez MD Service Date: 02/18/18 0937 Subjective S: (2 ROS minimum) States he is doing well. C/o of slight incisional pain. Denies SOB. Objective (ROS) Nursing Vitals Vital Signs (Last) Result Date Time Pulse Ox 95 02/18 0800 B/P Mean 72 02/19 800 O2 Delivery NASAL CANNULA 02/19 800 O2 Flow Rate 4L 02/19 800 Temp 97.8 02/18 08 Pulse 73 02/18 0800 Resp 20 02/19 800 FiO2 40 02/18 1952 Vital Signs (24hr) Date Temp Pulse Resp B/P B/P Mean Pulse Ox FiO2 02/17-02/18 97.8-98.9 68-84 18-22 58-82 94-99 40 General Appearance Sitting up in chair, NAD. Physical Exam Neurological / Psychiatric Alert, Orientation X3, Affect Normal Respiratory CTAB upper lung marcano, decreased bases. Cardiovascular Heart RRR, No M / R / G, Pulse Intact Gastrointestinal Tinkling BS,soft, NT. Musculoskeletal Trace BLE edema Skin Warm / Dry, Surgical DDI. Lymphatic / Heme No Bleeding Telemetry: SR Current Inpatient Medications: Medications Current Sig/Sophie Start time Last Medication Dose Route Stop Time Status Admin Albumin Human 200 ML DIRECTED PRN 02/15 1630 AC (ALBUMIN 25% VIAL) IV Albuterol Sulfate 2.5 MG QIDRT 02/15 2110 AC 02/18 (VENTOLIN/PROVENTIL INH 0817 2.5MG/3ML INH.NEB) Albuterol Sulfate 2.5 MG Q2HPRN PRN 02/15 1630 AC (VENTOLIN/PROVENTIL INH 2.5MG/3ML INH.NEB) Amiodarone HCl 400 MG BID 02/17 0900 AC 02/17 (CORDARONE TAB) PO 213 Amiodarone HCl 300 MG DIRECTED PRN 02/15 1630 AC (CORDARONE VIAL) IV Sodium Chloride 50 ML (Sodium Chloride 0.9%) Ascorbic Acid 500 MG QDAY 02/17 0900 AC 02/17 (VITAMIN C TAB) PO 08 Aspirin 81 MG QDAYWM 02/16 0800 AC 02/17 (ECOTRIN TAB.EC) PO 08 Atorvastatin Calcium 20 MG QHS 02/16 2200 AC 02/17 (LIPITOR TAB) PO 213 Bisacodyl 10 MG ONCE ONE 02/18 0950 AC (DULCOLAX RECT) RC 02/18 0951 Calcium Chloride 10 ML DIRECTED PRN 02/15 1630 AC 02/16 (calcium CHLORIDE IV 0251 10% VIAL) Sodium Chloride 50 ML (Sodium Chloride 0.9%) Calcium Chloride 10 ML DIRECTED PRN 02/15 1630 AC (calcium CHLORIDE IV 10% D.SYR) Clopidogrel Bisulfate 75 MG QHS 02/16 2200 AC 02/17 (PLAVIX TAB) PO 213 Dextrose/Water See Dose DIRECTED PRN 02/15 1630 AC (DEXTROSE 50%/WATER Insts (1) IV ABBOJECT) Docusate Sodium 100 MG BID 02/16 0900 AC 02/17 (COLACE CAP) PO 213 Epinephrine 8 MG TITRATE(SEE EVELYN VF.. 02/15 1630 AC (EPINEPHRINE 1MG/ML IV AMP) Sodium Chloride 250 ML (Sodium Chloride 0.9%) Ferrous Sulfate 325 MG QDAYAC 02/16 0700 AC 02/18 (FEOSOL TAB.EC) PO 05 Folic Acid 1 MG QDAY 02/17 0900 AC 02/17 (FOLVITE TAB) PO 08 Heparin Sodium See Dose Q24H 02/16 0900 AC 02/16 (Porcine) Insts (2) IV 0857 (HEP-LOCK *10*UNITS/ ML IV D.SYR.PF) Heparin Sodium 5,000 UNIT Q12H 02/16 0900 AC 02/17 (Porcine) SC 213 (HEPARIN D.SYR) Hydrocodone Bitart/ 1 EACH Q4HPRN PRN 02/17 1630 AC 02/18 Acetaminophen PO 0836 (NORCO 5-325 TAB) Hydrocodone Bitart/ 2 EACH Q4HPRN PRN 02/17 1630 AC Acetaminophen PO (NORCO 5-325 TAB) Insulin Human Regular 100 UNITS TITRATE(SEE EVELYN VFS) 02/15 1630 AC (novoLIN R (humuLIN) IV VIAL) Sodium Chloride 100 ML (Sodium Chloride 0.9%) Lidocaine HCl/ 500 ML CONT 02/15 1630 AC 02/16 Dextrose IV 0602 (LIDOCAINE 2000MG/ 500ML D5W PREMIX) Lorazepam 1 MG Q1HPRN PRN 02/15 1630 AC (ATIVAN VIAL) IV Lorazepam 2 MG Q1HPRN PRN 02/15 1630 AC (ATIVAN VIAL) IV Magnesium Hydroxide 30 ML ONCE ONE 02/18 0950 AC (MILK OF MAGNESIA PO 02/18 0951 ORAL LIQ) Magnesium Sulfate 50 ML PRN PRN 02/15 2100 AC (Magnesium Sulfate IV 4gm/50ml premix) Magnesium Sulfate 50 ML DIRECTED PRN 02/15 1630 AC (Magnesium Sulfate IV 2gm/50ml premix) Melatonin 5 MG QHS 02/15 2200 AC 02/17 (MELATONIN TAB) PO 2130 Meperidine HCl 12.5 MG Q4HPRN PRN 02/15 1630 AC (DEMEROL D.SYR) IV Morphine Sulfate 2 MG Q1HPRN PRN 02/15 1630 AC 02/15 (MORPHINE D.SYR) IV 222 Morphine Sulfate 4 MG Q1HPRN PRN 02/15 1630 AC (MORPHINE D.SYR) IV Mupirocin 1 APPL BID 02/15 2100 AC 02/17 (BACTROBAN 2% T.OINT) TP 02/20 0901 2140 Nicardipine HCl 50 MG TITRATE(SEE EVELYN VF.. 02/15 1630 AC (CARDENE VIAL) IV Sodium Chloride 250 ML (Sodium Chloride 0.9%) Norepinephrine 8 MG TITRATE(SEE EVELYN VFS) 02/15 1630 AC 02/18 Bitartrate IV 0529 (LEVOPHED AMP) Sodium Chloride 250 ML (Sodium Chloride 0.9%) Ondansetron HCl 4 MG Q6HPRN PRN 02/15 1630 AC (ZOFRAN VIAL) IV Oxycodone HCl 5 MG Q4HPRN PRN 02/15 1630 AC 02/18 (OXYIR TAB) PO 0546 Pantoprazole Sodium 40 MG QDAYAC 02/18 0700 AC 02/18 (PROTONIX TAB) PO 0529 Polyethylene Glycol 17 GM QDAY 02/16 0900 AC 02/17 (MIRALAX PACKT) PO 0817 Potassium Chlo/Pot 50 MEQ PRN PRN 02/17 1630 AC Bicarb/Citric Ac PO (k-lyte/CL 25MEQ TAB.EFF CL FRUIT PUNCH) Potassium Chloride 40 MEQ PRN PRN 02/17 1630 AC (K-DUR TAB.SA) PO Potassium Chloride 50 ML PRN PRN 02/15 2100 AC (potassium IV (KCL)CHLOR/SW 20MEQ/ 50 ML PREMIX) Propofol 100 ML TITRATE(SEE EVELYN VFS) 02/15 1630 AC (DIPRIVAN 10MG/ML IV 100 ML BOTTLE) Sodium Bicarbonate See Dose DIRECTED PRN 02/15 1630 AC (SODIUM BICARB 8.4% Insts (3) IV ABBOJECT D.SYR) Sodium Chloride 3 ML Q8H 02/15 2200 AC 02/18 (Sodium Chloride IV 0529 0.9% FLUSH D.SYR) Sodium Chloride 1,000 ML CONT 02/15 1630 AC (Sodium Chloride IV 0.9%) Sodium Chloride See Dose PRN PRN 02/15 1630 AC (Sodium Chloride Insts (4) IV 0.9% FLUSH D.SYR) Sodium Chloride 3 ML PRN PRN 02/15 1630 AC (Sodium Chloride IV 0.9% FLUSH D.SYR) Sodium Phosphate 20 MEQ PRN PRN 02/15 1630 AC 02/15 (sodium (NaPHOS) IV 2250 PHOS (mEq) VIAL) Sodium Chloride 50 ML (Sodium Chloride 0.9%) Tamsulosin HCl 0.4 MG QDAYPC 02/16 0900 AC 02/17 (FLOMAX CAP) PO 0817 Dose Instructions: (1)Dextrose/Water (DEXTROSE 50%/WATER ABBOJECT): 1-100 MLS (2)Heparin Sodium (Porcine) (HEP-LOCK *10*UNITS/ML IV D.SYR.PF): 50-200 UNITS (3)Sodium Bicarbonate (SODIUM BICARB 8.4% ABBOJECT D.SYR): 50-150 MLS (4)Sodium Chloride (Sodium Chloride 0.9% FLUSH D.SYR): 10-40 ML Diagnostic Data: Laboratory Tests 02/18 02/17 02/16 02/16 02/16 0528 0815 2128 1617 1228 Chemistry Sodium (136 - 145 MMOL/L) 135 L Potassium (3.5 - 5.1 MMOL/L) 4.1 Chloride (98 - 107 MMOL/L) 102 Carbon Dioxide (21 - 32 MMOL/L) 24 Anion Gap (5 - 16 MMOL/L) 9 BUN (7 - 26 MG/DL) 15 Creatinine (0.670 - 1.170 MG/DL) 0.781 Est GFR ( Amer) (ML/MIN) Greater than 60 Est GFR (Non-Af Amer) (ML/MIN) Greater than 60 BUN/Creatinine Ratio (15 - 24) 19 Glucose (70 - 100 MG/DL) 107 H Whole Bld Glucose (85 - 125 MG/DL) 126 H 129 H 116 123 Total Calcium (8.5 - 10.1 MG/DL) 8.3 L Total Bilirubin (0.2 - 1.0 MG/DL) 0.9 AST (8 - 34 U/L) 15 ALT (13 - 61 IU/L) 12 L Alkaline Phosphatase (45 - 117 U/L) 66 Serum Total Protein (6.0 - 8.5 GM/DL) 5.2 L Albumin (3.2 - 5.0 GM/DL) 3.1 L Globulin (2.2 - 4.2 GM/DL) 2.1 L Albumin/Globulin Ratio (0.8 - 2.0) 1.4 Hematology WBC (4.5 - 11.0 K/CU MM) 10.5 RBC (4.50 - 6.00 M/CU MM) 2.77 L Hgb (13.5 - 17.5 G/DL) 8.0 L Hct (41.0 - 53.0 %) 24.1 L MCV (80.0 - 99.0 fl) 87.0 MCHC (32.0 - 36.0 GM/DL) 33.2 RDW (11 - 14.5) 14.6 H Plt Count (150 - 450 K/CU MM) 84 L MPV (9.4 - 12.4) 10.4 Nucleated RBCs (Less than 1 %) 0.0 Assessment and Plan Conclusion 1. CAD (coronary artery disease) 62 YO MALE history of an angioplasty/FER to the LAD back in 2012. FER to the RCA in 2013, PVD S/P PCI by Dr. Hill remotely. Presented with c/o palpitations/vague chest pain. Cardiac w/u revealed significant occlusive CAD. S/P CABG. DATE OF SERVICE: 02/15/2018 OPERATION: 1. Coronary artery bypass graft x4 with: 2. Sbqi-bhvrwbuc-vkdfvrt-iris ry to the ifku-vpitgxhz-gwgilmwdih. 3. Vein to the high diagonal. 4. Vein to the posterior descending. 5. Vein to posterolateral. 6. Endoscopic harvest of the thighs on both sides. 7. Transesophageal echocardiography. SURGEON: Jaswinder Hdez MD EF 60% EXTUBATED/STABLE OOB/ INCREASE ACTIVITY ASA/plavix Levo 3mcg/min 2. HTN (hypertension) Monitor 3. Dyslipidemia Statin prior to DC 4. Acute blood loss anemia LAB-CBC Selected (72hr) 02/18 02/16 02/15 0528 0609 1753 Chemistry Iron (65 - 175 UG/DL) 20 Iron Saturation (30 - 44 %) 12 Hematology WBC (4.5 - 11.0 K/CU MM) 10.5 19.3 4.5 Hgb (13.5 - 17.5 G/DL) 8.0 10.1 12.4 Hct (41.0 - 53.0 %) 24.1 29.9 36.4 Plt Count (150 - 450 K/CU MM) 84 97 97 MOnitor Po Fe+ Collaborating Physician Jaswinder Hdez MD Disclaimer This dictation was created using voice recognition software. Phonetic and/or minor grammatical errors may exist. eSign Date and Time Johanny Desai [employer]TER Verified/Reviewed by 03/15/18 1600 [facility] Protein mass conc [facility] PTPNon 02-18-2018 Protein mass [facility] PTPN Physical Therapy Inpatient Treatment Note Medical Diagnosis: S/p CABG x4 secondary to CAD 02/15/18 Demographics: Age: 62Y Gender: Male Primary Language: Citizen Of [place] Preferred Language: Citizen Of [place] Rehabilitation Precautions/Restrictions: Cardiac, Sternal, fall risk SUBJECTIVE Patient Report: I feel pretty good Patient/Caregiver Goals: Get home Pain: Patient currently has pain. Patient reports a pain level of 3 out of 10. Interventions: Repositioned patient. OBJECTIVE General Observation: Pt sitting up in chair; agreeable to work with PT. Functional Activities After Today's Session: Transfers: Patient transferred sit to/from stand requiring supervision. Patient used the following equipment: Arms of chair. Locomotion/Ambulation: Patient was stand by assist with gait/ambulation for 45'x2 . No assistive devices were required. good reciprocal gait pattern without AD; no LOB or c/o dizziness; mild dyspnea noted on 2L Stairs: Not assessed. Curb Negotiation: Not assessed. AM-PAC Basic Mobility: Turning Over in Bed: A little difficulty Sitting/Standing Chair with Arms: A little difficulty Lying on Back to Sitting on Side of Bed: A little difficulty Moving To/From Bed to Chair: A little help needed Walking in Hospital Room: A little help needed Climbing 3-5 Steps with Railing: A little help needed Raw Score = 18 , AM-PAC t-Scale Score = 43.63 and G-Code Modifier = CK Vital Signs: Vitals: All VSS; O2 sats 91% upon return to room. Interventions: Therapeutic Activities: functional transfers, Gait, therex, safety; pt able to state all sternal precautions without cues Pain Reassessment: No significant change in pain during session. [facility] PATIENT NAME: FATUMA SIGALA [facility] Dr. Oh MEDICAL REC #: [id number] [place] [address] ADMIT DATE: 02/15/18 SERVICE DATE: 02/18/18 Physical Therapy Progress Note ATTENDING PHY: Jaswinder Hdez MD Education: Education Provided: Precautions. Plan of care. Bed mobility. Functional transfers. Gait. Safety. Home exercise/activity plan. Audience: Patient. Mode: Explanation. Demonstration. Response: Needs practice. ASSESSMENT Response to Visit: Good overall tolerance for mobility, gait and safety with transfers without AD. Anticipate home with SO to assist as needed when medically ready. Activity/Participation Problem List and Goals: No updates at this time. Progress Toward Goals: TREATMENT GOAL REVIEW: 1. bed mobility supervision within sternal precautions - Not Met: ongoing 2. Functional transfers supervision with LRAD. - Met 3. Ambulate at least 50' supervision with LRAD. - Not Met ongoing 4. Negotiate up/down 1 step supervision without handrail. - Not Met: NT 5. Complete 15 reps BLE PREs (I) to increase activity tolerance. - Not Met: ongoing Time frame to achieve treatment goal(s): 2 weeks PLAN Treatment Frequency, Duration and Interventions: Continue Physical Therapy to achieve goals per previously established Plan of Care. bed mobility, functional transfers, gait, therex, stairs, safety Recommended Physical Therapy Follow Up: Upon acute care discharge, the following is currently recommended: Home exercise program. Recommended Equipment: None issued this visit. Recommended Consults: None currently. Development of Plan of Care: Patient participated in plan of care development today. If there are any questions regarding this service, please contact the Acute Therapy Department at extension [phone] Communication to Nursing: No updates at this time. Location of Patient at End of Therapy Session: In chair, call light within reach Services: Total Billed: 24 minutes (Timed: 24, Untimed: 0) 24.00 Timed: [62658] THER ACTIVITIES / 15 MIN [facility] PATIENT NAME: FATUMA SIGALA Delma Oh MEDICAL REC #: [id number] [place] [address] ADMIT DATE: 02/15/18 SERVICE DATE: 02/18/18 Physical Therapy Progress Note ATTENDING PHY: Jaswinder Hdez MD 0.00 Untimed: [] PT Treatment- General ORDER Signed by: June Camarena, 02/18/2018 15:57:37 [facility] PAT[facility] MEDICAL REC #: [id number] [place] [address] ADMIT DATE: 02/15/18 SERVICE DATE: 02/18/18 Physical Therapy Progress Note ATTENDING PHY: Jaswinder Hdez MD Normal [facility] GLUCOSE METERon 02-17-2018 Glucose mass conc 126 mg/dL High 85-125 [facility] OTARon 02-17-2018 OT Assessment Report Normal [facility] OTA Occupational Therapy Inpatient Evaluation Medical Diagnosis: CAD s/p CABGx3 02/15 OCCUPATIONAL PROFILE AND HISTORY Therapy Diagnosis: Rank Code Description 1 Z95.1 Presence of aortocoronary bypass graft 2 Z74.1 Need for assistance with personal care Demographics: Age: 62Y Gender: Male Primary Language: Citizen Of [place] Preferred Language: Citizen Of [place] Referring Service/Team: Cardiology Past Medical History: CAD, HTN History of Present Illness: Date of Surgery: 02/15/18 Additional Information: as above Date of Admission: 02/15/2018 6:00:00 AM Rehabilitation Precautions/Restrictions: Cardiac, Sternal, fall risk, chest tube, A-line Imaging/Testing Results from Chart: n/a Prior Level of Functioning: Self Care: Patient completed the activities by him/herself, with or without an assistive device, with no assistance from a helper. Functional Cognition: Patient completed the activities by him/herself, with or without an assistive device, with no assistance from a helper. (I) without AD for all mobility and self-care Patient/Caregiver Goals: Patient's functional goals: Get home Pain: Patient currently has pain. Location: Sternal pain Type: Acute Quality: Aching. Pain Scale: Visual Analog (VAS). Patient reports a pain level of 6 out of 10. Patient's acceptable level of pain 0 out of 10. Interferes with physical activity. Pain is alleviated by: Repositioning, heart pillow Pain is exacerbated by: Movement Interventions: Repositioned patient. [facility] PATIENT NAME: FATUMA SIGALA [facility] [address] [facility] MEDICAL REC #: [id number] [place] [address] ADMIT DATE: 02/15/18 SERVICE DATE: 02/17/18 Occupational Therapy Assessment ATTENDING PHY: Jaswinder Hdez MD Home Environment: Patient lives with Significant other , who is able to assist patient at discharge. Patient lives in a single family home. Home is two levels. Patient is not required to manage stairs within the home. First floor full bathroom setup available. There are 6 steps to enter the home, with bilateral handrails. There is no ramp available to enter home. Equipment Owned: Shower chair., Walk-in shower. Marital Status: S Social History: Children: Adult son present during evaluation Reside: Unknown Employment Status: Retired Recreational Activities/Hobbies: Being out on the [employer] OBJECTIVE/OCCUPATIONAL PERFORMANCE Activities of Daily Living Current Status Previous Status ADLs Feeding Independent - Grooming Supervision - Bathing-UE Minimal assistance - Bathing-LE Minimal assistance - Dressing-UE Minimal assistance - Dressing-LE Minimal assistance - Toileting Minimal assistance - AM-PAC Daily Activities: Putting On/Taking Off Lower Body Clothing: A little help needed Bathing:: A little help needed Toileting: A little help needed Putting On/Taking Off Upper Body Clothing: A little help needed Grooming: A little help needed Eating a Meal: No help needed Raw Score = 19 , AM-PAC t-Scale Score = 40.22 and G-Code Modifier = CK Functional Mobility: Bed Mobility: Not assessed. Transfers: Patient transferred sit to/from stand requiring minimal assistance of 1 person. Patient used the following equipment: Arms of chair. Locomotion/Gait/Ambulation : Patient was minimal assist with gait/ambulation of 1 person for taking a few steps in room . Patient requires the following assistive device(s): Rolling walker. Slow but steady Range of Motion Upper Extremity: Grossly within functional limits [facility] PATIENT NAME: FATUMA SIGALA [facility] [address] MEDICAL REC #: [id number] [place] [address] ADMIT DATE: 02/15/18 SERVICE DATE: 02/17/18 Occupational Therapy Assessment ATTENDING PHY: Jaswinder Hdez MD Strength Upper Extremity: Grossly within functional limits, cardiac/sternal precautions and A-line precautions maintained Balance: Static balance in a seated position is good. Dynamic balance in a seated position is good. Static balance in a standing position is good. Dynamic balance in a standing position is fair. Tone/Spasticity: Within Functional Limits throughout. Sensation: Grossly intact. Fine Motor Coordination: Fine motor coordination was not assessed. Gross Motor Coordination: Upper extremity gross motor coordination is intact. Edema: No edema is present. Lower Extremity Function: WFL Vision: Within functional limits. Cognition: Within functional limits. Perceptual Skills: Within functional limits. Psychosocial: Within normal limits Interventions: Evaluation MOD Complexity Therapeutic Activities: Instructed pt in his cardiac/sternal precautions and he needed MIN cueing for same. Also instructed in 3 posturing exercises to do in room and he was able to complete 3 reps of same. He was given handout of same. Needs practice Pain Reassessment: No significant change in pain during session. Education: The patient's preferred learning method is: Explanation, Demonstration Barriers to Learning: Acuity of illness, Mobility Learning Needs: Precautions. Pain management. Plan of care. Rehabilitation techniques and procedures. Safety. Functional activities/mobility. Equipment. Education Provided: Precautions. Plan of care. Functional transfers. Safety. Home exercise/activity plan. Audience: Patient. Mode: Explanation. Demonstration. Response: Needs practice. [facility] PATIENT NAME: FATUMA SIGALA [facility] MEDICAL REC #: [id number] [place] [id number] ADMIT DATE: 02/15/18 SERVICE DATE: 02/17/18 Occupational Therapy Assessment ATTENDING PHY: Jaswinder Hdez MD ASSESSMENT Clinical Performance Deficits: Impaired ADLs, Impaired instrumental ADLs, Impaired functional mobility, Limited activity tolerance, Impaired balance, Pain, Impaired transfers Equipment Recommended: TBD Possibly a wheeled walker Rehabilitation Potential: Excellent Motivation/Commitment to Therapy: Good. Response to Evaluation: Pt. pamela. OT session well this pm. Feel that pt would benefit from further skilled OT services to work on his I w/all ADLs while maintaining his sternal precautions. Recommend home w/assist of significant other. Activity/Participation Problem List and Goals: Functional Impairment: Self Care Modifier: [id number] (at least 40%, but less than 60% impaired, limited, or restricted) Goal: Pt. will demo MOD I for all self care tasks while using energy conservation techs Goal Modifier: [id number] (at least 1%, but less than 20% impaired, limited or restricted) Treatment Goals: Time frame to achieve treatment goal(s): 1-2 wks 1. Pt. will demo MOD I for all self care tasks while using energy conservation techs 2. Pt. will MOD I for all functional transfers and I for bed mobility while maintaining his sternal/cardiac precautions 3. Pt. will demo MOD I for min challenge standing tasks and household distance amblation as precursor to IADLs 4. Pt. will be instructed in cardiac HEP and will demo I w/follow through of same while maintaining his vitals WNL to increase safety for homegoing tasks PLAN Treatment Frequency, Duration and Interventions: Occupational Therapy is recommended for 5x/wk until discharged Occupational Therapy treatment is to include: Graded ADLs and IADLs, graded balance and endurance tasks, transfer training, discharge planning, pt/family instruct, energy conservation tech training. Cardiac HEP, walker safety training Recommended Occupational Therapy Follow Up: Upon acute care discharge, the following is currently recommended: Home exercise program. Recommended Consults: None currently. Development of Plan of Care: Patient participated in plan of care development today. If there are any questions regarding this service, please contact the Acute [facility] PATIENT NAME: FATUMA SIGALA [facility] [address] MEDICAL REC #: [id number] [place] [address] ADMIT DATE: 02/15/18 SERVICE DATE: 02/17/18 Occupational Therapy Assessment ATTENDING JON: Jaswinder Hdez MD Therapy Department at extension 113 CARE WILL BE TRANSFERRED TO THE (CHOICE OF ACUTE OR REHAB) OCCUPATIONAL THERAPIST Communication to Nursing: No updates at this time. Location of Patient at End of Therapy Session: In chair, call light within reach Services: Total Billed: 10 minutes (Timed: 10, Untimed: 0) 10.00 Timed: [55892] THER ACTIVITIES / 15 MIN 0.00 Untimed: [62296] OT-EVALUATION MOD COMPLEX 0.00 Untimed: [] OT Evaluation ORDER 0.00 Untimed: [] OT Treatment General ORDER 0.00 Untimed: [G8987] OT-Self Care-CK 0.00 Untimed: [G8988] TP-[id number] Care-CI Signed by: NOA CARNEY 02/17/2018 17:14:33 [facility] PATIENT NAME: FATUMA SIGALA Dr. [facility] MEDICAL REC #: [id number] [place] [address] ADMIT DATE: 02/15/18 SERVICE DATE: 02/17/18 Occupational Therapy Assessment ATTENDING PHY: Jaswinder Hdez MD [facility] PROG.CTSon 02-17-2018 Protein mass [facility] Protein mass [facility] Patient Name: FATUMA SIGALA [address] Date of : [address] [address] Unit Number: [id number] Progress Note-CTS Patient Status: DIS IN Attending Doctor: Jaswinder Hdez MD Service Date: 02/17/18 0812 Subjective S: (2 ROS minimum) C/O MILD SOB/INCISIONAL PAIN Objective (ROS) Nursing Vitals Vital Signs (Last) Result Date Time Pulse Ox 99 02/17 0700 B/P Mean 72 02/17 0700 O2 Delivery NASAL CANNULA 02/17 0700 O2 Flow Rate 6L 02/17 0700 Pulse 72 02/17 0700 Resp 18 02/17 0700 Temp 98.4 02/17 0500 FiO2 6 02/17 0453 Vital Signs (24hr) Date Temp Pulse Resp B/P B/P Mean Pulse Ox FiO2 02/16-02/17 97.6-99.2 60-74 18-20 54-80 96-99 6-40 General Appearance SITTING IN CHAIR-NAD Physical Exam Neurological / Psychiatric Alert, Orientation X3 Respiratory Clear diminished bases bilaterally Cardiovascular Heart RRR Gastrointestinal Decreased bowel sounds Musculoskeletal No Edema Skin Midsternal incision DDI Telemetry: SINUS 60S Current Inpatient Medications: Medications Current Sig/Sophie Start time Last Medication Dose Route Stop Time Status Admin Albumin Human 200 ML DIRECTED PRN 02/15 1630 AC (ALBUMIN 25% VIAL) IV Albuterol Sulfate 2.5 MG QIDRT 02/15 2110 AC 02/17 (VENTOLIN/PROVENTIL INH 0751 2.5MG/3ML INH.NEB) Albuterol Sulfate 2.5 MG Q2HPRN PRN 02/15 1630 AC (VENTOLIN/PROVENTIL INH 2.5MG/3ML INH.NEB) Amiodarone HCl 400 MG BID 02/17 0900 AC (CORDARONE TAB) PO Amiodarone HCl 400 MG Q6H 02/15 1700 AC 02/17 (CORDARONE TAB) PO 02/17 1101 0543 Amiodarone HCl 450 MG CONT 02/15 1630 AC 02/17 (CORDARONE VIAL) IV 02/18 1629 0156 Sodium Chloride 250 ML (Sodium Chloride 0.9%) Amiodarone HCl 300 MG DIRECTED PRN 02/15 1630 AC (CORDARONE VIAL) IV Sodium Chloride 50 ML (Sodium Chloride 0.9%) Ascorbic Acid 500 MG QDAY 02/17 0900 AC (VITAMIN C TAB) PO Aspirin 81 MG QDAYWM 02/16 0800 AC 02/16 (ECOTRIN TAB.EC) PO 0856 Atorvastatin Calcium 20 MG QHS 02/16 2200 AC 02/16 (LIPITOR TAB) PO 2132 Calcium Chloride 10 ML DIRECTED PRN 02/15 1630 AC 02/16 (calcium CHLORIDE IV 0251 10% VIAL) Sodium Chloride 50 ML (Sodium Chloride 0.9%) Calcium Chloride 10 ML DIRECTED PRN 02/15 1630 AC (calcium CHLORIDE IV 10% D.SYR) Clopidogrel Bisulfate 75 MG QHS 02/16 2200 AC 02/16 (PLAVIX TAB) PO 2130 Dextrose/Water 25 ML PRN PRN 02/16 1630 AC (DEXTROSE 50%/WATER IV ABBOJECT) Dextrose/Water See Dose DIRECTED PRN 02/15 1630 AC (DEXTROSE 50%/WATER Insts (1) IV ABBOJECT) Docusate Sodium 100 MG BID 02/16 0900 AC 02/16 (COLACE CAP) PO 2130 Epinephrine 8 MG TITRATE(SEE EVELYN VF.. 02/15 1630 AC (EPINEPHRINE 1MG/ML IV AMP) Sodium Chloride 250 ML (Sodium Chloride 0.9%) Ferrous Sulfate 325 MG QDAYAC 02/16 0700 AC 02/17 (FEOSOL TAB.EC) PO 0543 Folic Acid 1 MG QDAY 02/17 0900 AC (FOLVITE TAB) PO Heparin Sodium See Dose Q24H 02/16 0900 AC 02/16 (Porcine) Insts (2) IV 0857 (HEP-LOCK *10*UNITS/ ML IV D.SYR.PF) Heparin Sodium 5,000 UNIT Q12H 02/16 0900 AC 02/16 (Porcine) SC 2132 (HEPARIN D.SYR) Hydrocodone Bitart/ 1 EACH Q4HPRN PRN 02/17 1630 AC Acetaminophen PO (NORCO 5-325 TAB) Hydrocodone Bitart/ 2 EACH Q4HPRN PRN 02/17 1630 AC Acetaminophen PO (NORCO 5-325 TAB) Insulin Human Lispro See Dose QIDINS 02/16 2200 AC (humaLOG/novoLOG PEN) Insts (3) SC Insulin Human Regular 100 UNITS TITRATE(SEE EVELYN VFS) 02/15 1630 AC (novoLIN R (humuLIN) IV VIAL) Sodium Chloride 100 ML (Sodium Chloride 0.9%) Lidocaine HCl/ 500 ML CONT 02/15 1630 AC 02/16 Dextrose IV 0602 (LIDOCAINE 2000MG/ 500ML D5W PREMIX) Lorazepam 1 MG Q1HPRN PRN 02/15 1630 AC (ATIVAN VIAL) IV Lorazepam 2 MG Q1HPRN PRN 02/15 1630 AC (ATIVAN VIAL) IV Magnesium Sulfate 50 ML PRN PRN 02/15 2100 AC (Magnesium Sulfate IV 4gm/50ml premix) Magnesium Sulfate 50 ML DIRECTED PRN 02/15 1630 AC (Magnesium Sulfate IV 2gm/50ml premix) Melatonin 5 MG QHS 02/15 2200 AC 02/16 (MELATONIN TAB) PO 213 Meperidine HCl 12.5 MG Q4HPRN PRN 02/15 1630 AC (DEMEROL D.SYR) IV Morphine Sulfate 2 MG Q1HPRN PRN 02/15 1630 AC 02/15 (MORPHINE D.SYR) IV 222 Morphine Sulfate 4 MG Q1HPRN PRN 02/15 1630 AC (MORPHINE D.SYR) IV Mupirocin 1 APPL BID 02/15 2100 AC 02/16 (BACTROBAN 2% T.OINT) TP 02/20 0901 2129 Nicardipine HCl 50 MG TITRATE(SEE EVELYN VF.. 02/15 1630 AC (CARDENE VIAL) IV Sodium Chloride 250 ML (Sodium Chloride 0.9%) Norepinephrine 8 MG TITRATE(SEE EVELYN VFS) 02/15 1630 AC 02/16 Bitartrate IV 2244 (LEVOPHED AMP) Sodium Chloride 250 ML (Sodium Chloride 0.9%) Ondansetron HCl 4 MG Q6HPRN PRN 02/15 1630 AC (ZOFRAN VIAL) IV Oxycodone HCl 5 MG Q4HPRN PRN 02/15 1630 AC 02/17 (OXYIR TAB) PO 0544 Pantoprazole Sodium 40 MG QDAYAC 02/18 0700 AC (PROTONIX TAB) PO Polyethylene Glycol 17 GM QDAY 02/16 0900 AC 02/16 (MIRALAX PACKT) PO 0857 Potassium Chlo/Pot 50 MEQ PRN PRN 02/17 1630 AC Bicarb/Citric Ac PO (k-lyte/CL 25MEQ TAB.EFF CL FRUIT PUNCH) Potassium Chloride 40 MEQ PRN PRN 02/17 1630 AC (K-DUR TAB.SA) PO Potassium Chloride 50 ML PRN PRN 02/15 2100 AC (potassium IV (KCL)CHLOR/SW 20MEQ/ 50 ML PREMIX) Propofol 100 ML TITRATE(SEE EVELYN VFS) 02/15 1630 AC (DIPRIVAN 10MG/ML IV 100 ML BOTTLE) Sodium Bicarbonate See Dose DIRECTED PRN 02/15 1630 AC (SODIUM BICARB 8.4% Insts (4) IV ABBOJECT D.SYR) Sodium Chloride 3 ML Q8H 02/15 2200 AC 02/17 (Sodium Chloride IV 0542 0.9% FLUSH D.SYR) Sodium Chloride 1,000 ML CONT 02/15 1630 AC (Sodium Chloride IV 0.9%) Sodium Chloride See Dose PRN PRN 02/15 1630 AC (Sodium Chloride Insts (5) IV 0.9% FLUSH D.SYR) Sodium Chloride 3 ML PRN PRN 02/15 1630 AC (Sodium Chloride IV 0.9% FLUSH D.SYR) Sodium Phosphate 20 MEQ PRN PRN 02/15 1630 AC 02/15 (sodium (NaPHOS) IV 2250 PHOS (mEq) VIAL) Sodium Chloride 50 ML (Sodium Chloride 0.9%) Tamsulosin HCl 0.4 MG QDAYPC 02/16 0900 AC 02/16 (FLOMAX CAP) PO 0857 Dose Instructions: (1)Dextrose/Water (DEXTROSE 50%/WATER ABBOJECT): 1-100 MLS (2)Heparin Sodium (Porcine) (HEP-LOCK *10*UNITS/ML IV D.SYR.PF): 50-200 UNITS (3)Insulin Human Lispro (humaLOG/novoLOG PEN): 2-10 UNITS (4)Sodium Bicarbonate (SODIUM BICARB 8.4% ABBOJECT D.SYR): 50-150 MLS (5)Sodium Chloride (Sodium Chloride 0.9% FLUSH D.SYR): 10-40 ML Diagnostic Data: Laboratory Tests 02/16 02/16 02/16 02/16 2128 1617 1228 0609 Chemistry Sodium (136 - 145 MMOL/L) 137 Potassium (3.5 - 5.1 MMOL/L) 4.8 Chloride (98 - 107 MMOL/L) 107 Carbon Dioxide (21 - 32 MMOL/L) 19 L Anion Gap (5 - 16 MMOL/L) 11 BUN (7 - 26 MG/DL) 15 Creatinine (0.670 - 1.170 MG/DL) 0.922 Est GFR ( Amer) (ML/MIN) Greater than 60 Est GFR (Non-Af Amer) (ML/MIN) Greater than 60 BUN/Creatinine Ratio (15 - 24) 16 Glucose (70 - 100 MG/DL) 122 H Whole Bld Glucose (85 - 125 MG/DL) 129 H 116 123 Total Calcium (8.5 - 10.1 MG/DL) 8.1 L Phosphorus (2.5 - 4.9 MG/DL) 3.6 Magnesium (1.6 - 2.6 MG/DL) 2.2 Iron (65 - 175 UG/DL) 20 L TIBC (221 - 481 UG/DL) 171 L Iron Saturation (30 - 44 %) 12 L Hematology WBC (4.5 - 11.0 K/CU MM) 19.3 H RBC (4.50 - 6.00 M/CU MM) 3.42 L Hgb (13.5 - 17.5 G/DL) 10.1 L Hct (41.0 - 53.0 %) 29.9 L MCV (80.0 - 99.0 fl) 87.4 MCHC (32.0 - 36.0 GM/DL) 33.8 RDW (11 - 14.5) 14.4 Plt Count (150 - 450 K/CU MM) 97 L MPV (9.4 - 12.4) 9.7 Seg Neutrophils % (45 - 75 %) 63.0 Band Neutrophils % (0 - 7 %) 25.0 H Lymphocytes % (20 - 40 %) 5.0 L Monocytes % (2 - 10 %) 7.0 Neutrophils # (2.0 - 8.3 K/CU MM) 12.16 H Band Neutrophils # (K/CU MM) 4.83 Lymphocytes # (0.9 - 4.4 K/CU MM) 0.97 Monocytes # (0.1 - 1.1 K/CU MM) 1.35 H Nucleated RBCs (Less than 1 %) 0.0 Dohle Bodies PRESENT Platelet Estimate MOD DECREASED Polychromasia 102/16 0450 4021 9896 Blood Gas Specimen Type ARTERIAL Sample Site ARTERIAL LINE Patient Temperature (C) 37.0 pH (7.35 - 7.45) 7.38 pCO2 (35 - 45 MMHG) 33.6 L pO2 (80 - 100 MMHG) 101 H HCO3 (22 - 26 MMOL/L) 19.3 L Base Excess (-2.0 - 2.0 MMOL/L) -5.1 L ABG O2 Sat (Measured) (90 - 100 %) 95.8 ABG Oximetry (%) 99 ABG Hemoglobin (11.5 - 15.5 GM/DL) 12.7 ABG Reduced Hgb (0 - 5 %) 2.5 ABG Carboxyhemoglobin (0 - 10 %) 1.4 ABG Methemoglobin (0.4 - 1.5 %) 0.3 L ABG O2 Capacity (mL/dL) 17.4 Reginaldo Test N/A Sodium (136 - 148 mmol/L) 135 L Potassium (3.5 - 5.0 MMOL/L) 5.1 H Respiration Rate (PER MIN) 06/08 Patient Equipment BIPAP Vent Mode ST FiO2 % (%) 40 Tidal Volume (LITERS) 0.772 EPAP (CMH2O) 5.0 IPAP (CMH2O) 12.0 Chemistry Whole Bld Glucose (85 - 125 MG/DL) 84 L 95 Ionized Calcium (1.13 - 1.32 MMOL/L) 1.14 08/28 08/28 08/28 08/28 2207 2107 2017 456 Blood Gas Specimen Type ARTERIAL Sample Site ARTERIAL LINE Patient Temperature (C) 37.5 pH (7.35 - 7.45) 7.42 pCO2 (35 - 45 MMHG) 32.9 L pO2 (80 - 100 MMHG) 91 HCO3 (22 - 26 MMOL/L) 20.7 L Base Excess (-2.0 - 2.0 MMOL/L) -3.0 L ABG O2 Sat (Measured) (90 - 100 %) 95.1 ABG Oximetry (%) 97 ABG Hemoglobin (11.5 - 15.5 GM/DL) 11.0 L ABG Reduced Hgb (0 - 5 %) 3.0 ABG Carboxyhemoglobin (0 - 10 %) 1.7 ABG Methemoglobin (0.4 - 1.5 %) 0.2 L ABG O2 Capacity (mL/dL) 15.0 Sodium (136 - 148 mmol/L) 136 Potassium (3.5 - 5.0 MMOL/L) 3.5 Patient Equipment 840 VENTILATOR Vent Mode PSV FiO2 % (%) 40 PEEP (CMH2O) 5.0 Pressure Support (CMH2O) 5.0 Chemistry Whole Bld Glucose (85 - 125 MG/DL) 102 114 100 Ionized Calcium (1.13 - 1.32 MMOL/L) 1.13 02/15 02/15 0570 4865 Blood Gas Specimen Type ARTERIAL Sample Site ARTERIAL LINE Patient Temperature (C) 37.0 pH (7.35 - 7.45) 7.36 pCO2 (35 - 45 MMHG) 42.1 pO2 (80 - 100 MMHG) 104 H HCO3 (22 - 26 MMOL/L) 23.0 Base Excess (-2.0 - 2.0 MMOL/L) -2.5 L ABG O2 Sat (Measured) (90 - 100 %) 95.1 ABG Hemoglobin (11.5 - 15.5 GM/DL) 13.3 ABG Reduced Hgb (0 - 5 %) 2.4 ABG Carboxyhemoglobin (0 - 10 %) 2.3 ABG Methemoglobin (0.4 - 1.5 %) 0.2 L ABG O2 Capacity (mL/dL) 18.0 Reginaldo Test N/A Sodium (136 - 148 mmol/L) 136 Potassium (3.5 - 5.0 MMOL/L) 3.7 Respiration Rate (PER MIN) 12 Patient Equipment VENTILATOR Vent Mode SIMV FiO2 % (%) 60 Tidal Volume (LITERS) 0.600 PEEP (CMH2O) 5.0 Pressure Support (CMH2O) 8.0 Chemistry Sodium (136 - 145 MMOL/L) 140 Potassium (3.5 - 5.1 MMOL/L) 3.8 Chloride (98 - 107 MMOL/L) 110 H Carbon Dioxide (21 - 32 MMOL/L) 23 Anion Gap (5 - 16 MMOL/L) 7 BUN (7 - 26 MG/DL) 12 Creatinine (0.670 - 1.170 MG/DL) 0.807 Est GFR ( Amer) (ML/MIN) Greater than 60 Est GFR (Non-Af Amer) (ML/MIN) Greater than 60 BUN/Creatinine Ratio (15 - 24) 15 Glucose (70 - 100 MG/DL) 83 Total Calcium (8.5 - 10.1 MG/DL) 7.9 L Ionized Calcium (1.13 - 1.32 MMOL/L) 1.19 Phosphorus (2.5 - 4.9 MG/DL) 1.9 L Magnesium (1.6 - 2.6 MG/DL) 3.1 H Hematology WBC (4.5 - 11.0 K/CU MM) 4.5 RBC (4.50 - 6.00 M/CU MM) 4.20 L Hgb (13.5 - 17.5 G/DL) 12.4 L Hct (41.0 - 53.0 %) 36.4 L MCV (80.0 - 99.0 fl) 86.7 MCHC (32.0 - 36.0 GM/DL) 34.1 RDW (11 - 14.5) 14.0 Plt Count (150 - 450 K/CU MM) 97 L MPV (9.4 - 12.4) 9.5 Immature Gran % (Auto) (Less than 2 %) 0.4 Abs Immat Gran (auto) (Less than 2 K/CU MM) 0.00 Seg Neutrophils % (45 - 75 %) 92.5 H Lymphocytes % (20 - 40 %) 6.0 L Monocytes % (2 - 10 %) 0.7 L Eosinophils % (0 - 5 %) 0.4 Basophils % (0 - 2 %) 0.0 Neutrophils # (2.0 - 8.3 K/CU MM) 4.20 Lymphocytes # (0.9 - 4.4 K/CU MM) 0.30 L Monocytes # (0.1 - 1.1 K/CU MM) 0.00 L Eosinophils # (0 - 0.5 K/CU MM) 0.00 Basophils # (0 - 0.2 K/CU MM) 0.00 Nucleated RBCs (Less than 1 %) 0.0 Platelet Estimate MOD DECREASED Polychromasia 1+ 02/15 02/15 02/15 02/15 02/15 1750 1631 1627 1617 1615 Blood Gas Patient Temperature (C) 37.0 37.0 POC HCO3 (22 - 26 MMOL/L) 24.0 22.5 POC Base Excess (-2.0 - 2.0 MMOL/L) -2.8 L -2.5 L POC O2 Saturation (90 - 100 %) 96.0 94.9 POC ABG pH (7.35 - 7.45) 7.29 L 7.37 POC ABG pCO2 (35 - 45 MMHG) 50 H 39 POC ABG pO2 (80 - 100 MMHG) 365 *H 282 H ABG Reduced Hgb (0 - 5 %) -0.2 L 0.5 ABG Carboxyhemoglobin (0 - 10 %) 3.4 3.3 ABG Methemoglobin (0.4 - 1.5 %) 0.8 1.3 POC Hemoglobin (13.5 - 17.5 G/DL) 10.5 L 10.4 L POC Hematocrit (41.0 - 53.0 %) 32 L 31 L POC Sodium (136 - 148 MMOL/L) 135 L 134 L POC Potassium (3.5 - 5.0 MMOL/L) 4.2 4.6 Chemistry Whole Bld Glucose (85 - 125 MG/DL) 88 114 125 POC WB Ioniz Calcium (1.13 - 1.32 MMOL/L) 1.28 1.68 *H 02/15 02/15 02/15 02/15 02/15 1548 1545 1517 1515 1456 Blood Gas Patient Temperature (C) 37.0 37.0 POC HCO3 (22 - 26 MMOL/L) 23.0 23.7 POC Base Excess (-2.0 - 2.0 MMOL/L) -1.7 -1.7 POC O2 Saturation (90 - 100 %) 95.4 95.9 POC ABG pH (7.35 - 7.45) 7.39 7.36 POC ABG pCO2 (35 - 45 MMHG) 38 42 POC ABG pO2 (80 - 100 MMHG) 314 H 395 *H ABG Reduced Hgb (0 - 5 %) 0.1 0.0 ABG Carboxyhemoglobin (0 - 10 %) 3.6 3.4 ABG Methemoglobin (0.4 - 1.5 %) 1.0 0.8 POC Hemoglobin (13.5 - 17.5 G/DL) 10.3 L 10.2 L POC Hematocrit (41.0 - 53.0 %) 31 L 31 L POC Sodium (136 - 148 MMOL/L) 134 L 133 L POC Potassium (3.5 - 5.0 MMOL/L) 5.2 H 5.1 H Chemistry Whole Bld Glucose (85 - 125 MG/DL) 140 H 123 121 POC WB Ioniz Calcium (1.13 - 1.32 MMOL/L) 1.13 1.12 L 02/15 02/15 02/15 02/15 02/15 1452 1435 1434 1339 1336 Blood Gas Patient Temperature (C) 37.0 37.0 37.0 POC HCO3 (22 - 26 MMOL/L) 23.2 25.4 26.0 POC Base Excess (-2.0 - 2.0 MMOL/L) -2.3 L -0.2 1.2 POC O2 Saturation (90 - 100 %) 94.6 95.1 93.8 POC ABG pH (7.35 - 7.45) 7.35 7.37 7.41 POC ABG pCO2 (35 - 45 MMHG) 42 44 41 POC ABG pO2 (80 - 100 MMHG) 335 H 482 *H 391 *H ABG Reduced Hgb (0 - 5 %) 0.4 0.5 0.8 ABG Carboxyhemoglobin (0 - 10 %) 3.5 3.5 4.1 ABG Methemoglobin (0.4 - 1.5 %) 1.5 0.9 1.3 POC Hemoglobin (13.5 - 17.5 G/DL) 10.9 L 13.5 14.5 POC Hematocrit (41.0 - 53.0 %) 33 L 41 44 POC Sodium (136 - 148 MMOL/L) 134 L 134 L 134 L POC Potassium (3.5 - 5.0 MMOL/L) 4.5 4.1 4.1 Chemistry Whole Bld Glucose (85 - 125 MG/DL) 101 105 POC WB Ioniz Calcium (1.13 - 1.32 MMOL/L) 1.05 L 1.16 1.20 Recent Impressions RADIOLOGY - PORTABLE CHEST 02/15 1805 Report Impression - Status: SIGNED Entered: 02/15/2018 1821 IMPRESSION: Left retrocardiac and left upper lung airspace opacities.. Possible tiny left apical pneumothorax. Lines and tubes as noted. A report was faxed to the referring physician at the time of the study. Impression By: KRISTEN EVANS M.D. RADIOLOGY - PORTABLE CHEST 02/16 0515 Report Impression - Status: SIGNED Entered: 02/16/2018 0809 IMPRESSION: Status post extubation and removal of NG tube. No pneumothorax Improved left upper lobe and left basilar atelectasis Small left pleural effusion Impression By: LILIAM MELGAR M.D. Assessment and Plan Conclusion 1. CAD (coronary artery disease) 62 YO MALE history of an angioplasty/FER to the LAD back in 2012. FER to the RCA in 2013, PVD S/P PCI by Dr. Hill remotely. Presented with c/o palpitations/vague chest pain. Cardiac w/u revealed significant occlusive CAD. S/P CABG. DATE OF SERVICE: 02/15/2018 OPERATION: 1. Coronary artery bypass graft x4 with: 2. Jmna-cheguuli-aaonydi-iris ry to the zuig-qiojjphq-msmkaolood. 3. Vein to the high diagonal. 4. Vein to the posterior descending. 5. Vein to posterolateral. 6. Endoscopic harvest of the thighs on both sides. 7. Transesophageal echocardiography. SURGEON: Jaswinder Hdez MD EF 60% EXTUBATED/STABLE OOB/ INCREASE ACTIVITY 2. HTN (hypertension) CURRENTLY REQUIRING LEVO- + BB WHEN APPROPRIATE 3. Dyslipidemia + STATIN PRIOR TO DC 4. Acute blood loss anemia LAB-CBC Selected (72hr) 02/16 02/15 0609 [id number] Chemistry Iron (65 - 175 UG/DL) 20 Iron Saturation (30 - 44 %) 12 Hematology WBC (4.5 - 11.0 K/CU MM) 19.3 4.5 Hgb (13.5 - 17.5 G/DL) 10.1 12.4 Hct (41.0 - 53.0 %) 29.9 36.4 Plt Count (150 - 450 K/CU MM) 97 97 STABLE-LOAD IRON Collaborating Physician Jaswinder Hdez MD Disclaimer This dictation was created using voice recognition software. Phonetic and/or minor grammatical errors may exist. eSign Date and Time Micaela Jean [employer] SETTER Verified/Reviewed by 03/16/18 1443 [facility] PTARon 02-17-[address] [facility] PTAR Physical Therapy Inpatient Gait Evaluation Medical Diagnosis: S/p CABG x4 secondary to CAD 02/15/18 Therapy Diagnosis: Rank Code Description 1 R26 Abnormalities of gait and mobility 2 R06.02 Shortness of breath Demographics: Age: 62Y Gender: Male Primary Language: Citizen Of [place] Preferred Language: Citizen Of [place] Referring Service/Team: CTS Past Medical History: CAD, HTN, History of Present Illness: Date of Surgery: 02/15/18 Additional Information: as above Date of Admission: 02/15/2018 6:00:00 AM Rehabilitation Precautions/Restrictions: cardiac, sternal Imaging/Testing Results from Chart: n/a Mechanism of Injury: None, is post-op. SUBJECTIVE Prior Level of Functioning: Indoor Mobility: Patient completed the activities by him/herself, with or without an assistive device, with no assistance from a helper. Stairs: Patient completed the activities by him/herself, with or without an assistive device, with no assistance from a helper. (I) without AD for all mobility, self care Prior Device Use: Performance GG110. Prior Device None of Above Yes Patient/Caregiver Goals: Patient's functional goals: Get home Pain: Patient currently has pain. Location: chest Type: Acute Quality: Aching. Sharp. Pain Scale: Visual Analog (VAS). Patient reports a pain level of 5 out of 10. [facility] PATIENT NAME: FATUMA SIGALA [facility] [address] MEDICAL REC #: [id number] [place] [address] ADMIT DATE: 02/15/18 SERVICE DATE: 02/17/18 Physical Therapy Assessment Report ATTENDING PHY: Jaswinder Hdez MD Patient's acceptable level of pain 0 out of 10. Pain does not interfere with any activity at this time. Pain is alleviated by: pain meds Pain is exacerbated by: coughing Interventions: Repositioned patient. Home Environment: Patient lives with with SO , who is able to assist patient at discharge. Patient lives in a single family home. Home is single level. Patient is not required to manage stairs within the home. First floor full bathroom setup available. There are 1 steps to enter the home, with no hand railings. There is a ramp available for home entry. Equipment Owned: walk in shower, shower chair Social History: Marital Status: Has SO Children: It is unknown whether patient has children Employment Status: retired Recreational Activities/Hobbies: being out on the [employer] OBJECTIVE Cognitive Screen: Responsiveness:Alert. Orientation:The patient is alert and oriented to person, place, time, and situation. Following Commands: The patient is able to follow 3+ step commands Range of Motion Upper Extremity: Grossly within functional limits Lower Extremity: Grossly within functional limits Strength Upper Extremity: Grossly within functional limits Lower Extremity: Grossly within functional limits Sensation Screen: grossly intact Functional Mobility: Transfers: Patient transferred sit to/from stand requiring minimal assistance of 1 person. Patient used the following equipment: Arms of chair. cues for safety Gait/Ambulation: Patient was contact guard with gait/ambulation of 1 person for 20' . Patient requires the following assistive device(s): Rolling walker. good reciprocal pattern; decreased analisa but no LOB Stairs: Not assessed prior to training. Curb Negotiation: Not assessed prior to training. AM-PAC Basic Mobility: Turning Over in Bed: A lot of difficulty Sitting/Standing Chair with Arms: A little difficulty Lying on Back to Sitting on Side of Bed: A lot of difficulty [facility] PATIENT NAME: FATUMA SIGALA [facility] [address] [facility] MEDICAL REC #: [id number] [place] [address] ADMIT DATE: 02/15/18 SERVICE DATE: 02/17/18 Physical Therapy Assessment Report ATTENDING PHY: Jaswinder Hdez MD Moving To/From Bed to Chair: A little help needed Walking in Hospital Room: A little help needed Climbing 3-5 Steps with Railing: A lot of help needed Raw Score = 15 , AM-PAC t-Scale Score = 39.45 and G-Code Modifier = CK Interventions: Evaluation MOD Complexity Therapeutic Activities: Gait, therex, safety Pain Reassessment: No significant change in pain during session. Education: The patient's preferred learning method is: Explanation, Demonstration, Printed materials Barriers to Learning: Acuity of illness, Mobility Learning Needs: Precautions. Plan of care. Rehabilitation techniques and procedures. Safety. Functional activities/mobility. Education Provided: Precautions. Plan of care. Functional transfers. Gait. Safety. Audience: Patient. Mode: Explanation. Demonstration. Response: Needs practice. Needs reinforcement. ASSESSMENT Problem List: Decreased endurance, Impaired ambulation, Impaired bed mobility, Impaired stair/curb negotiation, Impaired transfers Strengths: Transfers, Independent premorbid function, Activity tolerance, Home safety, Upper extremity function, Strength, Cognition, Vision, Balance, Motivated to improve function Equipment Recommended: TBD Rehabilitation Potential: Good Motivation/Commitment to Therapy: Good. Response to Evaluation: Good overall tolerance for mobility; limited by fatigue. Pt pleasant and cooperative with good motivation to improve to mod(I) status. Anticipate pt will be able to return home with SO to assist as needed once medically stable at discharge. Activity/Participation Problem List and Goals: No activity/participation limitations. Treatment Goals: Time frame to achieve treatment goal(s): 2 weeks 1. bed mobility supervision within sternal precautions 2. Functional transfers supervision with LRAD. 3. Ambulate at least 50' supervision with LRAD. 4. Negotiate up/down 1 step supervision without handrail. 5. Complete 15 reps BLE PREs (I) to increase activity tolerance. [facility] PATIENT NAME: FATUMA SIGALA [facility] [address] [facility] MEDICAL REC #: [id number] [place] [address] ADMIT DATE: 02/15/18 SERVICE DATE: 02/17/18 Physical Therapy Assessment Report ATTENDING PHY: Jaswinder Hdez MD PLAN Treatment Frequency, Duration and Interventions: Physical Therapy is recommended for 5x/week for 2 weeks Physical Therapy treatment is to include: bed mobility, functional transfers, gait, therex, stairs, safety Recommended Physical Therapy Follow Up: Upon acute care discharge, the following is currently recommended: Home health care Physical Therapy. Recommended Equipment: Recommended Consults: None currently. Development of Plan of Care: Patient participated in plan of care development today. If there are any questions regarding this service, please contact the Acute Therapy Department at extension [phone] Communication to Nursing: No updates at this time. Location of Patient at End of Therapy Session: In chair, call light within reach Services: Total Billed: 11 minutes (Timed: 11, Untimed: 0) 11.00 Timed: [54982] THER ACTIVITIES / 15 MIN 0.00 Untimed: [14371] PT-EVALUATION MOD COMPLEX 0.00 Untimed: [] PT Evaluation ORDER 0.00 Untimed: [] PT Treatment- General ORDER Signed by: June Camarena, 02/17/2018 13:25:49 [facility] PATIENT NAME: FATUMA SIGALA [facility] [address] [facility] MEDICAL REC #: [id number] [place] [address] ADMIT DATE: 02/15/18 SERVICE DATE: 02/17/18 Physical Therapy Assessment Report ATTENDING PHY: Jaswinder Hdez MD [facility] ABG BE -5.1 MMOL/L Low -2.0-2.0 [facility] Comment on above: Order Comment: Campu s: M Performed By: #### L [id number] #### [facility] [address] [place] [address] ABG COHBA 1.4 % Normal 0-10 [facility] Comment on above: Order Comment: Campu s: M Performed By: #### L 200.81771 #### [facility] [address] [place] [place] [address] ABG HCO3 19.3 MMOL/L Low 22-26 [facility] Comment on above: Order Comment: Campu s: M Performed By: #### L 200.19669 #### [facility] [address] [place] [place] [address] ABG MET 0.3 % Low 0.4-1.5 [facility] Comment on above: Order Comment: Campu s: M Performed By: #### L 200.97772 #### [facility] [address] [place] [place] [address] ABG O2 CAPACITY 17.4 mL/dL Normal [facility] Comment on above: Order Comment: Campu s: M Performed By: #### L 200.88636 #### [facility] [address] [place] [place] [address] ABG O2HB SAT 95.8 % Normal 90-100 [facility] Comment on above: Order Comment: Campu s: M Performed By: #### L 200.39979 #### [facility] [address] [facility] [place] [address] ABG PCO2 33.6 MMHG Low 35-45 [facility] Comment on above: Order Comment: Campu s: M Performed By: #### L 200.27180 #### [facility] [address] [place] [place] [address] ABG PH 7.38 Normal 7.35-7.45 [facility] Comment on above: Order Comment: Campu s: M Performed By: #### L 200.23412 #### [facility] [address] [facility] [place] [address] ABG PO2 101 MMHG High 80-100 [facility] Comment on above: Order Comment: Campu s: M Performed By: #### L 200.32356 #### [facility] [address] [facility] [place] [address] REGINALDO TEST N/A Normal [facility] Comment on above: Order Comment: Campu s: M Performed By: #### L 200.46173 #### [facility] [address] [place] [address] aPTT Coag time (Bld) 37.0 C Normal [facility] Comment on above: Order Comment: Campu s: M Performed By: #### L 200.83802 #### [facility] [address] [place] [place] [address] EPAP 5.0 CMH2O Normal [facility] Comment on above: Order Comment: Campu s: M Performed By: #### L 200.86361 #### [facility] [address] [place] [place] [address] EQUIPMENT BIPAP Normal [facility] Comment on above: Order Comment: Campu s: M Performed By: #### L 200.75559 #### [facility] [address] [facility] [place] [address] FIO2 40 % Normal [facility] Comment on above: Order Comment: Campu s: M Performed By: #### L 200.76373 #### [facility] [address] [place] [address] Hemoglobin mass conc (Bld) 2.5 % Normal 0-5 [facility] Comment on above: Order Comment: Campu s: M Performed By: #### L 200.57636 #### [facility] [address] [place] [address] Hemoglobin mass conc (Bld) 12.7 g/dL Normal 11.5-15.5 [facility] Comment on above: Order Comment: Campu s: M Performed By: #### L 200.81779 #### [facility] [address] [place] [address] IONIZED CA 1.14 MMOL/L Normal 1.13-1.32 [facility] Comment on above: Order Comment: Campu s: M Performed By: #### L 200.80311 #### [facility] [address] [place], [place] [id number] IPAP 12.0 CMH2O Normal [facility] Comment on above: Order Comment: Campu s: M Performed By: #### L 200.16353 #### [facility] [address] [place] [address] Oxygen saturation in Blood 99 % Normal [facility] Comment on above: Order Comment: Campu s: M Performed By: #### L 200.33884 #### [facility] [place] [address] Potassium molar conc 5.1 mmol/L High 3.5-5.0 [facility] Comment on above: Order Comment: Campu s: M Performed By: #### L 200.04193 #### [facility] [place] [address] Respiratory rate 12/19 Normal [facility] Comment on above: Order Comment: Campu s: M Performed By: #### L 200.59964 #### [facility] [address] [facility] [place] [address] SAMPLE SITE ARTERIAL LINE Normal [facility] Comment on above: Order Comment: Campu s: M Performed By: #### L 200.04296 #### [facility] [address] [place] [address] SAMPLE TYPE ARTERIAL Normal [facility] Comment on above: Order Comment: Campu s: M Performed By: #### L 200.58696 #### [facility] [address] [place] [address] Sodium molar conc 135 mmol/L Low 136-148 [facility] Comment on above: Order Comment: Campu s: M Performed By: #### L 200.34516 #### [facility] [address] [place] [address] TIDAL VOLUME 0.772 LITERS Normal [facility] Comment on above: Order Comment: Campu s: M Performed By: #### L 200.82062 #### [facility] [place] [address] Normal [facility] Comment on above: Order Comment: Campu s: M Performed By: #### L 200.81916 #### [facility] [place] [address] ABG BE -3.0 MMOL/L Low -2.0-2.0 [facility] Comment on above: Order Comment: Campu s: M Performed By: #### L 200.84175 #### [facility] [place] [address] ABG COHBA 1.7 % Normal 0-10 [facility] Comment on above: Order Comment: Campu s: M Performed By: #### L 200.09286 #### [facility] [place] [address] ABG HCO3 20.7 MMOL/L Low 22-26 [facility] Comment on above: Order Comment: Campu s: M Performed By: #### L 200.10371 #### [facility] [address] [facility] [place] [address] ABG MET 0.2 % Low 0.4-1.5 [facility] Comment on above: Order Comment: Campu s: M Performed By: #### L 200.73057 #### [facility] [address] [facility] [place] [address] ABG O2 CAPACITY 15.0 mL/dL Normal [facility] Comment on above: Order Comment: Campu s: M Performed By: #### L 200.80407 #### [facility] [address] [place] [address] ABG O2HB SAT 95.1 % Normal 90-100 [facility] Comment on above: Order Comment: Campu s: M Performed By: #### L 200.79883 #### [facility] [address] [place] [address] ABG PCO2 32.9 MMHG Low 35-45 [facility] Comment on above: Order Comment: Campu s: M Performed By: #### L 200.66921 #### [facility] [address] [facility] [place] [address] ABG PH 7.42 Normal 7.35-7.45 [facility] Comment on above: Order Comment: Campu s: M Performed By: #### L 200.34621 #### [facility] [address] [place] [address] ABG PO2 91 MMHG Normal 80-100 [facility] Comment on above: Order Comment: Campu s: M Performed By: #### L 200.16464 #### [facility] [address] [place] [address] aPTT Coag time (Bld) 37.5 C Normal [facility] Comment on above: Order Comment: Campu s: M Performed By: #### L 200.00912 #### [facility] [address] [place] [address] EQUIPMENT 840 VENTILATOR Normal [facility] Comment on above: Order Comment: Campu s: M Performed By: #### L 200.99318 #### [facility] [address] [place] [address] FIO2 40 % Normal [facility] Comment on above: Order Comment: Campu s: M Performed By: #### L 200.67188 #### [facility] [address] [place] [address] Hemoglobin mass conc (Bld) 3.0 % Normal 0-5 [facility] Comment on above: Order Comment: Campu s: M Performed By: #### L 200.03078 #### [facility] [address] [place] [address] Hemoglobin mass conc (Bld) 11.0 g/dL Low 11.5-15.5 [facility] Comment on above: Order Comment: Campu s: M Performed By: #### L 200.92983 #### [facility] [address] [place] [address] IONIZED CA 1.13 MMOL/L Normal 1.13-1.32 [facility] Comment on above: Order Comment: Campu s: M Performed By: #### L 200.89137 #### [facility] [address] [place], [place] [id number] Oxygen saturation in Blood 97 % Normal [facility] Comment on above: Order Comment: Campu s: M Performed By: #### L 200.11869 #### [facility] [address] [place], [place] [id number] PEEP 5.0 CMH2O Normal [facility] Comment on above: Order Comment: Campu s: M Performed By: #### L 200.95693 #### [facility] [address] [facility] [place] [address] Potassium molar conc 3.5 mmol/L Normal 3.5-5.0 [facility] Comment on above: Order Comment: Campu s: M Performed By: #### L 200.43856 #### [facility] [address] [place] [address] PSV 5.0 CMH2O Normal [facility] Comment on above: Order Comment: Campu s: M Performed By: #### L 200.48344 #### [facility] [address] [facility] [place] [address] SAMPLE SITE ARTERIAL LINE Normal [facility] Comment on above: Order Comment: Campu s: M Performed By: #### L 200.44475 #### [facility] [place] [address] SAMPLE TYPE ARTERIAL Normal [facility] Comment on above: Order Comment: Campu s: M Performed By: #### L 200.43384 #### [facility] [address] [facility] [place] [address] Sodium molar conc 136 mmol/L Normal 136-148 [facility] Comment on above: Order Comment: Campu s: M Performed By: #### L 200.07415 #### [facility] [address] [place] [address] VENT MODE PSV Normal [facility] Comment on above: Order Comment: Campu s: M Performed By: #### L 200.17508 #### [facility] [address] [facility] [place] [address] BMPon 02-16-2018 Anion gap molar conc 11 mmol/L Normal 5-16 [facility] Comment on above: Order Comment: Campu s: M Performed By: #### L 200.58413 #### [facility] [address] [place] [address] Calcium mass conc 8.1 mg/dL Low 8.5-10.1 [facility] Comment on above: Order Comment: Campu s: M Performed By: #### L 200.13237 #### [facility] [address] [place] [address] Chloride molar conc 107 mmol/L Normal 98-107 [facility] Comment on above: Order Comment: Campu s: M Performed By: #### L 200.31706 #### [facility] [address] [place] [address] CO2 molar conc 19 mmol/L Low 21-32 [facility] Comment on above: Order Comment: Campu s: M Performed By: #### L 200.36190 #### [facility] [address] [place] [address] Creatinine mass conc 0.922 mg/dL Normal 0.670-1.170 [facility] Comment on above: Order Comment: Campu s: M Result Comment: Cynthia ents receiving either N-Acetylcysteine (NAC) or Metamizole prior to venipuncture, may have falsely depressed results. Performed By: #### L 200.90991 #### [facility] [address] [place] [address] Glucose mass conc 122 mg/dL High 70-100 [facility] Comment on above: Order Comment: Campu s: M Result Comment: 70-1 00- Normal Fasting; 100-125 Impaired Fasting; greater than 126 on more than one result- Diabetes. ADA guidelines. Results may be falsely elevated after the administration of Sulfapyridine. Results may be falsely depressed after the administration of Sulfasalazine. Performed By: #### L 200.37971 #### [facility] [address] [place] [address] Potassium molar conc 4.8 mmol/L Normal 3.5-5.1 [facility] Comment on above: Order Comment: Campu s: M Performed By: #### L 200.38038 #### [facility] [address] [place] [address] Sodium molar conc 137 mmol/L Normal 136-145 [facility] Comment on above: Order Comment: Campu s: M Performed By: #### L 200.53264 #### [facility] [address] [place] [address] Urea nitrogen mass conc 15 mg/dL Normal 7-26 [facility] Comment on above: Order Comment: Campu s: M Performed By: #### L 200.21451 #### [facility] [address] [place] [address] Urea nitrogen/Creatinine mass ratio 16 mg/mg Normal 15-24 [facility] Comment on above: Order Comment: Campu s: M Performed By: #### L 200.82500 #### [facility] [address] [place] [address] CBC W/DIFFon 02-16-2018 BAND % 25.0 % High 0-7 [facility] Comment on above: Order Comment: Campu s: M Performed By: #### L 200.50051 #### [facility] [address] [place] [address] BAND ABS 4.83 K/CU MM Normal [facility] Comment on above: Order Comment: Campu s: M Performed By: #### L 200.45636 #### [facility] [address] [place] [address] DOHLE BODIES PRESENT Normal [facility] Comment on above: Order Comment: Campu s: M Performed By: #### L 200.03919 #### [facility] [address] [place] [address] Lymphocytes #/vol (Bld) 0.97 K/CU MM Normal 0.9-4.4 [facility] Comment on above: Order Comment: Campu s: M Performed By: #### L 200.50418 #### [facility] [address] [place] [address] Lymphocytes/100 WBC (Bld) 5.0 % Low 20-40 [facility] Comment on above: Order Comment: Campu s: M Performed By: #### L 200.90709 #### [facility] [address] [place] [address] MONO ABS 1.35 K/CU MM High 0.1-1.1 [facility] Comment on above: Order Comment: Campu s: M Performed By: #### L 200.74149 #### [facility] [address] [place] [address] Monocytes/100 WBC (Bld) 7.0 % Normal 2-10 [facility] Comment on above: Order Comment: Campu s: M Performed By: #### L 200.87387 #### [facility] [address] [place] [address] NEUTROPHIL ABS 12.16 K/CU MM High 2.0-8.3 [facility] Comment on above: Order Comment: Campu s: M Performed By: #### L 200.60416 #### [facility] [address] [place] [address] Neutrophils/100 WBC (Bld) 63.0 % Normal 45-75 [facility] Comment on above: Order Comment: Campu s: M Performed By: #### L 200.34526 #### [facility] [address] [place] [address] Platelets #/vol (Bld) MOD DECREASED Normal [facility] Comment on above: Order Comment: Campu s: M Performed By: #### L 200.91089 #### [facility] [address] [place] [address] POLY 1+ Normal [facility] Comment on above: Order Comment: Campu s: M Performed By: #### L 200.39143 #### [facility] [address] [place] [address] Erythrocyte distribution width Ratio (RBC) 14.4 % Normal 11-14.5 [facility] Comment on above: Order Comment: Campu s: M Performed By: #### L 200.75575 #### [facility] [address] [place] [address] Hematocrit Volume Fraction (Bld) 29.9 % Low 41.0-53.0 [facility] Comment on above: Order Comment: Campu s: M Performed By: #### L 200.41023 #### [facility] [address] [place] [address] Hemoglobin mass conc (Bld) 10.1 g/dL Low 13.5-17.5 [facility] Comment on above: Order Comment: Campu s: M Performed By: #### L 200.61964 #### [facility] [address] [place] [address] MCHC mass conc (RBC) 33.8 g/dL Normal 32.0-36.0 [facility] Comment on above: Order Comment: Campu s: M Performed By: #### L 200.63237 #### [facility] [address] [place], [place] [id number] MCV Entitic volume (RBC) 87.4 fL Normal 80.0-99.0 [facility] Comment on above: Order Comment: Campu s: M Performed By: #### L [id number] #### [facility] [address] [place] [address] Nucleated RBC/100 WBC Ratio (Bld) 0.0 % Normal Less than 1 [facility] Comment on above: Order Comment: Campu s: M Performed By: #### L [id number] #### [facility] [address] [place], [place] [id number] Platelet mean volume Entitic volume (Bld) 9.7 fL Normal 9.4-12.4 [facility] Comment on above: Order Comment: Campu s: M Performed By: #### L [id number] #### [facility] [address] [place] [address] Platelets #/vol (Bld) 97 K/CU MM Low 150-450 [facility] Comment on above: Order Comment: Campu s: M Result Comment: Conf irmed by slide estimate. Performed By: #### L [id number] #### [facility] [address] [place] [address] RBC #/vol (Bld) 3.42 M/CU MM Low 4.50-6.00 [facility] Comment on above: Order Comment: Campu s: M Performed By: #### L [id number] #### [facility] [address] [place] [address] WBC #/vol (Bld) 19.3 K/CU MM High 4.5-11.0 [facility] Comment on above: Order Comment: Campu s: M Performed By: #### L [id number] #### [facility] [address] [place] [address] GFR ESTon 02-16-2018 IF AMER Greater than 60 Normal [facility] Comment on above: Order Comment: Campu s: M Performed By: #### L [id number], [id number] #### [facility] [address] [place] [address] IF non-AFR AMER Greater than 60 Normal [facility] Comment on above: Order Comment: Stephenu s: M Performed By: #### L 500.63530, L500.48061 #### [facility] [address] [place] [address] GLUCOSE METERon 02-16-2018 Glucose mass conc 129 mg/dL High 85-125 [facility] Glucose mass conc 116 mg/dL Normal 85-125 [facility] Glucose mass conc 123 mg/dL Normal 85-125 [facility] Glucose mass conc 84 mg/dL Low 85-125 [facility] Glucose mass conc 95 mg/dL Normal 85-125 [facility] IRON PANELon 02-16-2018 Iron mass conc 20 ug/dL Low 65-175 [facility] Comment on above: Order Comment: Stephenu s: M Result Comment: Cynthia ents treated with metal-binding drugs (e.g.deferoxamine) may have depressed iron values, as chelated iron may not properly react in the Siemens iron assay. Performed By: #### L 500.26876, L500.23286 #### [facility] [address] [place] [address] IRON SAT 12 % Low 30-44 [facility] Comment on above: Order Comment: Stephenu s: M Performed By: #### L 500.42682, L500.02848 #### [facility] [address] [place] [address] TIBC 171 UG/DL Low 221-481 [facility] Comment on above: Order Comment: Campu s: M Performed By: #### L 500.33556, L500.21969 #### [facility] [place] [address] MAGNESIUMon 02-16-2018 Magnesium mass conc 2.2 mg/dL Normal 1.6-2.6 [facility] Comment on above: Order Comment: Campu s: M Performed By: #### L 500.49130, L500.25078 #### [facility] [address] [place] [address] PHOSon 02-16-2018 Phosphate mass conc 3.6 mg/dL Normal 2.5-4.9 [facility] Comment on above: Order Comment: Gloria pizano: Roxanne Performed By: #### L 500.50444, L500.68762 #### [facility] [address] [place] [address] PROG.CTSon 02-16-2018 Protein mass conc [facility] Patient Name: FATUMA SIGALA [address] [facility] Date of : [address] [address] Unit Number: [id number] Progress Note-CTS Patient Status: DIS IN Attending Doctor: Jaswinder Hdez MD Service Date: 02/16/18 0912 Subjective S: (2 ROS minimum) c/o pain/sob Objective (ROS) Nursing Vitals Vital Signs (Last) Result Date Time Pulse Ox 97 02/16 0702 B/P Mean 77 02/16 0702 O2 Delivery NASAL CANNULA 02/16 0702 O2 Flow Rate 6L 02/16 0702 Temp 99.0 02/16 0702 Pulse 65 02/16 0702 Resp 18 02/16 0702 FiO2 40 02/16 0032 Vital Signs (24hr) Date Temp Pulse Resp B/P B/P Mean Pulse Ox FiO2 02/15-02/16 96.0-99.5 64-84 12-22 63-90 95-100 40-58 General Appearance SITTING UP IN BED-NAD Physical Exam Neurological / Psychiatric Alert, Orientation X3 Respiratory Clear diminished bases bilaterally Cardiovascular Heart RRR Gastrointestinal Decreased bowel sounds Musculoskeletal No Edema Skin Midsternal incision DDI Telemetry: SINUS 60S Left Heart Catheterization 01/14/18 CONCLUSION: 1. Normal left ventricular ejection fraction of 55% without wall motion abnormalities. 2. Three-vessel coronary artery disease. 3. Left main 10%. 4. LAD mid and distal vessel 80% plus in-stent restenosis 70%, proximal vessel 70% disease, diagonal with occlusive disease. 5. Circumflex coronary artery nondominant, proximal 80% stenosis. 6. Right coronary artery dominant with in-stent restenosis 70% to 75%, PDA 80% ostial disease, posterolateral branch with 80% ostial disease. 7. TALAVERA was normal. Current Inpatient Medications: Medications Current Sig/Sophie Start time Last Medication Dose Route Stop Time Status Admin Acetaminophen 75 ML Q6H 02/15 2300 AC 02/16 (OFIRMEV 1000 MG/100 IV 02/16 1714 0523 ML PREMIX) Albumin Human 200 ML DIRECTED PRN 02/15 1630 AC (ALBUMIN 25% VIAL) IV Albuterol Sulfate 2.5 MG QIDRT 02/15 2110 AC 02/16 (VENTOLIN/PROVENTIL INH 0828 2.5MG/3ML INH.NEB) Albuterol Sulfate 2.5 MG Q2HPRN PRN 02/15 1630 AC (VENTOLIN/PROVENTIL INH 2.5MG/3ML INH.NEB) Amiodarone HCl 400 MG BID 02/17 0900 AC (CORDARONE TAB) PO Amiodarone HCl 400 MG Q6H 02/15 1700 AC 02/16 (CORDARONE TAB) PO 02/17 1101 0656 Amiodarone HCl 450 MG CONT 02/15 1630 AC 02/16 (CORDARONE VIAL) IV 02/18 1629 0601 Sodium Chloride 250 ML (Sodium Chloride 0.9%) Amiodarone HCl 300 MG DIRECTED PRN 02/15 1630 AC (CORDARONE VIAL) IV Sodium Chloride 50 ML (Sodium Chloride 0.9%) Ascorbic Acid 500 MG QDAY 02/17 0900 AC (VITAMIN C TAB) PO Aspirin 81 MG QDAYWM 02/16 0800 AC 02/16 (ECOTRIN TAB.EC) PO 0856 Calcium Chloride 10 ML DIRECTED PRN 02/15 1630 AC 02/16 (calcium CHLORIDE IV 0251 10% VIAL) Sodium Chloride 50 ML (Sodium Chloride 0.9%) Calcium Chloride 10 ML DIRECTED PRN 02/15 1630 AC (calcium CHLORIDE IV 10% D.SYR) Cefuroxime Sodium 1.5 GM Q12H@04 02/16 0400 AC 02/16 (ZINACEF VIAL) IV 02/17 0429 0534 Sodium Chloride 100 ML (Sodium Chloride 0.9%) Clopidogrel Bisulfate 75 MG QHS 02/16 2200 AC (PLAVIX TAB) PO Dextrose/Water 25 ML PRN PRN 02/16 1630 AC (DEXTROSE 50%/WATER IV ABBOJECT) Dextrose/Water See Dose DIRECTED PRN 02/15 1630 AC (DEXTROSE 50%/WATER Insts (1) IV ABBOJECT) Docusate Sodium 100 MG BID 02/16 0900 AC 02/16 (COLACE CAP) PO 0857 Epinephrine 8 MG TITRATE(SEE EVELYN VF.. 02/15 1630 AC (EPINEPHRINE 1MG/ML IV AMP) Sodium Chloride 250 ML (Sodium Chloride 0.9%) Ferrous Sulfate 325 MG QDAYAC 02/16 0700 AC 02/16 (FEOSOL TAB.EC) PO 0653 Folic Acid 1 MG QDAY 02/17 0900 AC (FOLVITE TAB) PO Heparin Sodium See Dose Q24H 02/16 0900 AC 02/16 (Porcine) Insts (2) IV 0857 (HEP-LOCK *10*UNITS/ ML IV D.SYR.PF) Heparin Sodium 5,000 UNIT Q12H 02/16 0900 AC 02/16 (Porcine) SC 0857 (HEPARIN D.SYR) Hydrocodone Bitart/ 1 EACH Q4HPRN PRN 02/17 1630 AC Acetaminophen PO (NORCO 5-325 TAB) Hydrocodone Bitart/ 2 EACH Q4HPRN PRN 02/17 1630 AC Acetaminophen PO (NORCO 5-325 TAB) Insulin Human Lispro See Dose QIDINS 02/16 2200 AC (humaLOG/novoLOG PEN) Insts (3) SC Insulin Human Regular 100 UNITS TITRATE(SEE EVELYN VFS) 02/15 1630 AC (novoLIN R (humuLIN) IV VIAL) Sodium Chloride 100 ML (Sodium Chloride 0.9%) Lidocaine HCl/ 500 ML CONT 02/15 1630 AC 02/16 Dextrose IV 0602 (LIDOCAINE 2000MG/ 500ML D5W PREMIX) Lorazepam 1 MG Q1HPRN PRN 02/15 1630 AC (ATIVAN VIAL) IV Lorazepam 2 MG Q1HPRN PRN 02/15 1630 AC (ATIVAN VIAL) IV Magnesium Sulfate 50 ML PRN PRN 02/15 2100 AC (Magnesium Sulfate IV 4gm/50ml premix) Magnesium Sulfate 50 ML DIRECTED PRN 02/15 1630 AC (Magnesium Sulfate IV 2gm/50ml premix) Melatonin 5 MG QHS 02/15 2200 AC (MELATONIN TAB) PO Meperidine HCl 12.5 MG Q4HPRN PRN 02/15 1630 AC (DEMEROL D.SYR) IV Morphine Sulfate 2 MG Q1HPRN PRN 02/15 1630 AC 02/15 (MORPHINE D.SYR) IV 2227 Morphine Sulfate 4 MG Q1HPRN PRN 02/15 1630 AC (MORPHINE D.SYR) IV Mupirocin 1 APPL BID 02/15 2100 AC 02/16 (BACTROBAN 2% T.OINT) TP 02/20 0901 0856 Nicardipine HCl 50 MG TITRATE(SEE EVELYN VF.. 02/15 1630 AC (CARDENE VIAL) IV Sodium Chloride 250 ML (Sodium Chloride 0.9%) Norepinephrine 8 MG TITRATE(SEE EVELYN VFS) 02/15 1630 AC Bitartrate IV (LEVOPHED AMP) Sodium Chloride 250 ML (Sodium Chloride 0.9%) Ondansetron HCl 4 MG Q6HPRN PRN 02/15 1630 AC (ZOFRAN VIAL) IV Oxycodone HCl 5 MG Q4HPRN PRN 02/15 1630 AC 02/16 (OXYIR TAB) PO 0528 Pantoprazole Sodium 40 MG QDAYAC 02/18 0700 AC (PROTONIX TAB) PO Pantoprazole Sodium 40 MG QDAYAC 02/16 0700 AC 02/16 (PROTONIX VIAL) IV 02/17 0701 0856 Polyethylene Glycol 17 GM QDAY 02/16 0900 AC 02/16 (MIRALAX PACKT) PO 0857 Potassium Chlo/Pot 50 MEQ PRN PRN 02/17 1630 AC Bicarb/Citric Ac PO (k-lyte/CL 25MEQ TAB.EFF CL FRUIT PUNCH) Potassium Chloride 40 MEQ PRN PRN 02/17 1630 AC (K-DUR TAB.SA) PO Potassium Chloride 50 ML PRN PRN 02/15 2100 AC (potassium IV (KCL)CHLOR/SW 20MEQ/ 50 ML PREMIX) Propofol 100 ML TITRATE(SEE EVELYN VFS) 02/15 1630 AC (DIPRIVAN 10MG/ML IV 100 ML BOTTLE) Sodium Bicarbonate See Dose DIRECTED PRN 02/15 1630 AC (SODIUM BICARB 8.4% Insts (4) IV ABBOJECT D.SYR) Sodium Chloride 3 ML Q8H 02/15 2200 AC 02/16 (Sodium Chloride IV 0655 0.9% FLUSH D.SYR) Sodium Chloride 1,000 ML CONT 02/15 1630 AC (Sodium Chloride IV 0.9%) Sodium Chloride See Dose PRN PRN 02/15 1630 AC (Sodium Chloride Insts (5) IV 0.9% FLUSH D.SYR) Sodium Chloride 3 ML PRN PRN 02/15 1630 AC (Sodium Chloride IV 0.9% FLUSH D.SYR) Sodium Phosphate 20 MEQ PRN PRN 02/15 1630 AC 02/15 (sodium (NaPHOS) IV 2250 PHOS (mEq) VIAL) Sodium Chloride 50 ML (Sodium Chloride 0.9%) Tamsulosin HCl 0.4 MG QDAYPC 02/16 0900 AC 02/16 (FLOMAX CAP) PO 0857 Dose Instructions: (1)Dextrose/Water (DEXTROSE 50%/WATER ABBOJECT): 1-100 MLS (2)Heparin Sodium (Porcine) (HEP-LOCK *10*UNITS/ML IV D.SYR.PF): 50-200 UNITS (3)Insulin Human Lispro (humaLOG/novoLOG PEN): 2-10 UNITS (4)Sodium Bicarbonate (SODIUM BICARB 8.4% ABBOJECT D.SYR): 50-150 MLS (5)Sodium Chloride (Sodium Chloride 0.9% FLUSH D.SYR): 10-40 ML Diagnostic Data: Laboratory Tests 02/16 02/16 02/15 0609 2802 4881 Blood Gas Specimen Type ARTERIAL Sample Site ARTERIAL LINE Patient Temperature (C) 37.0 pH (7.35 - 7.45) 7.38 pCO2 (35 - 45 MMHG) 33.6 L pO2 (80 - 100 MMHG) 101 H HCO3 (22 - 26 MMOL/L) 19.3 L Base Excess (-2.0 - 2.0 MMOL/L) -5.1 L ABG O2 Sat (Measured) (90 - 100 %) 95.8 ABG Oximetry (%) 99 ABG Hemoglobin (11.5 - 15.5 GM/DL) 12.7 ABG Reduced Hgb (0 - 5 %) 2.5 ABG Carboxyhemoglobin (0 - 10 %) 1.4 ABG Methemoglobin (0.4 - 1.5 %) 0.3 L ABG O2 Capacity (mL/dL) 17.4 Reginaldo Test N/A Sodium (136 - 148 mmol/L) 135 L Potassium (3.5 - 5.0 MMOL/L) 5.1 H Respiration Rate (PER MIN) 06/08 Patient Equipment BIPAP Vent Mode ST FiO2 % (%) 40 Tidal Volume (LITERS) 0.772 EPAP (CMH2O) 5.0 IPAP (CMH2O) 12.0 Chemistry Sodium (136 - 145 MMOL/L) 137 Potassium (3.5 - 5.1 MMOL/L) 4.8 Chloride (98 - 107 MMOL/L) 107 Carbon Dioxide (21 - 32 MMOL/L) 19 L Anion Gap (5 - 16 MMOL/L) 11 BUN (7 - 26 MG/DL) 15 Creatinine (0.670 - 1.170 MG/DL) 0.922 Est GFR ( Amer) (ML/MIN) Greater than 60 Est GFR (Non-Af Amer) (ML/MIN) Greater than 60 BUN/Creatinine Ratio (15 - 24) 16 Glucose (70 - 100 MG/DL) 122 H Whole Bld Glucose (85 - 125 MG/DL) 84 L Total Calcium (8.5 - 10.1 MG/DL) 8.1 L Ionized Calcium (1.13 - 1.32 MMOL/L) 1.14 Phosphorus (2.5 - 4.9 MG/DL) 3.6 Magnesium (1.6 - 2.6 MG/DL) 2.2 Hematology WBC (4.5 - 11.0 K/CU MM) 19.3 H RBC (4.50 - 6.00 M/CU MM) 3.42 L Hgb (13.5 - 17.5 G/DL) 10.1 L Hct (41.0 - 53.0 %) 29.9 L MCV (80.0 - 99.0 fl) 87.4 MCHC (32.0 - 36.0 GM/DL) 33.8 RDW (11 - 14.5) 14.4 Plt Count (150 - 450 K/CU MM) 97 L MPV (9.4 - 12.4) 9.7 Seg Neutrophils % (45 - 75 %) 63.0 Band Neutrophils % (0 - 7 %) 25.0 H Lymphocytes % (20 - 40 %) 5.0 L Monocytes % (2 - 10 %) 7.0 Neutrophils # (2.0 - 8.3 K/CU MM) 12.16 H Band Neutrophils # (K/CU MM) 4.83 Lymphocytes # (0.9 - 4.4 K/CU MM) 0.97 Monocytes # (0.1 - 1.1 K/CU MM) 1.35 H Nucleated RBCs (Less than 1 %) 0.0 Dohle Bodies PRESENT Platelet Estimate MOD DECREASED Polychromasia 1+ 02/15 Blood Gas Specimen Type ARTERIAL Sample Site ARTERIAL LINE Patient Temperature (C) 37.5 pH (7.35 - 7.45) 7.42 pCO2 (35 - 45 MMHG) 32.9 L pO2 (80 - 100 MMHG) 91 HCO3 (22 - 26 MMOL/L) 20.7 L Base Excess (-2.0 - 2.0 MMOL/L) -3.0 L ABG O2 Sat (Measured) (90 - 100 %) 95.1 ABG Oximetry (%) 97 ABG Hemoglobin (11.5 - 15.5 GM/DL) 11.0 L ABG Reduced Hgb (0 - 5 %) 3.0 ABG Carboxyhemoglobin (0 - 10 %) 1.7 ABG Methemoglobin (0.4 - 1.5 %) 0.2 L ABG O2 Capacity (mL/dL) 15.0 Sodium (136 - 148 mmol/L) 136 Potassium (3.5 - 5.0 MMOL/L) 3.5 Patient Equipment 840 VENTILATOR Vent Mode PSV FiO2 % (%) 40 PEEP (CMH2O) 5.0 Pressure Support (CMH2O) 5.0 Chemistry Whole Bld Glucose (85 - 125 MG/DL) 95 102 114 100 Ionized Calcium (1.13 - 1.32 MMOL/L) 1.13 02/15 02/15 1752 1752 Blood Gas Specimen Type ARTERIAL Sample Site ARTERIAL LINE Patient Temperature (C) 37.0 pH (7.35 - 7.45) 7.36 pCO2 (35 - 45 MMHG) 42.1 pO2 (80 - 100 MMHG) 104 H HCO3 (22 - 26 MMOL/L) 23.0 Base Excess (-2.0 - 2.0 MMOL/L) -2.5 L ABG O2 Sat (Measured) (90 - 100 %) 95.1 ABG Hemoglobin (11.5 - 15.5 GM/DL) 13.3 ABG Reduced Hgb (0 - 5 %) 2.4 ABG Carboxyhemoglobin (0 - 10 %) 2.3 ABG Methemoglobin (0.4 - 1.5 %) 0.2 L ABG O2 Capacity (mL/dL) 18.0 Reginaldo Test N/A Sodium (136 - 148 mmol/L) 136 Potassium (3.5 - 5.0 MMOL/L) 3.7 Respiration Rate (PER MIN) 12 Patient Equipment VENTILATOR Vent Mode SIMV FiO2 % (%) 60 Tidal Volume (LITERS) 0.600 PEEP (CMH2O) 5.0 Pressure Support (CMH2O) 8.0 Chemistry Sodium (136 - 145 MMOL/L) 140 Potassium (3.5 - 5.1 MMOL/L) 3.8 Chloride (98 - 107 MMOL/L) 110 H Carbon Dioxide (21 - 32 MMOL/L) 23 Anion Gap (5 - 16 MMOL/L) 7 BUN (7 - 26 MG/DL) 12 Creatinine (0.670 - 1.170 MG/DL) 0.807 Est GFR ( Amer) (ML/MIN) Greater than 60 Est GFR (Non-Af Amer) (ML/MIN) Greater than 60 BUN/Creatinine Ratio (15 - 24) 15 Glucose (70 - 100 MG/DL) 83 Total Calcium (8.5 - 10.1 MG/DL) 7.9 L Ionized Calcium (1.13 - 1.32 MMOL/L) 1.19 Phosphorus (2.5 - 4.9 MG/DL) 1.9 L Magnesium (1.6 - 2.6 MG/DL) 3.1 H Hematology WBC (4.5 - 11.0 K/CU MM) 4.5 RBC (4.50 - 6.00 M/CU MM) 4.20 L Hgb (13.5 - 17.5 G/DL) 12.4 L Hct (41.0 - 53.0 %) 36.4 L MCV (80.0 - 99.0 fl) 86.7 MCHC (32.0 - 36.0 GM/DL) 34.1 RDW (11 - 14.5) 14.0 Plt Count (150 - 450 K/CU MM) 97 L MPV (9.4 - 12.4) 9.5 Immature Gran % (Auto) (Less than 2 %) 0.4 Abs Immat Gran (auto) (Less than 2 K/CU MM) 0.00 Seg Neutrophils % (45 - 75 %) 92.5 H Lymphocytes % (20 - 40 %) 6.0 L Monocytes % (2 - 10 %) 0.7 L Eosinophils % (0 - 5 %) 0.4 Basophils % (0 - 2 %) 0.0 Neutrophils # (2.0 - 8.3 K/CU MM) 4.20 Lymphocytes # (0.9 - 4.4 K/CU MM) 0.30 L Monocytes # (0.1 - 1.1 K/CU MM) 0.00 L Eosinophils # (0 - 0.5 K/CU MM) 0.00 Basophils # (0 - 0.2 K/CU MM) 0.00 Nucleated RBCs (Less than 1 %) 0.0 Platelet Estimate MOD DECREASED Polychromasia 1+ 02/15 02/15 02/15 02/15 02/15 1750 1631 1627 1617 1615 Blood Gas Patient Temperature (C) 37.0 37.0 POC HCO3 (22 - 26 MMOL/L) 24.0 22.5 POC Base Excess (-2.0 - 2.0 MMOL/L) -2.8 L -2.5 L POC O2 Saturation (90 - 100 %) 96.0 94.9 POC ABG pH (7.35 - 7.45) 7.29 L 7.37 POC ABG pCO2 (35 - 45 MMHG) 50 H 39 POC ABG pO2 (80 - 100 MMHG) 365 *H 282 H ABG Reduced Hgb (0 - 5 %) -0.2 L 0.5 ABG Carboxyhemoglobin (0 - 10 %) 3.4 3.3 ABG Methemoglobin (0.4 - 1.5 %) 0.8 1.3 POC Hemoglobin (13.5 - 17.5 G/DL) 10.5 L 10.4 L POC Hematocrit (41.0 - 53.0 %) 32 L 31 L POC Sodium (136 - 148 MMOL/L) 135 L 134 L POC Potassium (3.5 - 5.0 MMOL/L) 4.2 4.6 Chemistry Whole Bld Glucose (85 - 125 MG/DL) 88 114 125 POC WB Ioniz Calcium (1.13 - 1.32 MMOL/L) 1.28 1.68 *H 02/15 02/15 02/15 02/15 02/15 1548 1545 1517 1515 1456 Blood Gas Patient Temperature (C) 37.0 37.0 POC HCO3 (22 - 26 MMOL/L) 23.0 23.7 POC Base Excess (-2.0 - 2.0 MMOL/L) -1.7 -1.7 POC O2 Saturation (90 - 100 %) 95.4 95.9 POC ABG pH (7.35 - 7.45) 7.39 7.36 POC ABG pCO2 (35 - 45 MMHG) 38 42 POC ABG pO2 (80 - 100 MMHG) 314 H 395 *H ABG Reduced Hgb (0 - 5 %) 0.1 0.0 ABG Carboxyhemoglobin (0 - 10 %) 3.6 3.4 ABG Methemoglobin (0.4 - 1.5 %) 1.0 0.8 POC Hemoglobin (13.5 - 17.5 G/DL) 10.3 L 10.2 L POC Hematocrit (41.0 - 53.0 %) 31 L 31 L POC Sodium (136 - 148 MMOL/L) 134 L 133 L POC Potassium (3.5 - 5.0 MMOL/L) 5.2 H 5.1 H Chemistry Whole Bld Glucose (85 - 125 MG/DL) 140 H 123 121 POC WB Ioniz Calcium (1.13 - 1.32 MMOL/L) 1.13 1.12 L 02/15 02/15 02/15 02/15 02/15 1452 1435 1434 1339 1336 Blood Gas Patient Temperature (C) 37.0 37.0 37.0 POC HCO3 (22 - 26 MMOL/L) 23.2 25.4 26.0 POC Base Excess (-2.0 - 2.0 MMOL/L) -2.3 L -0.2 1.2 POC O2 Saturation (90 - 100 %) 94.6 95.1 93.8 POC ABG pH (7.35 - 7.45) 7.35 7.37 7.41 POC ABG pCO2 (35 - 45 MMHG) 42 44 41 POC ABG pO2 (80 - 100 MMHG) 335 H 482 *H 391 *H ABG Reduced Hgb (0 - 5 %) 0.4 0.5 0.8 ABG Carboxyhemoglobin (0 - 10 %) 3.5 3.5 4.1 ABG Methemoglobin (0.4 - 1.5 %) 1.5 0.9 1.3 POC Hemoglobin (13.5 - 17.5 G/DL) 10.9 L 13.5 14.5 POC Hematocrit (41.0 - 53.0 %) 33 L 41 44 POC Sodium (136 - 148 MMOL/L) 134 L 134 L 134 L POC Potassium (3.5 - 5.0 MMOL/L) 4.5 4.1 4.1 Chemistry Whole Bld Glucose (85 - 125 MG/DL) 101 105 POC WB Ioniz Calcium (1.13 - 1.32 MMOL/L) 1.05 L 1.16 1.20 Recent Impressions RADIOLOGY - PORTABLE CHEST 02/15 1805 Report Impression - Status: SIGNED Entered: 02/15/2018 1821 IMPRESSION: Left retrocardiac and left upper lung airspace opacities.. Possible tiny left apical pneumothorax. Lines and tubes as noted. A report was faxed to the referring physician at the time of the study. Impression By: KRISTEN EVANS M.D. RADIOLOGY - PORTABLE CHEST 02/16 0515 Report Impression - Status: SIGNED Entered: 02/16/2018 0809 IMPRESSION: Status post extubation and removal of NG tube. No pneumothorax Improved left upper lobe and left basilar atelectasis Small left pleural effusion Impression By: LILIAM MELGAR M.D. Assessment and Plan Conclusion 1. CAD (coronary artery disease) 62 YO MALE history of an angioplasty/FER to the LAD back in 2012. FER to the RCA in 2013, PVD S/P PCI by Dr. Hill remotely. Presented with c/o palpitations/vague chest pain. Cardiac w/u revealed significant occlusive CAD. S/P CABG. DATE OF SERVICE: 02/15/2018 OPERATION: 1. Coronary artery bypass graft x4 with: 2. Hlsm-uvmywuwx-bzckdab-iris ry to the azfr-vjdnumdv-rcwbpofidp. 3. Vein to the high diagonal. 4. Vein to the posterior descending. 5. Vein to posterolateral. 6. Endoscopic harvest of the thighs on both sides. 7. Transesophageal echocardiography. SURGEON: Jaswinder Hdez MD EF 60% EXTUBATED/STABLE OOB/ INCREASE ACTIVITY 2. HTN (hypertension) CURRENTLY REQUIRING LEVO- + BB WHEN APPROPRIATE 3. Dyslipidemia + STATIN PRIOR TO DC 4. Acute blood loss anemia LAB-CBC Selected (72hr) 02/16 02/15 0609 1753 Hematology WBC (4.5 - 11.0 K/CU MM) 19.3 4.5 Hgb (13.5 - 17.5 G/DL) 10.1 12.4 Hct (41.0 - 53.0 %) 29.9 36.4 Plt Count (150 - 450 K/CU MM) 97 97 STABLE, CHECK IRON Collaborating Physician Jaswinder Hdez MD Disclaimer This dictation was created using voice recognition software. Phonetic and/or minor grammatical errors may exist. eSign Date and Time Micaela Jean [employer] Verified/Reviewed by 03/16/18 1425 Normal [facility] Protein mass conc Normal [facility] ABGOon 02-15-2018 aPTT Coag time (Bld) 37.0 C Normal [facility] Comment on above: Performed By: #### L 300.53399, L300.61702 #### [facility] [address] [place] [address] Hematocrit Volume Fraction (Bld) 32 % Low 41.0-53.0 [facility] Comment on above: Performed By: #### L 300.67702, L300.95112 #### [facility] [address] [place] [address] Hemoglobin mass conc (Bld) -0.2 % Low 0-5 [facility] Comment on above: Performed By: #### L 300.46556, L300.69854 #### [facility] [address] [place] [id number] Hemoglobin mass conc (Bld) 3.4 % Normal 0-10 [facility] Comment on above: Performed By: #### L 300.54311, L300.95518 #### [facility] [address] [place], [place] [id number] Hemoglobin mass conc (Bld) 10.5 g/dL Low 13.5-17.5 [facility] Comment on above: Performed By: #### L 300.99312, L300.53851 #### [facility] [address] [place] [address] POC ABG BE -2.8 MMOL/L Low -2.0-2.0 [facility] Comment on above: Performed By: #### L 300.62574, L300.91170 #### [facility] [address] [place] [address] POC ABG HCO3 24.0 MMOL/L Normal 22-26 [facility] Comment on above: Performed By: #### L 300.40815, L300.12046 #### [facility] [address] [place], [place] [id number] POC ABG ICA 1.28 MMOL/L Normal 1.13-1.32 [facility] Comment on above: Performed By: #### L 300.10253, L300.19064 #### [facility] [address] [place], [place] [id number] POC ABG K 4.2 MMOL/L Normal 3.5-5.0 [facility] Comment on above: Performed By: #### L 300.68160, L300.05785 #### [facility] [address] [place] [id number] POC ABG MET HGB 0.8 % Normal 0.4-1.5 [facility] Comment on above: Performed By: #### L 300.12387, L300.37265 #### [facility] [address] [place] [id number] POC ABG PO2 365 MMHG Critically high 80-100 [facility] Comment on above: Performed By: #### L 300.17224, L300.30768 #### [facility] [address] [place] [address] POC PCO2 50 MMHG High 35-45 [facility] Comment on above: Performed By: #### L 300.06944, L300.54101 #### [facility] [place] [address] POCABG O2HB SAT 96.0 % Normal 90-100 [facility] Comment on above: Performed By: #### L 300.86212, L300.91726 #### [facility] [place] [id number] POCPH 7.29 Low 7.35-7.45 [facility] Comment on above: Performed By: #### L 300.61312, L300.94913 #### [facility] [address] [place] [address] Sodium molar conc 135 mmol/L Low 136-148 [facility] Comment on above: Performed By: #### L 300.21572, L300.70643 #### [facility] [address] [place] [address] aPTT Coag time (Bld) 37.0 C Normal [facility] Comment on above: Performed By: #### L 300.55467, L300.09439 #### [facility] [address] [place], [place] [id number] Hematocrit Volume Fraction (Bld) 31 % Low 41.0-53.0 [facility] Comment on above: Performed By: #### L 300.72421, L300.28830 #### [facility] [address] [place] [address] Hemoglobin mass conc (Bld) 10.4 g/dL Low 13.5-17.5 [facility] Comment on above: Performed By: #### L 300.09864, L300.11858 #### [facility] [address] [place], [place] [id number] Hemoglobin mass conc (Bld) 0.5 % Normal 0-5 [facility] Comment on above: Performed By: #### L 300.66239, L300.66743 #### [facility] [address] [place] [address] Hemoglobin mass conc (Bld) 3.3 % Normal 0-10 [facility] Comment on above: Performed By: #### L 300.69975, L300.25488 #### [facility] [address] [place] [address] POC ABG BE -2.5 MMOL/L Low -2.0-2.0 [facility] Comment on above: Performed By: #### L 300.51447, L300.76556 #### [facility] [address] [place] [address] POC ABG HCO3 22.5 MMOL/L Normal 22-26 [facility] Comment on above: Performed By: #### L 300.08060, L300.13325 #### [facility] [address] [place] [address] POC ABG ICA 1.68 MMOL/L Critically high 1.13-1.32 [facility] Comment on above: Performed By: #### L 300.35371, L300.78214 #### [facility] [address] [place] [address] POC ABG K 4.6 MMOL/L Normal 3.5-5.0 [facility] Comment on above: Performed By: #### L 300.46221, L300.00969 #### [facility] [address] [place], [place] [id number] POC ABG MET HGB 1.3 % Normal 0.4-1.5 [facility] Comment on above: Performed By: #### L 300.41126, L300.05223 #### [facility] [address] [place] [address] POC ABG PO2 282 MMHG High 80-100 [facility] Comment on above: Performed By: #### L 300.64529, L300.83963 #### [facility] [address] [place] [address] POC PCO2 39 MMHG Normal 35-45 [facility] Comment on above: Performed By: #### L 300.66515, L300.78224 #### [facility] [place] [address] POCABG O2HB SAT 94.9 % Normal 90-100 [facility] Comment on above: Performed By: #### L 300.34415, L300.40618 #### [facility] [address] [place] [address] POCPH 7.37 Normal 7.35-7.45 [facility] Comment on above: Performed By: #### L 300.82013, L300.61949 #### [facility] [address] [place] [address] Sodium molar conc 134 mmol/L Low 136-148 [facility] Comment on above: Performed By: #### L 300.51130, L300.78067 #### [facility] [address] [place] [address] aPTT Coag time (Bld) 37.0 C Normal [facility] Comment on above: Performed By: #### L 300.56230, L300.98078 #### [facility] [place] [address] Hematocrit Volume Fraction (Bld) 31 % Low 41.0-53.0 [facility] Comment on above: Performed By: #### L 300.35400, L300.73486 #### [facility] [address] [place] [address] Hemoglobin mass conc (Bld) 10.3 g/dL Low 13.5-17.5 [facility] Comment on above: Performed By: #### L 300.20791, L300.89925 #### [facility] [place] [address] Hemoglobin mass conc (Bld) 0.1 % Normal 0-5 [facility] Comment on above: Performed By: #### L 300.02568, L300.34543 #### [facility] [place] [address] Hemoglobin mass conc (Bld) 3.6 % Normal 0-10 [facility] Comment on above: Performed By: #### L 300.15326, L300.64298 #### [facility] [address] [place] [address] POC ABG BE -1.7 MMOL/L Normal -2.0-2.0 [facility] Comment on above: Performed By: #### L 300.17201, L300.26018 #### [facility] [address] [place] [address] POC ABG HCO3 23.0 MMOL/L Normal 22-26 [facility] Comment on above: Performed By: #### L 300.86679, L300.91814 #### [facility] [address] [place], [place] [address] POC ABG ICA 1.13 MMOL/L Normal 1.13-1.32 [facility] Comment on above: Performed By: #### L 300.81805, L300.94630 #### [facility] [address] [place], [place] [address] POC ABG K 5.2 MMOL/L High 3.5-5.0 [facility] Comment on above: Performed By: #### L 300.82018, L300.99544 #### [facility] [address] [place] [address] POC ABG MET HGB 1.0 % Normal 0.4-1.5 [facility] Comment on above: Performed By: #### L 300.77980, L300.31726 #### [facility] [place] [address] POC ABG PO2 314 MMHG High 80-100 [facility] Comment on above: Performed By: #### L 300.97156, L300.12716 #### [facility] [address] [place] [address] POC PCO2 38 MMHG Normal 35-45 [facility] Comment on above: Performed By: #### L 300.55051, L300.41778 #### [facility] [address] [place], [place] [address] POCABG O2HB SAT 95.4 % Normal 90-100 [facility] Comment on above: Performed By: #### L 300.31793, L300.42631 #### [facility] [address] [place] [address] POCPH 7.39 Normal 7.35-7.45 [facility] Comment on above: Performed By: #### L 300.96931, L300.00006 #### [facility] [address] [place] [address] Sodium molar conc 134 mmol/L Low 136-148 [facility] Comment on above: Performed By: #### L 300.32766, L300.31268 #### [facility] [place] [address] aPTT Coag time (Bld) 37.0 C Normal [facility] Comment on above: Performed By: #### L 300.63415, L300.64519 #### [facility] [place] [address] Hematocrit Volume Fraction (Bld) 31 % Low 41.0-53.0 [facility] Comment on above: Performed By: #### L 300.46897, L300.07385 #### [facility] [place] [address] Hemoglobin mass conc (Bld) 10.2 g/dL Low 13.5-17.5 [facility] Comment on above: Performed By: #### L 300.52922, L300.03601 #### [facility] [address] [place] [address] Hemoglobin mass conc (Bld) 0.0 % Normal 0-5 [facility] Comment on above: Performed By: #### L 300.98573, L300.06113 #### [facility] [address] [place] [address] Hemoglobin mass conc (Bld) 3.4 % Normal 0-10 [facility] Comment on above: Performed By: #### L 300.65282, L300.23166 #### [facility] [address] [place] [address] POC ABG BE -1.7 MMOL/L Normal -2.0-2.0 [facility] Comment on above: Performed By: #### L 300.04640, L300.67430 #### [facility] [address] [place], [place] [address] POC ABG HCO3 23.7 MMOL/L Normal 22-26 [facility] Comment on above: Performed By: #### L 300.57494, L300.53608 #### [facility] [address] [place], [place] [address] POC ABG ICA 1.12 MMOL/L Low 1.13-1.32 [facility] Comment on above: Performed By: #### L 300.19759, L300.23682 #### [facility] [address] [place] [place] [address] POC ABG K 5.1 MMOL/L High 3.5-5.0 [facility] Comment on above: Performed By: #### L 300.50325, L300.05080 #### [facility] [address] [place] [place] [address] POC ABG MET HGB 0.8 % Normal 0.4-1.5 [facility] Comment on above: Performed By: #### L 300.19922, L300.06870 #### [facility] [address] [place] [place] [address] POC ABG PO2 395 MMHG Critically high 80-100 [facility] Comment on above: Performed By: #### L 300.47620, L300.55184 #### [facility] [place] [address] POC PCO2 42 MMHG Normal 35-45 [facility] Comment on above: Performed By: #### L 300.00727, L300.75681 #### [facility] [place] [address] POCABG O2HB SAT 95.9 % Normal 90-100 [facility] Comment on above: Performed By: #### L 300.68066, L300.80496 #### [facility] [address] [place] [place] [address] POCPH 7.36 Normal 7.35-7.45 [facility] Comment on above: Performed By: #### L 300.23150, L300.57008 #### [facility] [address] [facility] [place] [address] Sodium molar conc 133 mmol/L Low 136-148 [facility] Comment on above: Performed By: #### L 300.74428, L300.43454 #### [facility] [address] [place] [address] aPTT Coag time (Bld) 37.0 C Normal [facility] Comment on above: Performed By: #### L 300.47490, L300.60282 #### [facility] [address] [place] [address] Hematocrit Volume Fraction (Bld) 33 % Low 41.0-53.0 [facility] Comment on above: Performed By: #### L 300.94081, L300.72884 #### [facility] [address] [place], [place] [address] Hematocrit Volume Fraction (Bld) 41 % Normal 41.0-53.0 [facility] Comment on above: Performed By: #### L 300.69090, L300.52077 #### [facility] [address] [place], [place] [address] Hemoglobin mass conc (Bld) 0.5 % Normal 0-5 [facility] Comment on above: Performed By: #### L 300.51760, L300.48363 #### [facility] [address] [place] [address] Hemoglobin mass conc (Bld) 3.5 % Normal 0-10 [facility] Comment on above: Performed By: #### L 300.16669, L300.49680 #### [facility] [address] [place] [address] Hemoglobin mass conc (Bld) 10.9 g/dL Low 13.5-17.5 [facility] Comment on above: Performed By: #### L 300.13110, L300.96786 #### [facility] [address] [place] [address] Hemoglobin mass conc (Bld) 13.5 g/dL Normal 13.5-17.5 [facility] Comment on above: Performed By: #### L 300.67769, L300.67102 #### [facility] [address] [place] [place] [address] Hemoglobin mass conc (Bld) 0.4 % Normal 0-5 [facility] Comment on above: Performed By: #### L 300.57401, L300.22062 #### [facility] [address] [facility] [place] [address] POC ABG BE -0.2 MMOL/L Normal -2.0-2.0 [facility] Comment on above: Performed By: #### L 300.83720, L300.05264 #### [facility] [place] [place] [address] POC ABG BE -2.3 MMOL/L Low -2.0-2.0 [facility] Comment on above: Performed By: #### L 300.13685, L300.22963 #### [facility] [place] [place] [address] POC ABG HCO3 25.4 MMOL/L Normal 22-26 [facility] Comment on above: Performed By: #### L 300.60474, L300.84672 #### [facility] [place] [place] [address] POC ABG HCO3 23.2 MMOL/L Normal 22-26 [facility] Comment on above: Performed By: #### L 300.91920, L300.37319 #### [facility] [place] [address] POC ABG ICA 1.16 MMOL/L Normal 1.13-1.32 [facility] Comment on above: Performed By: #### L 300.30149, L300.00137 #### [facility] [place] [address] POC ABG ICA 1.05 MMOL/L Low 1.13-1.32 [facility] Comment on above: Performed By: #### L 300.80981, L300.15584 #### [facility] [address] [place] [address] POC ABG K 4.1 MMOL/L Normal 3.5-5.0 [facility] Comment on above: Performed By: #### L 300.92722, L300.13095 #### [facility] [address] [place] [address] POC ABG K 4.5 MMOL/L Normal 3.5-5.0 [facility] Comment on above: Performed By: #### L 300.27933, L300.58219 #### [facility] [address] [place] [address] POC ABG MET HGB 0.9 % Normal 0.4-1.5 [facility] Comment on above: Performed By: #### L 300.29397, L300.17900 #### [facility] [address] [place] [address] POC ABG MET HGB 1.5 % Normal 0.4-1.5 [facility] Comment on above: Performed By: #### L 300.39956, L300.54217 #### [facility] [place] [address] POC ABG PO2 482 MMHG Critically high 80-100 [facility] Comment on above: Performed By: #### L 300.10162, L300.59102 #### [facility] [place] [address] POC ABG PO2 335 MMHG High 80-100 [facility] Comment on above: Performed By: #### L 300.07025, L300.64661 #### [facility] [address] [place] [address] POC PCO2 44 MMHG Normal 35-45 [facility] Comment on above: Performed By: #### L 300.79149, L300.67527 #### [facility] [address] [facility] [place] [address] POC PCO2 42 MMHG Normal 35-45 [facility] Comment on above: Performed By: #### L 300.59407, L300.78211 #### [facility] [address] [place] [address] POCABG O2HB SAT 95.1 % Normal 90-100 [facility] Comment on above: Performed By: #### L 300.53589, L300.73894 #### [facility] [place] [place] [address] POCABG O2HB SAT 94.6 % Normal 90-100 [facility] Comment on above: Performed By: #### L 300.21896, L300.67720 #### [facility] [place] [address] POCPH 7.37 Normal 7.35-7.45 [facility] Comment on above: Performed By: #### L 300.64250, L300.77741 #### [facility] [place] [address] POCPH 7.35 Normal 7.35-7.45 [facility] Comment on above: Performed By: #### L 300.23563, L300.65996 #### [facility] [address] [facility] [place] [address] Sodium molar conc 134 mmol/L Low 136-148 [facility] Comment on above: Performed By: #### L 300.01774, L300.37613 #### [facility] [address] [place] [address] aPTT Coag time (Bld) 37.0 C Normal [facility] Comment on above: Performed By: #### L 100.79612 ####[facility] [id number] [place] [address]Xs# [phone] Hematocrit Volume Fraction (Bld) 44 % Normal 41.0-53.0 [facility] Comment on above: Performed By: #### L 100.50301 ####[address] [address]By# [phone] Hemoglobin mass conc (Bld) 0.8 % Normal 0-5 [facility] Comment on above: Performed By: #### L 100.60980 ####[address] [address]Dm# [phone] Hemoglobin mass conc (Bld) 4.1 % Normal 0-10 [facility] Comment on above: Performed By: #### L 100.93557 ####[address] [address]So# [phone] Hemoglobin mass conc (Bld) 14.5 g/dL Normal 13.5-17.5 [facility] Comment on above: Performed By: #### L 100.65705 ####[address] [address]Pt# [phone] POC ABG BE 1.2 MMOL/L Normal -2.0-2.0 [facility] Comment on above: Performed By: #### L 100.88001 ####[address] [address]Pm# [phone] POC ABG HCO3 26.0 MMOL/L Normal 22-26 [facility] Comment on above: Performed By: #### L 100.62985 ####[address] [address]Db# [phone] POC ABG ICA 1.20 MMOL/L Normal 1.13-1.32 [facility] Comment on above: Performed By: #### L 100.51846 ####[facility] [id number] [place], [place] [address]Jo# [phone] POC ABG K 4.1 MMOL/L Normal 3.5-5.0 [facility] Comment on above: Performed By: #### L 100.99652 ####[facility] [id number] [place], [place] [address]Jr# [phone] POC ABG MET HGB 1.3 % Normal 0.4-1.5 [facility] Comment on above: Performed By: #### L 100.87881 ####[facility] [id number] [place], [place] [address]Ah# [phone] POC ABG PO2 391 MMHG Critically high 80-100 [facility] Comment on above: Performed By: #### L 100.90088 ####[facility] [id number] [place] [address]Mp# [phone] POC PCO2 41 MMHG Normal 35-45 [facility] Comment on above: Performed By: #### L 100.90459 ####[facility] [id number] [place] [address]Uy# [phone] POCABG O2HB SAT 93.8 % Normal 90-100 [facility] Comment on above: Performed By: #### L 100.54342 ####[facility] [id number] [place], [place] [address]Ou# [phone] POCPH 7.41 Normal 7.35-7.45 [facility] Comment on above: Performed By: #### L 100.66099 ####[facility] [id number] [place], [place] [address]Jn# [phone] Sodium molar conc 134 mmol/L Low 136-148 [facility] Comment on above: Performed By: #### L 100.22134 ####[facility] [id number] [place], [place] [address]Rg# [phone] ABGPEon 02-15-2018 ABG BE -2.5 MMOL/L Low -2.0-2.0 [facility] Comment on above: Order Comment: Campu s: M Performed By: #### L 300.15727, L300.33411 #### [facility] [address] [facility] [place] [address] ABG COHBA 2.3 % Normal 0-10 [facility] Comment on above: Order Comment: Campu s: M Performed By: #### L 300.67764, L300.86011 #### [facility] [address] [facility] [place] [address] ABG HCO3 23.0 MMOL/L Normal 22-26 [facility] Comment on above: Order Comment: Campu s: M Performed By: #### L 300.07188, L300.16189 #### [facility] [place] [address] ABG MET 0.2 % Low 0.4-1.5 [facility] Comment on above: Order Comment: Campu s: M Performed By: #### L 300.60139, L300.14870 #### [facility] [place] [address] ABG O2 CAPACITY 18.0 mL/dL Normal [facility] Comment on above: Order Comment: Campu s: M Performed By: #### L 300.68974, L300.18145 #### [facility] [address] [place] [address] ABG O2HB SAT 95.1 % Normal 90-100 [facility] Comment on above: Order Comment: Campu s: M Performed By: #### L 300.32291, L300.85827 #### [facility] [address] [facility] [place] [address] ABG PCO2 42.1 MMHG Normal 35-45 [facility] Comment on above: Order Comment: Campu s: M Performed By: #### L 300.23269, L300.33523 #### [facility] [address] [place] [address] ABG PH 7.36 Normal 7.35-7.45 [facility] Comment on above: Order Comment: Campu s: M Performed By: #### L 300.40373, L300.86015 #### [facility] [place] [address] ABG PO2 104 MMHG High 80-100 [facility] Comment on above: Order Comment: Campu s: M Performed By: #### L 300.91637, L300.15190 #### [facility] [address] [place], [place] [address] REGINALDO TEST N/A Normal [facility] Comment on above: Order Comment: Campu s: M Performed By: #### L 300.78055, L300.18237 #### [facility] [address] [place], [place] [address] aPTT Coag time (Bld) 37.0 C Normal [facility] Comment on above: Order Comment: Campu s: M Performed By: #### L 300.19863, L300.48220 #### [facility] [place] [address] EQUIPMENT VENTILATOR Normal [facility] Comment on above: Order Comment: Campu s: M Performed By: #### L 300.98601, L300.80810 #### [facility] [place] [address] FIO2 60 % Normal [facility] Comment on above: Order Comment: Campu s: M Performed By: #### L 300.31704, L300.26544 #### [facility] [address] [place] [address] Hemoglobin mass conc (Bld) 2.4 % Normal 0-5 [facility] Comment on above: Order Comment: Campu s: M Performed By: #### L 300.85447, L300.14715 #### [facility] [address] [place] [address] Hemoglobin mass conc (Bld) 13.3 g/dL Normal 11.5-15.5 [facility] Comment on above: Order Comment: Campu s: M Performed By: #### L 300.20128, L300.65892 #### [facility] [address] [place] [address]408 IONIZED CA 1.19 MMOL/L Normal 1.13-1.32 [facility] Comment on above: Order Comment: Campu s: M Performed By: #### L 300.45913, L300.11832 #### [facility] [place] [address] PEEP 5.0 CMH2O Normal [facility] Comment on above: Order Comment: Campu s: M Performed By: #### L 300.23431, L300.96999 #### [facility] [place] [address] Potassium molar conc 3.7 mmol/L Normal 3.5-5.0 [facility] Comment on above: Order Comment: Campu s: M Performed By: #### L 300.24242, L300.78096 #### [facility] [address] [place] [address] PSV 8.0 CMH2O Normal [facility] Comment on above: Order Comment: Campu s: M Performed By: #### L 300.25088, L300.62972 #### [facility] [address] [place] [address] Respiratory rate 12 PER MIN Normal [facility] Comment on above: Order Comment: Campu s: M Performed By: #### L 300.11783, L300.65078 #### [facility] [address] [place] [address] SAMPLE SITE ARTERIAL LINE Normal [facility] Comment on above: Order Comment: Campu s: M Performed By: #### L 300.70541, L300.36225 #### [facility] [address] [place] [address] SAMPLE TYPE ARTERIAL Normal [facility] Comment on above: Order Comment: Campu s: M Performed By: #### L 300.78216, L300.21377 #### [facility] [place] [address] Sodium molar conc 136 mmol/L Normal 136-148 [facility] Comment on above: Order Comment: Campu s: M Performed By: #### L 300.48613, L300.97965 #### [facility] [address] [place], [place] [address] TIDAL VOLUME 0.600 LITERS Normal [facility] Comment on above: Order Comment: Campu s: M Performed By: #### L 300.26171, L300.64409 #### [facility] [address] [place] [address] VENT MODE SIMV Normal [facility] Comment on above: Order Comment: Campu s: M Performed By: #### L 300.73721, L300.81727 #### [facility] [address] [place] [address] BMPon 02-15-2018 Anion gap molar conc 7 mmol/L Normal 5-16 [facility] Comment on above: Order Comment: Campu s: M Performed By: #### L 300.30930, L300.67229 #### [facility] [place] [address] Calcium mass conc 7.9 mg/dL Low 8.5-10.1 [facility] Comment on above: Order Comment: Campu s: M Performed By: #### L 300.15161, L300.71910 #### [facility] [address] [place] [address] Chloride molar conc 110 mmol/L High 98-107 [facility] Comment on above: Order Comment: Campu s: M Performed By: #### L 300.78280, L300.62260 #### [facility] [address] [place], [place] [address] CO2 molar conc 23 mmol/L Normal 21-32 [facility] Comment on above: Order Comment: Campu s: M Performed By: #### L 300.76663, L300.43259 #### [facility] [address] [place] [address] Creatinine mass conc 0.807 mg/dL Normal 0.670-1.170 [facility] Comment on above: Order Comment: Campu s: M Result Comment: Cynthia ents receiving either N-Acetylcysteine (NAC) or Metamizole prior to venipuncture, may have falsely depressed results. Performed By: #### L 300.88714, L300.70444 #### [facility] [address] [place], [place] [address] Glucose mass conc 83 mg/dL Normal 70-100 [facility] Comment on above: Order Comment: Campu s: M Result Comment: 70-1 00- Normal Fasting; 100-125 Impaired Fasting; greater than 126 on more than one result- Diabetes. ADA guidelines. Results may be falsely elevated after the administration of Sulfapyridine. Results may be falsely depressed after the administration of Sulfasalazine. Performed By: #### L 300.34132, L300.98949 #### [facility] [place] [address]86408 Potassium molar conc 3.8 mmol/L Normal 3.5-5.1 [facility] Comment on above: Order Comment: Campu s: M Result Comment: Slig ht Hemolysis, Result may be falsely increased. Performed By: #### L 300.72405, L300.58046 #### [facility] [address] [place] [address] Sodium molar conc 140 mmol/L Normal 136-145 [facility] Comment on above: Order Comment: Campu s: M Performed By: #### L 300.44054, L300.50737 #### [facility] [address] [place] [address] Urea nitrogen mass conc 12 mg/dL Normal 7-26 [facility] Comment on above: Order Comment: Campu s: M Performed By: #### L 300.35151, L300.87652 #### [facility] [address] [place] [address] Urea nitrogen/Creatinine mass ratio 15 mg/mg Normal 15-24 [facility] Comment on above: Order Comment: Campu s: M Performed By: #### L 300.62974, L300.51413 #### [facility] [address] [place] [address] CBC W/DIFFon 02-15-2018 BASO ABS 0.00 K/CU MM Normal 0-0.2 [facility] Comment on above: Order Comment: Campu s: M Performed By: #### L 300.67421, L300.87969 #### [facility] [address] [place] [address] Basophils/100 WBC (Bld) 0.0 % Normal 0-2 [facility] Comment on above: Order Comment: Campu s: M Performed By: #### L 300.53968, L300.54605 #### [facility] [address] [place] [address] EOS ABS 0.00 K/CU MM Normal 0-0.5 [facility] Comment on above: Order Comment: Campu s: M Performed By: #### L 300.71934, L300.87106 #### [facility] [address] [place] [address] Eosinophils/100 WBC (Bld) 0.4 % Normal 0-5 [facility] Comment on above: Order Comment: Campu s: M Performed By: #### L 300.20232, L300.78127 #### [facility] [address] [place] [address] Erythrocyte distribution width Ratio (RBC) 14.0 % Normal 11-14.5 [facility] Comment on above: Order Comment: Campu s: M Performed By: #### L 300.48335, L300.35692 #### [facility] [address] [place] [address] Hematocrit Volume Fraction (Bld) 36.4 % Low 41.0-53.0 [facility] Comment on above: Order Comment: Campu s: M Performed By: #### L 300.33681, L300.97720 #### [facility] [address] [place] [address] Hemoglobin mass conc (Bld) 12.4 g/dL Low 13.5-17.5 [facility] Comment on above: Order Comment: Campu s: M Performed By: #### L 300.43811, L300.33645 #### [facility] [address] [place] [address] IMMATR GRAN ABS 0.00 K/CU MM Normal Less than 2 [facility] Comment on above: Order Comment: Campu s: M Performed By: #### L 300.28068, L300.63656 #### [facility] [address] [place] [address] IMMATURE GRAN % 0.4 % Normal Less than 2 [facility] Comment on above: Order Comment: Campu s: M Performed By: #### L 300.28192, L300.39968 #### [facility] [address] [place] [address] Lymphocytes #/vol (Bld) 0.30 K/CU MM Low 0.9-4.4 [facility] Comment on above: Order Comment: Campu s: M Performed By: #### L 300.03214, L300.70190 #### [facility] [address] [place] [address] Lymphocytes/100 WBC (Bld) 6.0 % Low 20-40 [facility] Comment on above: Order Comment: Campu s: M Performed By: #### L 300.41734, L300.38071 #### [facility] [address] [place] [address] MCHC mass conc (RBC) 34.1 g/dL Normal 32.0-36.0 [facility] Comment on above: Order Comment: Campu s: M Performed By: #### L 300.33574, L300.54814 #### [facility] [address] [place] [address] MCV Entitic volume (RBC) 86.7 fL Normal 80.0-99.0 [facility] Comment on above: Order Comment: Campu s: M Performed By: #### L 300.50020, L300.64085 #### [facility] [address] [place] [address] MONO ABS 0.00 K/CU MM Low 0.1-1.1 [facility] Comment on above: Order Comment: Campu s: M Performed By: #### L 300.20040, L300.18166 #### [facility] [address] [place] [address] Monocytes/100 WBC (Bld) 0.7 % Low 2-10 [facility] Comment on above: Order Comment: Campu s: M Performed By: #### L 300.03583, L300.47275 #### [facility] [address] [place] [address] NEUTROPHIL ABS 4.20 K/CU MM Normal 2.0-8.3 [facility] Comment on above: Order Comment: Campu s: M Performed By: #### L 300.70824, L300.80790 #### [facility] [address] [place] [address] Neutrophils/100 WBC (Bld) 92.5 % High 45-75 [facility] Comment on above: Order Comment: Campu s: M Performed By: #### L 300.94068, L300.48400 #### [facility] [address] [place] [address] Nucleated RBC/100 WBC Ratio (Bld) 0.0 % Normal Less than 1 [facility] Comment on above: Order Comment: Campu s: M Performed By: #### L 300.50888, L300.50295 #### [facility] [address] [place] [address] Platelet mean volume Entitic volume (Bld) 9.5 fL Normal 9.4-12.4 [facility] Comment on above: Order Comment: Campu s: M Performed By: #### L 300.06045, L300.94127 #### [facility] [address] [place] [address] Platelets #/vol (Bld) 97 K/CU MM Low 150-450 [facility] Comment on above: Order Comment: Campu s: M Result Comment: Conf irmed by slide estimate. Performed By: #### L 300.01335, L300.43869 #### [facility] [address] [place], [place] [id number] Platelets #/vol (Bld) MOD DECREASED Normal [facility] Comment on above: Order Comment: Campu s: M Performed By: #### L 300.05069, L300.21350 #### [facility] [address] [place] [address] POLY 1+ Normal [facility] Comment on above: Order Comment: Campu s: M Performed By: #### L 300.29609, L300.90497 #### [facility] [address] [place] [address] RBC #/vol (Bld) 4.20 M/CU MM Low 4.50-6.00 [facility] Comment on above: Order Comment: Campu s: M Performed By: #### L 300.22318, L300.75603 #### [facility] [address] [place] [address] WBC #/vol (Bld) 4.5 K/CU MM Normal 4.5-11.0 [facility] Comment on above: Order Comment: Campu s: M Performed By: #### L 300.43805, L300.99156 #### [facility] [address] [place], [place] [id number] CRon 02-15-2018 CR DATE OF CONSULTATION : 02/16/2018 REFERRING: Jaswinder Hdez MD Mr. Sigala is a very pleasant 62-year-old gentleman whom I routinely see in the office. He was most recently seen by me just about a month ago, where he had an H and P dictated for an outpatient heart catheterization. His baseline is that of an angioplasty of the LAD back in 2012 and then a stent at that time. This was followed by another angioplasty and stent procedure to the right coronary in 2013. He had an abnormal stress test done, which led to his heart catheterization, which showed significant coronary disease. He underwent a bypass procedure yesterday with TALAVERA to LAD graft and vein grafts to a diagonal, posterior descending artery, and distal right coronary. In seeing him today, he is now out of bed, sitting up in a chair. He is presently getting his leg dressings changed. He is not dyspneic. Other than the expected soreness being postop, he feels well. This gentleman does have a history of allergies to LISINOPRIL and SUDAFED. His home medications routinely include: 1. Carvedilol 50 mg b.i.d. 2. Atorvastatin 20 mg daily. 3. Amlodipine 5 mg daily. 4. Aspirin. 5. Plavix. Of note, he is a continuous smoker. PHYSICAL EXAMINATION: Vital Signs: At present on physical exam, the vitals most recently charted were stable with a normal sinus rhythm. Cardiovascular: Due to his present state, his limited exam showed good peripheral pulses with no edema. The rhythm was regular. Lungs: Some crepitus could be heard. Breath sounds are present bilaterally. Pertinent information in the chart includes an EKG, which was normal. A chest x-ray showed a small apical pneumothorax on one side. The magnesium was normal with normal electrolytes and a normal creatinine. His white count was 19,000 with a hemoglobin of 11 and a hematocrit of 29; platelets were 97,000. ASSESSMENT: 1. Well-preserved left ventricular function. [facility] PATIENT NAME: FATUMA SIGALA [facility] Dr. Oh MEDICAL REC #: [id number] [place] [address] ADMIT DATE: 02/15/18 DISCHARGE DATE: 02/20/18 CONSULTATION REPORT ATTENDING PHY: Jaswinder Hdez MD 2. Coronary artery disease, status post 4 vessel coronary artery bypass graft. 3. Ongoing cigarette use. 4. Peripheral vascular disease (failed to mention above). RECOMMENDATIONS: 1. Resume atorvastatin. 2. Note that he is on aspirin and Plavix as well as amiodarone per Dr. Hdez. 3. Home per [facility]. Presently stable post bypass. S MD SATYA Rodgers/[id number] [facility] File#: [id number] Verified/Reviewed by 03/19/18 1138 PIPSW [facility] PATIENT NAME: FATUMA SIGALA [facility] Dr[address] Oh MEDICAL REC #: [id number] [place] [address] ADMIT DATE: 02/15/18 DISCHARGE DATE: 02/20/18 CONSULTATION REPORT ATTENDING PHY: Jaswinder Hdez MD [facility] 02-[facility]-2018 IF AMER Greater than 60 Normal [facility] Comment on above: Order Comment: Gloria s: M Performed By: #### L 300.71944, L300.40007 #### [facility] [place] [address] IF non-AFR AMER Greater than 60 Normal [facility] Comment on above: Order Comment: Gloria s: M Performed By: #### L 300.41664, L300.51625 #### [facility] [place] [address] GLUCOSE METERon 02-15-2018 Glucose mass conc 102 mg/dL Normal 85-125 [facility] Glucose mass conc 114 mg/dL Normal 85-125 [facility] Glucose mass conc 100 mg/dL Normal 85-125 [facility] Glucose mass conc 88 mg/dL Normal 85-125 [facility] Glucose mass conc 114 mg/dL Normal 85-125 [facility] Glucose mass conc 125 mg/dL Normal 85-125 [facility] Glucose mass conc 140 mg/dL High 85-125 [facility] Gl[facility] mass conc 123 mg/dL Normal 85-125 [facility] Glucose mass conc 121 mg/dL Normal 85-125 [facility] Glucose mass conc 101 mg/dL Normal 85-125 [facility] Glucose mass conc 105 mg/dL Normal 85-125 [facility] MAGNESIUMon 02-15-2018 Magnesium mass conc 3.1 mg/dL High 1.6-2.6 [facility] Comment on above: Order Comment: Gloria s: M Result Comment: Slig ht Hemolysis, Result may be falsely increased. Performed By: #### L 300.63290, L300.12546 #### [facility] [address] [place] [address] ORon 02-15-2018 OPERATIVE REPORT Normal [facility] OR DATE OF SERVICE: 02/15/2018 OPERATION: 1. Coronary artery bypass graft x4 with: 2. Lbgj-cjcmaere-vldroeq-iris ry to the ghoc-gpvrrlno-jziewamvlg. 3. Vein to the high diagonal. 4. Vein to the posterior descending. 5. Vein to posterolateral. 6. Endoscopic harvest of the thighs on both sides. 7. Transesophageal echocardiography. SURGEON: Jaswinder Hdez MD COMPOSITION INSTRUCTOR: Kisha. ANESTHESIA: General endotracheal. INDICATION FOR SURGERY: Multivessel disease with unstable angina symptoms. FINDINGS: The aorta was soft. There was no evidence of any valvular insufficiency, including mitral or aortic insufficiency. There was no evidence of any aortic stenosis. The patient had a reasonable vein; although, thickened in some places. The mammary had good flow. There was no PFO. Pressures were normal. The TALAVERA had reasonable size. LAD had lumen of about 2 mm where it was tapped with proximal disease where the stent was and in-stent stenosis. The flow in the vein to the diagonal was 140. The target was about 1.5 mm with reasonable quality. The flow in the vein to the posterior descending coronary artery was 110. The target was 1 to 1.5 mm with severe disease throughout its length. The flow in the vein to the posterolateral artery was 140. The target was about 3 mm, with some disease, although better quality than the PDA. Ventricular function was good before and after coming off bypass. There was no evidence of PFO. There was no evidence of any valvular dysfunction post-bypass. DESCRIPTION OF THE OPERATION: After adequate general endotracheal anesthesia, the patient's neck, chest, abdomen, and lower extremities were prepped and draped in the usual fashion. [facility] PATIENT NAME: FATUMA SIGALA [facility] Dr[address] Oh MEDICAL REC #: [id number] [place] [address] ADMIT DATE: 02/15/18 DISCHARGE DATE: OPERATIVE REPORT ATTENDING PHY: Jaswinder Hdez MD An incision was made in the midsternal area, and the left internal mammary artery was taken down from its position underneath the sternum, after doing a mid-sternotomy. At the same time, endoscopic harvest of the thighs was performed with reasonable vein reported being removed. At that point, the patient had the heparin given. Mammary was prepared, and bypass was established after placing a catheter in the distal ascending aorta and one in the right atrium. A catheter was also placed in the coronary sinus through the right atrium, and bypass was established. Another catheter was placed in the ascending aorta. Cross-clamp was applied. Antegrade cardioplegia was given, and retrograde cardioplegia was given every 10 minutes to maintain the heart. The first graft to be done was the PDA, followed by the posterolateral artery, using 7-0 Prolene and reverse vein, followed by the vein to the high diagonal, again using 7-0 Prolene and reverse saphenous vein. Warming was started, and the mammary was then anastomosed to the distal LAD using 7-0 Prolene. The proximal anastomoses were constructed, with the cross-clamp on, using 6-0 Prolene at that point. With that completed, the heart was deaired. The cross-clamp was removed, and warming was continued. Hemostasis was achieved proximally and distally, followed by placement of pacer wires in the right ventricle and right atrium. Patient was then taken off bypass without difficulty. At that point, it was decided to remove the venous lines and reinforce the sites on the right atrium with 4-0 Prolene. Doppler signals were good in the grafts, and Protamine was given. After adequate transfusion, the arterial line was removed, and the site reinforced with 4-0 Prolene, and Doppler signals were still very good. Hemostasis was achieved in the distal area of the aorta, the superior mediastinum, and left pleural spaces, followed by placement of chest tubes in the pericardium and left pleural space, both 32-[place], and fixed with Ethibond sutures. The chest was then weaved in Robicsek style, followed by closure with double wires, after making sure the signals were good in all the vessels and good ventricular function was seen on GAYLE. The incisions in the thighs were closed with Vicryl and Monocryl. At that point, dressings were applied. Tubes were connected to suction. The patient was subsequently taken to ICU in stable condition. All needle, instrument, and laparotomy pad counts were correct. [facility] PATIENT NAME: FATUMA SIGALA [facility] [address] [facility] MEDICAL REC #: [id number] [place] [address] ADMIT DATE: 02/15/18 DISCHARGE DATE: OPERATIVE REPORT ATTENDING PHY: Jaswinder Hdez MD Jaswinder Hdez MD ND/[id number] [facility] File#: [id number] Verified/Reviewed by 02/18/18 Maddy CASAREZ [facility] PATIENT NAME: FATUMA SIGALA Dr. Oh MEDICAL REC #: [id number] [place] [address] ADMIT DATE: 02/15/18 DISCHARGE DATE: OPERATIVE REPORT ATTENDING PHY: Jaswinder Hdez MD Normal [facility] Suzanna PFSon 02-15-2018 PFS PULMONARY FUNCTION T EST DATE OF SERVICE: 02/09/2018 ORDERING PHYSICIAN: Dr. Jaswinder Hdez. INTERPRETATION: Spirograms are good quality and plateau slowly. Spirometry is consistent with a moderate obstructive defect with an FVC of 83% predicted (3.86 liters), an FEV1 of 69% predicted (2.41 liters), and an FEV1/FVC ratio of 83% predicted. Bronchodilator testing was not performed. The maximum voluntary ventilation was mildly reduced at 74% predicted. This is likely suggestive of the fact that patient is unable to withhold or withstand higher ventilatory needs. IMPRESSION: 1. Mild obstruction noted on spirometry. 2. Bronchodilator response was not significant. 3. Maximum voluntary ventilation was mildly reduced. Akosua De Luna DO /[id number] [facility] File#: [id number] CC: Jaswinder Hdez MD PREDICTED ACTUAL % PREDICTED FVC: FEV1: FEV1/FVC% : PEF: PT EFFORT: PATIENT POSITION: COMMENTS: INTERPRETATION: Verified/Reviewed by *@ [facility] PATIENT NAME: FATUMA SIGALA Dr. Oh MEDICAL REC. #: [id number] [place], [place] [address] ACCOUNT NUM: [id number] ADMIT DATE: DISCHARGE DATE: PULMONARY FUNCTION REPORT ATTENDING PHY: Jaswinder Hdez MD *@ Normal [facility] PULMONARY FUNCTION SCREEN [facility]-2018 Phosphate mass conc 1.9 mg/dL Low 2.5-4.9 [facility] Comment on above: Order Comment: Gloria s: M Performed By: #### L 300.85439, L300.65022 #### [facility] [address]# [phone] PORTABLE CHESTon 02-15-2018 PORTABLE CHEST PORTABLE CHEST Ordering Physician: Micaela Jean 02/15/2018 5:44 PM SINGLE PORTABLE SUPINE CHEST 1805 HOURS Clinical Statement: Postop CABG Comparison: Chest radiograph 09/09/2017 FINDINGS: The heart is upper normal size. Left retrocardiac airspace opacity seen. Mediastinum is not overly widened. Tip of the endotracheal tube is approximately 3 cm above the sandie. Tip of the Bancroft-Norma catheter is within the main pulmonary artery. Left-sided thoracostomy tubes are shown. NG tube is seen within the stomach. Sternal sutures are seen. Left suprahilar atelectatic/airspace opacity seen with possible tiny apical pneumothorax. IMPRESSION: Left retrocardiac and left upper lung airspace opacities.. Possible tiny left apical pneumothorax. Lines and tubes as noted. A report was faxed to the referring physician at the time of the study. ---- Electronic Signature on File ---- Signed By: Javid Evans MD [email or web address] Dictated: 02/15/2018 6:13 PM Signed: 02/15/2018 6:15 PM Reported By: JAVID EVANS M.D. Signed By: JAVID EVANS M.D. [facility] PORTABLE CHEST PORTABLE CHEST Ordering Physician: Johanny Desai 02/19/2018 6:00 AM PORTABLE AP CHEST 2017 5:10 AM Clinical Statement: Coronary artery disease Comparison: February 16, 2018 FINDINGS: The Bancroft-Norma catheter and left chest tube is been removed. The cardiomediastinal silhouette is stable. Both lungs are clear. No pleural effusion. Small left apical pneumothorax. IMPRESSION: Interval Bancroft-Norma catheter and left chest tube removal with small left apical pneumothorax. ---- Electronic Signature on File ---- Signed By: Bhaskar Paris MD [email or web address] Dictated: 02/19/2018 8:08 AM Signed: 02/19/2018 8:10 AM Reported By: BHASKAR PARIS M.D. Signed By: BHASKAR PARIS M.D. [facility] PORTABLE CHEST PORTABLE CHEST Ordering Physician: Micaela Jean 02/16/2018 6:00 AM PORTABLE UPRIGHT CHEST AT 5:28 AM Clinical Statement: Status post CABG, CAD Comparison: Portable chest February 07, 2018 FINDINGS: There is been interval removal of the endotracheal tube and NG tube. The right IJ Bancroft-Norma catheter, mediastinal, and left thoracotomy tubes are unchanged. The heart size is stable. There is no mediastinal widening. No pneumothorax. There is left upper lobe atelectasis. There is improved aeration the left lung base. A small left pleural effusion is present. There is no vascular congestion. The right lung is clear. IMPRESSION: Status post extubation and removal of NG tube. No pneumothorax Improved left upper lobe and left basilar atelectasis Small left pleural effusion ---- Electronic Signature on File ---- Signed By: García Melgar MD [email or web address] Dictated: 02/16/2018 8:01 AM Signed: 02/16/2018 8:02 AM Reported By: GARCÍA MELGAR M.D. Signed By: GARCÍA MELGAR M.D. [facility] TSon 02-15-2018 ABO and Rh group Nom (Bld) A POSITIVE [facility] Comment on above: Order Comment: Gloria Oliveira PFS REVIEWon 02-12-2018 PFS REVIEW [facility] Comment on above: Order Comment: Gloria Oliveira Result Comment: Both the REINALDO/EPI and the REINALDO/ADP have prolonged closure times which may be due to a primary platelet function disorder, drug effects, thrombocytopenia, uremia or Von Willebrand's disease. Reviewed by Juan Masterson Jr., M.D., Pathologist.02/10/18 [id number] Performed By: #### L 300.10913, L300.89305, L300.54418, L300.38867 ####[facility] [id number] [place], [place] [address]Sp# [phone] ABGPon 02-09-2018 ABG BE -3.0 MMOL/L Low -2.0-2.0 [facility] Comment on above: Performed By: #### L 100.31405 ####[facility] [id number] [place], [place] [address]Rs# [phone] ABG COHBA 7.9 % Normal 0-10 [facility] Comment on above: Performed By: #### L 100.22834 ####[facility] [id number] [place], [place] [address]Tr# [phone] ABG HCO3 21.0 MMOL/L Low 22-26 [facility] Comment on above: Performed By: #### L 100.37034 ####[facility] [id number] [place], [place] [address]Of# [phone] ABG MET 0.3 % Low 0.4-1.5 [facility] Comment on above: Performed By: #### L 100.31661 ####[facility] [id number] [place], [place] [address]Jd# [phone] ABG O2 CAPACITY 20.2 mL/dL Normal [facility] Comment on above: Performed By: #### L 100.69443 ####[facility] [id number] [place], [place] [address]Yu# [phone] ABG O2HB SAT 88.5 % Low 90-100 [facility] Comment on above: Performed By: #### L 100.20801 ####[facility] [id number] [place], [place] [address]Sb# [phone] ABG PCO2 34.8 MMHG Low 35-45 [facility] Comment on above: Performed By: #### L 100.95748 ####[facility] [id number] [place], [place] [address]Of# [phone] ABG PH 7.40 Normal 7.35-7.45 [facility] Comment on above: Performed By: #### L 100.16916 ####[facility] [id number] [place], [place] [address]Qs# [phone] ABG PO2 82 MMHG Normal 80-100 [facility] Comment on above: Performed By: #### L 100.78286 ####[facility] [id number] [place], [place] [address]Ws# [phone] REGINALDO TEST Positive Normal [facility] Comment on above: Performed By: #### L 100.95871 ####[facility] [id number] [place], [place] [address]We# [phone] aPTT Coag time (Bld) 37.0 C Normal [facility] Comment on above: Performed By: #### L 100.28847 ####[facility] [id number] [place], [place] [address]Kw# [phone] EQUIPMENT ROOM AIR Normal [facility] Comment on above: Performed By: #### L 100.13307 ####[facility] [id number] [place], [place] [address]Uh# [phone] FIO2 21 % Normal [facility] Comment on above: Performed By: #### L 100.77618 ####[facility] [id number] [place], [place] [address]Wb# [phone] Hemoglobin mass conc (Bld) 3.3 % Normal 0-5 [facility] Comment on above: Performed By: #### L 100.59867 ####[facility] NFNTTSXUWQ9370 [place], [place] [address]Tl# [phone] Hemoglobin mass conc (Bld) 15.8 g/dL High 11.5-15.5 [facility] Vader Comment on above: Performed By: #### L 100.77225 ####[facility] TMPELZBUDJ7350 [place], [place] [address]Gr# [phone] SAMPLE SITE R RADIAL Normal [facility] Comment on above: Performed By: #### L 100.24501 ####[facility] ODFWZNNQCR[address] [place] [address]Me# [phone] SAMPLE TYPE ARTERIAL Normal [facility] Comment on above: Performed By: #### L 100.81960 ####[facility] QUGNNWOOZH[address] [place] [address]Oq# [phone] ABO/RH NCon 02-09-2018 ABO and Rh group Nom (Bld) A POSITIVE Normal [facility] Comment on above: Order Comment: Gloria s: MIs This Patient Going To Surgery? YSurgery Date: 02/15/18 CBC W/DIFFon 02-09-2018 BASO ABS 0.00 K/CU MM [facility].2 [facility]: Order Comment: Campu s: M Performed By: #### L 200.15871, L550.96290 ####[facility] QOUXQKIHAJ0588 [place], [place] [address]Wt# [phone] Basophils/100 WBC (Bld) 0.3 % Normal 0-2 [facility] Comment [facility] above: Order Comment: Campu s: M Performed By: #### L 200.34297, L550.87878 ####[facility] LHGZKASMWI1788 [place], [place] [address]St# [phone] EOS ABS 0.10 K/CU MM Normal 0-0.5 [facility] Vader Comment on above: Order Comment: Stephenu s: M Performed By: #### L 200.61575, L550.25326 ####[facility] YRZRVVUDNY7753 [place], [place] [address]Ja# [phone] Eosinophils/100 WBC (Bld) 1.2 % Normal 0-5 [facility] Comment on above: Order Comment: Campu s: M Performed By: #### L 200.06908, L550.52052 ####[facility] BPRXGUFZTQ7234 [place], [place] [address]Sb# [phone] Erythrocyte distribution width Ratio (RBC) 14.5 % Normal 11-14.5 [facility] Vader Comment on above: Order Comment: Campu s: M Performed By: #### L 200.66842, L550.15838 ####[place] [address]Ph# [phone] Hematocrit Volume Fraction (Bld) 43.7 % Normal 41.0-53.0 [facility] Comment on above: Order Comment: Campu s: M Performed By: #### L 200.92917, L550.72781 ####[place] [address] [place], [place] [address]Wa# [phone] Hemoglobin mass conc (Bld) 14.3 g/dL Normal 13.5-17.5 [facility] Vader Comment on above: Order Comment: Campu s: M Performed By: #### L 200.46690, L550.45917 ####[place] [address]Ph# [phone] IMMATR GRAN ABS 0.00 K/CU MM Normal Less than 2 [facility] Vader Comment on above: Order Comment: Campu s: M Performed By: #### L 200.97211, L550.99551 ####[facility] PWEDBNZHME[address] [place], [place] [address]Ph# [phone] IMMATURE GRAN % 0.4 % Normal Less than 2 [facility] Vader Comment on above: Order Comment: Campu s: M Performed By: #### L 200.52183, L550.07110 ####[facility] HXZZBSBIJR6256 [place], [place] [address]Kf# [phone] Lymphocytes #/vol (Bld) 1.40 K/CU MM Normal 0.9-4.4 [facility] Vader Comment on above: Order Comment: Campu s: M Performed By: #### L 200.89540, L550.53969 ####[facility] CSZPSNVJOO3213 [place] [address]Ph# [phone] Lymphocytes/100 WBC (Bld) 19.3 % Low 20-40 [facility] Comment on above: Order Comment: Campu s: M Performed By: #### L 200.23226, L550.57122 ####[facility] YOFPCYUTKM64[address] [place], [place] [address]Ph# [phone] MCHC mass conc (RBC) 32.7 g/dL Normal 32.0-36.0 [facility] Vader Comment on above: Order Comment: Campu s: M Performed By: #### L 200.89350, L550.41622 ####[address] [address]Ew# [phone] MCV Entitic volume (RBC) 88.6 fL Normal 80.0-99.0 [facility] Comment on above: Order Comment: Campu s: M Performed By: #### L 200.65141, L550.85734 ####[place] [address]Ph# [phone] MONO ABS 0.50 K/CU MM Normal 0.1-1.1 [facility] Comment on above: Order Comment: Campu s: M Performed By: #### L 200.86479, L550.66680 ####[facility] DJMGHJMZFQ8[address] [place], [place] [address]Ph# [phone] Monocytes/100 WBC (Bld) 7.0 % Normal 2-10 [facility] Comment on above: Order Comment: Campu s: M Performed By: #### L 200.24675, L550.11280 ####[facility] XOGBPKTTGX8268 [place], [place] [address]Uf# [phone] NEUTROPHIL ABS 5.30 K/CU MM Normal 2.0-8.3 [facility] Comment on above: Order Comment: Campu s: M Performed By: #### L 200.18539, L550.05233 ####[facility] RWJZALCDFO1892 [place], [place] [address]Fz# [phone] Neutrophils/100 WBC (Bld) 71.8 % Normal 45-75 [facility] Comment on above: Order Comment: Campu s: M Performed By: #### L 200.26056, L550.93293 ####[address] [address]Xv# [phone] Nucleated RBC/100 WBC Ratio (Bld) 0.0 % Normal Less than 1 [facility] Comment on above: Order Comment: Campu s: M Performed By: #### L 200.93820, L550.97032 ####[address] [address]Lk# [phone] Platelet mean volume Entitic volume (Bld) 10.1 fL Normal 9.4-12.4 [facility] Comment on above: Order Comment: Campu s: M Performed By: #### L 200.33437, L550.17964 ####[address] [address]Ey# [phone] Platelets #/vol (Bld) 145 K/CU MM Low 150-[address] [facility] Comment on above: Order Comment: Campu s: M Performed By: #### L 200.55006, L550.33643 ####[facility] SFCFPKQWPH[address] [place] [address]Wx# [phone] RBC #/vol (Bld) 4.93 M/CU MM Normal 4.50-6.00 [facility] Comment on above: Order Comment: Campu s: M Performed By: #### L 200.17057, L550.47250 ####[facility] WKJZVVSLPA[address] [place] [address]Tk# [phone] WBC #/vol (Bld) 7.4 K/CU MM Normal 4.5-11.0 [facility] Comment on above: Order Comment: Campu s: M Performed By: #### L 200.73650, L550.71695 ####[facility] OHGJHBXDPI7945 [place], [place] [address]Rf# [phone] CHEST PA/AP AND LATERALon CHEST PA/AP AND LATERAL CHEST PA/AP & LATERAL Ordering Physician: Jaswinder Hdez MD 02/09/2018 8:16 AM PA AND LATERAL CHEST: Clinical Statement: High-risk OR Comparison: None FINDINGS: No focal consolidation, pleural effusion, pneumothorax, pulmonary nodules or pulmonary edema. The cardiac silhouette is within normal limits. There is a curvilinear density projecting over the posterior lateral right ninth rib. The osseous structures are unremarkable. IMPRESSION: No acute cardiopulmonary disease. Curvilinear density projecting over the posterior lateral right ninth rib. Differential considerations would healing rib fracture versus pulmonary nodule. Follow-up is recommended. A rib series may be definitive. ---- Electronic Signature on File ---- Signed By: Lyle Schilling MD [email or web address] Dictated: 02/09/2018 11:34 AM Signed: 02/09/2018 11:36 AM Reported By: LYLE SCHILLING M.D. Signed By: LYLE SCHILLING M.D. Normal [facility] CMPon 02-09-2018 Albumin mass conc 3.9 g/dL Normal 3.2-5.0 [facility] Comment on above: Order Comment: Campu s: M Performed By: #### L 500.96628, L500.88549 ####[facility] VMBOPZNRZT2290 [place], [place] [address]To# [phone] Albumin/Globulin mass ratio 1.3 {ratio} Normal 0.8-2.0 [facility] Comment on above: Order Comment: Campu s: M Performed By: #### L 500.11864, L500.65183 ####[facility] DBKVFFIUFA6300 [place], [place] [address]Vo# [phone] ALK PHOS 135 U/L High 45-117 [facility] Comment on above: Order Comment: Campu s: M Performed By: #### L 500.93656, L500.01652 ####[facility] JEGYHDDGGJ3251 [place], [place] [address]Pk# [phone] ALT enzyme act/vol 14 U/L Normal 13-61 [facility] Comment on above: Order Comment: Campu s: M Result Comment: RESU LTS MAY BE FALSELY DEPRESSED AFTER THE ADMINISTRATION OF SULFASALAZINE AND/OR SULFAPYRIDINE. Performed By: #### L 500.87212, L500.15007 ####[facility] DNGMNLIRHE5744 [place] [address]Ph# [phone] Anion gap molar conc 9 mmol/L Normal 5-16 [facility] Comment on above: Order Comment: Campu s: M Performed By: #### L 500.08651, L500.09527 ####[facility] HXBCHKBEWG[address] [place], [place] [address]Ph# [phone] BILI TOTAL 0.5 MG/DL Normal 0.2-1.0 [facility] Comment on above: Order Comment: Campu s: M Performed By: #### L 500.43116, L500.69962 ####[facility] KOMXRWLVDL4344 [place], [place] [address]Mm# [phone] Calcium mass conc 8.8 mg/dL Normal 8.5-10.1 [facility] Comment on above: Order Comment: Campu s: M Performed By: #### L 500.39428, L500.83586 ####[facility] ZNXDQRECBE7036 [place], [place] [address]Ab# [phone] Chloride molar conc 107 mmol/L Normal 98-107 [facility] Comment on above: Order Comment: Campu s: M Performed By: #### L 500.05479, L500.88403 ####[facility] OTVMPLVKCI9418 [place] [address]Ph# [phone] CO2 molar conc 24 mmol/L Normal 21-32 [facility] Vader Comment on above: Order Comment: Stephenu s: M Performed By: #### L 500.15377, L500.65063 ####[facility] HGSLJMTAOP7935 [place], [place] [address]Os# [phone] Creatinine mass conc 0.911 mg/dL Normal 0.670-1.170 [facility] Vader Comment on above: Order Comment: Campu s: M Result Comment: Cynthia ents receiving either N-Acetylcysteine (NAC) or Metamizole prior to venipuncture, may have falsely depressed results. Performed By: #### L 500.76983, L500.73045 ####[facility] PVOXSFAWRK6980 [place], [place] [address]Ye# [phone] Globulin mass conc (S) 3.1 g/dL Normal 2.2-4.2 [facility] Comment on above: Order Comment: Stephenu s: M Performed By: #### L 500.16780, L5.53396 ####[facility] CIMLPATKRQ2126 [place], [place] [address]Cv# [phone] Glucose mass conc 95 mg/dL Normal 70-100 [facility] Comment on above: Order Comment: Stephenu s: M Result Comment: 70-1 00- Normal Fasting; 100-125 Impaired Fasting; greater than 126 on more than one result- Diabetes. ADA guidelines. Results may be falsely elevated after the administration of Sulfapyridine. Results may be falsely depressed after the administration of Sulfasalazine. Performed By: #### L 500.23788, L500.88677 ####[facility] EEFZNURGEF4067 [place], [place] [address]Kp# [phone] Potassium molar conc 3.9 mmol/L Normal 3.5-5.1 [facility] Vader Comment on above: Order Comment: Stephenu s: M Performed By: #### L 500.87960, L500.82410 ####[facility] ZTRZAIUGDF5003 [place], [place] [address]Pu# [phone] Protein mass conc 7.0 g/dL Normal 6.0-8.5 [facility] Comment on above: Order Comment: Campu s: M Performed By: #### L 500.36121, L500.87325 ####[facility] QRLOJVILTY4008 [place], [place] [address]Af# [phone] SGOT (AST) 8 U/L Normal 8-34 [facility] Comment on above: Order Comment: Campu s: M Result Comment: RESU LTS MAY BE FALSELY DEPRESSED AFTER THE ADMINISTRATION OF SULFASALAZINE AND/OR SULFAPYRIDINE. Performed By: #### L 500.41363, L500.48124 ####[facility] DEGESLKLWN6770 [place], [place] [address]Ao# [phone] Sodium molar conc 141 mmol/L Normal 136-145 [facility] Comment on above: Order Comment: Campu s: M Performed By: #### L 500.76754, L500.80012 ####[facility] XXHBXYPJSF[address] [place] [address]Sw# [phone] Urea nitrogen mass conc 12 mg/dL Normal 7-26 [facility] Comment on above: Order Comment: Campu s: M Performed By: #### L 500.71448, L500.76156 ####[facility] HEKVCVXFLA3358 [place], [place] [address]St# [phone] Urea nitrogen/Creatinine mass ratio 13 mg/mg Low 15-24 [facility] Comment on above: Order Comment: Campu s: M Performed By: #### L 500.57712, L500.49617 ####[facility] POVHVSVVOA4685 [place], [place] [address]Il# [phone] GFR ESTon 02-09-2018 IF AMER Greater than 60 Normal [facility] Comment on above: Order Comment: Campu s: M Performed By: #### L 500.62663, L500.90279 ####[facility] IBJSOCDPEE[address] [place] [address]Mp# [phone] IF non-AFR AMER Greater than 60 Normal [facility] Comment on above: Order Comment: Stephenu s: M Performed By: #### L 500.27475, L500.72914 ####[facility] ASSBLPWJPU3676 [place], [place] [address]Cl# [phone] HGB A1C GLYCOHBon 02-09-2018 Hemoglobin A1c/Hemoglobin.total mass fraction (Bld) 5.7 % Normal 4.3-6.0 [facility] Comment on above: Order Comment: Stephenu s: M Performed By: #### L 200.32159, L550.60546 ####[facility] XCYBVBOLIZ7427 [place], [place] [address]Ew# [phone] MRSA PCRon 02-09-2018 MRSA PCR Negative Normal NEGATIVE [facility] Comment on above: Order Comment: Gloria s: M Result Comment: PLEA SE NOTE: TESTING DONE BY PCR TECHNOLOGY. Performed By: #### L 770.49925 ####[facility] DKKMBGEOAH6876 [place], [place] [address]Kb# [phone] SA PCR Negative Normal NEGATIVE [facility] Comment on above: Order Comment: Gloria s: M Result Comment: PLEA SE NOTE: TESTING DONE BY PCR TECHNOLOGY. Performed By: #### L 770.72797 ####[facility] LKPBSQARWS6985 [place], [place] [address]Va# [phone] PATIENT RETYPEon 02-09-2018 RETYPE INTERP Positive Normal [facility] Comment on above: Order Comment: Gloria s: MIs This Patient Going To Surgery? YSurgery Date: 02/15/18 PFSon 02-09-2018 REINALDO/ADP Normal 58-110 [facility] Comment on above: Order Comment: Gloria s: M Result Comment: Grea ter than 300 seconds Performed By: #### L 300.57816, L300.40433, L300.46159, L300.22869 ####[facility] PWCRSZTCOY2907 [place], [place] [address]Rj# [phone] REINALDO/EPI Normal 91-168 [facility] Comment on above: Order Comment: Gloria pizano: Roxanne Result Comment: Grea ter than 300 seconds Platelet function results with closure times within or below the reference range for epinephrine are consistent with normal platelet function. Prolonged closure times with both epinephrine and ADP suggest a primary platelet disorder (effects of medication must be excluded), thrombocytopenia, uremia or Von Willebrand disease. Performance has not been established for specific platelet inhibiting agents such as Plavix. Prolonged epinephrine and normal ADP closure times suggest a drug effect. Clinical correlation is essential and additional testing including, but not limited to, platelet aggregometry may be indicated. 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 For heart valve and shunt patients the range is 2.5 - 3.5. Performed By: #### L 300.04602, L300.49596, L300.44679, L300.26409 ####[facility] VNVLHUJYIU7970 [place], [place] [address]He# [phone] Prothrombin time (PT) Coag time (PPP) 10.2 s Normal 9.5-12.0 [facility] Comment on above: Order Comment: Gloria Oliveira Performed By: #### L 300.69840, L300.93062, L300.40639, L300.51697 ####[facility] METPTORMOZ4973 [place], [place] [address]Lv# [phone] PTTon 02-09-2018 aPTT Coag time (Bld) 27.0 s Normal 22.0-31.5 [facility] Comment on above: Order Comment: Gloria pizano: Roxanne Result Comment: Ther apeutic Heparin Reference Range: High Dose: 46-75 seconds (DVT/PE) Low Dose: 39-60 seconds (Acute Coronary Syndrome) For low molecular weight heparin or danaparoid, monitoring is often NOT necessary, but the heparin assay, Xa inhibition assay (send-out) may be used in certain circumstances, as the PTT is generally insensitive to the effect of these agents. Direct thrombin inhibitors are becoming more widely utilized and these drugs are often monitored using the PTT. Performed By: #### L 300.59740, L300.84160, L300.03367, L300.33698 ####[facility] LJOVIRMNXS9263 [place], [place] [address]Ri# [phone] UA COMPLETEon 02-09-2018 Color Nom (U) Yellow Normal [facility] Comment on above: Order Comment: Stephenu s: M Performed By: #### L 600.80972 ####[facility] WKAQHNUEGV0386 [place], [place] [address]An# [phone] Glucose mass conc (U) Negative Normal [facility] Comment on above: Order Comment: Stephenu s: M Performed By: #### L 600.95690 ####[facility] YXMQJGUJOZ8831 [place], [place] [address]Dh# [phone] Mucus Ql (Urine sed) 1+ Normal [facility] Comment on above: Order Comment: Stephenu s: M Performed By: #### L 600.23020 ####[facility] PHHNIRMKMB4092 [place], [place] [address]Li# [phone] RBC #/vol (U) /uL Normal 0-3 [facility] Comment on above: Order Comment: Stephenu s: M Performed By: #### L 600.05795 ####[facility] IXRASVQLWH7894 [place], [place] [address]Kr# [phone] SQUAMOUS EPIS 0 EPI/HPF Normal 0-5 [facility] Comment on above: Order Comment: Stephenu s: M Performed By: #### L 600.15271 ####[facility] BTPYXISLAE0736 [place], [place] [address]Dl# [phone] UA APPEARANCE Clear Normal CLEAR [facility] Comment on above: Order Comment: Campu s: M Performed By: #### L 600.53252 ####[facility] MRXTVFBQLN7127 [place], [place] [address]We# [phone] UA BACTERIA NONE Normal NONE [facility] Comment on above: Order Comment: Campu s: M Performed By: #### L 600.98708 ####[facility] JFUMYTNOXK4898 [place], [place] [address]Nx# [phone] UA BILIRUBIN Negative Normal [facility] Comment on above: Order Comment: Campu s: M Performed By: #### L 600.22598 ####[facility] UCNXCHSCJW[address] [place] [address]Wf# [phone] UA BLOOD SMALL Normal NEGATIVE [facility] Comment on above: Order Comment: Campu s: M Performed By: #### L 600.94760 ####[facility] WTGSJOCXNT[address] [place] [address]Zg# [phone] UA KETONE Negative Normal [facility] Comment on above: Order Comment: Campu s: M Performed By: #### L 600.57878 ####[facility] FBEEHTAPCX[address] [place] [address]Xv# [phone] UA LK ESTERASE Negative Normal NEGATIVE [facility] Comment on above: Order Comment: Campu s: M Performed By: #### L 600.31624 ####[facility] LHHBOFKINZ[address] [place] [address]Sj# [phone] UA NITRITE Negative Normal NEGATIVE [facility] Comment on above: Order Comment: Campu s: M Performed By: #### L 600.71369 ####[facility] UPAHHBZNMU0241 [place], [place] [address]Vk# [phone] UA PH 5.0 Normal [facility] Comment on above: Order Comment: Campu s: M Performed By: #### L 600.52233 ####[facility] OMPZPEEIAT3665 [place], [place] [address]Oe# [phone] UA PROTEIN Negative Normal NEGATIVE [facility] Vader Comment on above: Order Comment: Campu s: M Performed By: #### L 600.45438 ####[facility] NOUGDFERRI5297 [place], [place] [address]Wo# [phone] UA SPEC GRAV 1.014 Normal 1.005-1.030 [facility] Comment on above: Order Comment: Campu s: M Performed By: #### L 600.78897 ####[facility] GRUNCISHOC8696 [place], [place] [address]Ef# [phone] UA UROBILINOGEN Negative Normal [facility] Comment on above: Order Comment: Campu s: M Performed By: #### L 600.26672 ####[facility] YAKWALFJRG1726 [place], [place] [address]Gj# [phone] UA WBC 1 WBC/HPF Normal 0-5 [facility] Comment on above: Order Comment: Campu s: M Performed By: #### L 600.59448 ####[facility] NVEELYVRDF4120 [place], [place] [address]Eq# [phone] VLCDon 02-09-2018 CAROTID DUPLEX REPORT Normal [facility] VLCD VASCULAR MEDSTREAMIN G REPORT -- Patient: FATUMA SIGALA [id number] Ordering Phy: MR: [id number] Reason for Visit: CAD,Z01.818,R09.89,I25.10 Date of Service 02/09/18 Reading Physician: Brad Conway MD Right: Grayscale, color, and spectral Doppler images were obtained from the right extracranial carotid arteries. The right internal carotid artery shows a mild amount of plaque. The peak systolic velocity in the right internal carotid artery is 99 cm/sec. and the end diastolic velocity is 43 cm/sec . The ICA/CCA ratio is calculated at 1.2 . Right vertebral artery flow is antegrade and within normal limits. This is suggestive of a 40 to 59% stenosis of the right internal carotid artery. Left: Grayscale, color, and spectral Doppler images were obtained from the left extracranial carotid arteries. The left internal carotid artery shows a mild amount of plaque. The peak systolic velocity in the left internal carotid artery is 93 cm/sec. and the end diastolic velocity is 18 cm/sec . The ICA/CCA ratio is calculated at 1.0 . Left vertebral artery flow is antegrade and within normal limits. This is suggestive of a 1 to 39% stenosis of the left internal carotid artery. Conclusions: Stenosis in the right internal carotid artery is 40 - 59% by established Doppler criteria. Stenosis in the left internal carotid artery is 1 - 39% by established Doppler criteria. CC: Jaswinder Hdez MD Abbreviated Final Report. Full Report is available via link to [employer] in [facility] under [facility] Image Viewer. [facility] PATIENT NAME: FATUMA SIGALA [address] [place] [address] Dr. Oh MEDICAL REC #: [id number] [place] [address] ADMIT DATE: DISCHARGE DATE: CAROTID DUPLEX REPORT ATTENDING PHY: Jaswinder Hdez MD Electronically Signed by: Brad Conway MD Esign Date: 02/09/18 Normal [facility] BMPon 01-14-2018 Anion gap molar conc 7 mmol/L Normal 5-16 [facility] Comment on above: Order Comment: Stephenu s: M Performed By: #### L 500.82054, L500.02652 #### [facility] [address] [place] [address] Calcium mass conc 8.8 mg/dL Normal 8.5-10.1 [facility] Comment on above: Order Comment: Gloria s: M Performed By: #### L 500.64158, L500.10531 #### [facility] [place] [address] Chloride molar conc 107 mmol/L Normal 98-107 [facility] Comment on above: Order Comment: Campu s: M Performed By: #### L 500.44572, L500.78290 #### [facility] [place] [address] CO2 molar conc 24 mmol/L Normal 21-32 [facility] Comment on above: Order Comment: Campu s: M Performed By: #### L 500.82875, L500.07950 #### [facility] [address] [place] [address] Creatinine mass conc 0.857 mg/dL Normal 0.670-1.170 [facility] Comment on above: Order Comment: Campu s: M Result Comment: Cynthia ents receiving either N-Acetylcysteine (NAC) or Metamizole prior to venipuncture, may have falsely depressed results. Performed By: #### L 500.23159, L500.34442 #### [facility] [address] [place] [address] Glucose mass conc 104 mg/dL High 70-100 [facility] Comment on above: Order Comment: Campu s: M Result Comment: 70-1 00- Normal Fasting; 100-125 Impaired Fasting; greater than 126 on more than one result- Diabetes. ADA guidelines. Results may be falsely elevated after the administration of Sulfapyridine. Results may be falsely depressed after the administration of Sulfasalazine. Performed By: #### L 500.49873, L500.91020 #### [facility] [address] [place] [address] Potassium molar conc 4.3 mmol/L Normal 3.5-5.1 [facility] Comment on above: Order Comment: Campu s: M Performed By: #### L 500.16611, L500.86995 #### [facility] [place] [address] Sodium molar conc 138 mmol/L Normal 136-145 [facility] Comment on above: Order Comment: Campu s: M Performed By: #### L 500.68080, L500.24340 #### [facility] [address] [place], [place] [id number] Urea nitrogen mass conc 12 mg/dL Normal 7-26 [facility] Comment on above: Order Comment: Campu s: M Performed By: #### L 500.21635, L500.46453 #### [facility] [address] [place], [place] [id number] Urea nitrogen/Creatinine mass ratio 14 mg/mg Low 15-24 [facility] Comment on above: Order Comment: Campu s: M Performed By: #### L 500.19679, L500.76188 #### [facility] [address] [place] [address] CBCon 01-14-2018 Erythrocyte distribution width Ratio (RBC) 14.7 % High 11-14.5 [facility] Comment on above: Order Comment: Campu s: M Performed By: #### L 200.73333 #### [facility] [address] [place], [place] [id number] Hematocrit Volume Fraction (Bld) 44.8 % Normal 41.0-53.0 [facility] Comment on above: Order Comment: Campu s: M Performed By: #### L 200.72061 #### [facility] [address] [place] [address] Hemoglobin mass conc (Bld) 14.8 g/dL Normal 13.5-17.5 [facility] Comment on above: Order Comment: Campu s: M Performed By: #### L 200.63724 #### [facility] [address] [place] [address] MCHC mass conc (RBC) 33.0 g/dL Normal 32.0-36.0 [facility] Comment on above: Order Comment: Campu s: M Performed By: #### L 200.40078 #### [facility] [address] [place] [address] MCV Entitic volume (RBC) 87.8 fL Normal 80.0-99.0 [facility] Comment on above: Order Comment: Campu s: M Performed By: #### L 200.55895 #### [facility] [address] [place] [address] Nucleated RBC/100 WBC Ratio (Bld) 0.0 % Normal Less than 1 [facility] Comment on above: Order Comment: Campu s: M Performed By: #### L 200.13352 #### [facility] [address] [place] [address] Platelet mean volume Entitic volume (Bld) 9.8 fL Normal 9.4-12.4 [facility] Comment on above: Order Comment: Campu s: M Performed By: #### L 200.72345 #### [facility] [address] [place] [address] Platelets #/vol (Bld) 148 K/CU MM Low 150-450 [facility] Comment on above: Order Comment: Campu s: M Performed By: #### L 200.80207 #### [facility] [address] [place] [address] RBC #/vol (Bld) 5.10 M/CU MM Normal 4.50-6.00 [facility] Comment on above: Order Comment: Campu s: M Performed By: #### L 200.80952 #### [facility] [address] [place] [address] WBC #/vol (Bld) 8.0 K/CU MM Normal 4.5-11.0 [facility] Comment on above: Order Comment: Campu s: M Performed By: #### L 200.18625 #### [facility] [address] [place] [address] CCon 07-27-2018 CARDIAC CATH Normal [facility] DATE OF SERVICE: 01/14/2018 PRIMARY CARE: Tripp Russell MD CARDIOLOGY: Vance Hinton MD PROCEDURE: Left heart catheterization, left internal mammary artery angiography. BRIEF HISTORY: A 62-year-old white male with a long history of coronary artery disease and smoking cigarettes. He still smokes cigarettes despite multiple interventions. In 2013, he had a stent of right coronary artery. In 2012, he had drug-eluting stent of LAD at [facility]. He is being treated for hyperlipidemia, hypertension. He has peripheral arterial disease. Dr. Hill did a PRIVATE EQU[employer] ASSOCIATE in his periphery in 2017. Patient has chronic myeloid leukemia diagnosed about 6 weeks ago. Treatment was initiated. He reports allergy to LISINOPRIL and SUDAFED. He was evaluated by Lexiscan, revealed anterolateral ischemia with ejection fraction 61% so he was referred for cardiac catheterization to delineate the coronary anatomy and possible revascularization. Risks and benefits discussed with the patient who was consented. PREPROCEDURE LABORATORIES: Include hemoglobin 14.8, hematocrit 44.8, platelets 148,000, white count 8. Sodium 138, potassium 4.3, chloride 107, CO2 of 24, BUN 12, creatinine 0.85, glucose 104. PROCEDURE DETAILS: Patient brought to cardiac catheterization lab, draped, positioned in the usual fashion. Left radial artery approach under complete aseptic and sterile condition. Xylocaine 2% without epinephrine was used as local anesthesia. Using modified Seldinger technique, a 5-[place] Islander arterial sheath was placed. Left radial artery angiography was performed utilizing 5-[place] Islander multipurpose catheter. At the conclusion of the procedure, arterial sheath was removed. Hemostasis secured by HemoBand. Patient transferred to the same-day unit in stable condition, and cardiovascular surgery consultation was obtained from Dr. Hdez. COMPLICATIONS: None. RESULTS: 1. Hemodynamic: No gradient across aortic valve. LVEDP 16. 2. Angiographic. 3. Left ventriculography performed within CAUSEY projection, revealed a normal left ventricular ejection fraction of 55% without wall motion abnormalities. 4. Coronary angiography. 5. Left main: Large caliber vessel, distal 10% plaque disease normally bifurcates into LAD and circumflex coronary artery. 6. Left anterior descending coronary artery: A large caliber vessel, long segment of stent with in-stent restenosis 70%, proximal vessel 70% to 75%, midvessel 80% [facility] PATIENT NAME: FATUMA SIGALA [facility] [address] [facility] MEDICAL REC #: [id number] [place] [address] ADMIT DATE: DISCHARGE DATE: CARDIAC CATH ATTENDING PHY: Jeremías Black MD disease, very distal vessel 80% disease. Diagonal with diffuse disease. 7. Circumflex coronary artery: Small caliber vessel with proximal 80% stenosis. 8. Right coronary artery: Large caliber dominant vessel, in-stent restenosis of 70% to 75% and PDA with ostial 80% stenosis. Secondary posterolateral branch with ostial 80% stenosis. 9. TALAVERA was normal. CONCLUSION: 1. Normal left ventricular ejection fraction of 55% without wall motion abnormalities. 2. Three-vessel coronary artery disease. 3. Left main 10%. 4. LAD mid and distal vessel 80% plus in-stent restenosis 70%, proximal vessel 70% disease, diagonal with occlusive disease. 5. Circumflex coronary artery nondominant, proximal 80% stenosis. 6. Right coronary artery dominant with in-stent restenosis 70% to 75%, PDA 80% ostial disease, posterolateral branch with 80% ostial disease. 7. TALAVERA was normal. Jeremías Black MD /[id number] [facility] File#: [id number] Verified/Reviewed by 02/15/18 0851 SHIVA [facility] PATIENT NAME: FATUMA SIGALA [facility] [address] MEDICAL REC #: [id number] [place] [address] ADMIT DATE: DISCHARGE DATE: CARDIAC CATH ATTENDING PHY: Jeremías Black [facility] Directions to rufino w CARDIAC END OF CASE REPORT in a PDF format To view the Cardiac END OF CASE report you must go to Clinical Review (PWM/Physician Desktop) and - Select the patient - Select the Vist the report is on - Click the Globe on the bottom left and the PDF report will launch (PDF's can't be viewed in [email or web address] directly) \\[facility].[employer]iance\Ca se_Reports\[id number]. pdf [facility] GFR ESTon 01-14-2018 IF AMER Greater than 60 [facility] Comment on above: Order Comment: Gloria Oliveira Performed By: #### L 500.41665, L500.37821 #### [facility] [address] [place] [address] IF non-AFR AMER Greater than 60 [facility] Comment on above: Order Comment: Gloria Oliveira Performed By: #### L 500.19488, L500.55736 #### [facility] [address] [place] [address] on 01-14-2018 CHIEF COMPLAINT: Loree ctive outpatient cardiac catheterization. BRIEF HISTORY OF PRESENT ILLNESS: Mr. Sigala is a 62-year-old gentleman who I saw for the first time back on November 24, 2017. He has a baseline history of an angioplasty to the LAD back in 2012. At that time, a drug-eluting stent was placed. He then had another drug-eluting stent placed to the right coronary in 2013. He additionally has peripheral vascular disease and had percutaneous intervention to the peripheral vasculature with Dr. Hill in the distant past. Due to recurrent claudication, he cannot ambulate as rapidly as he would like to, therefore, judging his potential ischemic load by his workload, is tedious. When I saw Fatuma, he was complaining of palpitations and some vague chest pain. Due to his potential claudication, we did do a Lexiscan stress nuclear study on December 30, 2017. His ejection fraction was 61%. Unfortunately, his nuclear scan showed anterolateral ischemia in the distal half of the anterolateral wall certainly suggesting a potential issue with the stent site of the LAD. The patient called back to our office on January 06, 2018, stating that he would be agreeable to a heart catheterization, and he is being brought in at this time for diagnostic catheterization and further intervention as needed. Unfortunately, despite his history, the patient continues to smoke. ALLERGIES: He has allergies to LISINOPRIL and SUDAFED. MEDICATIONS: His present medications include: 1. Carvedilol 50 mg b.i.d. 2. Atorvastatin 20 mg daily. 3. Amlodipine 5 mg daily. 4. Aspirin. 5. Plavix 75 mg daily. PHYSICAL EXAMINATION: Vital signs: His blood pressure was 150/87 with rates in the 80s and sinus by mechanism. He weighs 186 pounds. Extremities: The peripheral pulses in the feet were hard to appreciate. There was no edema. Skin: Warm and dry. Cardiovascular: The rhythm itself was regular. There was no obvious pathologic murmur or gallop. The heart tones were normal. There were no carotid bruits. Chest: Free of rales. LABORATORY DATA: Pertinent information on the chart so far includes the nuclear scan showing the area of ischemia with a normal ejection fraction. A 14-day CardioNet monitor was also done, which showed rare PVCs, but no other arrhythmias. Presently, precatheterization blood work and other information are still pending. * [facility] PATIENT NAME: FATUMA SIGALA [facility] [address] MEDICAL REC #: [id number] [place] [address] ADMIT DATE: DISCHARGE DATE: HISTORY and PHYSICAL ATTENDING PHY: Jeremías Black MD ASSESSMENT: 1. Peripheral vascular and known coronary disease status post stents to the left anterior descending and right coronary. 2. Moderately abnormal stress nuclear study suggesting questionable restenosis of the left anterior descending stent site. RECOMMENDATIONS: Diagnostic cardiac catheterization with further recommendations pending the anatomy. S MD SATYA Rodgers/[id number] [facility] File#: [id number] Verified/Reviewed by 01/30/18 Joyce AGUILAR * [facility] PATIENT NAME: FATUMA SIGALA [facility] 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 For heart valve and shunt patients the range is 2.5 - 3.5. Performed By: #### L 300.66542, L300.22950 #### [facility] [address] [phone] Prothrombin time (PT) Coag time (PPP) 10.5 s Normal 9.4-12.0 [facility] Comment on above: Order Comment: Gloria Oliveira Performed By: #### L 300.36333, L300.89979 #### [facility] [address] [place], [place] [id number] PTTon 01-14-2018 aPTT Coag time (Bld) 26.3 s Normal 22.5-31.4 [facility] Comment on above: Order Comment: Gloria Oliveira Result Comment: Ther apeutic Heparin Reference Range: High Dose: 56 - 86 seconds (DVT/PE) Low Dose: 50 - 70 seconds (Acute Coronary Syndrome) For low molecular weight heparin or danaparoid, monitoring is often NOT necessary, but the heparin assay, Xa inhibition assay (send-out) may be used in certain circumstances, as the PTT is generally insensitive to the effect of these agents. Direct thrombin inhibitors are becoming more widely utilized and these drugs are often monitored using the PTT. Performed By: #### L 300.70958, L300.56324 #### [facility] [address] [place] [address] CARD.RSIon 12-31-2017 CARD.[facility] Patient Name: FATUMA SIGALA [address] [place] [address] Date of : [address] [place] [address] Unit Number: [id number] Regadenoson SPECT Patient Status: REG CLI Attending Doctor: Mindy Hinton Service Date: 12/31/172021 Regadenoson SPECT Study Date 12/30/17 Vitals Age: 62 years old Gender: Male Height: 5 feet 10 inches Weight: 186.00 pounds Blood Pressure: Heart Rate: Clinical Indication: cad Technique: Myocardial perfusion imaging was performed at rest following the injection of [12.8] mCi of Tc99m SESTAMIBI. The patient was given 0.4 mg of Regadenoson IV. At peak pharmacologic effect, the patient was injected with [33.2] mCi of Tc99m SESTAMIBI. Gating post-stress tomographic imaging was performed at least 30 minutes following pharmacologic stress. Imaging: The overall imaging quality is satisfactory. Left ventricular size is normal EDV [109] mL. SPECT multiplanar images demonstrate moderate reversible distal anterolateral defect. Gated SPECT imaging reveals normal left ventricular myocardial wall motion and thickening. The left ventricular ejection fraction is calculated at [61]%. Impression: 1. Distal anterolateral ischemia 2. Normal left ventricular systolic function. Disclaimer This dictation was created using voice recognition software. Phonetic and/or minor grammatical errors may exist. eSign Date and Time Karlos Bruner Verified/Reviewed by 01/07/18 1110 Normal [facility] Regadenoson SPECT Normal [facility] CDLSTRESSon 12-30-2017 CARDIAC STRESS TEST REPORT Normal [facility] INTERPRETING PHYSICI AN: Mindy Hinton MD ATTENDING PHYSICIAN: Mindy Hinton MD ORDERING/REFERRING PHYSICIAN: DATE(S) OF SERVICE: 12/30/2017 PROCEDURE: Lexiscan stress. PATIENT RELATED INFORMATION: Age: Height: ft in Weight: lbs. oz. Sex: Smokes: Cigars: #Cigs: Pipe: Inactive: Mod.Man.Labor: Heavy Work: Sedentary: Sedentary and Ex. Program: HR Since last meal: REASON FOR PERFORMING TEST: MEDICATIONS: INTERPRETATION: EKG response to exercise: Blood pressure response: Rhythm: Conduction: ST segment: Heart rate response: Fitness classification: Resting ECG: INTERPRETATION: The baseline EKG showed normal sinus rhythm with a single PVC, evidence of a past anteroseptal infarct, and no ischemic changes. The patient underwent Lexiscan stress testing using a serum Lexiscan dose of 0.4 mg injected over 8 to 10 seconds. Following Lexiscan infusion, blood pressure dropped from 152/81 to 131/81. Heart rate increased from 76 to 92 beats per minute. No chest pain occurred. No arrhythmias occurred. No ST segment changes occurred. The test was felt to be both symptomatically and electrocardiographically negative for ischemia. FINAL IMPRESSION: Symptomatically and electrocardiographically negative Lexiscan stress test for ischemia. S MD SATYA Rodgers/[id number] [facility] PATIENT NAME: FATUMA SIGALA [facility] [address] MEDICAL REC #: [id number] [place] [address] ADMIT DATE: DISCHARGE DATE: ATTENDING PHY: Mindy Hinton CARDIAC STRESS TEST REPORT [facility] File#: [id number] CC: Tripp Russell MD CC: Mindy Hinton MD Verified/Reviewed by 105 [facility] PATIENT NAME: FATUMA SIGALA [address] [facility] [address] MEDICAL REC #: [id number] [place] [address] ADMIT DATE: DISCHARGE DATE: ATTENDING PHY: Mindy Hinton CARDIAC STRESS TEST [facility] H[facility]ORY AND PHYSICAL Normal [facility] CHIEF COMPLAINT: Loree ctive outpatient cardiac catheterization. BRIEF HISTORY OF PRESENT ILLNESS: Mr. iSgala is a 62-year-old gentleman who I saw for the first time back on November 24, 2017. He has a baseline history of an angioplasty to the LAD back in 2012. At that time, a drug-eluting stent was placed. He then had another drug-eluting stent placed to the right coronary in 2013. He additionally has peripheral vascular disease and had percutaneous intervention to the peripheral vasculature with Dr. Hill in the distant past. Due to recurrent claudication, he cannot ambulate as rapidly as he would like to, therefore, judging his potential ischemic load by his workload, is tedious. When I saw Fatuma, he was complaining of palpitations and some vague chest pain. Due to his potential claudication, we did do a Lexiscan stress nuclear study on December 30, 2017. His ejection fraction was 61%. Unfortunately, his nuclear scan showed anterolateral ischemia in the distal half of the anterolateral wall certainly suggesting a potential issue with the stent site of the LAD. The patient called back to our office on January 06, 2018, stating that he would be agreeable to a heart catheterization, and he is being brought in at this time for diagnostic catheterization and further intervention as needed. Unfortunately, despite his history, the patient continues to smoke. ALLERGIES: He has allergies to LISINOPRIL and SUDAFED. MEDICATIONS: His present medications include: 1. Carvedilol 50 mg b.i.d. 2. Atorvastatin 20 mg daily. 3. Amlodipine 5 mg daily. 4. Aspirin. 5. Plavix 75 mg daily. PHYSICAL EXAMINATION: Vital signs: His blood pressure was 150/87 with rates in the 80s and sinus by mechanism. He weighs 186 pounds. Extremities: The peripheral pulses in the feet were hard to appreciate. There was no edema. Skin: Warm and dry. Cardiovascular: The rhythm itself was regular. There was no obvious pathologic murmur or gallop. The heart tones were normal. There were no carotid bruits. Chest: Free of rales. LABORATORY DATA: Pertinent information on the chart so far includes the nuclear scan showing the area of ischemia with a normal ejection fraction. A 14-day CardioNet monitor was also done, which showed rare PVCs, but no other arrhythmias. Presently, precatheterization blood work and other information are still pending. * [facility] PATIENT NAME: FATUMA SIGALA [facility] MEDICAL REC #: [id number] [place] [address] ADMIT DATE: DISCHARGE DATE: HISTORY and PHYSICAL ATTENDING PHY: Mindy Hinton ASSESSMENT: 1. Peripheral vascular and known coronary disease status post stents to the left anterior descending and right coronary. 2. Moderately abnormal stress nuclear study suggesting questionable restenosis of the left anterior descending stent site. RECOMMENDATIONS: Diagnostic cardiac catheterization with further recommendations pending the anatomy. MD SATYA Todd/[id number] [facility] File#: [id number] Verified/Reviewed by 01/09/18 Connie AGUILAR * [facility] PATIENT NAME: FATUMA SIGALA [facility] [address] MEDICAL REC #: [id number] [place] [address] ADMIT DATE: DISCHARGE DATE: HISTORY and PHYSICAL ATTENDING PHY: Mindy Hinton [facility] Office Visiton 02-25-2017 Documentation of current medications (procedure) Done Invalid Interpretation Code [facility] Work Phone: [phone] Fall risk assessment Fall risk assessment Invali d Interpretation Code [facility] Work Phone: [phone] Smoking cessation education (procedure) yes Invalid Interpretation Code [facility] Work Phone: [phone] Tobacco use [facility]PH[facility] Current every day smoker Invali d Interpretation Code [facility] Work Phone: [phone] Office Visit: [facility] 08-26-19 Dietary management education, guidance, and counseling (procedure) yes Invalid Interpretation Code [facility] Work Phone: [phone] Documentation of current medications (procedure) Done Invalid Interpretation Code [facility] Work Phone: [phone] Fall risk assessment No Invalid Interpretation Code [facility] Work Phone: [phone] Clinical Lists Update: 08-20-2016 Left ventricular Ejection fraction 60 % Invalid Interpretation Code [facility] Work Phone: [phone] Office Visiton 03-20-2016 Smoking cessation education (procedure) yes Invalid Interpretation Code [facility] Work Phone: [phone] Tobacco use CPHS Current every day smoker Invali d Interpretation Code [facility] Work Phone: [phone] Clinical Lists Update: Pre03-18-2016 BUN/Creatinine Ratio 18.7 mg/mg Invalid Interpretation Code [facility] Work Phone: [phone] Calcium 8.6 mg/dL Invalid Interpretation Code [facility] Work Phone: [phone] Chloride 105 mmol/L Invalid Interpretation Code [facility] Work Phone: [phone] CO2 24.0 mmol/L Invalid Interpretation Code [facility] Work Phone: [phone] Creatinine 0.86 mg/dL Invalid Interpretation Code [facility] Work Phone: [phone] Glucose 120 mg/dL Invalid Interpretation Code [facility] Work Phone: [phone] Hematocrit (HCT) 45.4 % Invalid Interpretation Code [facility] Work Phone: [phone] Hemoglobin (HGB) 15.8 g/dL Invalid Interpretation Code [facility] Work Phone: [phone] Platelets 175 10*3/mm3 Invalid Interpretation Code [facility] Work Phone: [phone] Potassium 3.6 mmol/L Invalid Interpretation Code [facility] Work Phone: [phone] Sodium 136 mmol/L Invalid Interpretation Code [facility] Work Phone: [phone] Urea nitrogen 16 mg/dL Invalid Interpretation Code [facility] Work Phone: [phone] WBC (Leukocytes) 7.9 10*3/uL Invalid Interpretation Code [facility] Work Phone: [phone] Lab Report: Basic Metabolic Profile (BMP)on 03-18-2016 Anion gap 5 mmol/L Invalid Interpretation Code 5-15 [facility] Work Phone: [phone] eGFR (non-black) 108 mL/min/{1.73_m2} Invalid Interpretation Code >60 [facility] Work Phone: [phone] eGFR (non-black) 89 mL/min/{1.73_m2} Invalid Interpretation Code >60 [facility] Work Phone: [phone] Lab Report: Magnesiumon 02-20 Magnesium 2.1 mg/dL Invalid Interpretation Code 1.8-2.4 [facility] Work Phone: [phone] Lab Report: Lipid Profileon 08-17-2015 Cholesterol 165 mg/dL Invalid Interpretation Code 200 [facility] Work Phone: [phone] HDL Cholesterol 40 mg/dL Invalid Interpretation Code [facility] Work Phone: [phone] LDL Cholesterol 98 mg/dL Invalid Interpretation Code 0-130 [facility] Work Phone: [phone] Triglyceride 133 mg/dL Invalid Interpretation Code [facility] Work Phone: [phone] very low density lipoproteins 27 mg/dL Invalid Interpretation Code 5-40 [facility] Phone: [phone] Lab Report: Liver Profileon 08-17-2015 Alanine aminotransferase (ALT) 14 U/L Invalid Interpretation Code 12-78 [facility] Work Phone: [phone] Albumin 3.8 g/dL Invalid Interpretation Code 3.4-5.0 [facility] Work Phone: [phone] Alkaline phosphatase (ALP) 124 U/L Invalid Interpretation Code 50-136 [facility] Work Phone: [phone] Aspartate aminotransferase (AST) 7 U/L Low 15-37 [facility] Phone: [phone] Bilirubin (direct) 0.18 mg/dL Invalid Interpretation Code 0.00-0.30 [facility] Phone: [phone] Bilirubin (total) 0.80 mg/dL Invalid Interpretation Code 0.20-1.00 [facility] Phone: [phone] Globulin 3.2 g/dL Invalid Interpretation Code 2.3-3.5 [facility] Phone: [phone] Protein 7.0 g/dL Invalid Interpretation Code 6.4-8.2 [facility] Phone: [phone] Office Visiton 01-22-2015 cardiac risk group C Invalid Interpretation Code [facility] Phone: [phone] General cardiovascular disease 10Y risk [#] Mobile.D'Agostino N/A Invalid Interpretation Code [facility] Phone: [phone] Replaced Document: [facility] CG Observationson 01-22-2015 electrocardiogram interpretation Sinus Rhythm Low voltage in limb leads. -Old inferior infarct. ABNORMAL Invalid Interpretation Code [facility] Phone: [phone] GE use only - for [employer] import when terms are not otherwise specified 398 ms Invalid Interpretation Code [facility] Phone: [phone] P wave axis, electrocardiogram 43 deg Invalid Interpretation Code [facility] Phone: [phone] MD interval, electrocardiogram 176 ms Invalid Interpretation Code [facility] Phone: [phone] Pulse (Heart Rate) 60 /min Invalid Interpretation Code [facility] Phone: [phone] QRS axis, electrocardiogram -15 deg Invalid Interpretation Code [facility] Phone: [phone] QRS duration, electrocardiogram 92 ms Invalid Interpretation Code [facility] Phone: [phone] QT interval, electrocardiogram new path ms Invalid Interpretation Code [facility] Phone: [phone] T wave axis, electrocardiogram 37 deg Invalid Interpretation Code [facility] Phone: [phone] 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 Erythrocytes (RBC) 4.88 10*6/uL Invalid Interpretation Code [facility] Phone: [phone] MCH 31.6 pg Invalid Interpretation Code [facility] Phone: [phone] MCV 90.4 fL Invalid Interpretation Code [facility] Phone: [phone] Lab Report: PTon 06-24-2012 INR in blood by coagulation 1.0 {INR} Normal [facility] Phone: [phone] prothrombin time, actual/normal, ratio 12.9 SECONDS Normal 11.9-14.4 [facility] Phone: [phone] Lab Report: PTTon 06-24-2012 aPTT 27.6 s Normal 24.1-36.2 [facility] Phone: [phone] Lab Report: T4on 06-24-2012 Thyroxine (T4) 9.5 ug/dL Normal 4.5-12.1 [facility] Phone: [phone] Lab Report: TSHon 06-24-2012 Thyroid stimulating hormone (TSH) 1.02 u[iU]/mL Normal 0.358-3.74 [facility] Phone: [phone] Replaced Document: Chelsy Hutchinson CG Observationson 06-10-2012 Pulse (Heart Rate) 391 ms Invalid Interpretation Code [facility] Phone: [phone] 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 eosinophils as percent of blood leukocytes, manual count 0.8 % Invalid Interpretation Code [facility] Work Phone: [phone] Lymphocytes/100 leukocytes 22.2 % Invalid Interpretation Code [facility] Work Phone: [phone] Monocytes/100 leukocytes 7.4 % Invalid Interpretation Code [facility] Work Phone: [phone] neutrophils, band form as percent of blood leukocytes, manual count 69.3 % Invalid Interpretation Code [facility] Work Phone: [phone] Vital Signs Date Time Vital Sign Value Performing Clinician Facility 03-07-2025 16:33-0400 Body temperature 97.8 [degF] Dr. Bryan Hastings MD Work Phone: [facility] 03-07-2025 16:33-0400 Diastolic blood pressure 65 mm[Hg] Dr. Bryan Hastings MD Work Phone: [facility] 03-07-2025 16:33-0400 Heart rate 60 /min Dr. Bryan Hastings MD Work Phone: [facility] 03-07-2025 16:33-0400 Respiratory rate 14 /min Dr. Bryan Hastings MD Work Phone: [facility] 03-07-2025 16:33-0400 SaO2% (BldA) [Mass fraction] 97 % Dr. Bryan Hastings MD Work Phone: [facility] 03-07-2025 16:33-0400 Systolic blood pressure 143 mm[Hg] Dr. Bryan Hastings MD Work Phone: [facility] 03-07-2025 13:15-0400 Body height 177.[address] Bryan Hastings MD Work Phone: [facility] 03-07-2025 13:15-0400 Body mass index (BMI) [Ratio] 29.2 kg/m2 Dr. Bryan Hastings MD Work Phone: [facility] 03-07-2025 13:15-0400 Body weight 92.[address] Bryan Hastings MD Work Phone: [facility] 09-28-2024 09:15-0400 Body height 177.[address] Fartun Saez DO Work Phone: [facility] 09-28-2024 09:15-0400 Body mass index (BMI) [Ratio] 29.5 kg/m2 Dr. Fartun Saez DO Work Phone: [facility] 09-28-2024 09:15-0400 Body weight 93.[address] Fartun Saez DO Work Phone: [facility] 09-28-2024 09:15-0400 Diastolic blood pressure 82 mm[Hg] Dr. Fartun Saez DO Work Phone: [facility] 09-28-2024 09:15-0400 Heart rate 67 /min Dr. Fartun Saez DO Work Phone: [facility] 09-28-2024 09:15-0400 Respiratory rate 16 /min Dr. Fartun Saez DO Work Phone: [facility] 09-28-2024 09:15-0400 Systolic blood pressure 149 mm[Hg] Dr. Fartun Saez DO Work Phone: [facility] 06-22-2024 14:14-0500 Body mass index (BMI) [Ratio] 29.98 kg/m2 Earl Sepulveda MD Work Phone: [facility] 06-22-2024 14:14-0500 Body temperature 97.11 [degF] Earl Sepulveda MD Work Phone: [facility] 06-22-2024 14:14-0500 Body weight 93.44 kg Earl Sepulveda MD Work Phone: [facility] 06-22-2024 14:14-0500 Diastolic blood pressure 76 mm[Hg] Earl Sepulveda MD Work Phone: [facility] 06-22-2024 14:14-0500 Heart rate 62 /min Earl Sepulveda MD Work Phone: [facility] 06-22-2024 14:14-0500 SaO2% (BldA) [Mass fraction] 97 % Earl Sepulveda MD Work Phone: [facility] 06-22-2024 14:14-0500 Systolic blood pressure 162 mm[Hg] Earl Sepulveda MD Work Phone: [facility] 12-09-2023 08:56-0400 Body mass index (BMI) [Ratio] 30.2 kg/m2 Earl Sepulveda MD Work Phone: [facility] 12-09-2023 08:56-0400 Body temperature 97.5 [degF] Earl Sepulveda MD Work Phone: [facility] 12-09-2023 08:56-0400 Body weight 94.12 kg Earl Sepulveda MD Work Phone: [facility] 12-09-2023 08:56-0400 Diastolic blood pressure 77 mm[Hg] Earl Sepulveda MD Work Phone: [facility] 12-09-2023 08:56-0400 Heart rate 61 /min Earl Sepulveda MD Work Phone: [facility] 12-09-2023 08:56-0400 SaO2% (BldA) [Mass fraction] 97 % Earl Sepulveda MD Work Phone: [facility] 12-09-2023 08:56-0400 Systolic blood pressure 153 mm[Hg] Earl Sepulveda MD Work Phone: [facility] 08-10-2023 08:52-0500 Body height 177.[address] Fartun Saez Work Phone: [facility] 08-10-2023 08:52-0500 Body mass index (BMI) [Ratio] 30.4 kg/m2 Dr. Fartun Saez Work Phone: [facility] 08-10-2023 08:52-0500 Body weight 96.[address] Fartun Saez Work Phone: [facility] 08-10-2023 08:52-0500 Diastolic blood pressure 86 mm[Hg] Dr. Fartun Saez Work Phone: [facility] 08-10-2023 08:52-0500 Heart rate 66 /min Dr. Fartun Saez Work Phone: [facility] 08-10-2023 08:52-0500 Respiratory rate 16 /min Dr. Fartun Saez Work Phone: [facility] 08-10-2023 08:52-0500 Systolic blood pressure 152 mm[Hg] Dr. Fartun Saez Work Phone: [facility] 12-09-2022 11:05-0400 Body temperature 97.9 [degF] Dr. Fartun Saez Work Phone: [facility] 12-09-2022 11:05-0400 Diastolic blood pressure 67 mm[Hg] Dr. Fartun Saez Work Phone: [facility] 12-09-2022 11:05-0400 Heart rate 70 /min Dr. Fartun Saez Work Phone: [facility] 12-09-2022 11:05-0400 Respiratory rate 16 /min Dr. Fartun Saez Work Phone: [facility] 12-09-2022 11:05-0400 SaO2% (BldA) [Mass fraction] 96 % Dr. Fartun Saez Work Phone: [facility] 12-09-2022 11:05-0400 Systolic blood pressure 127 mm[Hg] Dr. Fartun Saez Work Phone: [facility] 12-09-2022 09:24-0400 Body height 177.[address] Fartun Saez Work Phone: [facility] 12-09-2022 09:24-0400 Body mass index (BMI) [Ratio] 28.8 kg/m2 Dr. Fartun Saez Work Phone: [facility] 12-09-2022 09:24-0400 Body weight [address] Fartun Saez Work Phone: [facility] 12-03-2022 11:00-0400 Body height 178 cm Fartun Diop MD Work Phone: [facility] 12-03-2022 11:00-0400 Body temperature 97.2 [degF] Fartun Diop MD Work Phone: [facility] 12-03-2022 11:00-0400 Body weight 94.58 kg Fartun Diop MD Work Phone: [facility] 12-03-2022 11:00-0400 Diastolic blood pressure 83 mm[Hg] Fartun Diop MD Work Phone: [facility] 12-03-2022 11:00-0400 Heart rate 65 /min Fartun Diop MD Work Phone: [facility] 12-03-2022 11:00-0400 SaO2% (BldA) [Mass fraction] 96 % Fartun Diop MD Work Phone: [facility] 12-03-2022 11:00-0400 Systolic blood pressure 139 mm[Hg] Fartun Diop MD Work Phone: [facility] 09-28-2022 09:08-0400 Body mass index (BMI) [Ratio] 29.4 kg/m2 Dr. Fartun Saez Work Phone: [facility] 09-28-2022 09:08-0400 Body weight 92.[address] Fartun Saez Work Phone: [facility] 08-11-2022 10:04-0500 Body height 177.[address] Fartun Saez Work Phone: [facility] 08-11-2022 10:04-0500 Body mass index (BMI) [Ratio] 29.7 kg/m2 Dr. Fartun Saez Work Phone: [facility] 08-11-2022 10:04-0500 Body weight 93.[address] Fartun Saez Work Phone: [facility] 08-11-2022 10:04-0500 Diastolic blood pressure 75 mm[Hg] Dr. Fartun Saez Work Phone: [facility] 08-11-2022 10:04-0500 Heart rate 72 /min Dr. Fartun Saez Work Phone: [facility] 08-11-2022 10:04-0500 Respiratory rate 16 /min Dr. Fartun Saez Work Phone: [facility] 08-11-2022 10:04-0500 Systolic blood pressure 142 mm[Hg] Dr. Fartun Saez Work Phone: [facility] 04-06-2022 08:46-0400 Body height 177.[address] Fartun Saez Work Phone: [facility] Work Phone: 04-06-2022 08:46-0400 Body mass index (BMI) [Ratio] 29.4 kg/m2 Dr. Fartun Saez Work Phone: [facility] Work Phone: 04-06-2022 08:46-0400 Body temperature 97.4 [degF] Dr. Fartun Saez Work Phone: [facility] Work Phone: 04-06-2022 08:46-0400 Body weight 92.[address] Fartun Saez Work Phone: [facility] Work Phone: 04-06-2022 08:46-0400 Diastolic blood pressure 86 mm[Hg] Dr. Fartun Saez Work Phone: [facility] Work Phone: 04-06-2022 08:46-0400 Heart rate 66 /min Dr. Fartun Saez Work Phone: [facility] Work Phone: 04-06-2022 08:46-0400 Respiratory rate 16 /min Dr. Fartun Saez Work Phone: [facility] Work Phone: 04-06-2022 08:46-0400 SaO2% (BldA) [Mass fraction] 99 % Dr. Fartun Saez Work Phone: [facility] Work Phone: 04-06-2022 08:46-0400 Systolic blood pressure 170 mm[Hg] Dr. Fartun Saez Work Phone: [facility] Work Phone: 12-01-2021 08:56-0400 Body height 178.5 cm Evelyn Martin MD Work Phone: [facility] 12-01-2021 08:56-0400 Body temperature 97.3 [degF] Evelyn Martin MD Work Phone: [facility] 12-01-2021 08:56-0400 Body weight 93.44 kg Evelyn Martin MD Work Phone: [facility] 12-01-2021 08:56-0400 Diastolic blood pressure 79 mm[Hg] Evelyn Martin MD Work Phone: [facility] 12-01-2021 08:56-0400 Heart rate 70 /min Evelyn Martin MD Work Phone: [facility] 12-01-2021 08:56-0400 SaO2% (BldA) [Mass fraction] 98 % Evelyn Martin MD Work Phone: [facility] 12-01-2021 08:56-0400 Systolic blood pressure 143 mm[Hg] Evelyn Martin MD Work Phone: [facility] 02-25-2017 08:51-0400 BMI (Body Mass Index) 26.83 kg/m2 [facility] Work Phone: 02-25-2017 08:51-0400 BP Diastolic 60 mm[Hg] [facility] Work Phone: 02-25-2017 08:51-0400 BP Systolic 110 mm[Hg] [facility] Work Phone: 02-25-2017 08:51-0400 Height 177.8 cm Neymar Nance [facility] Work Phone: 02-25-2017 08:51-0400 Pulse (Heart Rate) 70 /min Neymar Nance [facility] Work Phone: 02-25-2017 08:51-0400 Respiratory Rate 20 /min Neymar Nance [facility] Work Phone: 02-25-2017 08:51-0400 Weight 84.82 kg Neymar Nance [facility] Work Phone: 08-25-2016 14:47-0500 BMI (Body Mass Index) 27.69 kg/m2 Jenni Lakhani RN [facility] Work Phone: 08-25-2016 14:47-0500 BP Diastolic 80 mm[Hg] Jenni Lakhani RN [facility] Work Phone: 08-25-2016 14:47-0500 BP Systolic 132 mm[Hg] Jenni Lakhani RN [facility] Work Phone: 08-25-2016 14:47-0500 Height 177.8 cm Jenni Lakhani RN [facility] Work Phone: 08-25-2016 14:47-0500 Pulse (Heart Rate) 68 /min Jenni Lakhani RN [facility] Work Phone: 08-25-2016 14:47-0500 Respiratory Rate 16 /min Jenni Lakhani RN [facility] Work Phone: 08-25-2016 14:47-0500 Weight 87.54 kg Jenni Lakhani RN [facility] Work Phone: 03-20-2016 14:28-0400 BSA (Body Surface Area) 2.02 m2 Jenni Lakhani RN [facility] Work Phone: 02-27-2016 15:46-0400 Pulse Oximetry 97 % Jenni Lakhani RN [facility] Work Phone: Encounters Encounter Date Encounter Type Care Provider Facility Start: 03-07-2025 End: 03-07-2025 Emergency department patient visit Dr. Bryan Hastings MD Work Phone: -Emergency Department Work Phone: Start: 12-27-2024 End: 12-27-2024 Telephone encounter Earl Sepulveda MD Work Phone: Hematology/Oncology Comment on above: Results Start: 12-20-2024 End: 12-20-2024 ambulatory EARL SEPULVEDA Facility:[facility] Start: 12-06-2024 End: 12-06-[address] Fartun Saez DO Work Phone: [facility] Work Phone: Start: 12-06-2024 End: 12-06-[address] Bryan Hastings MD -Laboratory Work Phone: Start: 12-06-2024 End: 12-06-2024 ambulatory Bryan Chi Venkata Facility:[facility] Start: 09-28-2024 End: 09-28-[address] David Aguiar MD -[facility] Work Phone: Start: 09-28-2024 End: 09-28-2024 ambulatory David Aguiar Facility:[facility] Start: 08-03-2024 ambulatory Bryan Chi Venkata Facility:[facility] Start: 08-03-2024 End: 08-03-2024 ambulatory Bryan Chi Venkata Facility:[facility] Start: 07-13-2024 End: 07-13-2024 ambulatory Bryan Chi Venkata Facility:[facility] Start: 06-30-2024 End: 06-30-2024 ambulatory Bryan Chi Venkata Facility:[facility] Start: 06-22-2024 End: 06-22-2024 Patient encounter procedure Earl Sepulveda MD Work Phone: Hematology/Oncology Start: 06-22-2024 End: 06-22-2024 ambulatory Earl Sepulveda MD Work Phone: Hematology/Oncology Comment on above: 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) Start: 06-08-2024 End: 06-08-2024 ambulatory FARTUN SAEZ IV Facility:[facility] Start: 06-07-2024 End: 06-09-2024 Telephone encounter Earl Sepulveda MD Work Phone: Hematology/Oncology Start: 06-06-2024 End: 06-06-2024 ambulatory Bryan Hastings Facility:[facility] Start: 06-02-2024 End: 06-02-2024 ambulatory FARTUN SAEZ IV Facility:[facility] Start: 12-09-2023 End: 12-09-2023 ambulatory Earl Sepulveda MD Work Phone: Hematology/Oncology Comment on above: 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 Fartun Saez Work Phone: [facility] Work Phone: Start: 08-12-2023 End: 08-12-[address] Fartun Saez Work Phone: [facility]-Laboratory Work Phone: Start: 08-10-2023 End: 08-10-[address] Fartun Saez Work Phone: [facility] Work Phone: Start: 06-06-2023 ambulatory Earl castaneda MD Work Phone: Hematology/Oncology Comment on above: test result that we discussed on Wednesday06/04/2023 Start: 05-21-2023 Non-patient / Non-visit Dr. Fartun Saez Work Phone: [facility] Start: 05-21-2023 End: 05-21-[address] Fartun Saez Work Phone: [facility] Work Phone: Start: 05-21-2023 End: 05-21-[address] [facility] Start: 05-17-2023 End: 05-17-[address] Fartun Saez Work Phone: [facility] Work Phone: Start: 04-23-2023 Non-patient / Non-visit Dr. Fartun Saez Work Phone: [facility] Start: 04-23-2023 End: 04-23-[address] Fartun Saez Work Phone: [facility] Work Phone: Start: 04-23-2023 End: 04-23-[address] [facility] Start: 01-12-2023 End: 02-02-2023 Physical therapy management FARTUN SAEZ DO [facility] Start: 01-07-2023 End: 01-07-[address] Fartun Saez Work Phone: [facility] Work Phone: Start: 12-16-2022 End: 12-16-[address] Fartun Saez Work Phone: [facility] Work Phone: Start: 12-16-2022 End: 12-16-[address] Fartun Saez Work Phone: [facility]-Cat Scan, [facility] Work Phone: Start: 12-09-2022 Non-patient / Non-visit Dr. Fartun Saez Work Phone: [facility] Start: 12-09-2022 End: 12-09-2022 Admission to same day surgery center Dr. Fartun Saez Work Phone: [facility]-Endoscopy Start: 12-09-2022 End: 12-09-[address] 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 Fartun Saez Work Phone: [facility] Start: 09-02-2022 Non-patient / Non-visit Dr. Fartun Saez Work Phone: [facility] Start: 08-31-2022 Non-patient / Non-visit Dr. Fartun Saez Work Phone: [facility] Start: 08-31-2022 End: 08-31-[address] Fartun Saez Work Phone: [facility] Work Phone: Start: 08-31-2022 End: 08-31-[address] Fartun Saez Work Phone: [facility] Start: 08-11-2022 End: 08-11-[address] Fartun Saez Work Phone: [facility] Start: 04-21-2022 Non-patient / Non-visit Dr. Fartun Saez Work Phone: [facility] Start: 04-21-2022 End: 04-21-[address] Fartun Saez Work Phone: [facility] Work Phone: Start: 04-21-2022 End: 04-21-[address] Fartun Saez Work Phone: [facility] Start: 04-06-2022 End: 04-06-2022 Emergency department patient visit Dr. Fartun Saez Work Phone: [facility]-Emergency Department Start: 03-28-2022 End: 03-28-[address] 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) Start: 12-01-2021 End: 12-01-2021 Patient encounter procedure Evelyn Martin MD Work Phone: [facility] Start: 11-28-2021 Telephone encounter Evelyn Martin MD Work Phone: Hematology/Oncology Comment on above: Results Start: 07-15-2018 Patient encounter procedure Mindy Springerjuhi Facility:[facility] Start: 03-28-2018 Patient encounter procedure Jaswinder T Ketty Facility:[facility] Start: 03-11-2018 End: 03-14-2018 Evaluation and management of inpatient Tripp Russell Facility:[facility] Start: 03-10-2018 Patient encounter procedure Micaela Jean Facility:[facility] Start: 03-08-2018 Patient encounter procedure Jennifer Che Facility:[facility] Start: 03-02-2018 End: 03-03-2018 Evaluation and management of inpatient Jaswinder T Ketty Facility:[facility] Start: 02-15-2018 End: 02-20-2018 Evaluation and management of inpatient Jaswinder T Ketty Facility:[facility] Start: 02-09-2018 Patient encounter procedure Jaswinder T Ketty Facility:[facility] Start: 01-14-2018 Evaluation and management of inpatient Jeremías Black Facility:[facility] Start: 12-30-2017 Patient encounter procedure Mindy Hinton Facility:[facility] Procedures Date Procedure Procedure Detail Performing Clinician Start: 03-07-[address] Bryan Hastings MD Work Phone: Start: 03-07-2025 Plain chest X-ray Dr. Edwige Hastings MD Work Phone: Start: 12-06-[address] Roxanne Saez DO Work Phone: Start: 12-06-[address] Dejah Saez DO Work Phone: Start: 12-06-2024 Vitamin D, 25-hydrox y measurement Dr. Fartun Saez DO Work Phone: Comment on above: Vitamin D StatusDefi ciency: <20 ng/mL (50nmol/L)Insufficiency: 20-30 ng/mL (50-75 nmol/L)Sufficiency: 30-100 ng/mL (75-250 nmol/L)Toxicity: >100 ng/mL (>250 nmol/L) Start: 01-07-2023 X-ray of cervical spine Dr. Fartun Saez Work Phone: Start: 12-16-[address] Diamond Saez Work Phone: Start: 12-09-[address] Diamond Saez Work Phone: Start: 08-31-2022 Radionuclide imaging of perfusion of myocardium under exercise stress Dr. Fartun Saez Work Phone: Start: 11-30-2021 Adult depression scr eening assessment Evelyn Martin MD Work Phone: Start: 06-01-2021 Adult depression scr eening assessment Evelyn Martin MD Work Phone: Start: 03-11-2018 Electrocardiogram NA Pi poly Start: 02-15-2018 Antibody screen NA Mike ly Comment on above: Order Comment: Stephenu s: M Result Comment: Cynthia ent was NOT transfused or in the past 3 months. Antibody screen not indicated. Start: 02-15-2018 Ecg routine ecg w/le ast 12 lds i&r only NA Pipoly Start: 02-15-2018 Coronary artery bypa ss graft operation planned FARTUN SAEZ DO Start: 02-11-2018 History of coronary artery bypass grafting H/O coronary artery bypass surgery Dr. David Aguiar MD Comment on above: CABG x 4 TALAVERA-LAD, S VG-D1, SVG-RPDA, SVG-RPLB 02/11/2018 Start: 02-09-2018 Antibody screen NA Mike ly Comment on above: Order Comment: Campu s: MIs This Patient Going To Surgery? YSurgery Date: 02/15/18 Start: 01-14-2018 Ecg routine ecg w/le ast 12 lds i&r only NA Pipoly Start: 12-09-2016 Angioplasty of blood vessel FARTUN SAEZ DO Comment on above: bilateral legs Start: 08-25-2016 End: 08-25-2016 CATCHER PLUG Staci Orr PA-C Work Phone: Start: 08-25-2016 End: 08-25-2016 Follow Up Appt 6 months Staci lee PA-C Work Phone: Start: 03-20-2016 End: 03-20-2016 Follow Up Appt 6 months Roxanne Laughlin Start: 03-20-2016 End: 03-20-2016 JI Aguiar MD Start: 03-18-2016 End: 03-20-2016 24 hour holter monitor David Aguiar MD Start: 03-18-2016 End: 03-18-2016 Magnesium David Aguiar MD Start: 02-27-2016 End: 02-27-2016 Follow Up Appt 6 months Roxanne Laughlin Start: 02-27-2016 End: 02-27-2016 MMRoxanne Aguiar MD Start: 02-17-2016 Lipid 1996 panel - S masood or Plasma Earl Sepulveda MD Work Phone: Start: 02-17-2016 End: 08-19-2016 *Hepatic Function Panel Staci Roxanne Patricia lee PA-C Work Phone: Start: 02-17-2016 End: 08-19-2016 Lipid panel [AGGREGATE] Staci lee PA-C Work Phone: Start: 07-26-2015 End: 08-19-2015 *Hepatic Function Panel Staci lee PA-C Work Phone: Start: 07-26-2015 End: 07-26-2015 CATCHER PLUG Staci Orr PA-C Work Phone: Start: 07-26-2015 End: 07-26-2015 Follow Up Appt 6 months Staci lee PA-C Work Phone: Start: 07-26-2015 End: 08-19-2015 Lipid panel [AGGREGATE] Staci lee PA-C Work Phone: Start: 01-22-2015 End: 02-13-2015 Echocardiography David Aguiar MD Start: 01-22-2015 End: 01-22-2015 Electrocardiogram, complete David Kee i, MD Start: 01-22-2015 End: 01-22-2015 Follow Up Appt 6 months Roxanne Laughlin Start: 01-22-2015 End: 01-22-2015 MMRoxanne Aguiar MD Start: 12-13-2013 Lipid 1996 panel - S masood or Plasma Earl Sepulveda MD Work Phone: Start: 11-19-2013 Heart structure (bod y structure) FARTUN SAEZ DO Comment on above: stent Start: 08-04-2012 End: 01-22-2015 Follow Up Appt 4 months Doc Barajas MD Start: 06-10-2012 End: 07-06-2012 *BMP Doc Barajas MD Start: 06-10-2012 End: 07-06-2012 *CBC with Differential Doc Barajas MD Start: 06-10-2012 End: 07-06-2012 *Hepatic Function Panel Doc Barajas MD Start: 06-10-2012 End: 07-06-2012 24 hour holter monitor Doc Barajas MD Start: 06-10-2012 End: 07-06-2012 aPTT Doc Barajas MD Start: 06-10-2012 End: 07-06-2012 Carotid duplex Doc Barajas MD Start: 06-10-2012 End: 07-06-2012 Coagulation factor induced.INR assay in platelet poor plasma Doc Barajas MD Start: 06-10-2012 End: 06-27-2012 Echocardiography Doc Barajas MD Start: 06-10-2012 End: 06-10-2012 Electrocardiogram, complete Doc Barajas MD Start: 06-10-2012 End: 07-06-2012 Left Heart Cath Doc Barajas MD Start: 06-10-2012 End: 07-06-2012 Lipid panel [AGGREGATE] Doc Barajas MD Start: 06-10-2012 End: 07-06-2012 Magnesium Doc Barajas MD History of coronary artery bypass grafting S/P CABG (coronary artery bypass graft) FARTUN SAEZ DO Plan of Treatment Date Care Activity Detail Author Start: 05-28-2026 Diabetes Screening Diabetes Screenin g [facility] Start: 11-24-2025 DIABETES SCREEN DIABETES SCREEN [facility] Start: 06-22-2025 End: 06-22-2025 ambulatory 06/22/2025 8:00 AM EST Results Only Brian [facility] [address] [place] [address] CBC/BCR ABL1 P210 [facility] Comment on above: CBC/BCR ABL1 P210 Start: 03-08-[address] [facility] Start: 03-07-[address] [facility] Start: 03-07-2025 End: 03-07-2025 [facility] Start: 02-19-2025 Influenza vaccination Influenza Vacc ine (#1) [facility] Start: 12-27-2024 End: 12-27-2024 Follow-up encounter 12/27/2024 12:40 PM EDT [facility] Hematology/Oncology [address] [place] [address] [place] [address] [place] [address] 6 MO FOLLOW UP/LABS Hematology/Oncology Comment on above: 6 MO FOLLOW UP/LABS Start: 12-20-2024 End: 12-20-2024 ambulatory 12/20/2024 8:30 AM EDT Results Only Brian [facility] [address] [place] [address] Cbc and BCR ABL* [facility] Comment on above: Cbc and BCR ABL* Start: 11-24-2024 DIABETES SCREEN DIABETES SCREEN [facility] Start: 06-22-2024 End: 06-22-2024 ambulatory 06/22/2024 2:40 PM EST Visit (SP) Office Hematology/Oncology [address] [place] [address] [place] [address] [place] [address] 6MO OV/LABS 06/02, 06/08* Hematology/Oncology Comment on above: 6MO OV/LABS 06/02, 1 08/09* Start: 06-21-2024 Advance Directive Discussion Advance Directive Discussion [facility] Start: 06-21-2024 Medicare Advantage A nnual Wellness Visit Medicare Advantage Annual Wellness Visit [facility] Start: 06-09-2024 End: 06-09-2024 ambulatory 06/09/2024 9:30 AM EST Visit (SP) Office Hematology/Oncology [address] [place] [address] [place] [address] [place] [address] 6MO OV/LABS 06/02* Hematology/Oncology Comment on above: 6MO OV/LABS 06/02* Start: 06-08-2024 End: 09-07-2024 BCR/ABL1 P210 QUANTITATIVE PCR BLOOD [facility] Work Phone: Comment on above: Expected: 06/08/2024 , Expires: 09/07/2024 Start: 06-02-2024 End: 06-02-2024 ambulatory 06/02/2024 8:30 AM EST Results Only Brian [facility] [address] [place] [address] BCR ABL PCR/CBC* [facility] Comment on above: BCR ABL PCR/CBC* Start: 02-20-2024 Influenza vaccination [facility] Start: 06-21-2023 Advance Directive Discussion Advance Directive Discussion [facility] Start: 06-21-2023 Behavioral Health Screening Behavioral Health Screening [facility] Start: 06-04-2023 End: 08-04-2023 BCR/ABL1 P210 QUANTITATIVE PCR BLOOD BCR/ABL1 P210 QUANTITATIVE PCR BLOOD Lab Routine 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) Expected: 06/04/2023, Expires: 08/04/2023 [facility] Work Phone: Comment on above: Expected: 06/04/2023 , Expires: 08/04/2023 Start: 06-04-2023 End: 08-04-2023 CBC W Auto Differential panel - Blood CBC + DIFF Lab Routine 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) Expected: 06/04/2023, Expires: 08/04/2023 [facility] Work Phone: Comment on above: Expected: 06/04/2023 , Expires: 08/04/2023 Start: 06-04-2023 End: 08-04-2023 Comprehensive metabolic 2000 panel - Serum or Plasma COMP METABOLIC PANEL Lab Routine 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) Expected: 06/04/2023, Expires: 08/04/2023 [facility] Work Phone: Comment on above: Expected: 06/04/2023 , Expires: 08/04/2023 Start: 02-19-2023 Influenza vaccination [facility] Start: 12-09-2022 [facility] Start: 11-30-2022 Adult depression scr eening assessment DEPRESSION SCREENING [facility] Start: 11-24-2022 End: 01-24-2023 BCR/ABL1 P210 QUANTITATIVE PCR BLOOD [facility] Work Phone: Comment on above: Expected: 11/24/2022 , Expires: 01/24/2023 Start: 06-21-2022 ADVANCE DIRECTIVE DISCUSSION ADVANCE DIRECTIVE DISCUSSION [facility] Start: 06-21-2022 DEPRESSION ASSESSMENT DEPRESSION ASS ESSMENT [facility] Start: 06-01-2022 Adult depression scr eening assessment DEPRESSION SCREENING [facility] Start: 03-03-2022 End: 05-03-2022 BCR/ABL1 P210 QUANTITATIVE PCR BLOOD BCR/ABL1 P210 QUANTITATIVE PCR BLOOD Lab Routine 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) Expected: 03/03/2022, Expires: 05/03/2022 [facility] Work Phone: Comment on above: Expected: 03/03/2022 , Expires: 05/03/2022 Start: 03-03-2022 End: 05-03-2022 CBC W Auto Differential panel - Blood CBC + DIFF Lab STAT 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) Expected: 03/03/2022, Expires: 05/03/2022 [facility] Work Phone: Comment on above: Expected: 03/03/2022 , Expires: 05/03/2022 Start: 02-19-2022 Influenza vaccination [facility] Start: 10-18-2021 Screening for malign ant neoplasm of colon [facility] Start: 08-19-2021 LIPID SCREEN LIPID SCREEN [facility] Start: 06-21-2021 ADVANCE DIRECTIVE DISCUSSION ADVANCE DIRECTIVE DISCUSSION [facility] Start: 02-16-2021 Lipid panel Lipid Screening [facility] Start: 10-31-2020 COVID-19 VACCINE (3 - Moderna risk series) COVID-19 VACCINE (3 - Moderna risk series) [facility] Start: 12-13-2018 Lipid panel Lipid Screening [facility] Start: 12-13-2018 LIPID SCREEN LIPID SCREEN [facility] Start: 08-30-2017 End: 08-30-2017 Appointment Appointment [facility] Work Phone: Start: 02-25-2017 End: 02-25-2017 Appointment Appointment [facility] Work Phone: Start: 02-25-2017 End: 02-25-2017 Follow Up Appt 6 months Follow Up Appt 6 months [facility] Work Phone: Start: 02-25-2017 End: 02-25-2017 MMM MMM [facility] Work Phone: Start: 08-25-2016 End: 08-25-2016 CATCHER PLUG CATCHER PLUG [facility] Work Phone: Start: 08-25-2016 End: 08-25-2016 Follow Up Appt 6 months Follow Up Appt 6 months [facility] Work Phone: Start: 03-20-2016 End: 03-20-2016 Follow Up Appt 6 months Follow Up Appt 6 months [facility] Work Phone: Start: 03-20-2016 End: 03-20-2016 MMM MMM [facility] Work Phone: Start: 03-18-2016 End: 03-18-2016 24 hour holter monitor 24 hour holter monitor [facility] Work Phone: Start: 03-18-2016 End: 03-18-2016 Magnesium *Magnesium [facility] Work Phone: Start: 02-27-2016 End: 02-27-2016 Follow Up Appt 6 months Follow Up Appt 6 months [facility] Work Phone: Start: 02-27-2016 End: 02-27-2016 MMM MMM [facility] Work Phone: Start: 02-17-2016 End: 08-19-2016 *Hepatic Function Panel *Hepatic Function Panel [facility] Work Phone: Start: 02-17-2016 End: 08-19-2016 Lipid panel [AGGREGATE] *Lipid Profile CC PCP [facility] Work Phone: Start: 07-26-2015 End: 08-19-2015 *Hepatic Function Panel *Hepatic Function Panel [facility] Work Phone: Start: 07-26-2015 End: 07-26-2015 CATCHER PLUG CATCHER PLUG [facility] Work Phone: Start: 07-26-2015 End: 07-26-2015 Follow Up Appt 6 months Follow Up Appt 6 months [facility] Work Phone: Start: 07-26-2015 End: 08-19-2015 Lipid panel [AGGREGATE] *Lipid Profile CC PCP [facility] Work Phone: Start: 01-22-2015 End: 01-22-2015 Echocardiography Echocardiogram (complete) [facility] Work Phone: Start: 01-22-2015 End: 01-22-2015 Electrocardiogram, complete EKG (In office) [facility] Work Phone: Start: 01-22-2015 End: 01-22-2015 Follow Up Appt 6 months Follow Up Appt 6 months [facility] Work Phone: Start: 01-22-2015 End: 01-22-2015 MMM MMM [facility] Work Phone: Start: 01-22-2015 End: 01-22-2015 Nuclear stress test -Lexiscan Nuclear stress test -Lexiscan [facility] Work Phone: Start: 2013 RSV Vaccine (1 - 1-d ose 60+ series) RSV Vaccine (1 - 1-dose 60+ series) [facility] Start: 2013 RSV Vaccine (1 - Ris k 60-74 years 1-dose series) RSV Vaccine (1 - Risk 60-74 years 1-dose series) [facility] Start: 09-13-2012 Pneumococcal Vaccine : 50+ (2 of 2 - PCV) Pneumococcal Vaccine: 50+ (2 of 2 - PCV) [facility] Start: 09-13-2012 Pneumococcal Vaccine : 65+ (2 of 2 - PCV) Pneumococcal Vaccine: 65+ (2 of 2 - PCV) [facility] Start: 09-13-2012 PNEUMOCOCCAL: 65+ (2 - PCV) PNEUMOCOCCAL: 65+ (2 - PCV) [facility] Start: 08-04-2012 End: 08-05-2012 Follow Up Appt 4 months Follow Up Appt 4 months [facility] Work Phone: Start: 06-10-2012 End: 07-06-2012 *BMP *BMP [facility] Work Phone: Start: 06-10-2012 End: 07-06-2012 *CBC with Differential *CBC with Differential [facility] Work Phone: Start: 06-10-2012 End: 07-06-2012 *Hepatic Function Panel *Hepatic Function Panel [employer] [facility] Work Phone: Start: 06-10-2012 End: 06-10-2012 24 hour holter monitor 24 hour holter monitor [facility] Work Phone: Start: 06-10-2012 End: 07-06-2012 aPTT *PTT-Partial Thromboplastin Time [facility] Work Phone: Start: 06-10-2012 End: 06-10-2012 Carotid duplex Carotid duplex [facility] Work Phone: Start: 06-10-2012 End: 07-06-2012 Coagulation factor induced.INR assay in platelet poor plasma *PT/INR [facility] Work Phone: Start: 06-10-2012 End: 06-10-2012 Echocardiography Echocardiogram (complete) [facility] Work Phone: Start: 06-10-2012 End: 06-10-2012 Electrocardiogram, complete EKG (In office) [facility] Work Phone: Start: 06-10-2012 End: 06-10-2012 Left Heart Cath Left Heart Cath [facility] Work Phone: Start: 06-10-2012 End: 07-06-2012 Lipid panel [AGGREGATE] *Lipid Profile [facility] Work Phone: Start: 06-10-2012 End: 07-06-2012 Magnesium *Magnesium [facility] Work Phone: Start: 06-10-2012 End: 07-06-2012 Thyroid stimulating hormone (TSH) *TSH [facility] Work Phone: Start: 06-10-2012 End: 07-06-2012 Thyroxine (T4) *T4 (Total) [facility] Work Phone: Start: 2008 PROSTATE CANCER SCRE ENING DISCUSSION PROSTATE CANCER SCREENING DISCUSSION [facility] Start: 09-21-2003 Influenza vaccination LUNG CANCER SC REENING [facility] Start: 09-21-2003 Screening for malign ant neoplasm of lung Lung Cancer Screening [facility] Start: 1998 COLOGUARD (FIT-DNA) COLOGUARD (FIT-D NA) [facility] Start: 1998 Colonoscopy COLONOSCOPY [facility] Start: 1998 COLORECTAL CANCER SCREENING COLORECTAL CANCER SCREENING [facility] Start: [address] COLONOGRAPHY [facility] Start: 1998 FECAL OCCULT BLOOD FECAL OCCULT BLOO D [facility] Start: 1998 Screening for malign ant neoplasm of colon [facility] Start: 1998 SIGMOIDOSCOPY SIGMOIDOSCOPY [facility] Start: 1972 SHINGRIX VACCINE (1 of 2) ZAMORA GRIX VACCINE (1 of 2) [facility] Start: 1972 Urine microalbumin profile [facility] Start: 09-21-1971 Anxiety Screening Anxiety Screening [facility] Start: 09-21-1971 Depression Screening Depression Scre ening [facility] Start: 1958 COVID-19 VACCINE (#1) COVID-19 VACCI NE (#1) [facility] Start: 03-22-1954 COVID-19 VACCINE (#1) COVID-19 VACCI NE (#1) [facility] Start: 1953 ABDOMINAL AORTIC ANE URYSM SCREENING ABDOMINAL AORTIC ANEURYSM SCREENING [facility] Start: 1955 Abdominal aortic ane urysm screening Abdominal Aortic Aneurysm Screening [facility] End: 06-22-2025 BCR/ABL1 P210 QUANTITATIVE PCR BLOOD BCR/ABL1 P210 QUANTITATIVE PCR BLOOD Lab Routine 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) Every 6 months for 2 Occurrences starting 06/22/2024 until 06/22/2025 [facility] Work Phone: Comment on above: Every 6 months for 2 Occurrences starting 06/22/2024 until 06/22/2025 End: 12-08-2024 CBC W Auto Differential panel - Blood COMPLETE BLOOD COUNT AND DIFFERENTIAL Lab Routine 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) Every 6 months for 2 Occurrences starting 12/09/2023 until 12/08/2024 [facility] Work Phone: Comment on above: Every 6 months for 2 Occurrences starting 12/09/2023 until 12/08/2024 [facility] Patient Education [facility] Work Phone: Patient referral [facility] Work Phone: [facility] Immunizations Immunization Date Immunization Notes Care Provider Fa cility 10-03-2020 SARS-CoV-2 (COVID-19 ) mRNA-1273 vaccine FARTUN SAEZ DO [facility] 09-05-2020 SARS-CoV-2 (COVID-19 ) mRNA-1273 vaccine FARTUN SAEZ DO [facility] Comment on above: Result Comment: 2020: [id number] 09-14-2011 pneumococcal polysaccharide vaccine, 23 valent Evelyn Martin MD Work Phone: [facility] Work Phone: Comment on above: Result Comment: Kiara e: Unknown Payers Date Payer Category [place]ayer [place] [id number] 2024 Medicare [id number] 2024 Self-pay [id number] 2023 Private Health Insurance [facility] [id number] 2019 Unknown MMO MMO MEDICARE SUPPLEMENT [id number] 2019-Present [phone] [address] [place] [address] Indemnity [id number] 2019 Unknown MMO MMO MEDICARE SUPPLEMENT [id number] 2019-Present [phone] [address] [place] [address] Indemnity [id number] 2018 Medicare MEDICARE MEDICAR E A AND B [id number] 2018-Present [phone] [address] [address] [place] [address] Medicare [id number] 2018 Medicare [id number] 2017 Unknown [id number] Medicare [id number] Unknown [id number]. 273 Unknown [id number] [id number]. 273 Unknown [id number] [id number]. 273 Unknown [id number] [id number]. 273 Unknown [id number] 2.16.840.1.476475.3.579.2. 273 Unknown [id number] 2.840.1.337199.3.579.2. 273 Unknown [id number] [id number]. 273 Unknown [id number] [id number]. 273 Unknown [id number] [id number]. 273 Unknown [id number] [id number]. 273 Unknown ANTHEM [id number] Unknown [id number] Unknown [id number] [id number]. 462 Unknown [id number] [id number]. 462 Unknown [id number] [id number]. 462 Unknown [id number] [id number]. 462 Unknown [id number] 2..[id number]. 462 Unknown [id number] 2..[id number]. 462 Unknown [id number] [id number]. 462 Social History Date Type Detail Facility Start: 09-29-2018 End: 03-07-2025 Tobacco smoking status NHIS Ex-smoker [facility] Start: 02-15-1990 End: 02-15-2018 History of tobacco use Current smoker [facility] End: 02-15-2018 History of tobacco use Cigar Smoker [facility] Start: 09-29-2018 End: 12-03-2022 Cigarettes smoked current (pack per day) - Reported 1.5 [facility] Start: 09-29-2018 Tobacco use and exposure Smokeless tobacco non-user [facility] Start: 06-02-2021 End: 06-22-2024 Alcohol intake Ex-drinker (finding) [facility] Start: 07-04-2019 History SDOH Alcohol Comment no alcohol in 3 years [facility] Start: 1955 Sex Assigned At Not on file [facility] Start: 02-15-1990 End: 02-15-2018 History of tobacco use Cigarette Smoker [facility] Start: 04-06-2022 End: 08-10-2023 Tobacco smoking status [facility] Unknown if ever smoked [facility] Start: 06-02-[address] [facility] Start: 06-02-[address] [facility] Start: 12-12-[address] [facility] Start: 1955 Sex Assigned At Male W [facility] Start: 12-03-2022 End: 06-04-2023 Tobacco use panel [facility] Adult Depression Screening Assessment 0 [facility] Goals Date Patient Goal Desired Activity /State Functional Status Date Assessment Result Facility 08-06-2014 Are you deaf, or do you have serious difficulty hearing No 08/06/2014 11:05 AM Carisa Boogie LPN No [facility] 08-06-2014 Are you blind, or do you have serious difficulty seeing, even when wearing glasses No 08/06/2014 11:05 AM Carisa Boogie LPN No [facility] 08-06-2014 Do you have serious difficulty walking or climbing stairs No 08/06/2014 11:05 AM Carisa Boogie LPN No [facility] 08-06-2014 Do you have difficul ty dressing or bathing No 08/06/2014 11:05 AM Carisa Boogie LPN No [facility] 08-06-2014 Because of a physica l, mental, or emotional condition, do you have difficulty doing errands alone such as visiting a physician's office or shopping No 08/06/2014 11:05 AM Carisa Boogie LPN No [facility] Mental Status Date Assessment Result Facility 03-07-2025 Cognitive function Level Of Cons ciousness Awake [facility] Work Phone: 12-09-2022 Cognitive function Voice/Name [facility] Work Phone: 08-06-2014 Because of a physica l, mental, or emotional condition, do you have serious difficulty concentrating, remembering, or making decisions No 08/06/2014 11:05 AM Carisa Boogie LPN No [facility] Clinical Notes 01-25-2012 to 03-07-2025 Note Date & Type Note Facility 03-07-2025 Discharge summary [facility] 03-07-2025 Discharge summary Note Date/Time March 07, 2025 4:29pm [facility] Medical Records Department [address] [place] [address] Emergency Department Summary 03/07/25 MR#: [id number] Acct: [id number] Name: FATUMA SIGALA Rep #:[id number] : 1955 69 From: Saul Jaimes DO PCP: Dr. Bryan Hastings MD Status:REG E R Location: ED HPI History of Present Illness Chief Complaint: Chest Pain Narrative Narrative: Patient is a 69-year-old male with past medical history of CAD with stents, hypertension, peripheral vascular disease, hypercholesteremia, hyperlipidemia, CML who presents to the emergency department the chief complaint of left chest pain. He states that this has been off and on for the last 3 days nothing makesthis better or worse. He denies any recent travel history denies any history ofblood clots. Patient states that he has coronary disease and was concerned thatthis could be his heart therefore he came here to be further evaluated. [facility] Medical History Cancer High cholesterol Excessive bleeding History of leukemia Former smoker H/O Legionnaire's disease History of Holter monitoring History of echocardiogram History of stress test Cardiology follow-up encounter History of heart attack Chest pain Postoperative atrial fibrillation (01/2018) Claudication Pericardial effusion with cardiac tamponade (02/2018) Peripheral vascular occlusive disease Essential (primary) hypertension Atherosclerotic heart disease of [place] coronary artery without angina pectoris Frequent unifocal premature ventricular contractions Peripheral arterial occlusive disease Hyperlipemia CML (chronic myelocytic leukemia) Home Medications ?Medication ?Instructions ?Recorded ?Last Taken ?Type aspirin 81 mg chewable tablet 81 mg PO DAILY@0800 10/0 12/0612/05/22 History rosuvastatin 40 mg tablet 40 mg PO QHS 07/13/24 Unknow n History carvedilol 25 mg tablet See Rx Instructions .Route 0 09/12/24 Unknown Rx .COMPLEX #180 tabs hydrochlorothiazide 25 mg tablet 25 mg PO DAILY #90 TA BLETS 10/20/24 Unknown Rx amlodipine 10 mg tablet 10 mg PO DAILY #90 TABLETS 0 01/19/25 Unknown Rx lidocaine 5 % topical patch 1 patch topical DAILY #15 ea 03/07/25 Unknown Rx (DermacinRx Lidocan) Allergy/AdvReac Type Severity Reaction Status Date / Time lisinopril Allergy Severe Swelling Verified 03/07/25 13:17 nilotinib (From Tasigna) Allergy Rash Verified 03/07/25 13:17 pseudoephedrine (From Allergy IRREGULAR Verified 03/07/25 13:17 Sudafed) HEARTBEAT Family History Mother Hypertension Father Hypertension Surgical History History of cardiac catheterization History of appendectomy H/O coronary artery bypass surgery (02/11/18) History of angioplasty of peripheral vessel (11/30/16) History of coronary artery stent placement (11/2013) Social History Smoking Status: Former smoker how long ago did patient quit smokin 1/2 years ago alcohol intake: never substance use type: does not use caffeine: Yes Type: coffee Number of servings: 1 ROS ROS ED ROS Narrative Constitutional: Denies any fevers or chills Eyes: Denies double vision Cardiovascular: Complains of left-sided chest discomfort as noted above denies palpitations Respiratory: Denies coughing wheezing shortness of breath Abdomen: Denies abdominal pain nausea vomit diarrhea : Denies any urinary symptoms Neurological: Denies any numbness, weakness, tingling Musculoskeletal: Denies back pain Skin: Denies any rashes or lesions EXAM Physical Exam Narrative Exam Narrative: General: Patient was lying in bed resting comfortably did not appear to be in acute distress Head: Atraumatic, normocephalic Eyes: PERRL bilateral, EOMI bilaterally, no conjunctival injection noted Neck: Soft, supple, trachea midline Cardiovascular: Regular rate and rhythm no murmurs gallops rubs noted Respiratory: Clear to auscultation bilaterally no rales rhonchi or wheeze noted Abdomen: Soft, nondistended, no tenderness palpation Extremities: +5/5 strength noted in the bilateral lower extremities, radial pulses +2/4 in the bilateral extremities, no pedal edema on exam Neurological: Patient follow commands knew that he was at [facility] the year is 2024 Skin: Warm, dry, intact no rashes or lesions noted Const Vital Signs: 03/07/25 13:15 03/07/25 13:38 03/07/25 14:44 Temperature 97.7 F L Temperature Source Oral Pulse Rate 64 51 L Respiratory Rate 15 14 Blood Pressure 170/79 H 140/74 H Blood Pressure Mean 109 96 Pulse Ox 98 97 Oxygen Delivery Method Room Air Room Air 03/07/25 15:00 03/07/25 16:00 Temperature Temperature Source Pulse Rate 53 L 50 L Respiratory Rate 16 Blood Pressure 139/72 H 147/54 H Blood Pressure Mean 94 85 Pulse Ox 100 Oxygen Delivery Method MDM MDM MDM Narrative Medical decision making narrative: Patient is a 69-year-old male who presents to the emergency department the chiefcomplaint of left-sided chest pain. On the differential diagnose includes but not limited to ACS, musculoskeletal strain, pneumothorax, pneumonia. Once workup is obtained reviewed he will be reevaluated. The patient did note that he has been helping his neighbor get his apartment together and states he could have strained the muscle however given his history of heart disease he wanted cherrie sure that this was not his heart. [place] Score (Revised) for Pulmonary Embolism from [facility] on 03/07/2025 All calculations should be rechecked by clinician prior to use RESULT SUMMARY: 1 points Low risk group: 7-9% incidence of PE from several studies. INPUTS: Age >65 ?> 1 = Yes Previous DVT or PE ?> 0 = No Surgery (under general anesthesia) or lower limb fracture in past month ?> 0 = No Active malignant condition ?> 0 = No Unilateral lower limb pain ?> 0 = No Hemoptysis ?> 0 = No Heart rate ?> 0 = < 75 Pain on lower limb palpation and unilateral edema ?> 0 = No Patient CBC reviewed which showed no evidence leukocytosis white blood count was5.5, he was 14, platelet count of 144. Patient sodium normal 140, potassium normal 3.8, creatinine normal at 0.90. Patient troponin normal at 9, delta troponin 9, proBNP normal at 97, EKG showed sinus bradycardia with a first-degree AV block with a rate of 52 with a MD interval at 220. Patient's previousEKG from December 13, 2020 was reviewed which also at that time showed sinus rhythm with first-degree AV block with a MD interval of 210. Patient's chest x-ray wasreviewed by myself and by radiology which showed mild pulmonary vascular congestion no other acute cardiopulmonary abnormalities identified. Patient ambulated well here in the emergency department no hypoxia no tachycardia. He feels well and would like to go home at this point in time. Atthis point time I do have low suspicion for cardiac etiology given that his symptoms been going on for 3 days nothing makes this better or worse. Do have suspicion that he does have a musculoskeletal strain which she was thinking as well he was advised to rotate Tylenol and ibuprofen [id number] as well as Lidoderm patch as prescribed. He is encouraged to return with worsening symptoms or any concerns as well as follow-up with his doctors in the outpatientsetting. All question concerns answered he is discharged home in stable condition Lab Data Labs: Laboratory Results - last 24 hr 03/07/25 03/07/25 13:36 15:30 WBC 5.5 RBC 4.79 Hgb 14.0 Hct 41.2 MCV 86.0 MCH 29.2 MCHC 34.0 RDW Std Deviation 44.2 H RDW Coeff of Fredy 13.8 Plt Count 144 L MPV 9.7 Immature Gran % (Auto) 0.200 Neut % (Auto) 66.6 Lymph % (Auto) 21.9 Scurry % (Auto) 8.2 Eos % (Auto) 2.9 Baso % (Auto) 0.2 Absolute Neuts (auto) 3.6 Absolute Lymphs (auto) 1.20 Nucleated RBC % 0 Sodium 140 Potassium 3.8 Chloride 106 Carbon Dioxide 22.7 Anion Gap 12 BUN 16 Creatinine 0.90 Estim Creat Clear Calc 86.05 Est GFR (MDRD) Non-Af 91 BUN/Creatinine Ratio 17.7 Glucose 103 H Calcium 9.5 Troponin T High Sens 9 Troponin T Hi Sens 2 Hr 9 NT pro BNP II 97 Radiography Diagnostic Testing: Clinical Impression(s) from Imaging Studies Chest X-Ray 03/07/25 13:33 IMPRESSION: Mild bilateral pulmonary vascular congestion. No other acute cardiopulmonary abnormality. Reading Location: [id number] Discharge Plan Triage Chief Complaint: Chest Pain ED Provider: Saul Jaimes Dx/Rx/DC Orders Clinical Impression: Chest pain, CML (chronic myelocytic leukemia), Essential (primary) hypertension Prescriptions: New lidocaine [DermacinRx Lidocan] 5 % adhesive patch,medicated 1 patch topical DAILY Qty: 15 0RF Rx Instructions: leave on most painful area for up to 12 hrs No Action rosuvastatin 40 mg tablet 40 mg PO QHS aspirin 81 MG tablet,chewable 81 mg PO DAILY@0800 carvedilol 25 mg tablet See Rx Instructions .ROUTE .COMPLEX Qty: 180 3RF Dose Instruction: TAKE ONE TABLET BY MOUTH TWICE DAILY FOR HEART Rx Instructions: TAKE ONE TABLET BY MOUTH TWICE DAILY FOR HEART hydrochlorothiazide 25 mg tablet 25 mg PO DAILY Qty: 90 3RF amlodipine 10 mg tablet 10 mg PO DAILY Qty: 90 3RF Primary Care Provider: Bryan Hastings Chi Referrals: Bryan Hastings Chi, MD [Primary Care Provider, Geriatrics] Activity Restrictions/Additional Instructions: Follow-up with your doctor in outpatient setting. Your chest x-ray, blood work and your heart enzymes did not show any acute findings here today. Return with worsening symptoms or other concerns. Rotate Tylenol and ibuprofen [id number] when you do this you can take something every 3 hours for pain max dose of Tylenol in 24 hours 4000 mg max dose of ibuprofen in 24 hours 3200 mg. Use Lidoderm patches sent to your pharmacy as prescribed as well. Print Language: Citizen Of [place] Disposition Disposition: Home, Self Care What to do if you have Problems For any increased pain, shortness of breath, bleeding, nausea or vomiting, chestpain, or any unexpected problems, contact your Primary Care Provider. Call [facility] ([phone]) or report to the closest Emergency Room. Call 911 if necessary. 03/07/25 [id number] <Electronically signed by Saul Jaimes DO> Cosigner Signature (if applicable): CC: Dr. Bryan Hastings MD ~ Signed [facility] Work Phone: [phone]) 462-917309-17-2025 Radiology Diagnostic study note [facility] Imaging Services [address] [place] [id number] Chest 1 View (Portable) MR#: [id number] Acct: [id number] Name: FATUMA SIGALA Rep #: [id number] : 1955 M 69 From: Hiral Seay MD PCP: Dr. Bryan Hastings MD Status: PRE E R Study:Chest 1 View (Portable) Date of Exam: 03/07/25 Exam# [id number] Ordering Dr: Edwige Jaimes DO PROCEDURE: CHEST 1 VIEW (PORTABLE) 03/07/2025 REASON FOR EXAM: CHEST PAIN TECHNIQUE: Frontal view of the chest. COMPARISON: Chest x-ray 12/13/2020. FINDINGS: Hardware: Sternotomy wires are present. Heart: Cardiac and mediastinal contours are stable. Lungs: Mild bilateral pulmonary vascular congestion. Bones: Degenerative changes are identified within the thoracic spine. Other: RAD/Chest 1 View (Portable) IMPRESSION: Mild bilateral pulmonary vascular congestion. No other acute cardiopulmonary abnormality. Reading Location: [id number] CC: Dr. Bryan Hastings MD; Dr. Saul Jaimes, DO ~ Ticket Scheduler: Signed [facility]07-09-2025 Telephone encounter Note* Telephone Encounter - Lizzette Roy - 12/27/2024 11:12 AM EDT Patient has been scheduled as requested below. Lizzette Gunderson Pss [facility]07-09-2025 Miscellaneous Notes* Telephone Encounter - Lizzette Roy - 12/27/2024 11:12 AM EDT Patient has been scheduled as requested below. Lizzette Gunderson Pss * Telephone Encounter - Apryl Curry LPN - 12/27/2024 10:49 AM EDT Patient is aware of lab results. PSS- please schedule patient for a lab appointment on 06/22/2025 @ 8:00 for a CBC/BCR ABL1 P210. Patient is aware of appointment date and time. Please cancel today's phone visit. Apryl Curry LPN * Telephone Encounter - Earl Sepulveda MD - 12/27/2024 10:41 AM EDT Please call patient, let him know CML labs are good, he remains in molecular remission, plan recheck in 6 months. Earl Sepulveda MD December 27, 2024 documented in [facility] encounter[facility] Telephone encounter Note * Telephone Encounter - Apryl Curry LPN - 12/27/2024 10:49 AM EDT Patient is aware of lab results. PSS- please schedule patient for a lab appointment on 06/22/2025 @ 8:00 for a CBC/BCR ABL1 P210. Patient is aware of appointment date and time. Please cancel today's phone visit. Apryl Curry LPN [facility]07-09-2025 Telephone encounter Note* Telephone Encounter - Earl Sepulveda MD - 12/27/2024 10:41 AM EDT Please call patient, let him know CML labs are good, he remains in molecular remission, plan recheck in 6 months. Earl Sepulveda MD December 27, 2024 [facility] Work Phone: 1(900) 268-128804-10-2025 Evaluation note* Diagnosis Onset Date Resolution Status Admit Date Essential (primary) hypertension chronic September 28, 2024 9:14am H/O coronary artery bypass surgery February 11, 2018 chronic September 28 9:14am Hyperlipemia chronic September 28, 2024 9:14am [facility] Work Phone: 1(321) 183-880601-02-2025 NoteHNO ID: [id number] Author: EARL SEPULVEDA MD Service: ? Author Type: Physician Type: Progress Notes Filed: 06/22/2024 15:58 Note Text: (Elements copied from my note dated December 09, 2023, have been reviewed and updated where appropriate, and all reflect current assessment and medical decision making from today's encounter, June 22, 2024) HISTORY OF PRESENT ILLNESS: Fatuma Sigala is a 68 year old male with a history of CML diagnosed in 2011. He started Tasigna and achieved a MMR within [address] Martin's note that he stopped Tasigna for 6 months in 2018, and the BCR/ABL1 transcrip increased. He resumed Tasigna 300 mg BID in March 2019. Again he achieved MMR. In March 2020, he had developed rash on his extremities, and vertigo. The Tasigna was stopped, and never resumed due to undetected BCR/ABL1 transcript. Clinically has been doing well without any new complaints. CLINICAL IMPRESSION: CML in molecular remission RECOMMENDATION/PLAN: 1. Recheck 6 months CBC and BCR Written and verbal health teaching given to patient, patient verbalizes understanding and agrees with treatment plan. PAST MEDICAL HISTORY Diagnosis Date Acute myocardial infarction of other specified sites, episode of care unspecified 11/2013 Myocardial Infarction with stent placement Fracture left clavecal Hypertension PAST SURGICAL HISTORY Procedure Laterality Date APPENDECTOMY HX in mid STENT PLACEMENT 06/29/2012 Heart Stent @ [facility] FAMILY HISTORY Problem Relation Age of Onset Alzheimer's Disease Mother other (chirossis [Other]) Father Social History Tobacco Use Smoking status: Former Current packs/day: 0.00 Average packs/day: 1.5 packs/day for 28.0 years (42.0 ttl pk-yrs) Types: Cigars, Cigarettes Start date: 02/15/1990 Quit date: 02/15/2018 Years since quittin.3 Smokeless tobacco: Never Vaping Use Vaping status: Never Used Substance Use Topics Alcohol use: Not Currently Alcohol/week: 16.0 standard drinks of alcohol Types: 16 Cans of beer per week Comment: no alcohol in 3 years Drug use: No ALLERGIES: ALLERGIES Allergen Reactions Lisinopril Swelling Sudafed [Pseudoephe* Other: See Comments Irregular heartbeat CURRENT OUTPATIENT MEDICATIONS: rosuvastatin (CRESTOR) 40 mg tablet Take 40 mg by mouth once daily. hydroCHLOROthiazide (HYDRODIURIL, ESIDRIX) 25 mg tablet Take 25 mg by mouth once daily. amLODIPine (NORVASC) 10 mg tablet Take 10 mg by mouth once daily. acetaminophen (TYLENOL) 500 mg tablet Take 1,000 mg by mouth as needed. CARVEDILOL 25 mg tablet Take 25 mg by mouth twice daily. Aspirin 81 mg Tab Take 81 mg by mouth once daily. atorvastatin (LIPITOR) 20 mg tablet Take 20 mg by mouth once daily. (Patient not taking: Reported on 06/22/2024) clopidogrel (PLAVIX) 75 mg tablet Take 1 tablet by mouth once daily. REVIEW OF SYSTEMS: GENERAL: No fever, night sweats, weight loss or malaise. All other reviewed and negative other than HPI. PHYSICAL EXAMINATION: VITAL SIGNS: BP 162/76 Pulse 62 Temp 97.1 Wt 206 lb (93.4kg) SpO2 97% GENERAL APPEARANCE: Well appearing, in no acute distress, alert and oriented x3, well-hydrated, well nourished. No splenomegaly I spent a total of 20 minutes on the date of the service which included preparing to see the patient, [id number] patient care, completing clinical documentation, obtaining and/or reviewing separately obtained history, performing a medically appropriate examination, counseling and educating the patient/family/caregiver, ordering medications, tests, or procedures, independently interpreting results (not separately reported), and communicating results to the patient/family/caregiver. Electronically Signed: Earl [facility]veda [facility] History of Present illness Narrative* Earl Sepulveda MD - 06/22/2024 2:18 PM EST (Elements copied from my note dated December 09, 2023, have been reviewed and updated where appropriate, and all reflect current assessment and medical decision making from today's encounter, June 22, 2024) HISTORY OF PRESENT ILLNESS: Fatuma Sigala is a 68 year old male with a history of CML diagnosed in 2011. He started Tasigna and achieved a MMR within [address] Martin's note that he stopped Tasigna for 6 months in 2018, and the BCR/ABL1 transcrip increased. He resumed Tasigna 300 mg BIDin March 2019. Again he achieved MMR. In March 2020, he had developed rash on his extremities, and vertigo. The Tasigna was stopped, and never resumed due to undetected BCR/ABL1 transcript. Clinically has been doing well without any new complaints. CLINICAL IMPRESSION: CML in molecular remission RECOMMENDATION/PLAN: 1. Recheck 6 months CBC and BCR Written and verbal health teaching given to patient, patient verbalizes understanding and agrees with treatment plan. PAST MEDICAL HISTORY Diagnosis Date Acute myocardial infarction of other specified sites, episode of care unspecified 11/2013 Myocardial Infarction with stent placement Fracture left clavecal Hypertension PAST SURGICAL HISTORY Procedure Laterality Date APPENDECTOMY HX in mid s STENT PLACEMENT 06/29/2012 Heart Stent @ [facility] FAMILY HISTORY Problem Relation Age of Onset Alzheimer's Disease Mother other (chirossis [Other]) Father Social History Tobacco Use Smoking status: Former Current packs/day: 0.00 Average packs/day: 1.5 packs/day for 28.0 years (42.0 ttl pk-yrs) Types: Cigars, Cigarettes Start date: 02/15/1990 Quit date: 02/15/2018 Years since quittin.3 Smokeless tobacco: Never Vaping Use Vaping status: Never Used Substance Use Topics Alcohol use: Not Currently Alcohol/week: 16.0 standard drinks of alcohol Types: 16 Cans of beer per week Comment: no alcohol in 3 years Drug use: No ALLERGIES: ALLERGIES Allergen Reactions Lisinopril Swelling Sudafed [Pseudoephe* Other: See Comments Irregular heartbeat CURRENT OUTPATIENT MEDICATIONS: rosuvastatin (CRESTOR) 40 mg tablet Take 40 mg by mouth once daily. hydroCHLOROthiazide (HYDRODIURIL, ESIDRIX) 25 mg tablet Take 25 mg by mouth once daily. amLODIPine (NORVASC) 10 mg tablet Take 10 mg by mouth once daily. acetaminophen (TYLENOL) 500 mg tablet Take 1,000 mg by mouth as needed. CARVEDILOL 25 mg tablet Take 25 mg by mouth twice daily. Aspirin 81 mg Tab Take 81 mg by mouth once daily. atorvastatin (LIPITOR) 20 mg tablet Take 20 mg by mouth once daily. (Patient not taking: Reported on 06/22/2024) clopidogrel (PLAVIX) 75 mg tablet Take 1 tablet by mouth once daily. REVIEW OF SYSTEMS: GENERAL: No fever, night sweats, weight loss or malaise. All other reviewed and negative other than HPI. PHYSICAL EXAMINATION: VITAL SIGNS: BP 162/76 Pulse 62 Temp 97.1 Wt 206 lb (93.4kg) SpO2 97% GENERAL APPEARANCE: Well appearing, in no acute distress, alert and oriented x3, well-hydrated, well nourished. No splenomegaly I spent a total of 20 minutes on the date of the service which included preparing to see the patient, [id number] patient care, completing clinical documentation, obtaining and/or reviewing separately obtained history, performing a medically appropriate examination, counseling and educating the pat ient/family/caregiver, ordering medications, tests, or procedures, independently interpreting results (not separately reported), and communicating results to the patient/family/caregiver. Electronically Signed: Earl Sepulveda MD June 22, 2024 documented in this encounter[facility]12[facility]24 Telephone encounter Note * Telephone Encounter - Addie Real - 06/08/2024 7:36 AM EST Scheduled as directed. Addie Real [facility]12-19-2024 Miscellaneous Notes* Telephone Encounter - Addie Real - 06/08/2024 7:36 AM EST Scheduled as directed. Addie Real * Telephone Encounter - Nataliya Lang LPN - 06/07/2024 4:31 PM EST Pt returns call, pt will be in tomorrow morning to get redrawn. Please make lab apt at 8:45 am. Nataliya Lang LPN * Telephone Encounter - Nataliya Lang LPN - 06/07/2024 4:13 PM EST Images from the original note were not included. Earl Sepulveda MD Higgins, Kara, LPN Can we call pt, his BCR needs redrawn, was QNS Left message for pt asking if he would be willing to come have this lab redrawn. Pended order. Please sign. If pt calls back please schedule a lab apt. Nataliya Lang LPN documented in this encounterOhio[facility]12-18-2024 Telephone encounter Note * Telephone Encounter - Nataliya Lang LPN - 06/07/2024 4:31 PM EST Pt returns call, pt will be in tomorrow morning to get redrawn. Please make lab apt at 8:45 am. Nataliya Lang LPN [facility]12-18-2024 Telephone encounter Note* Telephone Encounter - Nataliya Lang LPN - 06/07/2024 4:13 PM EST Images from the original note were not included. Earl Sepulveda MD Higgins, Kara, LPN Can we call pt, his BCR needs redrawn, was QNS Left message for pt asking if he would be willing to come have this lab redrawn. Pended order. Please sign. If pt calls back please schedule a lab apt. Nataliya Lang LPN [facility]06-20-2024 History of Present illness Narrative* Earl Sepulveda MD - 12/09/2023 8:57 AM EDT (Elements copied from my note dated June 04, 2023, have been reviewed and updated where appropriate, and all reflect current assessment and medical decision making from today's encounter, December 09, 2023) HISTORY OF PRESENT ILLNESS: Fatuma Sigala is a 68 year old male with a history of CML diagnosed in 2011. He started Tasigna and achieved a MMR within [address] Martin's note that he stopped Tasigna for 6 months in 2018, and the BCR/ABL1 transcrip increased. He resumed Tasigna 300 mg BIDin March 2019. Again he achieved MMR. In March 2020, he had developed rash on his extremities, and vertigo. The Tasigna was stopped, and never resumed due to undetected BCR/ABL1 transcript. Clinically has been doing well without any new complaints. CLINICAL IMPRESSION: CML in molecular remission RECOMMENDATION/PLAN: 1. Recheck 6 months CBC and BCR Written and verbal health teaching given to patient, patient verbalizes understanding and agrees with treatment plan. PAST MEDICAL HISTORY Diagnosis Date Acute myocardial infarction of other specified sites, episode of care unspecified 11/2013 Myocardial Infarction with stent placement Fracture left clavecal Hypertension PAST SURGICAL HISTORY Procedure Laterality Date APPENDECTOMY HX in mid STENT PLACEMENT 06/29/2012 Heart Stent @ [facility] FAMILY HISTORY Problem Relation Age of Onset Alzheimer's Disease Mother other (chirossis [Other]) Father Social History Tobacco Use Smoking status: Former Packs/day: 1.50 Years: 28.00 Additional pack years: 0.00 Total pack years: 42.00 Types: Cigars, Cigarettes Quit date: 02/15/2018 Years since quittin.8 Smokeless tobacco: Never Vaping Use Vaping Use: Never used Substance Use Topics Alcohol use: Not Currently Alcohol/week: 16.0 standard drinks of alcohol Types: 16 Cans of beer per week Comment: no alcohol in 3 years Drug use: No ALLERGIES: ALLERGIES Allergen Reactions Lisinopril Swelling Sudafed [Pseudoephe* Other: See Comments Irregular heartbeat CURRENT OUTPATIENT MEDICATIONS: hydroCHLOROthiazide (HYDRODIURIL, ESIDRIX) 25 mg tablet Take 25 mg by mouth once daily. amLODIPine (NORVASC) 10 mg tablet Take 10 mg by mouth once daily. atorvastatin (LIPITOR) 20 mg tablet Take 20 mg by mouth once daily. acetaminophen (TYLENOL) 500 mg tablet Take 1,000 mg by mouth as needed. CARVEDILOL 25 mg tablet Take 25 mg by mouth twice daily. Aspirin 81 mg Tab Take 81 mg by mouth once daily. clopidogrel (PLAVIX) 75 mg tablet Take 1 tablet by mouth once daily. REVIEW OF SYSTEMS: GENERAL: No fever, night sweats, weight loss or malaise. All other reviewed and negative other than HPI. PHYSICAL EXAMINATION: VITAL SIGNS: BP 153/77 Pulse 61 Temp (Src) 97.5 (Temporal) Wt 207 lb 8 oz (94.1kg) SpO2 97% GENERAL APPEARANCE: Well appearing, in no acute distress, alert and oriented x3, well-hydrated, well nourished. No splenomegaly I spent a total of 20 minutes on the date of the service which included preparing to see the patient, [id number] patient care, completing clinical documentation, obtaining and/or reviewing separately obtained history, performing a medically appropriate examination, counseling and educating the pat ient/family/caregiver, ordering medications, tests, or procedures, independently interpreting results (not separately reported), and communicating results to the patient/family/caregiver. Electronically Signed: Earl Sepulveda MD December 09, 2023 documented in this encounterOhiohealth [facility]06-21-2023 Procedure [facility]06-21-2023 Procedure [facility]06-15-2023 History of Present illness Narrative* Fartun Diop MD - 12/03/2022 11:11 AM EDT Images from the original note were not included. [facility] Progress Note SERVICE DATE: December 03, 2022 HISTORY OF PRESENT ILLNESS: Patient is a 57-year-old male with a history of CML diagnosed in 2011. He started Tasigna and achieved a MMR within [address] Martin's note that he stopped Tasigna for 6 months in 2018,and the BCR/ABL1 transcrip increased. He resumed Tasigna 300 mg BID in March 2019. Again he achieved MMR. In March 2020, he had developed rash on his extremities, and vertigo. The Tasigna was stopped, and never resumed due to undetected BCR/ABL1 transcript. Clinically has been doing well without any new complaints. He bruises easily from taking Plavix. Denies fever, chills, bleeding, chest pain, palpitation, shortness of breath, skin rash, or edema. Current Outpatient Medications Medication Sig Dispense Refill hydroCHLOROthiazide (HYDRODIURIL, ESIDRIX) 25 mg tablet Take 25 mg by mouth once daily. 11 amLODIPine (NORVASC) 10 mg tablet Take 10 mg by mouth once daily. atorvastatin (LIPITOR) 20 mg tablet Take 20 mg by mouth once daily. acetaminophen (TYLENOL) 500 mg tablet Take 1,000 mg by mouth as needed. CARVEDILOL 25 mg tablet Take 25 mg by mouth twice daily. Aspirin 81 mg Tab Take 81 mg by mouth once daily. clopidogrel (PLAVIX) 75 mg tablet Take 1 tablet by mouth once daily. 0 No current facility-administered medications for this visit. REVIEW OF SYSTEMS: Review of Systems Constitutional: Negative for chills, fatigue, fever and unexpected weight change. HENT: Negative for lump/mass, mouth sores and sore throat. Respiratory: Negative for cough, hemoptysis and shortness of breath. Cardiovascular: Negative for chest pain, leg swelling and palpitations. Gastrointestinal: Negative for abdominal pain, blood in stool and constipation. Genitourinary: Negative for dysuria, frequency and hematuria. Skin: Negative for itching and rash. Neurological: Negative for dizziness, headaches, numbness and seizures. Hematological: Bruises/bleeds easily. Psychiatric/Behavioral: Negative for confusion and decreased concentration. The patient is not nervous/anxious. PHYSICAL EXAM: BP 139/83 Pulse 65 Temp 36.2 C (97.2 F) Ht 178 cm (5' 10.08) Wt 94.6 kg (208 lb 8 oz) SpO2 96% BMI29.85 kg/m2 Body mass index is 29.85 kg/m . Estimated body surface area is 2.16 meters squared as calculated from the following: Height as of this encounter: 178 cm (5' 10.08). Weight as of this encounter: 94.6 kg (208 lb 8 oz). ECO- Fully active, able to carry on all pre-disease performance w/o restriction. Physical Exam Vitals reviewed. Constitutional: Appearance: Normal appearance. HENT: Nose: Nose normal. Eyes: Conjunctiva/sclera: Conjunctivae normal. Cardiovascular: Rate and Rhythm: Normal rate and regular rhythm. Heart sounds: No murmur heard. Pulmonary: Effort: Pulmonary effort is normal. No respiratory distress. Breath sounds: Normal breath sounds. No wheezing. Abdominal: General: There is no distension. Palpations: Abdomen is soft. There is no mass. Tenderness: There is no abdominal tenderness. Musculoskeletal: General: Normal range of motion. Cervical back: Normal range of motion and neck supple. Right lower leg: No edema. Left lower leg: No edema. Skin: Coloration: Skin is not jaundiced. Findings: Bruising present. Neurological: General: No focal deficit present. Mental Status: He is alert and oriented to person, place, and time. Psychiatric: Mood and Affect: Mood normal. Behavior: Behavior normal. LABS: BCR/ABL1 p210 MR BCR/ABL1 P210 %IS PANEL Collected: 11/24/22818 Result status: Final Resulting lab: [facility] Value: N/A BCR/ABL1 P210 %IS PANEL: [id number] Order: [id number] - Reflex for Order [id number] Collected 11/24/2022 8:19 AM Status: Final result Visible to patient: Yes (seen) Dx: 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) 0 Result Notes Component BCR/ABL1 P210 %IS N/A BCR/ABL1 P210 MR N/A Resulting Agency CCM Specimen Collected: 11/24/22 8:19 AM EDT Last Resulted: 11/27/22 7:36 AM EDT Order Details View Encounter Lab and Collection Details Routing Result History View Encounter Conversation Result Care Coordination Patient Communication Add Comments Seen Back to Top BCR/ABL1 P210 QUANTITATIVE PCR BLOOD: [id number] Order: [id number] Collected 11/24/2022 8:19 AM Status: Final result Visible to patient: Yes (not seen) Dx: 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) 0 Result Notes Component BCR/ABL1 P210 INTERPRETATION BCR/ABL1 p210 Quantitative PCR Laboratory Accession Number: [id number] Result: UNDETECTED MR: N/A %IS: N/A Interpretation: p210 BCR/ABL1 transcripts were not detected. This result does not exclude the possibility of very low level transcripts below the level of detection of this assay (>MR4.7), and a result of not detected does not exclude the possibility of other BCR/ABL1 transcripts not targeted by this assay. Latest Reference Range & Units 11/24/22 08:19 WBC 3.70 - 11.00 k/uL 6.84 RBC 4.20 - 6.00 m/uL 5.04 Hemoglobin 13.0 - 17.0 g/dL 14.7 Hematocrit 39.0 - 51.0 % 42.6 Platelet Count 150 - 400 k/uL 152 IMPRESSION: Fatuma Sigala is a 67 year old male diagnosed with CML in 2011, treated with Tasigna and achieved MMR(twice). Tasigna has been held since 03/2020 due to skin rash. There is no evidence of CML recurrence. Repeat RT-PCR for BCR/ABL1 did not detect p210 transcript. He is still in MMR. PLAN: Will continue to hold Tasigna as there is no evidence of recurrence. He will continue 6 month labs (CBC, CMP, RT-PCR) and follow up. Fartun Diop MD cc: Fartun Saez IV, DO documented in this encounter[facility] History of Present illness Narrative* Evelyn Martin MD - 12/01/2021 8:49 AM EDT PATIENT NAME: Fatuma Sigala. CLINIC NO: [id number]. ATTENDING PHYSICIAN: Evelyn Martin MD. DATE OF SERVICE:12/01/2021 DIAGNOSIS: CML in complete remission ( with major molecular response ) HPI: The patient is a 66 year old man with CML. The patient denied any constitutional symptoms; he has no fevers, chills or night sweat. He has no fatigue or weight loss. Current treatment: Tasigna 300mg twice daily (stop because of rash since April 2020) Interim history: He stopped Tasigna over a year ago.. His CML remains in molecular remission. He has no abdominal pain, early satiety or jaundice. No fever, chills, night sweating or weight loss. All medications & allergies updated and reviewed by me. REVIEW OF SYSTEMS: CONSTITUTIONAL: No fevers, chills, nightsweats, unintended weight loss HEENT: Denies frequent or severe heaches, nasal congestion/sinus symptoms, problematic allergy problems. EYES: No diplopia or blurry vision. CARDIOVASCULAR: No chest pain, dyspnea, palpitations, orthopnea, PND, ankle edema. PULM: No dyspnea, unexplained cough. GI: No dysphagia/odynophagia, problematic reflux, constipation, diarrhea, changes in stool habits, hematochezia, melena. : No new urinary complaints, including dysuria, gross hematuria or pyuria. NEURO: No new balance problems, peripheral weakness/paresthesias or numbness of concern. MUSC-SKEL: No new joint pain, swelling, or erythema. PSY: No concerns regarding depression, anxiety or panic. INTEGUMENTARY: No new skin changes (rash, new or changing mole, new growth) PHYSICAL EXAMINATION: General appearance: Well appearing, alert, in no acute distress, well-hydrated, well nourished. Performance status 100% BP 143/79 Pulse 70 Temp 97.3 Ht 5' 10.276 (1.79m) Wt 206 lb (93.4kg) SpO2 98% BMI 29.33 kg/(m^2). Skin: Skin color, texture, turgor normal, no suspicious rashes or lesions Head: Normocephalic, no masses, lesions, tenderness or abnormalities Eyes: Anicteric sclera. Pupils are equally round and reactive to light. Extraocular movements are intact. Ears: External ears normal, canals clear Nose/Sinuses: Nares normal, septum midline, mucosa normal, no drainage or sinus tenderness Oropharynx: Lips, mucosa, and tongue normal, teeth and gums normal, oropharynx normal Neck: Supple, no adenopathy; thyroid symmetric, normal size, no bruits Back: Normal exam Lungs: Lungs clear to auscultation. No wheezing, rhonchi, rales. Heart: RRR without murmur, gallop, or rubs. No ectopy Abdomen: Normal abdominal exam, Abdomen soft, non-tender. Bowel sounds normal. No masses, organomegaly Extremities: No deformities, edema, skin discoloration, clubbing or cyanosis. Good capillary refill. Musculoskeletal: No joint swelling, deformity, or tenderness Peripheral pulses: Normal Neuro: Gait normal. Reflexes normal and symmetric. Sensation grossly intact. LABS: Component Latest Ref Rng & Units 11/24/2021 WBC 3.70 - 11.00 k/uL 5.74 RBC 4.20 - 6.00 m/uL 4.88 Hemoglobin 13.0 - 17.0 g/dL 14.5 Hematocrit 39.0 - 51.0 % 41.8 MCV 80.0 - 100.0 fL 85.7 MCH 26.0 - 34.0 pg 29.7 MCHC 30.5 - 36.0 g/dL 34.7 RDW-CV 11.5 - 15.0 % 14.0 Platelet Count 150 - 400 k/uL 154 MPV 9.0 - 12.7 fL 10.0 Neut% % 64.2 Abs Neut (ANC) 1.45 - 7.50 k/uL 3.69 Lymph% % 22.0 Abs Lymph 1.00 - 4.00 k/uL 1.26 Scurry% % 10.8 Abs Scurry <0.87 k/uL 0.62 Eosin% % 2.3 Abs Eosin <0.46 k/uL 0.13 Baso% % 0.5 Abs Baso <0.11 k/uL 0.03 Immature Gran % % 0.2 IMMATURE GRANS (ABS) <0.10 k/uL <0.03 NRBC /100 WBC 0.0 Absolute nRBC <0.01 k/uL <0.01 DTYPE Auto Component Latest Ref Rng & Units 11/24/2021 Protein, Total 6.3 - 8.0 g/dL 7.3 Albumin 3.9 - 4.9 g/dL 4.7 Calcium 8.5 - 10.2 mg/dL 9.9 Bilirubin, Total 0.2 - 1.3 mg/dL 1.0 Alkaline Phosphatase 38 - 113 U/L 147 (H) AST 14 - 40 U/L 19 ALT 10 - 54 U/L 13 Glucose 74 - 99 mg/dL 108 (H) BUN 9 - 24 mg/dL 22 Creatinine 0.73 - 1.22 mg/dL 0.96 Sodium 136 - 144 mmol/L 134 (L) Potassium 3.7 - 5.1 mmol/L 3.2 (L) Chloride 97 - 105 mmol/L 98 CO2 22 - 30 mmol/L 21 (L) Anion Gap 9 - 18 mmol/L 15 eGFR >=60 mL/min/1.73m 86 LD 135 - 225 U/L 169 BCR/ABL1 P210 MR >4.7 ASSESSMENT/PLAN: CML, chronic phase in complete molecular remission -He has been off TASIGNA for over a year. -BCR/ABL1 p210 Quantitative PCR is DETECTED but MR > 4.7 Plan: -Continue observation and follow-up -Monitor CBC and PCR- BCR/NOSm216 every 3 months x 2 -Repeat CBC, CMP, LDH & PCR- BCR/PGAp616 and OV in 6 months Portions of this documentation were copied and pasted from previous office visit notes in order to provide a cohesive continuity of the history. The note has been reviewed and edited and updated as necessary. Evelyn Martin MD Cc; Dr. Fartun Saez, IV documented in this encounterOhio[facility]06-10-2022 Miscellaneous Notes* Telephone Encounter - Carisa Bonner LPN - 11/28/2021 10:40 AM EDT Pt. Notified of results, will keep appt. Scheduled for Wednesday. Carisa Bonner LPN * Telephone Encounter - Evelyn Martin MD - 11/28/2021 10:16 AM EDT Notify patient that his PCR remain negative MR > 4.7. Continue to observe off TASIGNA. Evelyn Martin MD documented in this encounterOhio[facility]08-24-2018 Evaluation note* Diagnosis Onset Date Resolution Status Essential (primary) hypertension chronic H/O coronary artery bypass surgery February 11, 2018 chronic Hyperlipemia chronic [facility] Work Phone: [phone]) 267-610608-24-2018 Evaluation note* Diagnosis Onset Date Resolution Status Essential (primary) hypertension chronic H/O coronary artery bypass surgery February 11, 2018 chronic Hyperlipemia chronic Encounter for screening for malignant neoplasm of colon acute [facility] Work Phone: 1([phone]) 434-442908-24-2018 Evaluation note* Diagnosis Onset Date Resolution Status Carotid stenosis acute Peripheral arterial occlusive disease chronic Essential (primary) hypertension chronic H/O coronary artery bypass surgery February 11, 2018 chronic Hyperlipemia chronic [facility] Work Phone: 1(574) 349-374908-06-2012 History of Past illness Narrative* Problem Noted Date Resolved Date Acneiform rash 01/25/2012 10/03/2012 Encounter for long-term (current) use of other m edications 10/01/2011 09/04/2013 documented as of this encounter (statuses as of 11/28/2021) [facility] History of Past illness Narrative* Problem Noted Date Resolved Date Acneiform rash 01/25/2012 10/03/2012 Encounter for long-term (current) use of other m edications 10/01/2011 09/04/2013 documented as of this encounter (statuses as of 12/02/2021) [facility] History of Past illness Narrative* Problem Noted Date Resolved Date Acneiform rash 01/25/2012 10/03/2012 Encounter for long-term (current) use of other m edications 10/01/2011 09/04/2013 documented as of this encounter (statuses as of 03/02/2022) [facility] History of Past illness Narrative* Problem Noted Date Resolved Date Acneiform rash 01/25/2012 10/03/2012 Encounter for long-term (current) use of other m edications 10/01/2011 09/04/2013 documented as of this encounter (statuses as of 11/24/2022) [facility] History of Past illness Narrative* Problem Noted Date Resolved Date Acneiform rash 01/25/2012 10/03/2012 Encounter for long-term (current) use of other m edications 10/01/2011 09/04/2013 documented as of this encounter (statuses as of 12/03/2022) [facility] History of Past illness Narrative* Problem Noted Date Diagnosed Date Resolved Date Acneiform rash 01/25/2012 10/03/2012 Encounter for long-term (cur rent) use of other medications 10/01/2011 09/04/2013 documented as of this encounter (statuses as of 06/08/2023) [facility] Future Appointments Appointment Date:06/03/2023 10:30:00 AM Scheduled Provider:FARTUN SAEZ DO Location:[facility] Appointment Type: OV Future Scheduled Tests Laboratory* Hepatitis C Antibody IgG 02/18/22 [facility] Ev[facility]ration [facility]* Diagnosis 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 [facility]* Diagnosis 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 documented in this encounter [facility] noteNo assessment information availableWKettering [facility] Work Phone: Evaluation note* Diagnosis 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 [facility]* Diagnosis Onset Date Resolution Status Encounter for screening for malignant neoplasm of colo n acute [facility] Work Phone: Evaluation note* Diagnosis Onset Date Resolution Status Carotid stenosis acute Peripheral arterial occlusive disease [facility] Work Phone: Evaluation note* Diagnosis 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 documented in this encounter [facility] note* Diagnosis 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 documented in this encounter [facility] note* Diagnosis 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 Fartun Saez, DO [place] [place]: [place] [address] HPI - General General Date of Admission: 12/09/22 Date of Service: 12/09/22 Chief Complaint: Screening colonoscopy HPI Narrative FATUMA SIGALA, is a 67 M who presents today for screening: He. He has not had a colonoscopy in the past. He has a past medical history of CML in remission, CADstatus post CABG, hypertension and hyperlipidemia. He does not have any problems with his bowels. He does not have any chest pain or shortness of breath. He is not having any weakness. Overall he feels very well. [facility] Medical History Atherosclerotic heart disease of [place] coronary artery without angina pectoris Cancer Cardiology follow-up encounter Chest pain Claudication CML (chronic myelocytic leukemia) Essential (primary) hypertension Excessive bleeding Former smoker Frequent unifocal premature ventricular contractions H/O Legionnaire's disease High cholesterol History of echocardiogram History of heart attack History of Holter monitoring History of leukemia History of stress test Hyperlipemia Pericardial effusion with cardiac tamponade (02/2018) Peripheral arterial occlusive disease Peripheral vascular occlusive disease Postoperative atrial fibrillation (01/2018) Home Medications aspirin 81 mg chewable tablet 81 mg PO DAILY@0800 03/26/18 [History Last Taken 12/05/22] meclizine 25 mg tablet 25 mg PO 4X/DAY PRN PRN Dizziness #20 tabs 03/25/20 [Rx Last Taken Unknown] atorvastatin 20 mg tablet 20 mg PO QHS #90 tabs 04/19/20 [Rx Last Taken Unknown] amlodipine 10 mg tablet 10 mg PO DAILY #90 tabs 02/03/22 [Rx Last Taken 12/09/22] carvedilol 25 mg tablet (Coreg) 25 mg PO BID #180 tabs 07/27/22 [Rx Last Taken 12/09/22] clopidogrel 75 mg tablet (Plavix) 75 mg PO DAILY #90 tabs 07/27/22 [Rx Last Taken 12/05/22] hydrochlorothiazide 25 mg tablet 25 mg PO DAILY #90 tabs 10/30/22 [Rx Last Taken Unknown] Allergy/AdvReac Type Severity Reaction Status Date / Time lisinopril Allergy Severe Swelling Verified 12/09/22 09:23 nilotinib [From Tasigna] Allergy Rash Verified 12/09/22 09:23 pseudoephedrine Allergy IRREGULAR Verified 12/09/22 09:23 [From Sudafed] HEARTBEAT Family History Mother Hypertension Father Hypertension Surgical History H/O coronary artery bypass surgery (02/11/18) History of angioplasty of peripheral vessel (11/30/16) History of appendectomy History of cardiac catheterization History of coronary artery stent placement (11/2013) Social History Smoking Status: Former smoker how long ago did patient quit smokin 1/2 years ago alcohol intake: never substance use type: does not use caffeine: Yes Type: coffee Number of servings: 1 ROS Review of Systems ROS Unobtainable: other Constitutional Constitutional: Denies fatigue, fever(s), poor appetite, weight gain or weight loss ENT HEENT: Denies mouth lesions Cardiovascular Cardiovascular: Denies abdominal bloating, abdominal edema or abdominal pain Respiratory/Chest Respiratory/Chest: Denies change in mental status, change in phlegm color, chestcongestion or chest tightness Gastrointestinal Gastrointestinal: Denies belching, bloating, change in bowel habits, change in stool character, chewing difficulty, coffee ground emesis, constipation, cramping, diarrhea, dyspepsia, dysphagia, early satiety, excessive flatus, fecalincontinence, heartburn, hematemesis, hematochezia, hemorrhoids, loose stools, melena, nausea, odynophagia, rectal bleeding, tenesmus, vomiting or weight changes Genitourinary Genitourinary: Denies abdominal discomfort, burning urination or itching Musculoskeletal Musculoskeletal: Reports as per HPI; Denies muscle weakness or myalgias Integumentary Integumentary: Denies jaundice Neurologic Neurologic: Denies lack of coordination or weakness Psychiatric Psychiatric: Denies confusion, depression, memory loss, mood swings, paranoia orsuicidal ideation Endocrine Endocrinology: Denies systems reviewed and no addt'l complaints, except as documented Hematologic/Lymphatic Hematologic/Lymphatic: Denies anemia, easy bleeding, easy bruising or lymphadenopathy Allergic/Immunologic Allergic/Immunologic: Denies systems reviewed and no addt'l complaints, except as documented Vital Signs Vital Signs Vital Signs: 12/09/22 09:24 12/09/22 09:24 Temperature 97.8 F Temperature Source Temporal Pulse Rate 66 Respiratory Rate 17 Respiratory Pattern Normal Blood Pressure 129/81 H Blood Pressure Mean 97 Blood Pressure Source Monitor Blood Pressure Position Semi-Fowlers Blood Pressure Location Right Arm Pulse Ox 96 Oxygen Delivery Method Room Air Weight Weight: 200 lb 9.93 oz Body Mass Index (BMI) 28.8 Physical Exam Const alert General Appearance: cooperative Orientation / Consciousness: oriented to person HEENT hearing grossly normal bilaterally Head and Scalp: normal to inspection Face and Sinus: face symmetric Nose: external nose normal Mouth: oral and palatal mucosa normal Eyes conjunctivae normal General Eye: normal appearance of both eyes Neck full ROM General: normal visual inspection Lymph Lymphatic: no lymphadenopathy noted Chest inspection of chest normal and palpation of chest normal Chest: symmetrical chest wall rise Resp normal respiratory effort Effort and Inspection: able to speak in complete sentences Cardio regular rate GI non-distended Percussion: normal to percussion Rectal Exam: deferred Neuro Speech: speech normal Gait (Neuro): normal gait Assessment & Plan Assessment/Plan (1) Encounter for screening for malignant neoplasm of colon: PLAN: He will undergo screening colonoscopy. He was explained alternatives, risk, benefits including not withstanding bleeding, infection, sepsis, perforation, need for emergent surgery . He will have an ASA of 3. 12/09/22 1016 <Electronically signed by Devin Gonzalez DO> Cosigner Signature (if applicable): CC: Dr. Fartun Saez DO; Devin Gonzalez DO~ Signed [facility] Work Phone: Hospital course Narrative No data available for this section [facility] Discharge instructions No data available for this section [facility] Discharge instructionsAdditional Instructions Follow-up with your doctor in outpatient setting. Your chest x-ray, blood work and your heart enzymes did not show any acute findings here today. Return with worsening symptoms or other concerns. Rotate Tylenol and ibuprofen [id number] when you do this you can take something every 3 hours for pain max dose of Tylenol in 24 hours 4000 mg max dose of ibuprofen in 24 hours 3200 mg. Use Lidoderm patches sent to your pharmacy as prescribed as well. [facility] Work Phone: Progress note No data available for this section [facility] Reason for referral (narrative)No reason for referral information availableWKettering [facility] Work Phone: Summary Purpose Family History Relationship Condition Age at Onset Recorded Date/T annabel mother Hypertension Unknown father Hypertension Unknown Advance Directives Advance Directive Response Recorded Date/ Time Advance Directives No December 11 5:53pm Living Will No April 06 8:00am Power of [employer] No April 06, 2022 8:00am Advance Directive Response Recorded Date/ Time Advance Directives No December 11 6:53pm Living Will No April 06 9:00am Power of [employer] No April 06, 2022 9:00am Advance Directive Response Recorded Date/ Time Advance Directives No December 11 6:53pm Living Will No December 07, 2022 12:03pm Power of [employer] No December 07 12:03pm Advance Directive Response Recorded Date/ Time Advance Directives No December 11 5:53pm Living Will No December 07, 2022 11:03am Power of [employer] No December 07 11:03am Advance Directive Response Recorded Date/ Time Living Will No December 07, 2022 12:03pm Do you have a Healthcare Power of [employer]? No December 07, 2022 12:03pm Advance Directives No December 11 6:53pm Advance Directive Response Recorded Date/ Time Do you have a Healthcare Power of [employer]? No March 07, 2025 1:29pm Advance Directives No December 11 6:53pm Hospital Course Note [facility] Patient Name: FATUMA SIGALA Rj [address] Date of : [address] [place] [place] [address] Unit Number: [id number] Discharge Summary-CTS Patient Status: DIS IN Attending Doctor: Jaswinder Hdez MD Service Date: 05/03/18 1133 Discharge Summary Admit Date Admission Date Time: 02/15/18 0600 Anticipated Discharge Date 02/20/18 Final Dx/Problem List 1. CAD (coronary artery disease) 2. HTN (hypertension) 3. Dyslipidemia 4. Acute blood loss anemia Operations/Procedures DATE OF SERVICE: 02/15/2018 OPERATION: 1. Coronary artery bypass graft x4 with: 2. Njyy-vsmpevsx-vribwia-artery to the uefm-codgkdjt-mmyutepuda. 3. Vein to the high diagonal. 4. Vein to the posterior descending. 5. Vein to posterolateral. 6. Endoscopic harvest of the thighs on both sides. 7. Transesophageal echocardiography. SURGEON: Jaswinder Hdez MD Hospital Course 62 YO MALE history of an angioplasty/FER to the LAD back in 2012. FER to the RCA in 2013, PVD S/P PCI by Dr. Sergio wallace (more content not included)... Chief Complaint and Reason for Visit Chief Complaint ear DISORDER OF ARTERIES Chief Complaint 1 y fu CAD/ASHD CAD/ASHD Amb Documentation Reason for Visit Essential (primary) hypertension H/O coronary artery bypass surgery Hyperlipemia Chief Complaint 1 y fu CAD/ASHD CAD/ASHD Amb Documentation Amb Documentation Reason for Visit Essential (primary) hypertension H/O coronary artery bypass surgery Hyperlipemia Encounter for screening for malignant neoplasm of colon Chief Complaint CAD/ASHD CAD/ASHD Amb Documentation Amb Documentation Personal history of nicotine dependence Reason for Visit Encounter for screen ing for malignant neoplasm of colon Chief Complaint NO ORDER PVD, CLAUDICATION Chief Complaint PVD, CLAUDICATION ROUTINE VASCULAR LOWER EXTREMITY CAROTID STENOSIS Reason for Visit Carotid stenosis Peripheral arterial occlusive disease Chief Complaint PVD, CLAUDICATION ROUTINE VASCULAR LOWER EXTREMITY CAROTID STENOSIS 1 Y FU E-ORDER Reason for Visit Carotid stenosis Peripheral arterial occlusive disease Essential (primary) hypertension H/O coronary artery bypass surgery Hyperlipemia Chief Complaint Admit Date 1 Y FU September 28, 2024 9:1 4am Reason for Visit Admit Date Essential (primary) hypertension September 192024 9:14am H/O coronary artery bypass surgery September 28, 2024 9:14am Hyperlipemia September 28, 2024 9:1 4am Chief Complaint Admit Date CHEST PAIN March 07, 2025 1:14pm Additional Source Comments (unrecognized sect ion and content) No Status Records FoundNo Status Records FoundNo Status Records FoundNo Status Records Found INFORMATION SOURCE (unrecogn ized section and content) DATE CREATED AUTHOR 09/13/2018 [facility] DATE CREATED AUTHOR AUTHOR'S ORGANIZ ATION 08/29/2020 [facility] DATE CREATED AUTHOR AUTHOR'S ORGANIZ ATION 12/11/2024 [facility] DATE CREATED AUTHOR AUTHOR'S ORGANIZ ATION 12/30/2024 [facility] Source Comments (unrecognize d section and content) In the event this informatio n is protected by the Federal Confidentiality of Alcohol and Drug Abuse Patient Records regulations: The Federal rules restrict any use of the information to criminally investigate or prosecute any alcohol or drug abuse patient.[facility] the event this information is protected by the Federal Confidentiality of Alcohol and Drug Abuse Patient Records regulations: The Federal rules restrict any use of the information to criminally investigate or prosecute any alcohol or drug abuse patient.[facility] the event this information is protected by the Federal Confidentiality of Alcohol and Drug Abuse Patient Records regulations: The Federal rules restrict any use of the information to criminally investigate or prosecute any alcohol or drug abuse patient.[facility] the event this information is protected by the Federal Confidentiality of Alcohol and Drug Abuse Patient Records regulations: The Federal rules restrict any use of the information to criminally investigate or prosecute any alcohol or drug abuse patient.[facility] the event this information is protected by the Federal Confidentiality of Alcohol and Drug Abuse Patient Records regulations: The Federal rules restrict any use of the information to criminally investigate or prosecute any alcohol or drug abuse patient.[facility] the event this information is protected by the Federal Confidentiality of Alcohol and Drug Abuse Patient Records regulations: The Federal rules restrict any use of the information to criminally investigate or prosecute any alcohol or drug abuse patient.[facility] the event this information is protected by the Federal Confidentiality of Alcohol and Drug Abuse Patient Records regulations: The Federal rules restrict any use of the information to criminally investigate or prosecute any alcohol or drug abuse patient.[facility] the event this information is protected by the Federal Confidentiality of Alcohol and Drug Abuse Patient Records regulations: The Federal rules restrict any use of the information to criminally investigate or prosecute any alcohol or drug abuse patient.[facility] the event this information is protected by the Federal Confidentiality of Alcohol and Drug Abuse Patient Records regulations: The Federal rules restrict any use of the information to criminally investigate or prosecute any alcohol or drug abuse patient.[facility] the event this information is protected by the Federal Confidentiality of Alcohol and Drug Abuse Patient Records regulations: The Federal rules restrict any use of the information to criminally investigate or prosecute any alcohol or drug abuse patient.[facility] Reason for Visit (unrecogniz ed section and content) Reason Comments Results Reason Comments Established Patient Specialty Diagnoses / Procedures Referred By Contac t Referred To Contact Hematology/Oncology / HEMATOLOGY/ONCOLOGY Diagnoses 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) 6MO OV* Procedures OFFICE/OUTPATIENT ESTABLISHED SF MDM 10 MIN OFFICE/OUTPATIENT ESTABLISHED LOW MDM 20 MIN OFFICE/OUTPATIENT ESTABLISHED MOD MDM 30 MIN OFFICE/OUTPATIENT ESTABLISHED HIGH MDM 40 [place] [address] [place] [address] [place] [address] [place] [address] Referral ID Status Reason Start Date Expiration Date V isits Requested Visits Authorized [id number] Authorized 12/02/2023 06/20/2024 99 99 Specialty Diagnoses / Procedures Referred By Contac t Referred To Contact Hematology/Oncology / HEMATOLOGY/ONCOLOGY Diagnoses 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) 6MO OV/LABS 06/02, 06/08* Procedures OFFICE/OUTPATIENT ESTABLISHED HIGH MDM 40 [place] [address] [place] [address] Referral ID Status Reason Start Date Expiration Date Visits Re quested Visits Authorized [id number] Closed 06/22/2024 06/20/2025 1 1 Care Teams (unrecognized sec tion and content) Object Oriented Developer Relationship Specialty Start Date End Date Fartun Saez IV, MD [address] [place] [id number] PCP - General Family Practice 11/27/20 Object Oriented Developer Relationship Specialty Start Date End Date Fartun Saez IV, MD [address] [place] [id number] PCP - General Family Practice 11/27/20 Team Status: Active Member Role Status Dates Dr. Ramon Song , DO Family Provider Active Dr. Fartun Saez , DO Primary Care Provider Active Team Status: Inactive Member Role Status Dates Dr. Fartun Saez , DO Primary Care Provider, Referrin g Provider Active Dr. David Aguiar MD Attending Provider Active Team Status: Active Member Role Status Dates Dr. Fartun Saez DO Primary Care Provider Active Dr. David Aguiar MD Attending Provider, Referring Provider, Other Provider Active Team Status: Active Member Role Status Dates Dr. Fartun Saez DO Primary Care Provider Active Marlee Holt Attending Provider Active Team Status: Inactive Member Role Status Dates Dr. Fartun Saez DO Primary Care Provider Active Dr. David Aguiar MD Attending Provider, Referring Pro vider Active Object Oriented Developer Relationship Specialty Start Date End Date Skylerraúl Fartun CHITO, DO [address] [place] [id number] PCP - General Family Medicine 11/27/20 Object Oriented Developer Relationship Specialty Start Date End Date Saskia Fartun CHITO, DO [address] [place] [id number] PCP - General Family Medicine 11/27/20 Team Status: Active Member Role Status Dates Dr. Fartun Saez DO Primary Care Provider Active Gloria Woodard Attending Provider Active Team Status: Active Member Role Status Dates Dr. Fartun Saez DO Primary Care Provider, Referrin g Provider Active Dr. Devin Gonzalez , DO Attending Provider, Other Prov ider Active Team Status: Inactive Member Role Status Dates Dr. Fartun Saez DO Primary Care Provider, Referrin g Provider Active Dr. Devin Gonzalez , DO Attending Provider Active Team Status: Inactive Member Role Status Dates Dr. Fartun Saez DO Primary Care Prov ider, Attending Provider, Referring Provider Active Team Status: Active Member Role Status Dates Dr. Fartun Saez DO Primary Care Provider Active Dr. Aiden Islas MD Attending Provider Active Johanny SUTTON PA-C Referring Provider Active Team Status: Inactive Member Role Status Dates Dr. Fartun Saez DO Primary Care Provider Active Dr. Aiden Islas MD Other Provider Active MAYRA HandyC Attending Provider, Referring Provider Active Team Status: Inactive Member Role Status Dates Dr. Fartun Saez DO Primary Care Provider, Referrin g Provider Active Dr. Aiden Islas MD Attending Provider Active Team Status: Active Member Role Status Dates Dr. Fartun Saez DO Primary Care Provider Active Dr. Aiden Islas MD Attending Provider Active Team Status: Inactive Member Role Status Dates Dr. Fartun Saez , Primary Care Provider Active Dr. Aiden Islas MD Attending Provider, Referring Provider Active Object Oriented Developer Relationship Specialty Start Date End Date Fartun Saez IV, DO [address] [place] [id number] PCP - General Family Medicine 11/27/20 Earl Sepulveda MD [address] [place], [place] [phone] Hematology/Oncology 06/07/23 Team Status: Inactive Member Role Status Dates Dr. Fartun Saez , Primary Care Provider, Referrin g Provider Active Fatuma Caldwell PREVOCATIONAL/REHABILITATION COUNSELOR, PREVOCATIONAL/REHABILITATION COUNSELOR-C Attending Provider Active Team Status: Active Member Role Status Dates Dr. Fartun Saez DO Primary Care Provider Active Dr. Aiden Islas MD Attending Provider, Referring Provider Active Team Status: Inactive Member Role Status Dates Dr. Fartun Saez DO Primary Care Provider Active Fatuma Caldwell PREVOCATIONAL/REHABILITATION COUNSELOR, PREVOCATIONAL/REHABILITATION COUNSELOR-C Attending Provider, Referring Pro vider Active Object Oriented Developer Relationship Specialty Start Date End Date Fartun Saez IV, DO [address] [place] [id number] PCP - General Family Medicine 11/27/20 Earl Sepulveda MD [address] [place], [place] [id number] Hematology/Oncology 06/07/23 Object Oriented Developer Relationship Specialty Start Date End Date VenkataBryan Chi [facility] SHERRY KEITH [address] [phone] PCP - General Gerontology 06/22/24 Earl Sepulveda MD [address] [place], [place] [id number] Hematology/Oncology 06/07/23 Team Status: Active Member Role Status Dates Dr. Bryan Hastings MD Primary Care Provider Active Team Status: Inactive Member Role Status Dates Dr. Fartun Saez DO Referring Provider Active Start: September 28, 2024 End: September 28, 2024 Dr. David Aguiar MD Attending Provider Active S tart: September 28, 2024 End: September 28, 2024 Dr. Bryan Hastings MD Primary Care Provider Active Start: September 28, 2024 End: September 28, 2024 Team Status: Inactive Member Role Status Dates Dr. Bryan Hastings MD Primary Care Provider Active Start: December 06, 2024 End: December 06, 2024 Dr. Bryan Hastings MD Attending Provider Active Start: December 06, 2024 End: December 06, 2024 Dr. Bryan Hastings MD Referring Provider Active Start: December 06, 2024 End: December 06, 2024 Object Oriented Developer Relationship Specialty Start Date End Date Bryan Hastings [address] [id number] PCP - General Gerontology 06/22/24 Earl Sepulveda MD [address] [place], [place] [id number] Hematology/Oncology 06/07/23 Team Status: Active Member Role/Relationship Status Dates Dr. Bryan Hastings MD Primary care physician Active Team Status: Inactive Member Role/Relationship Status Dates Dr. Bryan Hastings MD Primary care physician Active Start: December 06, 2024 End: December 06, 2024 Dr. Bryan Hastings MD Attending physician Active Start: December 06, 2024 End: December 06, 2024 Dr. Bryan Hastings MD Referring Provider Active Start: December 06, 2024 End: December 06, 2024 Team Status: Inactive Member Role/Relationship Status Dates Dr. Bryan Hastings MD Primary care physician Active Start: March 07, 2025 End: March 07, 2025 Dr. Saul Jaimes , DO Emergency Departme nt Physician Active Start: March 07, 2025 End: March 07, 2025 Goals (unrecognized section and content) Goals may be documented in a n alternate sectionGoals may be documented in an alternate section No data available for this sectionGoals may be documented in an alternate sectionGoals may be documented in an alternate sectionGoals may be documented in an alternate sectionGoals may be documented in an alternate sectionGoals may be documented in an alternate section FOR RECORDS PERTAINING TO PATIENTS WHO ARE OR HAVE BEEN ENROLLED IN A CHEMICAL DEPENDENCY/SUBSTANCEABUSE PROGRAM, SOME INFORMATION MAY BE OMITTED. This clinical summary was aggregated from multiple sources. Caution should be exercised in using it in the provision of clinical care. This summary normalizes information from multiple sources, and as a consequence, information in this document may materially change the coding, format and clinical context of patient data. In addition, data may be omitted in some cases. CLINICAL DECISIONS SHOULD BE BASED ON THE PRIMARY CLINICAL RECORDS. [facility] [place] [facility]. provides no warranty or guarantee of the accuracy or completeness of information in this document.
== END 2025-03-07 16:35 | disposition home or self-care (01) ==
PROVIDERS: Emergency Provider Emergency Medicine; PCP Family Medicine Geriatric Medicine; Visit Provider Emergency Medicine
DX: R07.9 Chest pain, unspecified (principal); C92.10 Chronic myeloid leukemia, BCR/ABL-positive, not having achieved remission; I10 Essential (primary) hypertension; I25.10 Atherosclerotic heart disease of native coronary artery without angina pectoris; I25.2 Old myocardial infarction; Z87.891 Personal history of nicotine dependence; Z95.1 Presence of aortocoronary bypass graft; Z95.5 Presence of coronary angioplasty implant and graft
CPT/HCPCS: 71045; 80048; 83880; 84484; 85025; 93005; 99284; A4216

== ENCOUNTER → 2025-05-22 | Outpatient (CLI) | payer MEDICARE, SELFPAY ==
--- NOTE | 2025-05-22 08:41 | CDU_ITS ---
Reason For Study Reason For Study: CAROTID DISEASE Rt. Velocities/BP Lt. Velocities/BP Prox CCA 74.3/9.1 cm/sec. Prox CCA 92.8/15.5 cm/sec. Mid CCA 84.2/18.2 cm/sec. Mid CCA 101.4/22.8 cm/sec. Dist CCA 78.7/21.5 cm/sec. Dist CCA 86.7/14.2 cm/sec. Prox ICA 75.4/16.0 cm/sec. Prox ICA 79.7/10.9 cm/sec. Mid ICA 77.6/22.6 cm/sec. Mid ICA 78.5/23.2 cm/sec. Dist ICA 79.8/27.0 cm/sec. Dist ICA 87.1/28.1 cm/sec. Rt. ICA/CCA = 79.8/84.2=0.9. Lt. ICA/CCA = 87.1/101.4=0.9. Prox ECA 89.7/9.5 cm/sec. Prox ECA 119.8/8.4 cm/sec. Rt. Vert. 43.1/8.1 cm/sec. Lt. Vert. 52.7/14.6 cm/sec. Right Extracranial There is heterogeneous, smooth atherosclerotic plaque noted in the right common carotid artery. There is heterogeneous, irregular atherosclerotic plaque noted in the right internal carotid artery. The atherosclerotic plaque causes acoustic shadowing. There is heterogeneous, irregular atherosclerotic plaque noted in the right external carotid artery. Antegrade flow is noted in the right vertebral artery. Left Extracranial There is heterogeneous, irregular atherosclerotic plaque noted in the left common carotid artery. There is heterogeneous, irregular atherosclerotic plaque noted in the left internal carotid artery. The atherosclerotic plaque causes acoustic shadowing. There is heterogeneous, irregular atherosclerotic plaque noted in the left external carotid artery. Antegrade flow is noted in the left vertebral artery. Procedure Carotid Duplex [id number]. This is a Carotid Duplex examination using B-mode, color flow and specral Doppler. Exam performed in department. VL/Carotid Duplex Ultrasound Interpretation Summary Mild (<50%) stenosis right extracranial internal carotid. Mild (<50%) stenosis left extracranial internal carotid. Patent and antegrade vertebrals bilaterally. Ordering Physician: Isabell Adler Referring Physician: Bryan Hastings Chi Performed By: Kimberly Lester, MACHO, RVT
== END | disposition home or self-care (01) ==
LOC: CVS 08:40
PROVIDERS: PCP Family Medicine Geriatric Medicine; Referring Provider Physician Assistant; Visit Provider Physician Assistant
DX: I65.23 Occlusion and stenosis of bilateral carotid arteries (principal)
CPT/HCPCS: 93880

== ENCOUNTER → 2025-06-07 | Outpatient (CLI) | payer MEDICARE, SELFPAY ==
[2025-06-07 09:15] LABS: Hematocrit 44.8 % (40-54); Hemoglobin 15.3 g/dL (13.0-16.5); Immature Granulocytes Count 0.020 X10^3/uL (0.0-0.0); Mean Corp Hgb Conc 34.2 g/dL (32-36); Mean Corpuscular Volume 86.5 fL (80-94); Mean Platelet Vol. 10.1 fl (6.2-12.0); NRBC Flagged by Analyzer 0 % (0-5); Platelet Count 156 K/mm3 (150-450); RBC Distribution Width CV 13.6 % (11.6-14.6); RBC Distribution Width SD 43.0 fl (35.1-43.9); Red Blood Count 5.18 M/mm3 (4.6-6.2); White Blood Count 6.1 K/mm3 (4.4-11.0)
[2025-06-07 10:13] LABS: AST(SGOT) 24 U/L (<=37); Alanine Aminotransfer ALT/SGPT 14 U/L (<=46); Albumin, Serum 4.6 g/dL (3.4-4.8); Alkaline Phosphatase 109 U/L (40-129); Anion Gap 12 (5-15); BUN 23 mg/dL (4-19); BUN/Creat Ratio 18.9 RATIO (10-20); Calcium,Total 10.8 mg/dL (7.6-11.0); Carbon Dioxide 25.5 mmol/L (21.0-32.0); Chloride 103 mmol/L (98-108); Globulin 2.4 g/dL (2.2-4.2); Glucose 100 mg/dL (70-99); Potassium 3.9 mmol/L (3.3-5.1); Vitamin D,25 Hydroxy 15.8 ng/mL (30-100)
[2025-06-07 10:38] LABS: Cholesterol 123 mg/dL (<=200); Low Density Lipoprotein Calc. 60 mg/dL; Triglycerides 173 mg/dL; Very Low Density Lipoprotein 35 mg/dL (5-40); cholesterol:hdl ratio screen 3.64
[2025-06-07 17:06] LABS: Xtra Tube Kwok EXTRA TUBE
== END | disposition home or self-care (01) ==
LOC: POLAB3 09:04
PROVIDERS: PCP Family Medicine Geriatric Medicine; Visit Provider Family Medicine Geriatric Medicine
DX: I10 Essential (primary) hypertension (principal); E55.9 Vitamin D deficiency, unspecified; E78.5 Hyperlipidemia, unspecified
CPT/HCPCS: 36415; 80053; 80061; 82306; 84443; 85025